=== PATIENT | male | born 1965 | race Caucasian/White ===

== ENCOUNTER 2018-08-04 11:32 | Emergency (ER) | payer SELFPAY ==
[2018-08-04 14:10] LABS: Protime INR 1.81
[2018-08-04 14:13] LABS: Absolute Lymphocytes (CBC) 0.7 K/uL (0.7-4.9); Absolute Monocytes 1.3 K/uL (0.1-1.3); Basophils % 0.2 % (0-1.3); Hematocrit 30.6 % (39.6-49.0); Lymphocytes % 4.6 % (15.3-44.8); MCH 32.6 pg (27.0-35.0); MCV 92.6 fL (80-100); MPV 9.2 fL (7.6-11.3); Monocytes % 8.1 % (3.3-12.3)
[2018-08-04] MEDS ORDERED: PANTOPRAZOLE 40 MG INJ ONE (14:20)
--- NOTE | 2018-08-04 14:23 | RAD REPORT ---
EXAM DESCRIPTION: RAD - Chest Single View - 08/04/2018 1:48 pm CLINICAL HISTORY: Leg pain and swelling, shortness of breath, cirrhosis COMPARISON: None. TECHNIQUE: AP portable chest image was obtained 1344 hours . FINDINGS: Lung volumes are low. Lung markings are prominent. Baseline is unknown. Therefore, early i nterstitial edema or infiltrate could be masked. Heart and vasculature are normal. No measurable pleu ral effusion and no pneumothorax. No acute bony abnormality seen. No acute aortic findings suspected. IMPRESSION: Atelectasis and prominent interstitial markings. Mild interstitial edema or infiltrate c annot be excluded. No focal consolidation or mass.
[2018-08-04 14:31] LABS: ALT/SGPT 20 U/L (12-78); AST/SGOT 36 U/L (15-37); Albumin 2.2 g/dL (3.4-5.0); Alkaline Phosphatase 110 U/L (45-117); BUN Blood Urea Nitrogen 31 mg/dL (7-18); Bicarbonate 21 mmol/L (21-32); Bilirubin Total 2.9 mg/dL (0.2-1.0); Glucose Level 139 mg/dL (74-106); Lipase 167 U/L (73-393); NT PRO-BNP 644 pg/mL (<125); Potassium 3.8 mmol/L (3.5-5.1); Protein, Total 6.5 g/dL (6.4-8.2); Sodium Level 133 mmol/L (136-145); Troponin (Emerg Dept Use Only) < 0.02 ng/mL (0.0-0.045)
[2018-08-04 14:33] LABS: Magnesium 1.4 mg/dL (1.8-2.4)
--- NOTE | 2018-08-04 15:21 | RAD REPORT ---
EXAM DESCRIPTION: US - Extrem Venous W Compress Aguilar - 08/04/2018 3:09 pm CLINICAL HISTORY: Leg pain and swelling COMPARISON: None. TECHNIQUE: Real-time sonographic evaluation of the bilateral lower extremity common femoral, superfi cial femoral, popliteal and posterior tibial veins was performed. FINDINGS: Normal compressibility, flow augmentation, phasic flow and spontaneous flow are identified in the left and right lower extremity common femoral, superficial femoral, popliteal and posterior t ibial veins. No intraluminal filling defects seen. Soft tissue edema present with no abscess or drain able fluid collection. IMPRESSION: No DVT in either lower extremity.
--- NOTE | 2018-08-04 16:09 | EDPHYS ---
Physician Documentation [facility] Name: Gorge Ross Age: 52 yrs Sex: Male : 1965 Arrival Date: 08/04/2018 Time: 11:34 Bed 26 Private MD: ED Physician Yan Garcia HPI: 08/04 13:10 This 52 yrs old Male presents to ER via Wheelchair with complaints of Leg Swelling. cp 13:10 The patient presents with pain, that is acute, swelling, tenderness. The complaints cp affect the right diaz, anterior aspect of right ankle and dorsum of right foot. Context: the patient can partially bear weight, the patient is able to ambulate, with moderate difficulty. Onset: The symptoms/episode began/occurred last week. Associated signs and symptoms: Pertinent positives: calf tenderness, swelling, warmth, erythema. Historical: - Allergies: 11:55 No Known Allergies; aj1 - Home Meds: 11:55 spironolactone 25 mg Oral tab 1 tab once daily [Active]; tramadol 50 mg Oral tab 2 tabs aj1 every 6 hours [Active]; amlodipine 10 mg tab 1 tab once daily [Active]; - PMHx: 11:55 Hypertension; Cirrhosis; aj1 - PSHx: 11:55 None; aj1 - Immunization history:: Flu vaccine is not up to date. - Social history:: Smoking status: Patient uses tobacco products, smokes one pack cigarettes per day. - Ebola Screening: : Patient denies travel to an Ebola-affected area in the 21 days before illness onset. ROS: 13:15 Constitutional: Negative for body aches, chills, fever, poor PO intake. cp 13:15 Eyes: Negative for injury, pain, redness, and discharge. cp 13:15 ENT: Negative for drainage from ear(s), ear pain, sore throat, difficulty swallowing, difficulty handling secretions. 13:15 Neck: Negative for pain with movement, pain at rest, stiffness, tenderness. 13:15 Cardiovascular: Positive for edema, Negative for chest pain, palpitations. 13:15 Respiratory: Negative for cough, hemoptysis, shortness of breath, wheezing. 13:15 Abdomen/GI: Positive for abdominal distension, Negative for abdominal pain, vomiting, diarrhea, constipation, black/tarry stool. 13:15 Back: Negative for pain at rest, pain with movement, radiated pain. 13:15 : Negative for injury or acute deformity. 13:15 MS/extremity: Positive for erythema, pain, swelling, tenderness, of the right lower leg, Negative for injury or acute deformity. 13:15 Neuro: Negative for altered mental status, headache, weakness. 13:15 All other systems are negative. Exam: 13:20 Constitutional: The patient appears in no acute distress, alert, awake, cp non-diaphoretic, non-toxic, well developed. 13:20 Head/Face: Normocephalic, atraumatic. cp 13:20 Eyes: Periorbital structures: appear normal, Pupils: equal, round, and reactive to light and accomodation, Extraocular movements: intact throughout, Conjunctiva: normal, no exudate, no injection, Sclera: no appreciated abnormality, Lids and lashes: appear normal, bilaterally. 13:20 ENT: External ear(s): are unremarkable, Ear canal(s): are normal, clear, TM's: are normal, no evidence of bulging, no erythema, Nose: is normal, Mouth: Lips: dry, Oral mucosa: moist, noted dark colored blood on tongue, Posterior pharynx: Airway: no evidence of obstruction, patent, Uvula: normal, swelling, is not appreciated, erythema, that is mild, Voice: is normal. 13:20 Neck: ROM/movement: is normal, is supple, without pain, no range of motions limitations, no meningismus, no nuchal rigidity. 13:20 Chest/axilla: Inspection: normal, Palpation: is normal, no crepitus, no tenderness. 13:20 Cardiovascular: Rate: tachycardic, Rhythm: regular, Edema: pedal edema, that is marked, ankle edema, that is marked, JVD: is not appreciated. 13:20 Respiratory: the patient does not display signs of respiratory distress, Respirations: normal, no use of accessory muscles, no retractions, no splinting, no tachypnea, labored breathing, is not present, Breath sounds: are clear throughout, no decreased breath sounds, no stridor, no wheezing. 13:20 Abdomen/GI: Inspection: distension, that is severe, Bowel sounds: active, all quadrants, Palpation: abdomen is soft and non-tender, in all quadrants, rebound tenderness, is not appreciated, involuntary guarding, is not appreciated, Rectal exam: Stool: brown, guaiac positive, Liver: is enlarged, Hernia: noted in the paraumbilical area and umbilical area. 13:20 Back: pain, is absent, ROM is normal. 13:20 Skin: Appearance: Color: jaundiced, Temperature: warm, cellulitis, well demarcated, on the right lower leg, appears circumferential. 13:20 Neuro: Orientation: to person, place \T\ time. Mentation: is normal, Cerebellar function: is grossly normal, Motor: is normal, Sensation: is normal. 13:33 ECG was reviewed by the Attending Physician. Vital Signs: 11:55 BP 106 / 65; Pulse 110; Resp 20; Temp 99.7; Pulse Ox 100% on R/A; Weight 81.65 kg (R); aj1 Height 5 ft. 7 in. (170.18 cm) (R); Pain 8/10; 13:00 BP 110 / 52; Pulse 114; Resp 20; Pulse Ox 100% ; aj1 14:00 BP 98 / 52; Pulse 100; Resp 18; Pulse Ox 97% on R/A; aj1 15:00 BP 95 / 66; Pulse 109; Resp 20; Pulse Ox 97% ; aj1 16:00 BP 102 / 58; Pulse 97; Resp 20; Pulse Ox 96% on R/A; aj1 17:00 BP 107 / 71; Pulse 96; Resp 18; Pulse Ox 97% on R/A; aj1 18:00 BP 112 / 62; Pulse 93; Resp 18; Pulse Ox 96% on R/A; aj1 11:55 Body Mass Index 28.19 (81.65 kg, 170.18 cm) [facility] MDM: 12:41 Patient medically screened. cp 15:25 Data reviewed: vital signs, nurses notes, lab test result(s), EKG, radiologic studies, cp plain films, ultrasound. 15:25 Test interpretation: by ED physician or midlevel provider: ECG, plain radiologic cp studies. 15:34 Physician consultation: DR Hayes, radio despatcher \T\[facility], will cp consult on patient and requests transfer to hospitalist services. 08/04 13:12 Order name: Lipase cp 08/04 13:12 Order name: Procalcitonin cp 08/04 13:12 Order name: AMMONIA; Complete Time: 14:32 cp / 14:33 Interpretation: Within normal limits: AIDEN 37. cp / 13:12 Order name: ETOH Level; Complete Time: 14:32 cp 08/04 13:12 Order name: Lactate; Complete Time: 14:32 cp / 15:33 Interpretation: Abnormal: LAC 2.7. cp / 13:12 Order name: Tylenol Level; Complete Time: 14:34 cp 08/04 13:12 Order name: Blood Culture Adult (2) cp 08/04 13:12 Order name: Basic Metabolic Panel; Complete Time: 14:34 cp 08/04 14:36 Interpretation: Normal except: NA 133; GLUC 139; BUN 31; GFR 58; CA 7.9. / 13:12 Order name: CBC with Diff 08/04 14:35 Interpretation: Normal except: WBC 16.1; RBC 3.30; HGB 10.8; HCT 30.6; PLT 65; ROSALIE% cp 87.1; LYM% 4.6; NEUT A 14.0. 08/04 13:12 Order name: LFT's; Complete Time: 14:35 08/04 14:35 Interpretation: Normal except: BILIT 2.9; BILID 2.0; ALB 2.2; GLOB 4.3; A/G 0.5. 08/04 13:12 Order name: Magnesium; Complete Time: 14:35 08/04 14:35 Interpretation: Abnormal: MG 1.4. 08/04 13:12 Order name: NT PRO-BNP; Complete Time: 14:36 08/04 13:12 Order name: PT-INR; Complete Time: 14:13 08/04 14:13 Interpretation: Abnormal: PT 21.5. 08/04 13:12 Order name: Troponin (emerg Dept Use Only); Complete Time: 14:36 08/04 13:12 Order name: US Extremity Venous W Compression Aguilar; Complete Time: 15:28 08/04 15:28 Interpretation: Report reviewed. 08/04 13:12 Order name: XRAY Chest (1 view); Complete Time: 14:32 08/04 13:13 Order name: Lipase; Complete Time: 14:34 EDMS 08/04 13:13 Order name: Procalcitonin; Complete Time: 15:00 EDMS 12/02 15:32 Interpretation: Procalcitonin 2.36; Reviewed. cp 08/04 14:16 Order name: Wound Culture 08/04 14:30 Order name: CBC Smear Scan EDAZ 08/04 14:39 Order name: ABO/RH typing EDAZ 08/04 14:39 Order name: Antibody Screen EDAZ 08/04 16:48 Order name: ABO/RH no charge EDAZ 08/04 13:12 Order name: EKG; Complete Time: 13:14 cp 08/04 13:12 Order name: Cardiac monitoring; Complete Time: 13:33 cp 08/04 13:12 Order name: EKG - Nurse/Tech; Complete Time: 13:33 cp 08/04 13:12 Order name: IV Saline Lock; Complete Time: 14:01 cp 08/04 13:12 Order name: Labs collected and sent; Complete Time: 14:01 cp 08/04 13:12 Order name: O2 Per Protocol; Complete Time: 13:33 cp 08/04 13:12 Order name: O2 Sat Monitoring; Complete Time: 13:33 cp EC:33 Rate is 96 beats/min. Rhythm is regular. SC interval is normal. QRS interval is normal. cp QT interval is normal. Interpreted by me. Reviewed by me. Administered Medications: 15:01 CANCELLED (Physician Discretion): NS 0.9% 500 ml IV at bolus once cp 15:30 Drug: Magnesium Sulfate 2 grams Route: IVPB; Infused Over: 2 hrs; Site: left aj1 antecubital; 15:33 CANCELLED (Physician Discretion): NS 0.9% 1000 ml IV at 1 bolus Per protocol; 1000 mL cp bolus 16:00 Drug: vancoMYCIN 1 grams Route: IVPB; Infused Over: 2 hrs; Site: left antecubital; aj1 16:20 CANCELLED (Physician Discretion): fentaNYL (PF) 25 mcg IVP once cp 16:32 Drug: ProTONIX 40 mg Route: IVP; Site: left antecubital; aj1 16:32 Drug: Vitamin K1 10 mg Route: Sub-Q; Site: right lower abdomen; aj1 16:46 Drug: Zosyn 3.375 grams Route: IVPB; Infused Over: 60 mins; Site: left antecubital; aj1 16:46 Drug: NS 0.9% (30 ml/kg) 30 ml/kg Route: IV; Rate: bolus; Site: left antecubital; aj1 16:47 Drug: fentaNYL (PF) 50 mcg Route: IVP; Site: left antecubital; aj1 18:07 Drug: ProTONIX 8 mg/hr Route: IV; Rate: 25 ml/hr; Site: left antecubital; aj1 Disposition: 08/05 07:36 Co-signature as Attending Physician, Yan Garcia MD I agree with the assessment and kristin plan of care. Disposition: 08/04/18 16:08 Transfer ordered to [facility]. Diagnosis are Other sepsis, Cellulitis of right lower limb, Alcoholic cirrhosis of liver with ascites, Gastrointestinal hemorrhage, unspecified. - Reason for transfer: Higher level of care. - Accepting physician is DR Benedict. - Condition is Stable. - Problem is new. - Symptoms have improved. Signatures: Dispatcher [employer] EDMS Katherine Deleon RN RN aj1 Anderson, Corey, MD MD cha Page, Corey, PA PA cp Corrections: (The following items were deleted from the chart) 08/04 14:36 14:34 Normal except: NA 133; GLUC 139; BUN 31; GFR 58. cp cp 14:39 13:14 TYPE AND SCREEN+BB.LAB.BRZ ordered. EDMS EDMS 15: 14:34 NS 0.9% 500 ml IV at bolus once ordered. cp cp 15:11 08/03 13:15 Constitutional: Negative for body aches, chills, fever, poor PO intake, cp cp 08/04 15:11 08/03 13:15 Eyes: Negative for injury, pain, redness, and discharge, cp cp 08/04 15:11 12 13:15 ENT: Negative for drainage from ear(s), ear pain, sore throat, difficulty cp swallowing, difficulty handling secretions, cp 08/04 15:11 12 13:15 Cardiovascular: Positive for edema, Negative for chest pain, palpitations, cp cp 08/04 15:11 12 13:15 Respiratory: Negative for cough, shortness of breath, wheezing, cp cp 08/04 15:11 12 13:15 Abdomen/GI: Positive for abdominal distension, Negative for abdominal pain, cp vomiting, diarrhea, constipation, black/tarry stool, cp 08/04 15:11 12 13:15 Back: Negative for pain at rest, pain with movement, radiated pain, cp cp 08/04 15:11 08/03 13:15 : Negative for urinary symptoms, flank pain, cp cp 08/04 15:11 12 13:15 Skin: Positive for cellulitis, of the right lower leg, cp cp 08/04 15:11 12 13:15 Neuro: Negative for altered mental status, headache, weakness, cp cp 08/04 15:11 12 13:15 All other systems are negative, cp 08/04 15:33 15:02 NS 0.9% 1000 ml IV at 1 bolus Per protocol; 1000 mL bolus ordered. cp cp 16:20 16:20 fentaNYL (PF) 25 mcg IVP once ordered. cp cp 16:33 16:08 08/04/2018 16:08 Transfer ordered to [facility]. Diagnosis is cp Other sepsis. Reason for transfer: Higher level of care. Accepting physician is DR Benedict. Condition is Stable. Problem is new. Symptoms have improved. cp 19:36 16:33 08/04/2018 16:08 Transfer ordered to [facility]. Diagnosis is aj1 Other sepsis; Cellulitis of right lower limb; Alcoholic cirrhosis of liver with ascites; Gastrointestinal hemorrhage, unspecified. Reason for transfer: Higher level of care. Accepting physician is DR Benedict. Condition is Stable. Problem is new. Symptoms have improved. cp
--- NOTE | 2018-08-04 16:09 | ER ---
Nurse's Notes [facility] Name: Gorge Ross Age: 52 yrs Sex: Male : 1965 Arrival Date: 08/04/2018 Time: 11:34 Bed 26 Private MD: Diagnosis: Other sepsis;Cellulitis of right lower limb;Alcoholic cirrhosis of liver with ascites;Gastrointestinal hemorrhage, unspecified Presentation: 08/04 11:49 Presenting complaint: Patient states: He was diagnosed with cirrhosis so he quit aj1 drinking 3 months ago. Now he's bleeding from his mouth, and he has swelling to his legs and abdomen. Edema noted to bilateral lower legs. Redness noted to right lower leg. Patient states that he is unable to walk due to the pain in his right leg. Transition of care: patient was not received from another setting of care. Onset of symptoms was July 2018. Risk Assessment: Do you want to hurt yourself or someone else? Patient reports no desire to harm self or others. Initial Sepsis Screen: Does the patient meet any 2 criteria? No. Patient's initial sepsis screen is negative. Does the patient have a suspected source of infection? Yes: Skin breakdown/wound. Initial Sepsis Screen: Does the patient meet any 2 criteria? HR > 90 bpm. No. Patient's initial sepsis screen is negative. Care prior to arrival: None. 11:49 Method Of Arrival: Wheelchair aj1 11:49 Acuity: FAITH 3 aj1 Triage Assessment: 11:55 General: Appears in no apparent distress. uncomfortable, ill, Behavior is calm, aj1 cooperative, appropriate for age. Pain: Complains of pain in right leg Pain currently is 8 out of 10 on a pain scale. Neuro: Level of Consciousness is awake, alert, obeys commands. Cardiovascular: Patient's skin is warm and dry. Respiratory: Reports. Respiratory: Reports shortness of breath on exertion Airway is patent Respiratory effort is even, unlabored, Respiratory pattern is regular, symmetrical. Historical: - Allergies: 11:55 No Known Allergies; aj1 - Home Meds: 11:55 spironolactone 25 mg Oral tab 1 tab once daily [Active]; tramadol 50 mg Oral tab 2 tabs aj1 every 6 hours [Active]; amlodipine 10 mg tab 1 tab once daily [Active]; - PMHx: 11:55 Hypertension; Cirrhosis; aj1 - PSHx: 11:55 None; aj1 - Immunization history:: Flu vaccine is not up to date. - Social history:: Smoking status: Patient uses tobacco products, smokes one pack cigarettes per day. - Ebola Screening: : Patient denies travel to an Ebola-affected area in the 21 days before illness onset. Screenin:00 Abuse screen: Denies threats or abuse. Denies injuries from another. Nutritional aj1 screening: No deficits noted. Tuberculosis screening: No symptoms or risk factors identified. 18:30 Fall Risk No fall in past 12 months (0 pts). Secondary diagnosis (15 points) impaired aj1 mobility, IV access (20 points). Ambulatory Aid- None/Bed Rest/Nurse Assist (0 pts). Gait- Impaired (20 pts.). Mental Status- Oriented to own ability (0 pts). Total Limon Fall Scale indicates High Risk Score (45 or more points). As available patient and family educated on Fall Prevention Program and Strategies. Assessment: 13:00 General: Appears in no apparent distress. uncomfortable, Behavior is calm, cooperative, aj1 appropriate for age. Pain: Complains of pain in right leg. Neuro: Level of Consciousness is awake, alert, obeys commands, Oriented to person, place, time, situation. Cardiovascular: Patient's skin is warm and dry. Cardiovascular: Heart tones S1 S2 present Edema is 3+ to left midcalf, left ankle, right midcalf and right ankle is 4+ to left foot and right foot Rhythm is sinus tachycardia. Respiratory: Reports shortness of breath on exertion Airway is patent Respiratory effort is even, unlabored, Respiratory pattern is regular, symmetrical. GI: Abdomen is round distended, noted to have ascites, Abd is rigid X 4 quads. Patient currently denies abdominal pain, diarrhea, nausea, vomiting. : No signs and/or symptoms were reported regarding the genitourinary system. EENT: No signs and/or symptoms were reported regarding the EENT system. Derm: Skin is jaundiced, redness noted to right lower leg. Musculoskeletal: Range of motion: intact in all extremities. 14:00 Reassessment: Patient appears in no apparent distress at this time. No changes from aj1 previously documented assessment. Patient and/or family updated on plan of care and expected duration. Pain level reassessed. Patient is alert, oriented x 3, equal unlabored respirations, skin warm/dry/pink. 14:29 Reassessment: Lactic acid 2.7, JOHN Heredia notified. hb 15:00 Reassessment: Patient and/or family updated on plan of care and expected duration. Pain aj1 level reassessed. General: Appears in no apparent distress. uncomfortable, Behavior is calm, cooperative, appropriate for age. Neuro: Level of Consciousness is awake, alert, obeys commands. Cardiovascular: Patient's skin is warm and dry. Rhythm is sinus rhythm. Respiratory: Airway is patent Respiratory effort is even, unlabored, Respiratory pattern is regular, symmetrical. GI: Abdomen is round distended, noted to have ascites. Derm: Skin is jaundiced. Musculoskeletal: Range of motion: intact in all extremities. 16:00 Reassessment: Patient appears in no apparent distress at this time. No changes from aj1 previously documented assessment. Patient and/or family updated on plan of care and expected duration. Pain level reassessed. Patient is alert, oriented x 3, equal unlabored respirations, skin warm/dry/pink. 16:40 Reassessment: Patient states that he is having a lot of pain to his right lower leg. aj1 Notified JOHN Stewart. Order received. 17:00 Reassessment: Patient states that the pain medication has taken his pain away. Rates aj1 pain at 0/10 at this time. 18:00 Reassessment: Patient and/or family updated on plan of care and expected duration. Pain aj1 level reassessed. General: Appears in no apparent distress. comfortable, Behavior is calm, cooperative, appropriate for age. Pain: Denies pain. Neuro: Level of Consciousness is awake, alert, obeys commands, Oriented to person, place, time, situation. Cardiovascular: Patient's skin is warm and dry. Rhythm is sinus rhythm. Respiratory: Airway is patent Respiratory effort is even, unlabored, Respiratory pattern is regular, symmetrical. GI: Abdomen is round distended, noted to have ascites. : No signs and/or symptoms were reported regarding the genitourinary system. Derm: Skin is jaundiced. Musculoskeletal: Range of motion: intact in all extremities. 18:30 Reassessment: Patient appears in no apparent distress at this time. No changes from aj1 previously documented assessment. Patient and/or family updated on plan of care and expected duration. Pain level reassessed. Patient is alert, oriented x 3, equal unlabored respirations, skin warm/dry/pink. Vital Signs: 11:55 BP 106 / 65; Pulse 110; Resp 20; Temp 99.7; Pulse Ox 100% on R/A; Weight 81.65 kg (R); aj1 Height 5 ft. 7 in. (170.18 cm) (R); Pain 8/10; 13:00 BP 110 / 52; Pulse 114; Resp 20; Pulse Ox 100% ; aj1 14:00 BP 98 / 52; Pulse 100; Resp 18; Pulse Ox 97% on R/A; aj1 15:00 BP 95 / 66; Pulse 109; Resp 20; Pulse Ox 97% ; aj1 16:00 BP 102 / 58; Pulse 97; Resp 20; Pulse Ox 96% on R/A; aj1 17:00 BP 107 / 71; Pulse 96; Resp 18; Pulse Ox 97% on R/A; aj1 18:00 BP 112 / 62; Pulse 93; Resp 18; Pulse Ox 96% on R/A; aj1 11:55 Body Mass Index 28.19 (81.65 kg, 170.18 cm) aj1 ED Course: 11:34 Patient arrived in ED. sb2 11:53 Triage completed. aj1 11:55 Arm band placed on Patient placed in waiting room, Patient notified of wait time. aj1 12:40 Yan Collins PA is PHCP. cp 12:40 Yan Garcia MD is Attending Physician. cp 13:00 Patient has correct armband on for positive identification. Bed in low position. Call aj1 light in reach. Side rails up X 1. bus driver/monitor on. Pulse ox on. NIBP on. 13:00 No provider procedures requiring assistance completed. aj1 13:32 EKG done, by ED staff, reviewed by Yan LOPEZ. jb1 13:35 First set of blood cultures drawn by me. jb1 13:47 X-ray completed. Portable x-ray completed in exam room. Patient tolerated procedure la2 well. 13:49 XRAY Chest (1 view) In Process Unspecified. EDMS 13:50 Second set of blood cultures drawn by me. jb1 13:58 Initial lab(s) drawn, by me, sent to lab. Inserted saline lock: 20 gauge in right jb1 antecubital area, using aseptic technique. Blood collected. 14:00 T\T\S collected, blood band applied to patient. jb1 14:07 Katherine Deleon, RN is Primary Nurse. aj1 14:15 IV discontinued, IV infilrated. IV dc'd catheter intact, no redness noted to site, aj1 pressure drsg applied. Patient otlerated well. 14:17 Missed attempt(s): 22 gauge in right antecubital area. Bleeding controlled, band aid aj1 applied, catheter tip intact. 14:20 Missed attempt(s): 22 gauge in right antecubital area. Bleeding controlled, band aid aj1 applied, catheter tip intact. 14:36 Inserted saline lock: 20 gauge in left antecubital area, using aseptic technique. hb 15:07 Ultrasound completed. Patient tolerated well. sg3 15:07 Notified LITERATURE PROFESSOR/PA yan with u/s prelim. sg3 15:10 US Extremity Venous W Compression Aguilar In Process Unspecified. EDMS 16:30 Missed attempt(s): 20 gauge in left antecubital area. by EVANGELISTA Robert. aj1 16:35 Inserted saline lock: 20 gauge in left antecubital area, using aseptic technique. aj1 ,using aseptic technique. by EVANGELISTA Robert. 18:07 Report given to Nina Hendricks RN at [facility]. aj1 Administered Medications: 15:01 CANCELLED (Physician Discretion): NS 0.9% 500 ml IV at bolus once cp 15:30 Drug: Magnesium Sulfate 2 grams Route: IVPB; Infused Over: 2 hrs; Site: left aj1 antecubital; 15:33 CANCELLED (Physician Discretion): NS 0.9% 1000 ml IV at 1 bolus Per protocol; 1000 mL cp bolus 16:00 Drug: vancoMYCIN 1 grams Route: IVPB; Infused Over: 2 hrs; Site: left antecubital; aj1 16:20 CANCELLED (Physician Discretion): fentaNYL (PF) 25 mcg IVP once cp 16:32 Drug: ProTONIX 40 mg Route: IVP; Site: left antecubital; aj1 16:32 Drug: Vitamin K1 10 mg Route: Sub-Q; Site: right lower abdomen; aj1 16:46 Drug: Zosyn 3.375 grams Route: IVPB; Infused Over: 60 mins; Site: left antecubital; aj1 16:46 Drug: NS 0.9% (30 ml/kg) 30 ml/kg Route: IV; Rate: bolus; Site: left antecubital; aj1 16:47 Drug: fentaNYL (PF) 50 mcg Route: IVP; Site: left antecubital; aj1 18:07 Drug: ProTONIX 8 mg/hr Route: IV; Rate: 25 ml/hr; Site: left antecubital; aj1 Outcome: 16:08 ER care complete, transfer ordered by MD. murphy 18:35 Patient left the ED. aj1 18:35 Transferred by ground EMS to [facility]. aj1 18:35 Condition: stable 18:35 Instructed on the need for transfer, Demonstrated understanding of instructions. Signatures: Dispatcher [employer] EDMS Joaquim Velez1 Katherine Deleon RN RN aj1 Yan Collins PA PA cp Baxter, Heather, RN RN Jailene Rome2 Barbara Au3 Gloria August2 Corrections: (The following items were deleted from the chart) 19:46 19:36 Patient left the ED. aj1 aj1
[2018-08-04] MEDS ORDERED: PIPER/TAZO/NS 3.375gm 3.375 GM/100 ML BAG ONE (16:20)
[2018-08-04] MEDS ORDERED: Magnesium Sulfate 2gm IVPB 2 G/50 ML BAG IV ONE (16:20)
[2018-08-04] MEDS ORDERED: VITAMIN K (ADULT) 10 MG/ML ONE (16:20)
[2018-08-04] MEDS ORDERED: VANCOMYCIN 1 GM/250 ML BAG ONE (16:20)
[2018-08-04] MEDS ORDERED: NA CHLORIDE 0.9% 2,000 ML ONE (16:21)
[2018-08-04 16:28] LABS: Blood Morphology Comment NOT SEEN (NOT SEEN); Platelet Estimate DECR; Toxic Granulation PRESENT; Urine White Blood Cell Casts OK
[2018-08-04] MEDS ORDERED: PANTOPRAZOLE INJ 80 MG in NA CHLORIDE 0.9% 250 ML IV SCH (17:00)
[2018-08-04] MEDS ORDERED: FENTANYL CITR 100 MCG/2 ML ONE (18:29)
--- NOTE | 2018-08-05 07:41 | EKG ---
Test Date: 2018-08-04 Test Time: 13:24:57 Building Principal: CHIRAG MEASUREMENT RESULTS: Intervals: Rate: 96 GA: 136 QRSD: 98 QT: 358 QTc: 452 Dustin: P: 75 GA: 136 QRS: 34 T: 5 INTERPRETIVE STATEMENTS: Normal sinus rhythm Normal ECG No previous ECG available for comparison Electronically Signed On 08-05-18 07:39:20 [employer]PER[employer] by Jefferson Trejo
== END 2018-08-04 19:36 | disposition short-term general hospital (02) ==
LOC: ER 11:32
DX: A41.89 Other specified sepsis (principal); K70.31 Alcoholic cirrhosis of liver with ascites; K92.2 Gastrointestinal hemorrhage, unspecified; I10 Essential (primary) hypertension; F17.210 Nicotine dependence, cigarettes, uncomplicated
CPT/HCPCS: 36415; 71045; 80048; 80076; 80320; 80329; 82140; 83605; 83690; 83735; 83880; 84145; 84484; 85025; 85610; 86850; 86900; 86901; 87040; 87070; 87077; 87186; 87205; 93005; 93970; 96372; 96374; 96375; 99285; C9113; J2543; J3010; J3370; J3430; J3475; J7030

== ENCOUNTER 2018-10-04 14:28 | Emergency (ER) | payer SELFPAY ==
--- OUTSIDE RECORDS SUMMARY | 2018-10-04 14:31 | XMS REPORT | Clinical Summary ---
:1965 Author Organization [facility] Address [address] [place] [address] Care Team Providers Name Role Phone Unavailable Primary Care Provider Unavailable Allergies No Known Allergies Medications Medication Sig Dispensed Refills Start Date End Date Status clindamycin (CLEOCIN) Take 1 capsule 30 capsule 0 08/07/2018 08/17/2018 300 MG capsule (300 mg total) by mouth 3 (three) times daily for 10 days. folic acid (FOLVITE) 1 Take 1 tablet 30 tablet 3 08/07/2018 09/06/2018 MG tablet (1 mg total) by mouth daily for 30 days. furosemide (LASIX) 40 Take 1 tablet 30 tablet 3 08/07/2018 09/06/2018 MG tablet (40 mg total) by mouth daily for 30 days. multivitamin Take 1 tablet 30 tablet 3 08/07/2018 09/06/2018 (THERAGRAN) tablet by mouth daily for 30 days. spironolactone Take 1 tablet 30 tablet 3 08/07/2018 09/06/2018 (ALDACTONE) 100 MG (100 mg total) tablet by mouth daily for 30 days. pantoprazole Take 1 tablet 60 tablet 2 08/07/2018 09/06/2018 (PROTONIX) 40 MG (40 mg total) tablet by mouth 2 (two) times daily for 30 days. Active Problems Problem Noted Date Alcoholic cirrhosis of liver with ascites 08/07/2018 Cellulitis of right lower extremity 08/05/2018 Gums, bleeding 08/05/2018 Thrombocytopenia 08/05/2018 Upper GI bleed 08/04/2018 Encounters Date Type Specialty Care Team Description 08/06/2018 Anesthesia Event Gastroenterology José Luis Teran MD 08/06/2018 Surgery Gastroenterology Schulte, Manreet, UPPER ENDOSCOPY,BIOPSY 08/04/2018 - Hospital Encounter Intensive Care Rafaelaa, Cellulitis of right lower extremity (Primary Dx); 08/07/2018 Eamon Bailey MD Gums, bleeding; Changela, Cirrhosis of liver with ascites, unspecified hepatic cirrhosis type (HCC); Nona Haji MD Thrombocytopenia (HCC); Jazz Upper GI bleed; Lyubov Aquinoa Portal hypertension (HCC); MD Armando Other ascites; Immunity status testing; Screening for malignant neoplasm 08/04/2018 Telephone Gastroenterology Tati Hayes Bleeding/Bruising MD Kina after 10/03/2017 Immunizations Name Dates Previously Given Next Due Hepatitis B Adult IM 08/06/2018 Social History Tobacco Use Types Packs/Day Years Used Date Current Every Day Smoker Cigarettes 1 30 Smokeless Tobacco: Never Used Tobacco Cessation: Counseling Given: No Alcohol Use Drinks/Week oz/Week Comments No Previously drank 6 shots of liquor and 2 beers daily for years. Last drink ~ 07/18/18. Alcohol Habits Answer Date Recorded How often do you have a drink containing alcohol? Never 08/04/2018 How many drinks containing alcohol do you have on a typical Not asked day when you are drinking? How often do you have six or more drinks on one occasion? Not asked Sex Assigned at Date Recorded Not on file Job Start Date Occupation Industry Not on file Not on file Not on file Travel History Travel Start Travel End No recent travel history available. Last Filed Vital Signs Vital Sign Reading Time Taken Blood Pressure 117/61 08/07/2018 7:25 AM CUSTOMER SERVICE ASSOCIATE Pulse 71 08/07/2018 7:25 AM CUSTOMER SERVICE ASSOCIATE Temperature 36.5 C (97.7 F) 08/07/2018 7:25 AM CUSTOMER SERVICE ASSOCIATE Respiratory Rate 17 08/07/2018 7:25 AM CUSTOMER SERVICE ASSOCIATE Oxygen Saturation 97% 08/07/2018 7:25 AM CUSTOMER SERVICE ASSOCIATE Inhaled Oxygen Concentration - - Weight 65.8 kg (145 lb 1 oz) 08/07/2018 5:00 AM CUSTOMER SERVICE ASSOCIATE Height 172.7 cm (5' 7.99") 08/04/2018 8:04 PM CUSTOMER SERVICE ASSOCIATE Body Mass Index 22.06 08/07/2018 5:00 AM CUSTOMER SERVICE ASSOCIATE Plan of Treatment Not on file Procedures Procedure Name Priority Date/Time Associated Diagnosis Comments RHYTHM STRIP - SCAN 08/13/2018 11:20 AM CUSTOMER SERVICE ASSOCIATE CBC W/PLT COUNT & Routine 08/07/2018 4:13 Results for this AUTO DIFFERENTIAL AM C[employer]OMER SERVICE ASSOCIATE procedure are in the results section. VANCOMYCIN LEVEL, Routine 08/07/2018 4:13 Results for this RANDOM AM C[employer]OMER SERVICE ASSOCIATE procedure are in the results section. PROTHROMBIN Routine 08/07/2018 4:13 Results for this TIME/INR AM C[employer]OMER SERVICE ASSOCIATE procedure are in the results section. HEPATIC FUNCTION Routine 08/07/2018 4:13 Results for this PANEL AM CUSTOMER SERVICE ASSOCIATE procedure are in the results section. BASIC METABOLIC Routine 08/07/2018 4:13 Results for this PANEL (7) AM CUSTOMER SERVICE ASSOCIATE procedure are in the results section. CBC W/PLT COUNT & Routine 08/07/2018 4:13 Results for this AUTO DIFFERENTIAL AM CUSTOMER SERVICE ASSOCIATE procedure are in the results section. TRANSFUSION SERVICE 08/06/2018 6:02 REPORT - SCAN PM CUSTOMER SERVICE ASSOCIATE VANCOMYCIN LEVEL, Timed 08/06/2018 4:34 Results for this TROUGH PM C[employer]OMER SERVICE ASSOCIATE procedure are in the results section. REPORT OF PROCEDURE 08/06/2018 1:49 - ENDOSCOPY URL PM CUSTOMER SERVICE ASSOCIATE TISSUE EXAM AP Routine 08/06/2018 1:16 Results for this PM C[employer]OMER SERVICE ASSOCIATE procedure are in the results section. UPPER 08/06/2018 12:00 Gastrointestinal ENDOSCOPY,BANDING PM C[employer]OMER SERVICE ASSOCIATE hemorrhage, unspecified gastrointestinal hemorrhage type Hepatic cirrhosis, unspecified hepatic cirrhosis type, unspecified whether ascites present (HCC) Special Needs Req: 12 - per Syedtasleem @ [phone] UPPER ENDOSCOPY,BIOPSY 08/06/2018 12:00 PM CUSTOMER SERVICE ASSOCIATE Gastrointestinal hemorrhage , unspecified gastrointestinal hemorrhage type Hepatic cirrhosis, unspecified hepatic cirrhosis type, unspecified whether ascites present (HCC) Special Needs Req: 12 - per Syedtasleem @ [phone] CBC W/PLT COUNT & AUTO Routine 08/06/2018 4:35 AM CUSTOMER SERVICE ASSOCIATE Results for this DIFFERENTIAL procedure are in the results section. PROTHROMBIN TIME/INR Routine 08/06/2018 4:35 AM CUSTOMER SERVICE ASSOCIATE HEPATIC FUNCTION PANEL Routine 08/06/2018 4:35 AM CUSTOMER SERVICE ASSOCIATE BASIC METABOLIC PANEL (7) Routine 08/06/2018 4:35 AM CUSTOMER SERVICE ASSOCIATE CBC W/PLT COUNT & AUTO Routine 08/06/2018 4:35 AM CUSTOMER SERVICE ASSOCIATE Results for this DIFFERENTIAL procedure are in the results section. HEMOGLOBIN AND HEMATOCRIT Routine 08/05/2018 10:51 PM CUSTOMER SERVICE ASSOCIATE TRANSFUSION SERVICE REPORT - 08/05/2018 6:00 PM CUSTOMER SERVICE ASSOCIATE SCAN HEPATITIS C PCR, Routine 08/05/2018 5:45 PM CUSTOMER SERVICE ASSOCIATE Results for this QUANTITATIVE procedure are in the results section. PROTEIN, BODY FLUID Routine 08/05/2018 5:18 PM CUSTOMER SERVICE ASSOCIATE LACTATE DEHYDROGENASE (LDH), Routine 08/05/2018 5:18 PM CUSTOMER SERVICE ASSOCIATE Results for this BODY FLUID procedure are in the results section. ALBUMIN, BODY FLUID Routine 08/05/2018 5:18 PM CUSTOMER SERVICE ASSOCIATE BODY FLUID CULTURE + GRAM Routine 08/05/2018 4:30 PM CUSTOMER SERVICE ASSOCIATE Results for this STAIN procedure are in the results section. BODY FLUID CELL COUNT WITH Routine 08/05/2018 4:30 PM CUSTOMER SERVICE ASSOCIATE Results for this DIFFERENTIAL procedure are in the results section. US PARACENTESIS Routine 08/05/2018 4:04 PM CUSTOMER SERVICE ASSOCIATE US ABDOMINAL WITH DOPPLER STAT 08/05/2018 2:30 PM CUSTOMER SERVICE ASSOCIATE AMMONIA Routine 08/05/2018 1:40 PM CUSTOMER SERVICE ASSOCIATE VITAMIN B12 AND FOLATE Routine 08/05/2018 1:40 PM CUSTOMER SERVICE ASSOCIATE VENOUS DOPPLER LEG, RIGHT STAT 08/05/2018 1:15 PM CUSTOMER SERVICE ASSOCIATE URINALYSIS W/ REFLEX URINE Routine 08/05/2018 3:56 AM CUSTOMER SERVICE ASSOCIATE Results for this CULTURE procedure are in the results section. (CELLAVISION MANUAL DIFF) Routine 08/05/2018 3:55 AM CUSTOMER SERVICE ASSOCIATE CBC W/PLT COUNT & AUTO Routine 08/05/2018 3:55 AM CUSTOMER SERVICE ASSOCIATE Results for this DIFFERENTIAL procedure are in the results section. PROTHROMBIN TIME/INR Routine 08/05/2018 3:55 AM CUSTOMER SERVICE ASSOCIATE HEPATIC FUNCTION PANEL Routine 08/05/2018 3:55 AM CUSTOMER SERVICE ASSOCIATE BASIC METABOLIC PANEL (7) Routine 08/05/2018 3:55 AM CUSTOMER SERVICE ASSOCIATE CBC W/PLT COUNT & AUTO Routine 08/05/2018 3:55 AM CUSTOMER SERVICE ASSOCIATE Results for this DIFFERENTIAL procedure are in the results section. VMIHI-2-[id number]\\, SERUM Routine 08/05/2018 3:55 AM CUSTOMER SERVICE ASSOCIATE ACTIN (SMOOTH MUSCLE) Routine 08/05/2018 3:55 AM CUSTOMER SERVICE ASSOCIATE Results for this ANTIBODY, IGG procedure are in the results section. ANTI-MITOCHONDRIAL AB, Routine 08/05/2018 3:55 AM CUSTOMER SERVICE ASSOCIATE REFLEX TO TITER ANTI-NUCLEAR ANTIBODY (HARITHA) Routine 08/05/2018 3:55 AM CUSTOMER SERVICE ASSOCIATE HEPATITIS C ANTIBODY Routine 08/05/2018 3:55 AM CUSTOMER SERVICE ASSOCIATE HEPATITIS B CORE ANTIBODY, Routine 08/05/2018 3:55 AM CUSTOMER SERVICE ASSOCIATE Results for this TOTAL procedure are in the results section. HEPATITIS B SURFACE ANTIGEN Routine 08/05/2018 3:55 AM CUSTOMER SERVICE ASSOCIATE HEPATITIS B SURFACE ANTIBODY Routine 08/05/2018 3:55 AM CUSTOMER SERVICE ASSOCIATE HEPATITIS A ANTIBODY, IGG Routine 08/05/2018 3:55 AM CUSTOMER SERVICE ASSOCIATE FERRITIN Routine 08/05/2018 3:55 AM CUSTOMER SERVICE ASSOCIATE IRON, TIBC, % SAT. (WITHOUT Routine 08/05/2018 3:55 AM CUSTOMER SERVICE ASSOCIATE Results for this FERRITIN) procedure are in the results section. CERULOPLASMIN Routine 08/05/2018 3:55 AM CUSTOMER SERVICE ASSOCIATE BLOOD CULTURE Routine 08/04/2018 11:29 PM CUSTOMER SERVICE ASSOCIATE BLOOD CULTURE Routine 08/04/2018 11:29 PM CUSTOMER SERVICE ASSOCIATE CBC W/PLT COUNT & AUTO Routine 08/04/2018 11:28 PM CUSTOMER SERVICE ASSOCIATE Results for this DIFFERENTIAL procedure are in the results section. TYPE AND SCREEN, AUTOMATED STAT 08/04/2018 11:28 PM CUSTOMER SERVICE ASSOCIATE LACTIC ACID, VENOUS, WHOLE Routine 08/04/2018 11:28 PM CUSTOMER SERVICE ASSOCIATE Results for this BLOOD procedure are in the results section. PT/APTT Routine 08/04/2018 11:28 PM CUSTOMER SERVICE ASSOCIATE COMPREHENSIVE METABOLIC Routine 08/04/2018 11:28 PM CUSTOMER SERVICE ASSOCIATE Results for this PANEL procedure are in the results section. CBC W/PLT COUNT & AUTO Routine 08/04/2018 11:28 PM CUSTOMER SERVICE ASSOCIATE Results for this DIFFERENTIAL procedure are in the results section. XR CHEST 1 VIEW TATYANA 08/04/2018 8:31 PM CUSTOMER SERVICE ASSOCIATE Results for this PORTABLE/BEDSIDE procedure are in the results section. after 10/03/2017 Results RHYTHM STRIP - SCAN (08/13/2018 11:20 AM CUSTOMER SERVICE ASSOCIATE) Narrative Performed At CBC with platelet count + automated diff (08/07/2018 4:13 AM CUSTOMER SERVICE ASSOCIATE)Only the most recent of4 resultswithin the time period is included. WBC 7.4 3.5 - 10.5 K/L [facility] RBC 3.08 (L) 4.63 - 6.08 M/L [facility] Hemoglobin 9.9 (L) 13.7 - 17.5 GM/DL [facility] Hematocrit 29.0 (L) 40.1 - 51.0 % [facility] MCV 94.2 (H) 79.0 - 92.2 fL [facility] MCH 32.1 25.7 - 32.2 pg [facility] MCHC 34.1 32.3 - 36.5 GM/DL [facility] RDW 14.8 (H) 11.6 - 14.4 % [facility] Platelets 52 (L) 150 - 450 K/CU MM [facility] MPV 11.3 9.4 - 12.4 fL [facility] nRBC 0 0 - 0 /100 WBC [facility] % Neutros 58 % [facility] % Lymphs 27 % [facility] % Monos 9 % [facility] % Eos 5 % [facility] % Baso 1 % [facility] # Neutros 4.29 1.78 - 5.38 K/L [facility] # Lymphs 2.00 1.32 - 3.57 K/L [facility] # Monos 0.64 0.30 - 0.82 K/L [facility] # Eos 0.35 0.04 - 0.54 K/L [facility] # Baso 0.05 0.01 - 0.08 K/L [facility] Immature Granulocytes-Relative 1 0 - 1 % [facility] Specimen Blood - Arm, Right Performing Organization Address [facility] Phone Number [address] [address] CENTER Prothrombin time/INR (08/07/2018 4:13 AM CUSTOMER SERVICE ASSOCIATE)Only the most recent of3 resultswithin the time period is included. Protime 21.5 (H) 11.7 - 14.7 seconds [facility] INR 1.9 <=5.9 [facility] Specimen Blood - Arm, Right Narrative Performed At RECOMMENDED COUMADIN/WARFARIN INR THERAPY [facility] RANGES STANDARD DOSE: 2.0 - 3.0 Includes: PROPHYLAXIS for venous thrombosis, systemic embolization; TREATMENT for venous thrombosis and/or pulmonary embolus. HIGH RISK: Target INR is 2.5-3.5 for patients with mechanical heart valves. Performing Organization Address [facility] Phone Number [address] [address] CENTER Vancomycin level, random (08/07/2018 4:13 AM CUSTOMER SERVICE ASSOCIATE) Vancomycin Rm 14.3 ug/mL [facility] Specimen Blood - Arm, Right Narrative Performed At Reference Range: No Normals [facility] Performing Organization Address City/[facility]/Zipcode Phone Number [address] [address] CENTER Hepatic function panel (08/07/2018 4:13 AM CUSTOMER SERVICE ASSOCIATE)Only the most recent of3 resultswithin the time period is included. Protein, Total 5.4 (L) 6.0 - 8.3 gm/dL [facility] Albumin 2.0 (L) 3.5 - 5.0 g/dL [facility] Total Bilirubin 2.2 (H) 0.2 - 1.2 mg/dL [facility] Bilirubin, Direct 1.5 (H) 0.1 - 0.5 mg/dL [facility] Alkaline Phosphatase 89 40 - 150 U/L [facility] AST 42 (H) 5 - 34 U/L [facility] ALT 18 6 - 55 U/L [facility] Specimen Blood - Arm, Right Performing Organization Address City/State/Zipcode Phone Number [facility] [address] [place] [address] [phone] CENTER Basic Metabolic Panel (08/07/2018 4:13 AM CUSTOMER SERVICE ASSOCIATE)Only the most recent of3 resultswithin the time period is included. Sodium 138 136 - 145 meq/L [facility] Potassium 3.5 3.5 - 5.1 meq/L [facility] Chloride 111 (H) 98 - 107 meq/L [facility] CO2 21 (L) 22 - 29 meq/L [facility] BUN 26 (H) 7 - 21 mg/dL [facility] Creatinine 0.89 0.57 - 1.25 mg/dL [facility] Glucose 93 70 - 105 mg/dL [facility] Calcium 7.7 (L) 8.4 - 10.2 mg/dL [facility] EGFR 90Comment: ESTIMATED GFR IS mL/min/1.73 sq m [facility] NOT ACCURATE [facility] CLEARANCE IN PREDICTING GLOMERULAR FILTRATION RATE. ESTIMATED GFR IS NOT APPLICABLE FOR DIALYSIS PATIENTS. Specimen Blood - Arm, Right Performing Organization Address City/State/Zipcode Phone Number [facility] [address] [place] [address] CENTER TRANSFUSION SERVICE REPORT - SCAN (08/06/2018 6:02 PM CUSTOMER SERVICE ASSOCIATE)Only the most recent of2 resultswithin the time period is included. Narrative Performed At Vancomycin level, trough (08/06/2018 4:34 PM CUSTOMER SERVICE ASSOCIATE) Vancomycin Tr 20.5 (H) 10.0 - 20.0 ug/mL [facility] Specimen Blood - Arm, Right Performing Organization Address [facility] Phone Number [facility] [address] [place] [address] CENTER REPORT OF PROCEDURE - ENDOSCOPY URL (08/06/2018 1:49 PM CUSTOMER SERVICE ASSOCIATE) Narrative Performed At Tissue Exam (08/06/2018 1:16 PM CUSTOMER SERVICE ASSOCIATE) Case Report Surgical Pathology Report Case: [id number] [facility] Authorizing Provider:Allyson Schulte MDCollected: 08/06/2018 1316 [facility] Ordering Location: [address] [place]: 08/06/2018 1512 Pathologist: Chana Villar MD Specimen:Biopsy, Gastric, bx for h pylori ADDENDUM This addendum is issued to report the result of immunohistochemical stain for Helicobacter pylori: [facility] - NEGATIVE [facility] CPT CPT CODE: 39103 The interpretation of this case included the use of immunohistochemistry or special stains. HELICOBACTER Immunohistochemistry technical testing was performed at [facility], Pathology Laboratory where it was developed and its performance characteristics were determined. It has not been cleared or approved by the U.S. Food and Drug Administration. The FDA has determined that such clearance or approval is not necessary. The test is used for clinical purposes. It should not be regarded as investigational or for research. This laboratory is certified under the Clinical Laboratory Improvement Amendments of 1988 (CLIA-88) as qualified to perform high complexity clinical laboratory testing. . DIAGNOSIS STOMACH, ENDOSCOPIC BIOPSY: [facility] - CHRONIC AND ACTIVE GASTRITIS [facility] - FOCAL POSSIBLE EROSION - NEGATIVE FOR DEFINITE HELICOBACTER PYLORI BY WARTHIN-STARRY STAIN - NO INTESTINAL METAPLASIA, DYSPLASIA OR MALIGNANCY Signing Pathologist Direct Phone Line: [phone] CPT Code(s) 04717 [facility] [id number] [facility] CLINICAL HISTORY Gastrointestinal hemorrhage, [facility] hepatic cirrhosis, rule out H. [facility] pylori SPECIMEN SOURCE Gastric biopsy [facility] GROSS DESCRIPTION The specimen is received in a [facility] formalin-filled container and [facility] labeled with the patient's information labeled "gastric biopsy' and consists of three fragments of pale etienne soft tissue measuring 0.2 to 0.4 cm, submitted entirely A1.CG/pl MICROSCOPIC DESCRIPTION A. Performed. [facility] SPECIAL STUDIES The interpretation of this case included the use of immunohistochemistry or special stains. [facility] Immunohistochemistry technical testing was performed at [facility], Pathology Laboratory where it was developed and its performance characteristics were determined. It has not be en cleared or approved by the U.S. Food and Drug Administration. The FDA has determined that such clearance or approval is not necessary. The test is used for clinical purposes. It should not be regarde d as investigational or for research. This laboratory is certified under the Clinical Laboratory Improvement Amendments of 1988 (CLIA-88) as qualified to perform high complexity clinical laboratory testing. Specimen Tissue - Biopsy, Gastric Performing Organization Address [facility] Phone Number [place] [id number] [place] [address] [phone] CENTER Hemoglobin and hematocrit (08/05/2018 10:51 PM CUSTOMER SERVICE ASSOCIATE) Hemoglobin 9.6 (L) 13.7 - 17.5 GM/DL [facility] Hematocrit 27.0 (L) 40.1 - 51.0 % [facility] Specimen Blood - Arm, Right Performing Organization Address [facility] Phone Number [facility] [address] [address] [place] Hepatitis C PCR, Quantitative (08/05/2018 5:45 PM CUSTOMER SERVICE ASSOCIATE) HCV PCR, Quantitative 60 (H) <15 IU/mL [facility] Specimen Blood - Arm, Right Narrative Performed At This test uses a Real-Time Polymerase Chain [facility] Reaction (RT-PCR) methodology and was performed using JEFF Ampliprep/JEFF TaqMan HCV test kit version 2.0 ([employer]). Reportable range for this assay is 15 - 100,000,000 IU per mL (1.18 - 8.00 Log IU/mL). Performing Organization Address City/State/[facility] Phone Number [address] [address] [place] Protein, body fluid (08/05/2018 5:18 PM CUSTOMER SERVICE ASSOCIATE) Protein, Fluid 0.8 g/dL [facility] Specimen Body Fluid - Ascites Narrative Performed At Absence of reference range indicates that [facility] normals have not been defined. Assay performance has not been validated for this type of specimen. Performing Organization Address City[facility] Phone Number [address] [id number] [phone] [place] Lactate dehydrogenase (LDH), body fluid (08/05/2018 5:18 PM CUSTOMER SERVICE ASSOCIATE) LDH, Fluid <90 U/L [facility] Specimen Body Fluid - Ascites Narrative Performed At Absence of reference range indicates that [facility] normals have not been defined. Assay performance has not been validated for this type of specimen. Performing Organization Address City/State/Zipcode Phone Number [address] [address] [place] Albumin, body fluid (08/05/2018 5:18 PM CUSTOMER SERVICE ASSOCIATE) Albumin, Fluid 0.4 gm/dL [facility] Specimen Body Fluid - Ascites Narrative Performed At Reference Range:No Normals [facility] Assay performance has not been validated for this type of specimen. Performing Organization Address [facility] Phone Number [address] [address] [place] Body fluid culture + gram stain (08/05/2018 4:30 PM CUSTOMER SERVICE ASSOCIATE) Result No growth [facility] Gram Stain Result <1+ WBCs [facility] Gram Stain Result No organisms seen [facility] Specimen Body Fluid - Ascites Performing Organization Address [facility] Phone Number [address] [address] [place] Body fluid cell count with differential (08/05/2018 4:30 PM CUSTOMER SERVICE ASSOCIATE) Appearance Slightly Hazy (A) Clear [facility] Color Yellow (A) Colorless, Straw [facility] RBCs 230 (H) <=1 /cu mm [facility] Adjusted WBC Count 216 (H) <=5 /cu mm [facility] Lining Cells 4 (H) <=1 /cu mm [facility] % Segs 3 % [facility] % Lymphs 76 % [facility] % Monos 21 % [facility] % Eos 0 % [facility] % Baso 0 % [facility] Container Body Fluid EDTA Tube [facility] Specimen Body Fluid - Ascites Performing Organization Address [facility] Phone Number [address] [address] [phone] [place] US paracentesis (08/05/2018 4:04 PM CUSTOMER SERVICE ASSOCIATE) Narrative Performed At FINAL REPORT [employer] Procedure: Ultrasound Guided Paracentesis: Pre procedure Diagnosis: Ascites Post procedure Diagnosis: Same Sedation: None Local anesthesia: 1% Xylocaine. Description/findings: The risks, benefits, and alternatives of the procedure were explained. Questions were answered, and informed, written consent was then obtained. The right lower quadrant was prepped and draped and local anesthesia given. A 5 F paracentesis catheter was inserted into the peritoneal space and 7600 cc of clear yellow ascites was aspirated. Specimen were collected for the lab. No immediate complications were noted. Estimated blood loss: none. Impression: Uncomplicated ultrasound-guided paracentesis performed by Hoa Lord PA-C. Signed: Toni Parr MD Report Verified Date/Time:08/06/2018 11:05:30 Reading Location: [facility] B1 [id number] Ortho Consult Reading Room Procedure Note Interface, External Ris In - 08/06/2018 11:07 AM CUSTOMER SERVICE ASSOCIATE FINAL REPORT Procedure: Ultrasound Guided Paracentesis: Pre procedure Diagnosis: Ascites Post procedure Diagnosis: Same Sedation: None Local anesthesia: 1% Xylocaine. Description/findings: The risks, benefits, and alternatives of the procedure were explained. Questions were answered, and informed, written consent was then obtained. The right lower quadrant was prepped and draped and local anesthesia given. A 5 F paracentesis catheter was inserted into the peritoneal space and 7600 cc of clear yellow ascites was aspirated. Specimen were collected for the lab. No immediate complications were noted. Estimated blood loss: none. Impression: Uncomplicated ultrasound-guided paracentesis performed by Hoa Lord PA-C. Signed: Toni Prar MD Report Verified Date/Time: 08/06/2018 11:05:30 Reading Location: [facility] B1 [id number] Ortho Consult Reading Room Performing Organization Address City/State/Zipcode Phone Number [facility] US abdominal with doppler (08/05/2018 2:30 PM CUSTOMER SERVICE ASSOCIATE) Narrative Performed At FINAL REPORT [facility] Abdominal Doppler Ultrasound Clinical Diagnosis: Abdominal distention with new diagnosis of cirrhosis Comparison: No comparison Technique: Multiple transaxial and longitudinal images were obtained through the abdomen with real time ultrasonography.In addition, color Doppler and spectral waveform analysis evaluation of the abdominal vasculature was performed.FiveMHz transducer was utilized.102 images were submitted for interpretation. Report: Liver: The liver measures 17.8 cm in the right midaxillary line. There are no focal masses.The echogenicity is increased and heterogeneous. Spleen: The spleen measures 15.5 cm in the left mid axillary line. Gallbladder: The transverse diameter is 3.5 cm.The wall measures eight mm.There are no shadowing stones visualized. Biliary tree: There is no evidence of intra or extra hepatic biliary ductal dilatation.The common bile duct measures six mm. Portal vein: The portal vein measures 14 mm. Pancreas:The pancreatic tail is not well seen secondary to overlying bowel gas. Ascites: Moderate Pleural Effusion: Negative Right kidney: The right kidney measures 11.8 cm in length without evidence of hydronephrosis. Left kidney: Theleft kidney measures 12.4 cm in length without evidence of hydronephrosis. Midline abdominal structures: Maximum transverse dimension of the aorta is 2.8 cm IVC: Patent Hepatic veins: Visualized with phasic venous waveforms Aorta dimensions: Maximum transverse dimension of the aorta is 2.8 cm Hepatic arteries: The proper hepatic, right hepatic and left hepatic arteries are well-visualized but nonspecific increase in the resistive indices and a normal arterial waveform Portal vein:The peak systolic velocity measured 24 cm/sec which is normal. The direction of flow is hepatopedal. The right portal vein is well-visualized with hepatopedal flow.The left portal vein is well-visualized with hepatopedal flow. Splenic vein:The splenic vein at the portal confluence is well-visualized and demonstrates hepatopedal flow. Impression: Ascites. Hepatosplenomegaly. Cirrhosis. The thickening of the gallbladder wall is likely secondary to hypoproteinemia. The gallbladder is not distended and there were no gallstones identified. Nonspecific increased resistive indices throughout the hepatic arterial circulation. Hepatopedal flow documented throughout the splenic vein and portal vein. Signed: Tracee Cuellar MD Report Verified Date/Time:08/05/2018 18:58:24 Reading Location: [facility] [id number] Ultrasound Reading Room Procedure Note Interface, External Ris In - 08/05/2018 7:00 PM CUSTOMER SERVICE ASSOCIATE FINAL REPORT Abdominal Doppler Ultrasound Clinical Diagnosis: Abdominal distention with new diagnosis of cirrhosis Comparison: No comparison Technique: Multiple transaxial and longitudinal images were obtained through the abdomen with real time ultrasonography. In addition, color Doppler and spectral waveform analysis evaluation of the abdominal vasculature was performed. Five MHz transducer was utilized. 102 images were submitted for interpretation. Report: Liver: The liver measures 17.8 cm in the right midaxillary line. There are no focal masses. The echogenicity is increased and heterogeneous. Spleen: The spleen measures 15.5 cm in the left mid axillary line. Gallbladder: The transverse diameter is 3.5 cm. The wall measures eight mm. There are no shadowing stones visualized. Biliary tree: There is no evidence of intra or extra hepatic biliary ductal dilatation. The common bile duct measures six mm. Portal vein: The portal vein measures 14 mm. Pancreas: The pancreatic tail is not well seen secondary to overlying bowel gas. Ascites: Moderate Pleural Effusion: Negative Right kidney: The right kidney measures 11.8 cm in length without evidence of hydronephrosis. Left kidney: The left kidney measures 12.4 cm in length without evidence of hydronephrosis. Midline abdominal structures: Maximum transverse dimension of the aorta is 2.8 cm IVC: Patent Hepatic veins: Visualized with phasic venous waveforms Aorta dimensions: Maximum transverse dimension of the aorta is 2.8 cm Hepatic arteries: The proper hepatic, right hepatic and left hepatic arteries are well-visualized but nonspecific increase in the resistive indices and a normal arterial waveform Portal vein: The peak systolic velocity measured 24 cm/sec which is normal. The direction of flow is hepatopedal. The right portal vein is well-visualized with hepatopedal flow. The left portal vein is well-visualized with hepatopedal flow. Splenic vein: The splenic vein at the portal confluence is well-visualized and demonstrates hepatopedal flow. Impression: Ascites. Hepatosplenomegaly. Cirrhosis. The thickening of the gallbladder wall is likely secondary to hypoproteinemia. The gallbladder is not distended and there were no gallstones identified. Nonspecific increased resistive indices throughout the hepatic arterial circulation. Hepatopedal flow documented throughout the splenic vein and portal vein. Signed: Tracee Cuellar MD Report Verified Date/Time: 08/05/2018 18:58:24 Reading Location: [place] [id number] Ultrasound Reading Room Performing Organization Address [facility] Phone Number [facility] Vitamin B12 and Folate (08/05/2018 1:40 PM CUSTOMER SERVICE ASSOCIATE) Vitamin B12 >2000 (H) 213 - 816 pg/mL [facility] Folate 1.7 (L) >=7.0 ng/mL [facility] Specimen Blood - Arm, Left Performing Organization Address [facility] Phone Number [facility] [address] [place] [address] [phone] CENTER Ammonia (08/05/2018 1:40 PM CUSTOMER SERVICE ASSOCIATE) Ammonia 41 18 - 72 mol/L [facility] Specimen Blood - Arm, Left Performing Organization Address [facility] Phone Number [address] [address] [phone] [place] Venous doppler leg, right (08/05/2018 1:15 PM CUSTOMER SERVICE ASSOCIATE) Ejection Fraction [facility] CPACS Impressions Performed At Right Impression [facility] 1. There is no deep venous obstruction in the common femoral, profunda femoral, femoral, popliteal, posterior tibial or peroneal veins. 2. There is no superficial venous obstruction in the great saphenous vein. Conclusions Summary Venous duplex imaging and compression of the right lower extremity was performed. The veins were adequately visualized. The right venous system was patent and compressible with no evidence of thrombus. The venous Doppler waveforms were phasic with respiration . Signature Velocities are measured in cm/s ; Diameters are measured in cm Narrative Performed At PV LAB - Lower Extremities DVT Study [facility] Demographics Patient Name AUGUSTINE SNOWDate of Study 08/05/2018 [id number] Age 52 Visit Number [id number] GenderMale Accession Number [id number] Date of 1965 [facility] Room Number C718 MD Erwin SonographerKentrell Becker Physician Procedure Type of Study: Veins: Lower Extremities DVT Study, VENOUS DOPPLER LEG, RIGHT. Indications for Study:Swelling. Patient Status:Routine. Study Location:Portable. Technical Quality:Adequate visualization. Risk Factors History of Disease +---------+----+ + !Diagnosis!Date!Comments ! +---------+----+ + !Other!!Cellulitis of Right Leg, ETOH Abuse, Cirrhosis ! +---------+----+ + Procedure Note Interface, External Ris In - 08/06/2018 11:20 PM CUSTOMER SERVICE ASSOCIATE PV [facility] - Lower Extremities DVT Study Demographics Patient Name AUGUSTINE SNOW Date of Study 08/05/2018 Age 52 Visit Number [id number] Gender Male Accession Number [id number] Date of 1965 Referring Peggy Room Number C718 Physician MD Alysia Director Of Corporate Sponsorships Kentrell Brown [facility] Interpreting Malgorzata Becker, Physician Procedure Type of Study: Veins: Lower Extremities DVT Study, VENOUS DOPPLER LEG, RIGHT. Indications for Study:Swelling. Patient Status:Routine. Study Location:Portable. Technical Quality:Adequate visualization. Risk Factors History of Disease +---------+----+ + !Diagnosis!Date!Comments ! +---------+----+ + !Other ! !Cellulitis of Right Leg, ETOH Abuse, Cirrhosis ! +---------+----+ + Impressions Right Impression 1. There is no deep venous obstruction in the common femoral, profunda femoral, femoral, popliteal, posterior tibial or peroneal veins. 2. There is no superficial venous obstruction in the great saphenous vein. Conclusions Summary Venous duplex imaging and compression of the right lower extremity was performed. The veins were adequately visualized. The right venous system was patent and compressible with no evidence of thrombus. The venous Doppler waveforms were phasic with respiration . Signature Velocities are measured in cm/s ; Diameters are measured in cm Performing Organization Address [facility] Phone Number [facility] Urinalysis w/Microscopic + Reflex to Culture (08/05/2018 3:56 AM CUSTOMER SERVICE ASSOCIATE) Color, UA Yellow [facility] Clarity, UA Clear [facility] Specific Morley, UA 1.013 1.001 - 1.035 [facility] pH, UA 5.5 5.0 - 8.0 [facility] Protein, UA Negative Negative [facility] Glucose, UA Negative Negative [facility] Ketones, UA Negative Negative [facility] Bilirubin, UA Negative Negative [facility] Blood, UA Trace (A) Negative [facility] Nitrite, UA Negative Negative [facility] Leukocytes, UA Negative Negative [facility] Urobilinogen, UA 3.0 (H) 0.2 - 1.0 mg/dL [facility] RBC, UA 2 /HPF [facility] WBC, UA 1 /HPF [facility] Hyaline Casts, UA 1 /LPF [facility] Amorphous Crystals Rare [facility] Specimen Source [facility] Specimen Urine Performing Organization Address City/[facility]/Zipcode Phone Number [facility] [address] [place] [address] CENTER Hepatitis A antibody, IgG (08/05/2018 3:55 AM CUSTOMER SERVICE ASSOCIATE) Hep A IgG Reactive (A) Nonreactive [facility] Specimen Blood - Arm, Right Performing Organization Address City/State/Zipcode Phone Number [facility] [address] [place] [address] [place] Anti-Mitochondrial Ab, reflex to titer (08/05/2018 3:55 AM CUSTOMER SERVICE ASSOCIATE) Scan Result [facility] Specimen Blood - Arm, Right Narrative Performed At Performing Organization Address City/State/Zipcode Phone Number [place] [address] [facility] [id number] [employer] Redefined Manual Differential (08/05/2018 3:55 AM CUSTOMER SERVICE ASSOCIATE) % Neutros 73 % [facility] % Lymphs 9 % [facility] % Monos 8 % [facility] % Bands 10 0 - 10 % [facility] # Neutros 12.63 (H) 1.78 - 5.38 K/ul [facility] # Lymphs 1.56 1.32 - 3.57 K/ul [facility] # Monos 1.38 (H) 0.30 - 0.82 K/uL [facility] # Bands 1.73 (H) 0.00 - 0.80 K/uL [facility] Total Counted 100 [facility] Platelet Morphology Normal [facility] Toxic Granulation Present [facility] Anisocytosis 1+ few [facility] Poikilocytes 2+ moderate [facility] Kimberly Cells 2+ moderate [facility] Artifact Present [facility] Platelet Conc Decreased [facility] Specimen Blood - Arm, Right Narrative Performed At Received comment: [facility] User comments: Slide comments: Performing Organization Address City/[facility]/Zipcode Phone Number [facility] [address] [place] [address] CENTER Iron, TIBC, % sat. (without ferritin) (08/05/2018 3:55 AM CUSTOMER SERVICE ASSOCIATE) Iron 22 (L) 40 - 160 ug/dL [facility] TIBC 121 (L) 250 - 450 ug/dL [facility] Iron % Saturation 18 (L) 20 - 55 % [facility] Specimen Blood - Arm, Right Performing Organization Address [facility] Phone Number [address] [address] [place] Hepatitis C antibody (08/05/2018 3:55 AM CUSTOMER SERVICE ASSOCIATE) Hepatitis C Ab Reactive (A) Nonreactive [facility] Specimen Blood - Arm, Right Performing Organization Address [facility] Phone Number [address] [address] [place] Actin (Smooth Muscle) Antibody, IgG (08/05/2018 3:55 AM CUSTOMER SERVICE ASSOCIATE) Anti-Smooth Muscle Ab 31 (H) See Note: U [facility] Comment: [facility]PORATED Reference Range: <20 NEGATIVE > OR=20 POSITIVE Antibodies recognizing actin are the main component of smooth muscle antibodies associated with autoimmune liver disease. Actin antibodies are found in approximately 75% of patients with autoimmune hepatitis (AIH) type 1, approximately 65% of patients with autoimmune cholangitis, approximately 30% of patients with primary biliary cirrhosis, and approximately 2% of healthy people. High values are closely correlated with AIH type 1. Specimen Blood - Arm, Right Narrative Performed At Performing Lab [facility] [place] [address] [place] [address] Rainer Michelle MD, PhD, AIMEE Performing Organization Address [facility] Phone Number [place] [address] INCORPOR[facility] [address] [facility] [id number] (08/05/2018 3:55 AM CUSTOMER SERVICE ASSOCIATE) A-1 Antitrypsin 223.10 (H) 90.00 - 200.00 mg/dL [facility] Specimen Blood - Arm, Right Performing Organization Address [facility] Phone Number [facility] [address] [place] [address] [phone] CENTER Ceruloplasmin (08/05/2018 3:55 AM CUSTOMER SERVICE ASSOCIATE) Ceruloplasmin 26 18 - 36 mg/dL [facility] Comment: Adults:Males: 18-36 mg/dL Females: 18-53 mg/dL Pediatrics:Males (mg/dL)Females (mg/dL) 0-30 Days 8-25 3-28 31 Days-11 Month [id number] 1-3 [id number] 4-6 [id number] 7-9 [id number] 10-12 [id number] 13-15 [id number] 16-18 [id number] The pediatric ranges are derived from the following criteria: Margy SJ, Mae JM, Kathleen J et al Pediatric reference ranges for Dhss-7-Hzaretnmoknnh and ceruloplasmin. Clin. Chem 1997; 43:S1999 Pediatric Reference Ranges, 2nd., [place] Margyet al. editors. [employer], [place], [place] 1997. Specimen Blood - Arm, Right Narrative Performed At Performing Lab [facility] *SPL [facility], [address] [place] [phone] Harper Akins MD, PhD Performing Organization Address [facility] Phone Number [place] [address] [facility]ORPORATED [address] [facility] Hepatitis B core antibody, total (08/05/2018 3:55 AM CUSTOMER SERVICE ASSOCIATE) Hep B Core Total Ab NON-REACTIVE Nonreactive [facility] Specimen Blood - Arm, Right Performing Organization Address [facility] Phone Number [address] [address] [phone] [place] Hepatitis B surface antibody (08/05/2018 3:55 AM CUSTOMER SERVICE ASSOCIATE) Hep B S Ab <8.0 <8.0 mIU/mL [facility] Specimen Blood - Arm, Right Performing Organization Address [facility] Phone Number [address] [address] [place] Hepatitis B surface antigen (08/05/2018 3:55 AM CUSTOMER SERVICE ASSOCIATE) hepatitis B Surface Ag NON-REACTIVE Nonreactive [facility] Specimen Blood - Arm, Right Performing Organization Address [facility] Phone Number [address] [address] [place] Anti-Nuclear Antibody (HARITHA) (08/05/2018 3:55 AM CUSTOMER SERVICE ASSOCIATE) HARITHA Negative Negative [facility] Specimen Blood - Arm, Right Narrative Performed At Test performed by IFA method. [facility] Test performed by IFA method. Performing Organization Address [facility] Phone Number [address] [address] [phone] CENTER Ferritin (08/05/2018 3:55 AM CUSTOMER SERVICE ASSOCIATE) Ferritin 548 (H) 5 - 275 ng/mL [facility] Specimen Blood - Arm, Right Performing Organization Address [facility] Phone Number [address] [address] CENTER Blood culture (08/04/2018 11:29 PM CUSTOMER SERVICE ASSOCIATE)Only the most recent of2 resultswithin the time period is included. Result No growth in 5 days [facility] Specimen Blood - Arm, Right Performing Organization Address City/[facility]/Zipcode Phone Number [address] [address] CENTER Type and screen, automated (08/04/2018 11:28 PM CUSTOMER SERVICE ASSOCIATE) ABO/RH AUTOMATED (BEAKER) O NEGATIVE [facility] Ab Scrn NEGATIVE [facility] Specimen Blood - Arm, Right Performing Organization Address [facility] Phone Number [address] [address] PT/aPTT (08/04/2018 11:28 PM CUSTOMER SERVICE ASSOCIATE) Protime 20.9 (H) 11.7 - 14.7 seconds [facility] INR 1.8 <=5.9 [facility] PTT 39.9 (H) 22.5 - 36.0 seconds [facility] Specimen Blood - Arm, Right Narrative Performed At RECOMMENDED COUMADIN/WARFARIN INR THERAPY [facility] RANGES STANDARD DOSE: 2.0 - 3.0 Includes: PROPHYLAXIS for venous thrombosis, systemic embolization; TREATMENT for venous thrombosis and/or pulmonary embolus. HIGH RISK: Target INR is 2.5-3.5 for patients with mechanical heart valves. Performing Organization Address [facility] Phone Number [address] [address] [phone] CENTER Lactic acid, venous, whole blood (08/04/2018 11:28 PM CUSTOMER SERVICE ASSOCIATE) Lactate, Venous 1.2Comment: Specimen 0.5 - 2.2 mmol/L [facility] slightly hemolyzed [facility] Specimen Blood - Arm, Right Narrative Performed At Specimen slightly icteric [facility] Performing Organization Address [facility] Phone Number [address] [address] [phone] CENTER Comprehensive metabolic panel (08/04/2018 11:28 PM CUSTOMER SERVICE ASSOCIATE) Protein, Total 5.6 (L) 6.0 - 8.3 gm/dL [facility] Albumin 2.1 (L) 3.5 - 5.0 g/dL [facility] Alkaline Phosphatase 87 40 - 150 U/L [facility] Total Bilirubin 3.3 (H) 0.2 - 1.2 mg/dL [facility] Sodium 131 (L) 136 - 145 meq/L [facility] Potassium 3.7 3.5 - 5.1 meq/L [facility] Chloride 105 98 - 107 meq/L [facility] CO2 19 (L) 22 - 29 meq/L [facility] BUN 28 (H) 7 - 21 mg/dL [facility] Creatinine 0.92 0.57 - 1.25 mg/dL [facility] Glucose 111 (H) 70 - 105 mg/dL [facility] Calcium 7.6 (L) 8.4 - 10.2 mg/dL [facility] AST 30 5 - 34 U/L [facility] ALT 15 6 - 55 U/L [facility] EGFR 87Comment: ESTIMATED GFR mL/min/1.73 sq m [facility] IS NOT ACCURATE [facility] CREATININE CLEARANCE IN PREDICTING GLOMERULAR FILTRATION RATE. ESTIMATED GFR IS NOT APPLICABLE FOR DIALYSIS PATIENTS. Specimen Blood - Arm, Right Narrative Performed At Specimen slightly icteric [facility] Performing Organization Address City/State/Zipcode Phone Number [facility] [address] [place] [address] CENTER XR chest 1 view portable / bedside (08/04/2018 8:31 PM CUSTOMER SERVICE ASSOCIATE) Narrative Performed At FINAL REPORT [employer] Chest, 1 view. History: Sepsis Comparison: None available. Impression: Low lung volumes. The cardiomediastinal silhouette and pulmonary vasculature are within normal limits for a portable exam. Bandlike opacity in the right infrahilar region and left base favored to represent atelectasis. Nodular opacity in the left upper lung measuring 2.6 x 1.1 cm unclear etiology, differential considerations include neoplasm versus consolidative opacity in the setting of infection CT chest would be helpful for further evaluation. No pleural effusion. No pneumothorax.The soft tissues and osseous structures are intact. Signed: Tone Pa MD Report Verified Date/Time:08/04/2018 22:21:18 Reading Location: [address] Transitional Reading Room Procedure Note Interface, External Ris In - 08/04/2018 10:23 PM CUSTOMER SERVICE ASSOCIATE FINAL REPORT Chest, 1 view. History: Sepsis Comparison: None available. Impression: Low lung volumes. The cardiomediastinal silhouette and pulmonary vasculature are within normal limits for a portable exam. Bandlike opacity in the right infrahilar region and left base favored to represent atelectasis. Nodular opacity in the left upper lung measuring 2.6 x 1.1 cm unclear etiology, differential considerations include neoplasm versus consolidative opacity in the setting of infection CT chest would be helpful for further evaluation. No pleural effusion. No pneumothorax. The soft tissues and osseous structures are intact. Signed: Tone Pa MD Report Verified Date/Time: 08/04/2018 22:21:18 Reading Location: [address] Transitional Reading Room Performing Organization Address City/State/Zipcode Phone Number GE RIS after 10/03/2017 Advance Directives For more information, please contact:[address] [phone] Code Status Date Activated Date Inactivated Comments Full Code 08/04/2018 8:10 PM This code status was determined by: Patient
--- OUTSIDE RECORDS SUMMARY | 2018-10-04 14:32 | XMS REPORT ---
:1965 [facility] [address] [place] [address] Dr. Mcneill [address] [place] [id number] Care Team Providers Name Role Phone SOLEDAD BYRNESJacqueline Bailey Unavailable Unavailable Problems This patient has no known problems. Allergies, Adverse Reactions, Alerts This patient has no known allergies or adverse reactions. Medications This patient has no known medications. Results Test Description Test Time Test Comments Text Results Atomic Results Result Comments BLOOD CULTURE 2018-08-10 10:00:00 Test Item Value Reference Range Comments CULTURE (BEAKER) (test pcij=6051) No growth in 5 days BLOOD [id number] 10:00:00 Test Item Value Reference Range Comments CULTURE (BEAKER) (test hsrv=0007) No growth in 5 days ANTI-MITOCHONDRIAL AB, REFLEX TO [id number] 10:54:00 Test Item Value Reference Range Comments SCAN RESULT (test unoi=[id number]) BODY FLUID CULTURE + GRAM [id number] 14:35:00 Test Item Value Reference Range Comments CULTURE (BEAKER) (test tbwz=6276) No growth GRAM STAIN RESULT (BEAKER) (test <1+ WBCs yyyu=3787) GRAM STAIN RESULT (BEAKER) (test No organisms seen qfcw=47428) TISSUE [id number] 14:32:00Surgical Pathology Report Case: [id number] Authorizing Provider: Allyson Schulte MD Collected: 08/06/2018 1316 Ordering Location: [address] Received: 08/06/2018 1512 Pathologist: Chana Villar MD Specimen: Biopsy, Gastric, bx for h pylori This addendum is issued to report the result of immunohistochemical stain for Helicobacter pylori: - NEGATIVECPT CPT CODE: 28964Dcb interpretation of this case included the use of immunohistochemistry or special stains.HELICOBACTERImmunohistochemistry technical testing was performed at [facility],Pathology Laboratorywhere it was developed and its performance characteristics were determined. It has not been cleared or approved bythe U.S. Food and Drug Administration. The FDA has determined that such clearance or approval is not necessary. Thetest is used for clinical purposes. It should not be regarded as investigational or for research. This laboratory is certifiedunder the Clinical Laboratory Improvement Amendments of 1988 (CLIA-88) as qualified to perform high complexityclinical laboratorytesting..Addendum electronically signed by Chana Villar MD on 08/08/2018 at 2:32 PMSTOMACH, ENDOSCOPIC BIOPSY: - CHRONIC AND ACTIVE GASTRITIS - FOCAL POSSIBLE EROSION - NEGATIVE FOR DEFINITE HELICOBACTER PYLORI BY WARTHIN-STARRY STAIN - NO INTESTINAL METAPLASIA, DYSPLASIA OR MALIGNANCY Signing Pathologist Direct Phone Line: [phone] signed by Chana Villar MD on 08/07/2018 at 5:44 [id number] hemorrhage, hepatic cirrhosis, rule out H. pyloriGastric biopsyThe specimen is received in a formalin-filled container and labeled with the patient's information labeled "gastric biopsy' and consists of three fragments of pale etienne soft tissue measuring 0.2 to 0.4 cm, submitted entirely A1.CG/pl A. Performed.The interpretation of this case included the use of immunohistochemistry or special stains. WARTHIN-STARRYImmunohistochemistry technical testing was performed at [facility], Pathology Laboratory where it was developedand its performance characteristics were determined. It has not been cleared or approved by the U.S.Food and Drug Administration. The FDA has determined that such clearance or approval is not necessary. The test is used for clinical purposes. It should not be regarded as investigational or for research. This laboratory is certified under the Clinical Laboratory Improvement Amendments of 1988 (CLIA-88) as qualified to perform high complexity clinical laboratory testing.HEPATITIS C PCR, [id number] 14:51:00 Test Item Value Reference Range Comments HCV NUMERIC RESULT (MARIA TERESA) (test gbsc=4764) 60 IU/mL <15 This test uses a Real-Time Polymerase Chain Reaction (RT-PCR) methodology and was performed using JEFF Ampliprep/JEFF TaqMan HCV test kit version 2.0 ( [employer]).Reportable range for this assay is 15 - 100,000, 000 IU per mL (1.18 - 8.00 Log IU/mL).BASIC METABOLIC [id number] 04:53:00 Test Item Value Reference Range Comments SODIUM (BEAKER) (test 138 meq/L 136-145 ewba=601) POTASSIUM (BEAKER) (test 3.5 meq/L 3.5-5.1 mdyg=350) CHLORIDE (BEAKER) (test 111 meq/L 98-107 umbo=577) CO2 (BEAKER) (test 21 meq/L 22-29 rtxx=556) BLOOD UREA NITROGEN 26 mg/dL 7-21 (BEAKER) (test ulab=906) CREATININE (BEAKER) (test 0.89 mg/dL 0.57-1.25 rslj=566) GLUCOSE RANDOM (BEAKER) 93 mg/dL 70-105 (test waqv=081) CALCIUM (BEAKER) (test 7.7 mg/dL 8.4-10.2 llpb=927) EGFR (BEAKER) (test 90 mL/min/1.73 sq m ESTIMATED GFR IS NOT pcix=0030) ACCURATE CREATININE CLEARANCE IN PREDICTING GLOMERULAR FILTRATION RATE. ESTIMATED GFR IS NOT APPLICABLE FOR DIALYSIS PATIENTS. HEPATIC FUNCTION [id number] 04:52:00 Test Item Value Reference Range Comments TOTAL PROTEIN (BEAKER) (test xxqd=749) 5.4 gm/dL 6.0-8.3 ALBUMIN (BEAKER) (test bjgn=2678) 2.0 g/dL 3.5-5.0 BILIRUBIN TOTAL (BEAKER) (test clih=756) 2.2 mg/dL 0.2-1.2 BILIRUBIN DIRECT (BEAKER) (test aznf=405) 1.5 mg/dL 0.1-0.5 ALKALINE PHOSPHATASE (BEAKER) (test orxr=794) 89 U/L 40-150 AST (SGOT) (BEAKER) (test nopb=064) 42 U/L 5-34 ALT (SGPT) (BEAKER) (test ulnq=103) 18 U/L 6-55 VANCOMYCIN LEVEL, [id number] 04:52:00 Test Item Value Reference Range Comments VANCOMYCIN RANDOM (BEAKER) (test lved=617) 14.3 ug/mL Reference Range: No NormalsPROTHROMBIN [id number] 04:47:00 Test Item Value Reference Range Comments PROTIME (BEAKER) (test keuy=942) 21.5 seconds 11.7-14.7 INR (BEAKER) (test oeoe=205) 1.9 <=5.9 RECOMMENDED COUMADIN/WARFARIN INR THERAPY RANGESSTANDARD DOSE: 2.0 - 3.0 Includes: PROPHYLAXIS forvenous thrombosis, systemic embolization; TREATMENT for venous thrombosis and/or pulmonary embolus.HIGH RISK: Target INR is 2.5-3.5 for patients with mechanical heart valves.CBC W/PLT COUNT & AUTO [id number] 04:43:00 Test Item Value Reference Range Comments WHITE BLOOD CELL COUNT (BEAKER) (test rego=609) 7.4 K/ L 3.5-10.5 RED BLOOD CELL COUNT (BEAKER) (test iiju=818) 3.08 M/ L 4.63-6.08 HEMOGLOBIN (BEAKER) (test ittr=292) 9.9 GM/DL 13.7-17.5 HEMATOCRIT (BEAKER) (test txud=443) 29.0 % 40.1-51.0 MEAN CORPUSCULAR VOLUME (BEAKER) (test yxxt=066) 94.2 fL 79.0-92.2 MEAN CORPUSCULAR HEMOGLOBIN (BEAKER) (test 32.1 pg 25.7-32.2 xrsn=094) MEAN CORPUSCULAR HEMOGLOBIN CONC (BEAKER) (test 34.1 GM/DL 32.3-36.5 mxki=743) RED CELL DISTRIBUTION WIDTH (BEAKER) (test 14.8 % 11.6-14.4 jcou=972) PLATELET COUNT (BEAKER) (test anbe=820) 52 K/CU MM 150-450 MEAN PLATELET VOLUME (BEAKER) (test mkiw=474) 11.3 fL 9.4-12.4 NUCLEATED RED BLOOD CELLS (BEAKER) (test 0 /100 WBC 0-0 zaua=111) NEUTROPHILS RELATIVE PERCENT (BEAKER) (test 58 % secu=985) LYMPHOCYTES RELATIVE PERCENT (BEAKER) (test 27 % dvnm=998) MONOCYTES RELATIVE PERCENT (BEAKER) (test 9 % goam=424) EOSINOPHILS RELATIVE PERCENT (BEAKER) (test 5 % halh=450) BASOPHILS RELATIVE PERCENT (BEAKER) (test 1 % lybl=416) NEUTROPHILS ABSOLUTE COUNT (BEAKER) (test 4.29 K/ L 1.78-5.38 ycyv=616) LYMPHOCYTES ABSOLUTE COUNT (BEAKER) (test 2.00 K/ L 1.32-3.57 rzio=491) MONOCYTES ABSOLUTE COUNT (BEAKER) (test eeax=313) 0.64 K/ L 0.30-0.82 EOSINOPHILS ABSOLUTE COUNT (BEAKER) (test 0.35 K/ L 0.04-0.54 bjyu=827) BASOPHILS ABSOLUTE COUNT (BEAKER) (test xyaz=247) 0.05 K/ L 0.01-0.08 IMMATURE GRANULOCYTES-RELATIVE PERCENT (BEAKER) 1 % 0-1 (test ufak=1713) VANCOMYCIN LEVEL, [id number] 17:06:00 Test Item Value Reference Range Comments VANCOMYCIN TROUGH (BEAKER) (test yepl=570) 20.5 ug/mL 10.0-20.0 U/S, [id number] 11:05:00Reason for exam:->ascites r/o SBPShould this be performed at the bedside?->YesFINAL REPORT Procedure: Ultrasound Guided Paracentesis: Pre procedure [...] paracentesis performed by Hoa Lord PA-C. Signed: Lulu Parr Verified Date/Time: 08/06/2018 11:05:30 Reading Location: [facility] [id number] [facility] Consult Reading Room BASIC METABOLIC [id number] 05:44:00 Test Item Value Reference Range Comments SODIUM (BEAKER) (test 137 meq/L 136-145 svcj=980) POTASSIUM (BEAKER) (test 3.1 meq/L 3.5-5.1 ymql=770) CHLORIDE (BEAKER) (test 109 meq/L 98-107 njdk=213) CO2 (BEAKER) (test 21 meq/L 22-29 aklz=161) BLOOD UREA NITROGEN 27 mg/dL 7-21 (BEAKER) (test qfrw=260) CREATININE (BEAKER) (test 0.85 mg/dL 0.57-1.25 mvup=775) GLUCOSE RANDOM (BEAKER) 98 mg/dL 70-105 (test sspl=783) CALCIUM (BEAKER) (test 7.9 mg/dL 8.4-10.2 pvpv=109) EGFR (BEAKER) (test 95 mL/min/1.73 sq m ESTIMATED GFR IS NOT mikg=8641) ACCURATE CREATININE CLEARANCE IN PREDICTING GLOMERULAR FILTRATION RATE. ESTIMATED GFR IS NOT APPLICABLE FOR DIALYSIS PATIENTS. Specimen slightly ictericHEPATIC FUNCTION [id number] 05:37:00 Test Item Value Reference Range Comments TOTAL PROTEIN (BEAKER) (test ehmo=206) 5.4 gm/dL 6.0-8.3 ALBUMIN (BEAKER) (test ywnb=8317) 2.0 g/dL 3.5-5.0 BILIRUBIN TOTAL (BEAKER) (test rlmt=331) 3.1 mg/dL 0.2-1.2 BILIRUBIN DIRECT (BEAKER) (test upwy=041) 2.0 mg/dL 0.1-0.5 ALKALINE PHOSPHATASE (BEAKER) (test dsra=201) 89 U/L 40-150 AST (SGOT) (BEAKER) (test ervm=200) 42 U/L 5-34 ALT (SGPT) (BEAKER) (test xhia=443) 18 U/L 6-55 Specimen slightly ictericPROTHROMBIN [id number] 05:31:00 Test Item Value Reference Range Comments PROTIME (BEAKER) (test cara=561) 21.3 seconds 11.7-14.7 INR (BEAKER) (test tpfk=502) 1.8 <=5.9 RECOMMENDED COUMADIN/WARFARIN INR THERAPY RANGESSTANDARD DOSE: 2.0 - 3.0 Includes: PROPHYLAXIS forvenous thrombosis, systemic embolization; TREATMENT for venous thrombosis and/or pulmonary embolus.HIGH RISK: Target INR is 2.5-3.5 for patients with mechanical heart valves.ANTI-NUCLEAR ANTIBODY (HARITHA)2018-08-06 05:24:00 Test Item Value Reference Range Comments ANTI-NUCLEAR ANTIBODY (HARITHA) (BEAKER) (test Negative Negative huyn=531) Test performed by IFA method.Test performed by IFA method.CBC W/PLT COUNT & AUTO [id number] 05:17:00 Test Item Value Reference Range Comments WHITE BLOOD CELL COUNT (BEAKER) (test isxf=942) 8.3 K/ L 3.5-10.5 RED BLOOD CELL COUNT (BEAKER) (test twbd=381) 3.01 M/ L 4.63-6.08 HEMOGLOBIN (BEAKER) (test lymf=280) 9.7 GM/DL 13.7-17.5 HEMATOCRIT (BEAKER) (test jpwj=216) 28.2 % 40.1-51.0 MEAN CORPUSCULAR VOLUME (BEAKER) (test uybc=205) 93.7 fL 79.0-92.2 MEAN CORPUSCULAR HEMOGLOBIN (BEAKER) (test 32.2 pg 25.7-32.2 nsio=904) MEAN CORPUSCULAR HEMOGLOBIN CONC (BEAKER) (test 34.4 GM/DL 32.3-36.5 rbyg=609) RED CELL DISTRIBUTION WIDTH (BEAKER) (test 14.7 % 11.6-14.4 wojm=109) PLATELET COUNT (BEAKER) (test qdup=389) 53 K/CU MM 150-450 MEAN PLATELET VOLUME (BEAKER) (test jbqw=355) 11.3 fL 9.4-12.4 NUCLEATED RED BLOOD CELLS (BEAKER) (test 0 /100 WBC 0-0 qnyv=312) NEUTROPHILS RELATIVE PERCENT (BEAKER) (test 66 % tuhb=123) LYMPHOCYTES RELATIVE PERCENT (BEAKER) (test 20 % limn=709) MONOCYTES RELATIVE PERCENT (BEAKER) (test 10 % llez=540) EOSINOPHILS RELATIVE PERCENT (BEAKER) (test 3 % jjku=816) BASOPHILS RELATIVE PERCENT (BEAKER) (test 1 % duxm=480) NEUTROPHILS ABSOLUTE COUNT (BEAKER) (test 5.43 K/ L 1.78-5.38 vbkc=457) LYMPHOCYTES ABSOLUTE COUNT (BEAKER) (test 1.65 K/ L 1.32-3.57 lydg=502) MONOCYTES ABSOLUTE COUNT (BEAKER) (test ouwj=292) 0.85 K/ L 0.30-0.82 EOSINOPHILS ABSOLUTE COUNT (BEAKER) (test 0.21 K/ L 0.04-0.54 noab=250) BASOPHILS ABSOLUTE COUNT (BEAKER) (test vuol=667) 0.05 K/ L 0.01-0.08 IMMATURE GRANULOCYTES-RELATIVE PERCENT (BEAKER) 1 % 0-1 (test axad=7381) HEMOGLOBIN AND [id number] 23:02:00 Test Item Value Reference Range Comments HEMOGLOBIN (BEAKER) (test frfe=364) 9.6 GM/DL 13.7-17.5 HEMATOCRIT (BEAKER) (test whhv=589) 27.0 % 40.1-51.0 BODY FLUID CELL COUNT WITH [id number] 21:11:00 Test Item Value Reference Range Comments APPEARANCE FLUID (BEAKER) (test zelo=146) Slightly Hazy Clear COLOR FLUID (BEAKER) (test pdsx=716) Yellow Colorless, Straw RBC FLUID (BEAKER) (test fhil=534) 230 /cu mm <=1 ADJUSTED WBC FLUID (BEAKER) (test sdjt=9281) 216 /cu mm <=5 LINING CELLS (BEAKER) (test guka=5384) 4 /cu mm <=1 NEUTROPHILS FLUID (BEAKER) (test uqgq=7121) 3 % LYMPHS FLUID (BEAKER) (test iitm=781) 76 % MONO/MACROPHAGE FLUID (BEAKER) (test 21 % ucpl=093) EOSINOPHILS FLUID (BEAKER) (test zuhf=084) 0 % BASO FLUID (BEAKER) (test isvf=034) 0 % CONTAINER BODY FLUID (BEAKER) (test EDTA Tube vkfx=0945) PROTEIN, BODY [id number] 19:33:00 Test Item Value Reference Range Comments PROTEIN FLUID (BEAKER) (test pofk=201) 0.8 g/dL Absence of reference range indicates that normals have not been defined.Assay performance has not been validated for this type of specimen.ALBUMIN, BODY [id number] 19:33:00 Test Item Value Reference Range Comments ALBUMIN FLUID (BEAKER) (test pgnw=831) 0.4 gm/dL Reference Range: No Normals Assay performance has not been validated for this type of specimen.LACTATE DEHYDROGENASE (LDH), BODY [id number] 19:31:00 Test Item Value Reference Range Comments LACTATE DEHYDROGENASE FLUID (BEAKER) (test trfk=240) < U/L Absence of reference range indicates that normals have not been defined.Assay performance has not been validated for this type of specimen.U/S, ABDOMINAL, WITH [id number] 18:58:00Reason for exam:->abdominal distension, new dx cirrhosisFINAL REPORT Abdominal Doppler Ultrasound Clinical Diagnosis: Abdominal distention with new diagnosis of cirrhosis Comparison: No comparison Technique: Multiple transaxial and longitudinal images were obtained through the abdomen with real time ultrasonography. In addition, color Doppler and spectral waveform analysis evaluation of the abdominal vasculature was performed. Five MHz transducer was utilized. 102 images were submitted for interpretation. Report:Liver: The liver measures 17.8 cm in the right midaxillary line. There are no focal masses. The echogenicity is increased and heterogeneous.Spleen: The spleen measures 15.5 cm in the left mid axillary line. Gallbladder: The transverse diameter is 3.5 cm. The wall measures eight mm. There are no shadowing stones visualized. Biliary tree : There is no evidence of intra or extra hepatic biliary ductal dilatation. The common bile duct measures six mm.Portal vein: The portal vein measures 14 mm. Pancreas: The pancreatic tail is not well seen secondary to overlying bowel gas. Ascites: ModeratePleuralEffusion: NegativeRight kidney: The right kidney measures 11.8 cm in length without evidence of hydronephrosis.Left kidney: The left kidney measures 12.4 cm in length without evidence of hydronephrosis.Midline abdominal structures: Maximum transverse dimension of the aorta is 2.8 cm IVC: PatentHepatic veins: Visualized with phasic venous waveformsAorta dimensions: Maximum transverse dimension of theaorta is 2.8 cmHepatic arteries: The proper hepatic, right hepatic and left hepatic arteries are well-visualized but nonspecific increase in the resistive indices and a normal arterial waveform Portal vein: The peak systolic velocity measured 24 cm /sec which is normal. The direction of flow is hepatopedal. The right portal vein is well-visualized with hepatopedal flow. The left portal vein is well- visualized with hepatopedal flow. Splenic vein: The splenic vein at the portal confluence is well-visualized and demonstrates hepatopedal flow. Impression :Ascites.Hepatosplenomegaly.Cirrhosis.The thickening of the gallbladder wall is likely secondary to hypoproteinemia. The gallbladder is not distended and there were no gallstones identified.Nonspecific increased resistive indices throughout thehepatic arterial circulation.Hepatopedal flow documented throughout the splenic vein and portal vein. Signed: Rayshawn Cuellar MDReport Verified Date/Time: 08/05/2018 18:58:24 Reading Location: [address] Ultrasound Reading Room Electronically signed by: RAYSHAWN CUELLAR M.D. on 11/2017 06:58 PMVITAMIN B12 AND [id number] 14:46:00 Test Item Value Reference Range Comments VITAMIN B12 (BEAKER) (test xemm=129) > pg/mL 213-816 FOLATE (BEAKER) (test xooy=930) 1.7 ng/mL >=7.0 [id number] 13:58:00 Test Item Value Reference Range Comments AMMONIA (BEAKER) (test qssk=288) 41 mol/L 18-72 CBC W/PLT COUNT & AUTO [id number] 06:59:00 Test Item Value Reference Range Comments WHITE BLOOD CELL COUNT (BEAKER) (test cecf=510) 17.3 K/ L 3.5-10.5 RED BLOOD CELL COUNT (BEAKER) (test cwdj=758) 2.90 M/ L 4.63-6.08 HEMOGLOBIN (BEAKER) (test pdkh=837) 9.4 GM/DL 13.7-17.5 HEMATOCRIT (BEAKER) (test nmtu=165) 26.7 % 40.1-51.0 MEAN CORPUSCULAR VOLUME (BEAKER) (test fmzq=106) 92.1 fL 79.0-92.2 MEAN CORPUSCULAR HEMOGLOBIN (BEAKER) (test 32.4 pg 25.7-32.2 fulk=387) MEAN CORPUSCULAR HEMOGLOBIN CONC (BEAKER) (test 35.2 GM/DL 32.3-36.5 mnoy=865) RED CELL DISTRIBUTION WIDTH (BEAKER) (test 14.7 % 11.6-14.4 rsxx=311) PLATELET COUNT (BEAKER) (test wxqv=670) 48 K/CU MM 150-450 MEAN PLATELET VOLUME (BEAKER) (test qlzy=067) 10.9 fL 9.4-12.4 NUCLEATED RED BLOOD CELLS (BEAKER) (test 0 /100 WBC 0-0 nrws=475) (CELLAVISION MANUAL DIFF)2018-08-05 06:59:00 Test Item Value Reference Range Comments NEUTROPHILS - REL (CELLAVISION)(BEAKER) (test 73 % eeqi=1571) LYMPHOCYTES - REL (CELLAVISION)(BEAKER) (test 9 % wmyf=2459) MONOCYTES - REL (CELLAVISION)(BEAKER) (test 8 % iaic=9699) BANDS - REL (CELLAVISION)(BEAKER) (test 10 % 0-10 ezoy=9304) NEUTROPHILS - ABS (CELLAVISION)(BEAKER) (test 12.63 K/ul 1.78-5.38 ujkk=0997) LYMPHOCYTES - ABS (CELLAVISION)(BEAKER) (test 1.56 K/ul 1.32-3.57 viya=1649) MONOCYTES - ABS (CELLAVISION)(BEAKER) (test 1.38 K/uL 0.30-0.82 tvnm=2973) BANDS - ABS (CELLAVISION)(BEAKER) (test 1.73 K/uL 0.00-0.80 onaj=4410) TOTAL COUNTED (BEAKER) (test lfcj=7314) 100 PLT MORPHOLOGY (BEAKER) (test diym=308) Normal TOXIC GRANULATION (BEAKER) (test rptn=553) Present ANISOCYTOSIS (BEAKER) (test qyie=836) 1+ few POIKILOCYTES (BEAKER) (test ickw=547) 2+ moderate TERESITA CELLS (BEAKER) (test utgp=787) 2+ moderate ARTIFACT (CELLAVISION)(BEAKER) (test jhkn=0139) Present PLATELET CONCENTRATION (CELLAVISION)(BEAKER) Decreased (test hoio=7237) Received comment: User comments: Slide comments:HEPATITIS A ANTIBODY, [id number] 06:10:00 Test Item Value Reference Range Comments HEPATITIS A IGG ANTIBODY (BEAKER) (test sxwt=6247) Reactive Nonreactive HEPATITIS B SURFACE [id number] 06:10:00 Test Item Value Reference Range Comments HEPATITIS B SURFACE ANTIBODY (BEAKER) (test < mIU/mL <8.0 rnfz=020) HEPATITIS B SURFACE [id number] 06:05:00 Test Item Value Reference Range Comments HEPATITIS B SURFACE ANTIGEN (2) (BEAKER) (test Nonreactive Nonreactive eapu=4561) HEPATITIS B CORE ANTIBODY, [id number] 06:05:00 Test Item Value Reference Range Comments HEPATITIS B CORE TOTAL ANTIBODY (BEAKER) (test Nonreactive Nonreactive juzz=014) HEPATITIS C [id number] 05:51:00 Test Item Value Reference Range Comments HEPATITIS C ANTIBODY (BEAKER) (test wtft=961) Reactive Nonreactive [id number] 04:58:00 Test Item Value Reference Range Comments FERRITIN (BEAKER) (test szxe=312) 548 ng/mL 5-275 URINALYSIS W/ REFLEX URINE [id number] 04:56:00 Test Item Value Reference Range Comments COLOR (BEAKER) (test ffsi=316) Yellow CLARITY (BEAKER) (test hhci=134) Clear SPECIFIC GRAVITY UA (BEAKER) (test ferz=433) 1.013 1.001-1.035 PH UA (BEAKER) (test nqsm=419) 5.5 5.0-8.0 PROTEIN UA (BEAKER) (test wubr=262) Negative Negative GLUCOSE UA (BEAKER) (test aapn=751) Negative Negative KETONES UA (BEAKER) (test norb=960) Negative Negative BILIRUBIN UA (BEAKER) (test lzxh=019) Negative Negative BLOOD UA (BEAKER) (test hxyf=409) Trace Negative NITRITE UA (BEAKER) (test jpzy=107) Negative Negative LEUKOCYTE ESTERASE UA (BEAKER) (test nhxf=813) Negative Negative UROBILINOGEN UA (BEAKER) (test sguo=381) 3.0 mg/dL 0.2-1.0 RBC UA (BEAKER) (test fmry=337) 2 /HPF WBC UA (BEAKER) (test xtvp=566) 1 /HPF HYALINE CASTS (BEAKER) (test cljd=486) 1 /LPF AMORPHOUS CRYSTALS (BEAKER) (test maco=2302) Rare SOURCE(BEAKER) (test orie=4401) IRON, TIBC, % SAT. (WITHOUT FERRITIN)2018-08-05 04:49:00 Test Item Value Reference Range Comments IRON (BEAKER) (test ebez=991) 22 ug/dL 40-160 TOTAL IRON BINDING CAPACITY (BEAKER) (test 121 ug/dL 250-450 gwhs=903) IRON % SATURATION (2) (BEAKER) (test uoxg=1834) 18 % 20-55 [id number]-[id number] 04:44:00 Test Item Value Reference Range Comments ALPHA-1 ANTITRYPSIN (BEAKER) (test bjhi=210) 223.10 mg/dL 90.00-200.00 BASIC METABOLIC [id number] 04:38:00 Test Item Value Reference Range Comments SODIUM (BEAKER) (test 131 meq/L 136-145 zctt=669) POTASSIUM (BEAKER) (test 3.6 meq/L 3.5-5.1 eclc=582) CHLORIDE (BEAKER) (test 105 meq/L 98-107 tcce=957) CO2 (BEAKER) (test 18 meq/L 22-29 zsrj=756) BLOOD UREA NITROGEN 28 mg/dL 7-21 (BEAKER) (test pocj=789) CREATININE (BEAKER) (test 0.93 mg/dL 0.57-1.25 ynht=222) GLUCOSE RANDOM (BEAKER) 107 mg/dL 70-105 (test ikic=690) CALCIUM (BEAKER) (test 7.7 mg/dL 8.4-10.2 mhvl=307) EGFR (BEAKER) (test 86 mL/min/1.73 sq m ESTIMATED GFR IS NOT soac=1515) ACCURATE CREATININE CLEARANCE IN PREDICTING GLOMERULAR FILTRATION RATE. ESTIMATED GFR IS NOT APPLICABLE FOR DIALYSIS PATIENTS. Specimen slightly ictericHEPATIC FUNCTION [id number] 04:37:00 Test Item Value Reference Range Comments TOTAL PROTEIN (BEAKER) (test rnme=635) 5.8 gm/dL 6.0-8.3 ALBUMIN (BEAKER) (test balx=2138) 2.2 g/dL 3.5-5.0 BILIRUBIN TOTAL (BEAKER) (test ucki=430) 3.5 mg/dL 0.2-1.2 BILIRUBIN DIRECT (BEAKER) (test swls=370) 2.5 mg/dL 0.1-0.5 ALKALINE PHOSPHATASE (BEAKER) (test jhor=814) 96 U/L 40-150 AST (SGOT) (BEAKER) (test uciu=542) 31 U/L 5-34 ALT (SGPT) (BEAKER) (test vrsd=463) 16 U/L 6-55 Specimen slightly ictericPROTHROMBIN TIME/[id number] 04:30:00 Test Item Value Reference Range Comments PROTIME (BEAKER) (test nxlo=114) 20.3 seconds 11.7-14.7 INR (BEAKER) (test ozxy=036) 1.7 <=5.9 RECOMMENDED COUMADIN/WARFARIN INR THERAPY RANGESSTANDARD DOSE: 2.0 - 3.0 Includes: PROPHYLAXIS forvenous thrombosis, systemic embolization; TREATMENT for venous thrombosis and/or pulmonary embolus.HIGH RISK: Target INR is 2.5-3.5 for patients with mechanical heart valves.COMPREHENSIVE METABOLIC [id number] 23:57:00 Test Item Value Reference Range Comments TOTAL PROTEIN (BEAKER) 5.6 gm/dL 6.0-8.3 (test nqkw=507) ALBUMIN (BEAKER) (test 2.1 g/dL 3.5-5.0 umxq=3675) ALKALINE PHOSPHATASE 87 U/L 40-150 (BEAKER) (test kzsr=977) BILIRUBIN TOTAL (BEAKER) 3.3 mg/dL 0.2-1.2 (test mnln=419) SODIUM (BEAKER) (test 131 meq/L 136-145 ysoa=477) POTASSIUM (BEAKER) (test 3.7 meq/L 3.5-5.1 qcwz=945) CHLORIDE (BEAKER) (test 105 meq/L 98-107 cqiu=268) CO2 (BEAKER) (test 19 meq/L 22-29 pqgt=562) BLOOD UREA NITROGEN 28 mg/dL 7-21 (BEAKER) (test qxiz=119) CREATININE (BEAKER) (test 0.92 mg/dL 0.57-1.25 gfbq=750) GLUCOSE RANDOM (BEAKER) 111 mg/dL 70-105 (test iqup=082) CALCIUM (BEAKER) (test 7.6 mg/dL 8.4-10.2 jysf=753) AST (SGOT) (BEAKER) (test 30 U/L 5-34 xhbi=874) ALT (SGPT) (BEAKER) (test 15 U/L 6-55 cglh=660) EGFR (BEAKER) (test 87 mL/min/1.73 sq m ESTIMATED GFR IS NOT lych=2834) ACCURATE CREATININE CLEARANCE IN PREDICTING GLOMERULAR FILTRATION RATE. ESTIMATED GFR IS NOT APPLICABLE FOR DIALYSIS PATIENTS. Specimen slightly ictericPT/[id number] 23:54:00 Test Item Value Reference Range Comments PROTIME (BEAKER) (test urvi=065) 20.9 seconds 11.7-14.7 INR (BEAKER) (test pamn=887) 1.8 <=5.9 PARTIAL THROMBOPLASTIN TIME (BEAKER) (test 39.9 seconds 22.5-36.0 tzoa=191) RECOMMENDED COUMADIN/WARFARIN INR THERAPY RANGESSTANDARD DOSE: 2.0 - 3.0 Includes: PROPHYLAXIS forvenous thrombosis, systemic embolization; TREATMENT for venous thrombosis and/or pulmonary embolus.HIGH RISK: Target INR is 2.5-3.5 for patients with mechanical heart valves.LACTIC ACID, VENOUS, WHOLE [id number] 23:53:00 Test Item Value Reference Range Comments LACTATE BLOOD VENOUS (2) 1.2 mmol/L 0.5-2.2 Specimen slightly hemolyzed (BEAKER) (test yqzx=3083) Specimen slightly ictericCBC W/PLT COUNT & AUTO [id number] 23:41 :00 Test Item Value Reference Range Comments WHITE BLOOD CELL COUNT (BEAKER) (test nmpy=014) 17.8 K/ L 3.5-10.5 RED BLOOD CELL COUNT (BEAKER) (test vuyo=333) 2.81 M/ L 4.63-6.08 HEMOGLOBIN (BEAKER) (test umts=005) 9.3 GM/DL 13.7-17.5 HEMATOCRIT (BEAKER) (test hopm=437) 25.8 % 40.1-51.0 MEAN CORPUSCULAR VOLUME (BEAKER) (test tgrr=148) 91.8 fL 79.0-92.2 MEAN CORPUSCULAR HEMOGLOBIN (BEAKER) (test 33.1 pg 25.7-32.2 zryq=301) MEAN CORPUSCULAR HEMOGLOBIN CONC (BEAKER) (test 36.0 GM/DL 32.3-36.5 keow=876) RED CELL DISTRIBUTION WIDTH (BEAKER) (test 14.6 % 11.6-14.4 lyij=564) PLATELET COUNT (BEAKER) (test fihw=334) 51 K/CU MM 150-450 MEAN PLATELET VOLUME (BEAKER) (test fwpa=423) 11.2 fL 9.4-12.4 NUCLEATED RED BLOOD CELLS (BEAKER) (test 0 /100 WBC 0-0 twgl=118) NEUTROPHILS RELATIVE PERCENT (BEAKER) (test 79 % zxil=054) LYMPHOCYTES RELATIVE PERCENT (BEAKER) (test 9 % swvt=898) MONOCYTES RELATIVE PERCENT (BEAKER) (test 9 % uvvo=632) EOSINOPHILS RELATIVE PERCENT (BEAKER) (test 0 % ftvv=290) BASOPHILS RELATIVE PERCENT (BEAKER) (test 0 % imef=820) NEUTROPHILS ABSOLUTE COUNT (BEAKER) (test 14.02 K/ L 1.78-5.38 obre=298) LYMPHOCYTES ABSOLUTE COUNT (BEAKER) (test 1.58 K/ L 1.32-3.57 rdjj=519) MONOCYTES ABSOLUTE COUNT (BEAKER) (test llsk=375) 1.67 K/ L 0.30-0.82 EOSINOPHILS ABSOLUTE COUNT (BEAKER) (test 0.02 K/ L 0.04-0.54 poip=347) BASOPHILS ABSOLUTE COUNT (BEAKER) (test kxxo=203) 0.03 K/ L 0.01-0.08 IMMATURE GRANULOCYTES-RELATIVE PERCENT (BEAKER) 3 % 0-1 (test rnba=8314) RAD, CHEST, 1 VIEW, NON [id number] 22:21:00Reason for exam:-> SepsisShould this be performed at the bedside?->YesFINAL REPORT Chest, 1 view. History: Sepsis Comparison: [...] and osseous structures are intact. Signed: Tone Paort Verified Date/Time: 08/04/2018 22: 21:18 Reading Location: [facility] B1 C013T Transitional Reading Room
[2018-10-04 15:23] LABS: Absolute Lymphocytes (CBC) 1.4 K/uL (0.7-4.9); Absolute Monocytes 0.9 K/uL (0.1-1.3); Absolute Neutrophil 11.9 K/uL (1.8-8.0); Basophils % 0.2 % (0-1.3); Eosinophils % 1.4 % (0-4.4); Hematocrit 32.9 % (39.6-49.0); Lymphocytes % 9.5 % (15.3-44.8); MPV 8.5 fL (7.6-11.3); Monocytes % 6.5 % (3.3-12.3); RBC Red Blood Cell Count 3.35 M/uL (4.33-5.43)
[2018-10-04 15:49] LABS: Albumin 2.8 g/dL (3.4-5.0); Bilirubin Direct 0.8 mg/dL (0-0.2); Bilirubin Total 1.5 mg/dL (0.2-1.0); Potassium 4.1 mmol/L (3.5-5.1); Protein, Total 7.3 g/dL (6.4-8.2)
[2018-10-04 16:22] LABS: Blood Morphology Comment NOT SEEN (NOT SEEN); Platelet Estimate DECR; Urine White Blood Cell Casts OK
--- NOTE | 2018-10-04 17:32 | ER ---
Nurse's Notes [facility] Name: Gorge Ross Age: 53 yrs Sex: Male : 1965 Arrival Date: 10/04/2018 Time: 14:31 Bed 27 Private MD: None, None Diagnosis: Unspecified abdominal pain Presentation: 10/04 14:51 Presenting complaint: Nausea and lower abdominal pain x 3 days. Transition of care: hb patient was not received from another setting of care. Onset of symptoms was October 02, 2018. Risk Assessment: Do you want to hurt yourself or someone else? Patient reports no desire to harm self or others. Care prior to arrival: None. 14:51 Method Of Arrival: Ambulatory hb 14:51 Acuity: FAITH 3 hb 15:02 Initial Sepsis Screen: Does the patient meet any 2 criteria? No. Patient's initial mg2 sepsis screen is negative. Does the patient have a suspected source of infection? No. Patient's initial sepsis screen is negative. Historical: - Allergies: 14:50 No Known Allergies; hb - Home Meds: 14:50 amlodipine 10 mg tab 1 tab once daily [Active]; spironolactone 100 mg oral tab hb [Active]; tramadol 50 mg Oral tab 2 tabs every 6 hours [Active]; Lasix 40 mg Oral tab 1 tab once daily [Active]; pantoprazole 40 mg oral TbEC 1 tab once daily [Active]; - PMHx: 14:50 Cirrhosis; Hypertension; hb - PSHx: 14:50 None; hb - Immunization history:: Adult Immunizations up to date. - Social history:: Smoking status: Patient uses tobacco products, smokes one pack cigarettes per day. - Ebola Screening: : No symptoms or risks identified at this time. Screenin:00 Abuse screen: Denies threats or abuse. Denies injuries from another. Nutritional mg2 screening: No deficits noted. Tuberculosis screening: No symptoms or risk factors identified. Fall Risk Secondary diagnosis (15 points) confusion. Assessment: 15:00 General: Appears in no apparent distress. comfortable, Behavior is calm, cooperative. mg2 Pain: Complains of pain in lower abdomen Pain does not radiate. Pain currently is 5 out of 10 on a pain scale. Quality of pain is described as aching, Pain began gradually, 2-3 days ago. Pain: Pain began. Neuro: Cardiovascular: Capillary refill < 3 seconds Patient's skin is warm and dry. Respiratory: Airway is patent Respiratory effort is even, unlabored, Respiratory pattern is regular, symmetrical. GI: Bowel sounds present X 4 quads. EENT: No signs and/or symptoms were reported regarding the EENT system. Derm: Skin is intact, is healthy with good turgor, Skin is pale. Musculoskeletal: Circulation, motion, and sensation intact. Capillary refill < 3 seconds, Swelling present in abdomen. 16:45 Reassessment: Patient appears in no apparent distress at this time. Patient and/or mg2 family updated on plan of care and expected duration. Pain level reassessed. Patient is alert, oriented x 3, equal unlabored respirations, skin warm/dry/pink. Vital Signs: 14:49 BP 134 / 78; Pulse 85; Resp 16; Temp 99.6; Pulse Ox 98% on R/A; Weight 72.57 kg; Height hb 5 ft. 7 in. (170.18 cm); Pain 5/10; 16:45 BP 130 / 85; Pulse 79; Resp 18; Pulse Ox 99% on R/A; Pain 0/10; mg2 17:50 BP 118 / 85; Pulse 80; Resp 18; Pulse Ox 100% on R/A; Pain 0/10; mg2 14:49 Body Mass Index 25.06 (72.57 kg, 170.18 cm) hb ED Course: 14:31 Patient arrived in ED. mr 14:31 None, None is Private Physician. mr 14:50 Arm band placed on. hb 14:51 Triage completed. hb 14:56 Meliton Barragan, EVANGELISTA is Primary Nurse. mg2 15:02 Patient has correct armband on for positive identification. Pulse ox on. NIBP on. Door mg2 closed. Warm blanket given. 15:04 Olayinka Lai NP is PHCP. pm1 15:04 Adi Parmar MD is Attending Physician. pm1 15:26 No provider procedures requiring assistance completed. Inserted saline lock: 20 gauge mg2 in right antecubital area, using aseptic technique. Blood collected. 17:50 IV discontinued, intact, bleeding controlled, No redness/swelling at site. Pressure mg2 dressing applied. Administered Medications: No medications were administered Outcome: 17:31 Discharge ordered by . pm1 17:57 Discharged to home via wheelchair, with family. mg2 17:57 Condition: stable 17:57 Discharge instructions given to patient, family, Instructed on discharge instructions, follow up and referral plans. Demonstrated understanding of instructions, follow-up care. 17:57 Patient left the ED. mg2 Signatures: Tracee Ghosh mr LaiOlayinka, CITY LETTER CARRIER CITY LETTER CARRIER pm1 Arabella Dunn, EVANGELISTA RN Meliton Barragan RN RN mg2
--- NOTE | 2018-10-04 17:32 | EDPHYS ---
Physician Documentation [facility] Name: Gorge Ross Age: 53 yrs Sex: Male : 1965 Arrival Date: 10/04/2018 Time: 14:31 Bed 27 Private MD: None, None ED Physician Adi Parmar HPI: 10/04 15:25 This 53 yrs old Male presents to ER via Ambulatory with complaints of pm1 Abdominal Pain. 15:25 The patient presents with abdominal pain in the left lower quadrant. Onset: The pm1 symptoms/episode began/occurred 3 month(s) ago. The symptoms do not radiate. Associated signs and symptoms: Pertinent negatives: nausea, vomiting, and diarrhea, chest pain, dysuria, fever, shortness of breath. The symptoms are described as achy. Modifying factors: The symptoms are alleviated by nothing, the symptoms are aggravated by nothing. Severity of pain: in the emergency department the pain has resolved is a 0 / 10. The patient has not recently seen a physician. Historical: - Allergies: 14:50 No Known Allergies; hb - Home Meds: 14:50 amlodipine 10 mg tab 1 tab once daily [Active]; spironolactone 100 mg oral tab hb [Active]; tramadol 50 mg Oral tab 2 tabs every 6 hours [Active]; Lasix 40 mg Oral tab 1 tab once daily [Active]; pantoprazole 40 mg oral TbEC 1 tab once daily [Active]; - PMHx: 14:50 Cirrhosis; Hypertension; hb - PSHx: 14:50 None; hb - Immunization history:: Adult Immunizations up to date. - Social history:: Smoking status: Patient uses tobacco products, smokes one pack cigarettes per day. - Ebola Screening: : No symptoms or risks identified at this time. ROS: 15:25 Constitutional: Negative for fever, chills, and weight loss, Eyes: Negative for injury, pm1 pain, redness, and discharge, ENT: Negative for injury, pain, and discharge, Neck: Negative for injury, pain, and swelling, Cardiovascular: Negative for chest pain, palpitations, and edema, Respiratory: Negative for shortness of breath, cough, wheezing, and pleuritic chest pain. 15:25 Back: Negative for injury and pain, : Negative for injury, bleeding, discharge, and swelling, MS/Extremity: Negative for injury and deformity, Skin: Negative for injury, rash, and discoloration, Neuro: Negative for headache, weakness, numbness, tingling, and seizure. 15:25 Abdomen/GI: Positive for abdominal pain, of the left lower quadrant, Negative for nausea, vomiting, and diarrhea. Exam: 15:23 Constitutional: This is a well developed, well nourished patient who is awake, alert, pm1 and in no acute distress. Head/Face: Normocephalic, atraumatic. Eyes: Pupils equal round and reactive to light, extra-ocular motions intact. Lids and lashes normal. Conjunctiva and sclera are non-icteric and not injected. Cornea within normal limits. Periorbital areas with no swelling, redness, or edema. ENT: Nares patent. No nasal discharge, no septal abnormalities noted. Tympanic membranes are normal and external auditory canals are clear. Oropharynx with no redness, swelling, or masses, exudates, or evidence of obstruction, uvula midline. Mucous membranes moist. Neck: Trachea midline, no thyromegaly or masses palpated, and no cervical lymphadenopathy. Supple, full range of motion without nuchal rigidity, or vertebral point tenderness. No Meningismus. Chest/axilla: Normal chest wall appearance and motion. Nontender with no deformity. No lesions are appreciated. Cardiovascular: Regular rate and rhythm with a normal S1 and S2. No gallops, murmurs, or rubs. Normal PMI, no JVD. No pulse deficits. Respiratory: Lungs have equal breath sounds bilaterally, clear to auscultation and percussion. No rales, rhonchi or wheezes noted. No increased work of breathing, no retractions or nasal flaring. 15:23 Skin: Warm, dry with normal turgor. Normal color with no rashes, no lesions, and no evidence of cellulitis. MS/ Extremity: Pulses equal, no cyanosis. Neurovascular intact. Full, normal range of motion. 15:23 Abdomen/GI: Inspection: distension, that is mild, Bowel sounds: normal, Palpation: abdomen is soft and non-tender, mass, is not appreciated, rebound tenderness, is not appreciated. 15:23 Neuro: Orientation: is normal, Mentation: is normal, Motor: moves all fours, Sensation: is normal, no obvious gross deficits. Vital Signs: 14:49 BP 134 / 78; Pulse 85; Resp 16; Temp 99.6; Pulse Ox 98% on R/A; Weight 72.57 kg; Height hb 5 ft. 7 in. (170.18 cm); Pain 5/10; 16:45 BP 130 / 85; Pulse 79; Resp 18; Pulse Ox 99% on R/A; Pain 0/10; mg2 17:50 BP 118 / 85; Pulse 80; Resp 18; Pulse Ox 100% on R/A; Pain 0/10; mg2 14:49 Body Mass Index 25.06 (72.57 kg, 170.18 cm) hb MDM: 15:05 Patient medically screened. pm1 16:43 Data reviewed: vital signs. Data interpreted: Pulse oximetry: on room air is 98 %. pm1 Interpretation: normal. Counseling: I had a detailed discussion with the patient and/or guardian regarding: lab results. 10/04 15:04 Order name: Basic Metabolic Panel; Complete Time: 16:21 mg2 10/04 15:04 Order name: CBC with Diff; Complete Time: 16:29 mg2 10/04 15:04 Order name: Creatinine for Radiology; Complete Time: 16:21 mg2 10/04 15:04 Order name: Hepatic Function; Complete Time: 16:21 mg2 10/04 15:04 Order name: Lipase; Complete Time: 16:21 mg2 10/04 15:33 Order name: CBC Smear Scan; Complete Time: 16:29 EDMS 10/04 15:04 Order name: IV Saline Lock; Complete Time: 15:26 mg2 10/04 15:04 Order name: Labs collected and sent; Complete Time: 15:26 mg2 Administered Medications: No medications were administered Disposition: 10/04/18 17:31 Discharged to Home. Impression: Unspecified abdominal pain. - Condition is Stable. - Discharge Instructions: Abdominal Pain, Adult. - Medication Reconciliation Form, Thank You Letter form. - Follow up: Emergency Department; When: As needed; Reason: Worsening of condition. Follow up: Private Physician; When: 2 - 3 days; Reason: Recheck today's complaints, Continuance of care, Re-evaluation by your physician. - Problem is new. - Symptoms have improved. Addendum: 10/07/2018 07:17 Co-signature as Attending Physician, Adi Parmar MD I agree with the assessment and k dr plan of care. Signatures: Dispatcher [employer] EDMS Adi Parmar MD MD [facility] Olayinka Lai, DRILLING ENGINEER DRILLING ENGINEER pm1 Arabella Dunn, RN RN Meliton Barragan RN RN mg2 Corrections: (The following items were deleted from the chart) 10/04 17:57 17:31 10/04/2018 17:31 Discharged to Home. Impression: Unspecified abdominal pain. mg2 Condition is Stable. Forms are Medication Reconciliation Form, Thank You Letter, Antibiotic Education, Prescription Opioid Use. Follow up: Emergency Department; When: As needed; Reason: Worsening of condition. Follow up: Private Physician; When: 2 - 3 days; Reason: Recheck today's complaints, Continuance of care, Re-evaluation by your physician. Problem is new. Symptoms have improved. pm1
== END 2018-10-04 17:57 | disposition home or self-care (01) ==
LOC: ER 14:28
DX: R10.32 Left lower quadrant pain (principal); K74.60 Unspecified cirrhosis of liver; I10 Essential (primary) hypertension
CPT/HCPCS: 36415; 80048; 80076; 83690; 85025; 99283

== ENCOUNTER 2021-08-23 13:25 | Observation (INO) | payer OTHER, SELFPAY ==
--- OUTSIDE RECORDS SUMMARY | 2021-08-23 13:39 | XMS REPORT | Continuity of Care Document ---
:1965 Author Organization [facility] t Address [address] [place] [address] Care Team Providers Name Role Phone VERENICE HENDERSON Primary Care Physician Unavailable JEFFREY GAYTAN Attending Clinician Unavailable ATAFUNMILAYO, Milo Attending Clinician Unavailable ATAFUNMILAYO, Milo Attending Clinician Unavailable Bianca HOGAN Attending Clinician Unavailable Doctor Unassigned, Name Attending Clinician Unavailable Ayaka NAIDU, M Attending Clinician River WRAY Attending Clinician Mikel PRIDE Attending Clinician Unavailable Jake SAUER Attending Clinician Ange DO Attending Clinician Roxana SAUER, P Attending Clinician Camille DO Attending Clinician Xuan SAUER Attending Clinician Robin Juarez MD, J Attending Clinician Mikel Pride MD Attending Clinician Randall Huizar Attending Clinician Lynn BYRNES Attending Clinician Unavailable Harper KELLY JR Admitting Clinician Unavailable Robin Juarez MD, J Admitting Clinician Lynn BYRNES Admitting Clinician Unavailable Payers Payer Name Policy Type Policy Number Effective Date Expiration Date Ender castaneda MEDICARE PART A [id number] 2020 \\T\\ B 00:00:00 Problems Condition Condition Condition Status Onset Resolution Last Treating Co mments Source Name Details Category Date Date Treatment Clinician Date Hyperkalem Hyperkalem Disease Active 2020-09 U rox ia ia 09-03 ity of 00:00: [place] 00 Medical Branch 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 type type Added automatic ally from request for surgery [id number] Gynecomast Gynecomast Disease Active U rox ia, male ia, male 6- ity of 00:00: [place] 00 Medical Branch Tobacco Tobacco Disease Active Univers abuse abuse - ity of 00:00: [place] 00 Medical Branch H/O drug H/O drug Disease Active Unive rs dependence dependence 02-13 it y of /abuse /abuse 00:00: [place] 00 Medical Branch Alcohol Alcohol Disease Active Univers abuse, in abuse, in 02-13 ity of remission remission 00:00[place] Allergies, Adverse Reactions, Alerts Allergy Allergy Status Severity Reaction(s) Onset Inactive Treating Comm ents Source Name Type Date Date Clinician IODINE Drug Active Med Rash Univers AND Class 7- ity of IODIDE 00:00: [place] CONTAINI 00 Medical NG Branch PRODUCTS Iodine Propensi Active Rash During Univers And ty to 04-02 MRI ity of Iodide adverse 00:00: procedure [place] Containi reaction 00 Medica l ng s Branch Products Family History Family Member Diagnosis Comments Start Date Stop Date Source Natural brother No Significant Unive rsity of Medical Problems [facility] dical [place] Natural father No Significant Univer sity of Medical Problems [facility] Natural mother No Significant Univer sity of Medical Problems [facility] Paternal Cancer University of grandmother [facility] Natural sister No Significant Univer sity of Medical Problems [facility] Social History Social Habit Start Date Stop Date Quantity Comments Source History of tobacco Cigarette Smoker University of use [facility] History SDOH University o [facility] SD[facility] University o f Alcohol Std Drinks [facility] History [facility] o f Alcohol Binge [facility] Exposure to Not sure University of SARS-CoV-2 (event) [facility] Alcohol intake 2021-07-05 2021-07-05 Ex-drinker University of 00:00:00 00:00:00 (finding) [facility] Tobacco Comment 2019-04-02 2019-04-02 1/2 pack a day Unive rsity of 00:00:00 00:00:00 [facility] Cigarettes smoked 2019-02-13 2019-02-13 Univers ity of current (pack per 00:00:00 00:00:00 [facility] ) - Reported Branch Cigarette 2019-02-13 2019-02-13 University of pack-years 00:00:00 00:00:00 [facility] Tobacco use and 2019-02-13 2019-02-13 Never used Universit y of exposure 00:00:00 00:00:00 [facility] Alcohol Comment 2019-02-13 2019-02-13 used to drink a Univ ersity of 00:00:00 00:00:00 fifth q 2-3 days [facility] dicco with 4-5 beers a Branch da Sex [birth year] Universit y of 00:00:00 00:00:00 [facility] Smoking Status Start Date Stop Date Source Current every day smoker 2019-02-13 00:00:00 Uni versity of [facility] Medications Ordered Filled Start Stop Current Ordering Indication Dosage Frequency Signature Comments Components Source Medication Medication Date Date Medication? Clinician (SIG) Name Name MULTIVITAMI 2020-09 Yes Take by Un abigail N ORAL 1-21 mouth ity of 16:31: daily. Medical Branch MULTIVITAMI 2020-09 Yes Take by Un abigail N ORAL 1-21 mouth ity of 16:31: daily. Medical Branch MULTIVITAMI 2020-09 Yes Take by Un abigail N ORAL 1-21 mouth ity of 16:31: daily. Medical [place] MULTIVITAMI 2020-09 Yes Take by Un abigail N ORAL 1-21 mouth ity of 16:31: daily. [facility] MULTIVITAMI 2020-09 Yes Take by Un abigail N ORAL 1-21 mouth ity of 16:31: daily. Medical [place] magnesium 2020-09 Yes [id number] 400mg Take 400 Univers oxide 420 1-21 mg by ity of mg Tab 00:00: mouth [place] 00 daily. Medical Branch magnesium 2020-09 Yes [id number] 400mg Take 400 Univers oxide 420 1-21 mg by ity of mg Tab 00:00: mouth [place] 00 daily. Medical Branch magnesium 2020-09 Yes [id number] 400mg Take 400 Univers oxide 420 1-21 mg by ity of mg Tab 00:00: mouth [place] 00 daily. Medical Branch magnesium 2020-09 Yes [id number] 400mg Take 400 Univers oxide 420 1-21 mg by ity of mg Tab 00:00: mouth [place] 00 daily. Medical Branch magnesium 2020-09 Yes [id number] 400mg Take 400 Univers oxide 420 1-21 mg by ity of mg Tab 00:00: mouth [place] 00 daily. Medical Branch lisinopriL 2020-09- No 10mg Take 10 mg Univers 10 mg 1-20 11-20 by mouth ity of tablet 16:56: 00:00 daily. [place] 39 :00 [facility] Branch KCL 2020-09- No 20meq 20 mEq, Univers (KLOR-CON 1-20 11-20 Oral, ity of M20) tablet 14:45: 15:59 ONCE, 1 [place] 20 mEq 00 :00 dose, On [facility] 07/23/21 at 0845, Routine epoetin 2020-09- No 4000U 4,000 Univers landon-epbx 1-20 11-20 Units, ity of (RETACRIT) 02:00: 02:00 Subcutaneo [place] injection 00 :00 us, ONCE Medica l 4,000 Units AT 1999, 1 Br anch dose, On Sun07/22/21 at 1999, Routine
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 lactulose 2020-09 Yes [id number] 15mL Take 15 mL Univers 10 gram/15 1-20 by mouth 2 ity of mL solution 00:00: (two) [place] 00 times Medical daily. Branch midodrine 2020-09 Yes [id number] 20mg Take 2 U nivers 10 mg 1-20 tablets by ity of tablet 00:00: mouth [place] 00 every 8 Medical (eight) Branch hours. furosemide 2020-09 Yes [id number] 120mg Take 3 Univers 40 mg 1-20 tablets by ity of tablet 00:00: mouth [place] 00 every Medical morning Branch and evening. lactulose 2020-09 Yes [id number] 15mL Take 15 mL Univers 10 gram/15 1-20 by mouth 2 ity of mL solution 00:00: (two) [place] 00 times Medical daily. Branch midodrine 2020-09 Yes [id number] 20mg Take 2 U nivers 10 mg 1-20 tablets by ity of tablet 00:00: mouth [place] 00 every 8 Medical (eight) Branch hours. furosemide 2020-09 Yes [id number] 120mg Take 3 Univers 40 mg 1-20 tablets by ity of tablet 00:00: mouth [place] 00 every Medical morning Branch and evening. lactulose 2020-09 Yes [id number] 15mL Take 15 mL Univers 10 gram/15 1-20 by mouth 2 ity of mL solution 00:00: (two) [place] 00 times Medical daily. Branch midodrine 2020-09 Yes [id number] 20mg Take 2 U nivers 10 mg 1-20 tablets by ity of tablet 00:00: mouth [place] 00 every 8 Medical (eight) Branch hours. furosemide 2020-09 Yes [id number] 120mg Take 3 Univers 40 mg 1-20 tablets by ity of tablet 00:00: mouth [place] 00 every Medical morning Branch and evening. lactulose 2020-09 Yes [id number] 15mL Take 15 mL Univers 10 gram/15 1-20 by mouth 2 ity of mL solution 00:00: (two) [place] 00 times Medical daily. Branch midodrine 2020-09 Yes [id number] 20mg Take 2 U nivers 10 mg 1-20 tablets by ity of tablet 00:00: mouth [place] 00 every 8 Medical (eight) Branch hours. furosemide 2020-09 Yes [id number] 120mg Take 3 Univers 40 mg 1-20 tablets by ity of tablet 00:00: mouth [place] 00 every Medical morning Branch and evening. lactulose 2020-09 Yes [id number] 15mL Take 15 mL Univers 10 gram/15 1-20 by mouth 2 ity of mL solution 00:00: (two) [place] 00 times Medical daily. Branch midodrine 2020-09 Yes [id number] 20mg Take 2 U nivers 10 mg 1-20 tablets by ity of tablet 00:00: mouth [place] 00 every 8 Medical (eight) Branch hours. furosemide 2020-09 Yes 120mg 120 mg, Uni vers (LASIX) 09-21 Oral, ity of tablet 120 23:00: QAM+PM, [place] mg 00 First dose Medical on Fri Branch 07/22/21 at 1700, Until Discontinu ed, Routine furosemide 2020-09 No 60mg 60 mg, Univ ers (LASIX) 09-21 Oral, ity of tablet 60 21:15: 20:55 ONCE, 1 [place] mg 00 :00 dose, On Medical Fri Branch 07/22/21 at 1515, Routine magnesium 2020-09 Yes 400mg 400 mg, Univ ers oxide 09-21 Oral, ity of (MAG-OX 15:00: DAILY, [place] 400) tablet 00 First dose Me dical 400 mg on Fri Branch 07/22/21 at 0900, Until Discontinu ed, Routine KCL 2020-09- No 40meq 40 mEq, Univers (KLOR-CON 09-21 Oral, ity of M20) tablet 12:45: 11:44 ONCE, 1 [place] 40 mEq 00 :00 dose, On Medical Fri Branch 07/22/21 at 0645, Routine KCL 2020-09 No 40meq 40 mEq, IV Unive rs (POTASSIUM 09-20 Piggyback, it y of CHLORIDE) 13:45: 15:00 ONCE, 1 [place] 40 mEq in 00 :00 dose, On Medica l NaCl 0.9% [facility] Branch (NS) 07/21/21 piggyback at 0745, 250 mL magnesium 2020-09- No 4g 4 g, IV Univ ers sulfate in 09-20 Piggyback, it y of water 4 13:30: 12:39 ONCE, 1 [place] gram/50 mL 00 :00 dose, On Medic al (8 %) IV [facility] Branch Piggyback 4 07/21/21 g at 0730, Routine aspirin 81 2020-09- No 81mg Take 81 mg Univers mg chewable 09-20 by mouth ity of tablet 13:09: 00:00 daily. [place] 02 :00 Medical Branch furosemide 2020-09 No 80mg 80 mg, Univ ers (LASIX) 09-20 Slow IV ity of injection 02:00: 17:05 Push, [place] 80 mg 00 :04 Q12H, Medical First dose Branch on Sun07/20/21 at 2000, Until Discontinu ed, Routine melatonin 2020-09 Yes 6mg 6 mg, Univers (MELATIN) 17 Oral, QHS, ity of tablet 6 mg 03:00: First dose [place] 00 on [facility] 07/19/21 Branch at 2100, Until Discontinu ed, Routine furosemide 2020-09 No 80mg 80 mg, Univ ers (LASIX) 09-18 Slow IV ity of injection 17:29: 18:25 Push, [place] 80 mg 00 :00 ONCE, 1 Medical dose, On Branch 07/19/21 at 1130, STAT magnesium 2020-09 No 4g 4 g, IV Univ ers sulfate in 09-18 Piggyback, it y of water 4 13:30: 13:48 ONCE, 1 [place] gram/50 mL 00 :00 dose, On Medic al (8 %) IV [facility] Branch Piggyback 4 07/19/21 g at 0730, Routine furosemide 2020-09- No 40mg 40 mg, Univ ers (LASIX) 09-18 Slow IV ity of injection 03:00: 02:49 Push, [place] 40 mg 00 :00 ONCE, 1 Medical dose, On Branch Sun07/18/21 at 2100, STAT simethicone 2020-09 Yes 80mg 80 mg, Univ ers (GAS RELIEF 1-15 Oral, ity of (SIMETHICON 19:00: PC+HS, [place] E)) 00 First dose Medical chewable on Sun tablet 80 07/18/21 mg at 1300, Until Discontinu ed, Routine acetaminoph 2020-09 Yes 650mg 650 mg, Un abigail en 1-15 Oral, ity of (TYLENOL) 04:30: Q6HPRN, [place] tablet 650 00 Starting Medic al mg on [place] Branch 07/17/21 at 2230, Until Discontinu ed, Routine, Pain (scale 1-3), Pain (scale 4-6) midodrine 2020-09 Yes 20mg 20 mg, Univer s (PROAMATINE 1-14 Oral, Q8H, it y of ) tablet 20 12:00: First dose [place] mg 00 (after Medical last Branch modificati on) on [place] 07/17/21 at 0600, Until Discontinu ed, Routine CVVHD fluid 2020-09- No 3.5L/h 3.5 L/hr Univers dialysate, 09-15 (3,500 ity of K 4.0-Ca 00:45: 19:59 mL/hr), [place] 3.0, Mg 00 :01 CRRT Medical 1.0, HCO3 Circuit, Branch 35, Cl 113, at 3,500 Osm 300 mL/hr, CONTINUOUS , Starting on Sun07/15/21 at 1845, Until Awa 07/21/21 at 1359, Routine albumin 2020-09- No 1g/kg 72.5 g (1 Uni vers (PLASBUMIN) 09-14 11-12 g/kg ?72.5 i ty of 25 % 23:15: 22:52 kg), IV [place] injection 00 :00 Infusion, Medic al 72.5 g ONCE, 1 Branch dose, On Sun07/15/21 at 1715, 300 mL
Trang cation: HEPATORENA L SYNDROME (TREATMENT )
Comme nts: 1. Albumin + octreotide and midodrine< br>Comm ents: 2. Albumin + norepineph rine for patients in the ICU midodrine 2020-09- No 17.5mg 17.5 mg, U nivers (PROAMATINE 09-14 Oral, Q8H, i ty of ) tablet 20:00: 03:43 First dose [place] 17.5 mg 00 :09 (after Medical last Branch modificati on) on Sun07/15/21 at 1400, Until Discontinu ed, Routine magnesium 2020-09 No 4g 4 g, IV Univ ers sulfate in 09-14 Piggyback, it y of water 4 14:30: 16:30 ONCE, 1 [place] gram/50 mL 00 :00 dose, On Medic al (8 %) IV Sun Branch Piggyback 4 07/15/21 g at 0830, Routine NORepinephr 2020-09 No .05ug/k 0.05-1.5 Univers ine 4 mg in 09-14 g/min mcg/kg/min ity of D5W 250 mL 13:57: 02:59 ?75 kg [place] infusion 27 :42 (14.25-4 Medic al RTU 21.875 Branch mL/hr, rounded to 14.06-421. 88 mL/hr), IV Infusion, TITRATE, MAP Goal > or = 60 mmHg, Starting on Sun07/15/21 at 0757
In itiate titration at 0.05 mcg/kg/min . &nb sp;Increas e by 0.01 mcg/kg/min every 30 seconds to 5 minutes as needed to reach and maintain goal blood pressure.& nbsp;&nbsp ;Maximum dose = 1.5 mcg/kg/min . &nb sp;If goal not maintained at maximum allowed dose, contact prescriber .
CVVHD fluid 2020-09 No 3.5L/h 3.5 L/hr Univers dialysate, 09-13 (3,500 ity of K 4.0-Ca 23:15: 23:36 mL/hr), [place] 3.0, Mg 00 :16 CRRT Medical 1.0, HCO3 Circuit, Branch 35, Cl 113, at 3,500 Osm 300 mL/hr, CONTINUOUS , Starting on Awa 07/14/21 at 1715, Until Sun07/15/21 at 1736, Routine NaCl 0.9% 2020-09 No 500mL at 999 Univ ers (NS) bolus 09-1311 mL/hr, 500 it y of infusion 17:00: 17:08 mL, IV [place] 500 mL 00 :00 Piggyback, Medical ONCE, 1 Branch dose, On Awa 07/14/21 at 1100, STAT NORepinephr 2020-09- No .05ug/k 0.05-1.5 Univers ine 4 mg in 09-1312 g/min mcg/kg/min ity of D5W 250 mL 15:37: 13:57 ?75 kg [place] infusion 17 :43 (14.0625-4 Medic al RTU 21.875 Branch mL/hr, rounded to 14.06-421. 88 mL/hr), IV Infusion, TITRATE, MAP Goal > or = 65 mmHg, Starting on Awa 07/14/21 at 0937
In itiate titration at 0.05 mcg/kg/min . &nb sp;Increas e by 0.01 mcg/kg/min every 30 seconds to 5 minutes as needed to reach and maintain goal blood pressure.& nbsp;&nbsp ;Maximum dose = 1.5 mcg/kg/min . &nb sp;If goal not maintained at maximum allowed dose, contact prescriber .
albumin 2020-09- No 1g/kg 71 g (1 Unive rs (PLASBUMIN) 09-12 11-10 g/kg ?71 ity of 25 % 17:00: 16:28 kg), IV [place] injection 00 :00 Infusion, Medic al 71 g ONCE, 1 Branch dose, On Sun07/13/21 at 1100, 300 mL
Trang cation: HEPATORENA L SYNDROME (TREATMENT )
Comme nts: 1. Albumin + octreotide and midodrine< br>Comment s: 2. Albumin + norepineph rine for patients in the ICU CVVHD fluid 2020-09- No 3.5L/h 3.5 L/hr Univers dialysate, 09-11 (3,500 ity of K 4.0-Ca 23:15: 23:36 mL/hr), [place] 3.0, Mg 00 :16 CRRT Medical 1.0, HCO3 Circuit, Branch 35, Cl 113, at 3,500 Osm 300 mL/hr, CONTINUOUS , Starting on Sun07/12/21 at 1715, Until Sun07/15/21 at 1736, Routine magnesium 2020-09- No 2g 2 g, IV Univ ers sulfate in 09-11 Piggyback, it y of water 2 22:45: 01:30 ONCE, 1 [place] gram/50 mL 00 :00 dose, On Medic al (4 %) e Branch infusion 2 07/12/21 at g 1645, Routine Potassium 2020-09- No 40meq 40 mEq, Uni vers Bicarb-Citr 09-11 Oral, ity of ic Acid 22:45: 23:29 ONCE, 1 [place] (EFFER-K) 00 :00 dose, On Medica l effervescen Branch t tablet 40 07/12/21 at mEq 1645, Routine midodrine 2020-09- No 15mg 15 mg, Unive rs (PROAMATINE 09-11 Oral, Q8H, i ty of ) tablet 15 20:00: 17:50 First dose [place] mg 00 :54 (after Medical last Branch modificati on) on Sun07/12/21 at 1400, Until Discontinu ed, Routine acetaminoph 2020-09- No 325mg 325 mg, U nivers en 09-11 Oral, ity of (TYLENOL) 08:23: 04:28 Q4HPRN, [place] tablet 325 34 :02 Starting Medic al mg on Sun07/12/21 at 0223, Until 07/17/21 at 2228, Routine, Pain (scale 4-6), Temp > 38.5 C CVVHD fluid 2020-09- No 2.5L/h 2.5 L/hr Univers dialysate, 09-11 (2,500 ity of K 4.0-Ca 03:00: 23:36 mL/hr), [place] 3.0, Mg 00 :16 CRRT Medical 1.0, HCO3 Circuit, Branch 35, Cl 113, at 2,500 Osm 300 mL/hr, CONTINUOUS , Starting on Sun07/11/21 at 2100, Until Sun07/15/21 at 1736, Routine vancomycin 2020-09- No 15mg/kg 1,000 mg Univers (VANCOCIN) 09-10 (rounded ity of 1,000 mg in 23:48: 02:20 from 1,125 [place] NaCl 0.9% 00 :00 mg = 15 Medical (NS) 250 mL mg/kg ?75 Bra a[place] VIAL-MATE kg), IV IV Piggyback, piggyback ONCE, 1 dose, On Sun07/11/21 at 1800, Administer over 60 Minutes, 250 mL
Reas on for Anti-Infec tive: Documented Infection< br>Docu mented Infection Site: Blood
D uration of Therapy: 7 days lidocaine 2020-09- No PRN, Univers 1% (PF) 09-10 Starting ity of (XYLOCAINE) 17:26: 17:26 on [facility] [place] injection 00 :00 07/11/21 at [facility] 1126, Branch Until Sun07/11/21 at 1126, Routine FENTanyl PF 2020-09- No Slow IV Un abigail (SUBLIMAZE 09-10 Push, PRN, it y of (PF)) 17:26: 17:26 Starting [place] injection 00 :00 on [facility] Medical 07/11/21 at Branch 1126, Until Sun07/11/21 at 1126, Routine Potassium 2020-09- No 40meq 40 mEq, Uni vers Bicarb-Citr 09-10 Oral, ity of ic Acid 16:15: 20:54 ONCE, 1 [place] (EFFER-K) 00 :00 dose, On Medica l effervescen [facility] t tablet 40 07/11/21 at mEq 1015, Routine NORepinephr 2020-09- No .05ug/k 0.05-1.5 Univers ine 16 mg 09-10 11-11 g/min mcg/kg/min it y of in NS 250 16:07: 15:37 ?75 kg [place] mL infusion 05 :29 (3.5156-10 Me dical RTU 5.4688 [place] mL/hr, rounded to 3.52-105.4 7 mL/hr), IV Infusion, TITRATE, MAP Goal > or = 65 mmHg, Starting on Sun07/11/21 at 1007
In itiate titration at 0.05 mcg/kg/min . &nb sp;Increas e by 0.01 mcg/kg/min every 30 seconds to 5 minutes as needed to reach and maintain goal blood pressure.& nbsp;&nbsp ;Maximum dose = 1.5 mcg/kg/min . &nb sp;If goal not maintained at maximum allowed dose, contact prescriber .
midodrine 2020-09 No 10mg 10 mg, Unive rs (PROAMATINE 09-10 Oral, Q8H, i ty of ) tablet 10 15:15: 14:15 First dose [place] mg 00 :28 (after Medical last Branch modificati on) on Sun07/11/21 at 0915, Until Discontinu ed, Routine CVVHD fluid 2020-09- No 1.5L/h 1.5 L/hr Univers dialysate, 09-09 (1,500 ity of K 4.0-Ca 21:15: 23:36 mL/hr), [place] 3.0, Mg 00 :16 CRRT Medical 1.0, HCO3 Circuit, Branch 35, Cl 113, at 1,500 Osm 300 mL/hr, CONTINUOUS , Starting on Sun07/10/21 at 1515, Until Sun07/15/21 at 1736, Routine midodrine 2020-09 No 5mg 5 mg, Univer s (PROAMATINE 09-09 Oral, Q8H, i ty of ) tablet 5 20:00: 13:04 First dose [place] mg 00 :05 (after Medical last Branch modificati on) on [place] 07/10/21 at 1400, Until Discontinu ed, Routine octreotide 2020-09 No 100ug 100 mcg, U nivers (SANDOSTATI 09-09 Subcutaneo i ty of N) 16:15: 12:26 us, Q12H, [place] injection 00 :09 First dose Medi damari 100 mcg on [facility] 07/10/21 at 1015, Until Discontinu ed, Routine
Indicatio n: Hepatorena l Syndrome potassium 2020-09- No 20meq 20 mEq, IV Univers chloride 20 09-09 Piggyback, i ty of mEq/100 mL 14:15: 15:25 ONCE, 1 [place] as (KCL) 20 00 :00 dose, On Medical mEq/100 mL [facility] RTU IVPB 20 07/10/21 at mEq 0815, 100 mL midodrine 2020-09- No 10mg 10 mg, Unive rs (PROAMATINE 09-08 Oral, ity of ) tablet 10 23:07: 16:02 Q8HPRN, [place] mg 19 :40 Starting Medical on [facility] 07/09/21 at 1807, Until [place] 07/10/21 at 1002, Routine, SBP<100 CVVHD fluid 2020-09- No 1.5L/h 1.5 L/hr Univers dialysate, 09-08 (1,500 ity of K 2.0-Ca 22:00: 23:36 mL/hr), [place] 3.0, Mg 00 :16 CRRT Medical 1.0, HCO3 Circuit, Branch 35, Cl 111, at 1,500 Osm 296 mL/hr, CONTINUOUS , Starting on [facility] 07/09/21 at 1700, Until Sun07/15/21 at 1736, Routine heparin 2020-09 Yes 1400U 1,400 Univers 1,000 09-08 Units, ity of unit/mL 16:34: Slow IV [place] injection 17 Push, PRN Medic al 1,400 Units - SEE [place] INSTRUCTIO NS, Starting on [facility] 07/09/21 at 1134, Until Discontinu ed, Routine, line maintenanc e meropenem 2020-09- No 500mg 500 mg, IV Univers (MERREM) 09-08 Piggyback, ity of 500 mg in 06:45: 14:15 Administer [place] NaCl 0.9% 00 :28 over 60 Medical (NS) 100 mL Minutes, Bran ch MINI-BAG Q24H ABX, First dose on [facility] 07/09/21 at 0145, Until Discontinu ed, TATYANA
Re stricted use approved by: [facility] 8TH FLOOR
R syed for Anti-Infec tive: Empiric Therapy for Suspected Infection< br>Empiric Therapy Site: Blood
D uration of therapy: 72 hours vancomycin 2020-09- No 15mg/kg 1,000 mg Univers (VANCOCIN) 09-08 (rounded ity of 1,000 mg in 05:34: 07:49 from 1,110 [place] NaCl 0.9% 00 :00 mg = 15 Medical (NS) 250 mL mg/kg ?74 [facility] VIAL-MATE kg), IV IV Piggyback, piggyback ONCE, 1 dose, On Sun07/09/21 at 0045, Administer over 60 Minutes, 250 mL
Reas on for Anti-Infec tive: Documented Infection< br>Docu mented Infection Site: Blood
D uration of Therapy: 7 days acetaminoph 2020-09 No 325mg 325 mg, U nivers en 09-08 Oral, ity of (TYLENOL) 05:33: 08:23 Q4HPRN, [place] tablet 325 50 :50 Starting Medic al mg on Sun07/09/21 at 0033, Until Sun07/12/21 at 0223, Routine, Temp > 38.5 C lactulose 2020-09 Yes 15mL 15 mL, Univer s (CEPHULAC) 09-08 Oral, BID, ity of solution 15 01:00: First dose [place] mL 00 (after Medical last Branch modificati on) on Sun07/08/21 at 2000, Until Discontinu ed, Routine midodrine 2020-09- No 5mg 5 mg, Univer s (PROAMATINE 09-07 Oral, ity of ) tablet 5 17:00: 23:07 Q8HPRN, [place] mg 00 :39 Starting Medical on Sun07/08/21 at 1200, Until Sun07/09/21 at 1807, Routine, SBP<100 midodrine 2020-09- No 2.5mg 2.5 mg, Uni vers (PROAMATINE 09-07 Oral, TID, i ty of ) tablet 14:15: 16:46 First dose [place] 2.5 mg 00 :54 (after Medical last Branch modificati on) on Sun07/08/21 at 0915, Until Discontinu ed, Routine KCL 2020-09- No 40meq 40 mEq, IV Unive rs (POTASSIUM 09-07 Piggyback, it y of CHLORIDE) 05:00: 05:08 ONCE, 1 [place] 40 mEq in 00 :00 dose, On Medica l NaCl 0.9% Fri (NS) 07/08/21 at piggyback 0000, 250 mL furosemide 2020-09 No 80mg 80 mg, Univ ers (LASIX) 09-06 Slow IV ity of injection 14:45: 14:54 Push, [place] 80 mg 00 :00 ONCE, 1 Medical dose, On Branch [place] 07/07/21 at 0945, Routine CVVHD fluid 2020-09- No 2L/h 2 L/hr Uni vers dialysate, 09-06 (2,000 ity of K 4.0-Ca 14:30: 17:53 mL/hr), [place] 3.0, Mg 00 :41 CRRT Medical 1.0, HCO3 Circuit, Branch 35, Cl 113, at 2,000 Osm 300 mL/hr, CONTINUOUS , Starting on Sun07/07/21 at 0930, Until 07/09/21 at 1253, Routine magnesium 2020-09 No 4g 4 g, IV Univ ers sulfate in 09-06 Piggyback, it y of water 4 12:30: 15:55 ONCE, 1 [place] gram/50 mL 00 :00 dose, On Medic al (8 %) IV [place] Branch Piggyback 4 07/07/21 at g 0730, Routine CVVHD fluid 2020-09- No 2L/h 2 L/hr Uni vers dialysate, 09-05 (2,000 ity of K 2.0-Ca 18:15: 13:20 mL/hr), Jace 3.0, Mg 00 :12 CRRT Medical 1.0, HCO3 Circuit, Branch 35, Cl 111, at 2,000 Osm 296 mL/hr, CONTINUOUS , Starting on Sun07/06/21 at 1315, Until Awa 07/07/21 at 0820, Routine sodium 2020-09 No 650mg 650 mg, Univer s bicarbonate 09-05 Oral, TID, i ty of (ANTACID 01:00: 13:32 [place] (SODIUM 00 :07 on Tue Medical BICARBONATE 07/05/21 at Br anch )) tablet 2000, 650 mg Until Discontinu ed, Routine sodium 2020-09 No 15g 15 g, Univers polystyrene 09-04 Rectal, ity of sulfonate 21:30: 23:18 ONCE, [place] (KAYEXALATE 00 :00 dose, On [facility] damari ) 15 Sun Branch gram/60 mL 07/05/21 at suspension 1630, 15 g Routine heparin 2020-09 No 2800U 2,800 Univers 1,000 09-04 Units, ity of unit/mL 18:00: 16:57 Slow IV [place] injection 00 :00 Push, Medical 2,800 Units ONCE, 1 Branc h dose, On Sun07/05/21 at 1300, Routine NaCl 0.9% 2020-09 No 500mL at 999 Univ ers (NS) bolus 09-04 mL/hr, 500 it y of infusion 17:45: 16:47 mL, IV [place] 500 mL 00 :00 Piggyback, Medical ONCE, 1 Branch dose, On Sun07/05/21 at 1245, STAT sennosides- 2020-09- No 1{tbl} 1 tablet, Univers docusate 09-04 Oral, ity of sodium 14:15: 15:51 DAILY, [place] (SENOKOT-S) 00 :40 First dose Me dical 8.6-50 mg on Sun per tablet 07/05/21 at 1 tablet 0915, Until Discontinu ed, Routine lactulose 2020-09 No 30mL 30 mL, Unive rs (CEPHULAC) 09-04 Oral, BID, it y of solution 30 13:00: 12:46 First dose [place] mL 00 :56 on [facility] Medical 07/05/21 at Branch 0800, Until Discontinu ed, Routine phenylephri 2020-09 No .5ug/kg 0.5-2 U nivers ne 10 mg in 09-0403 /min mcg/kg/min i ty of NaCl 0.9% 12:35: 12:34 ?68.5 kg [place] as (NS) 250 mL 45 :45 (51.375-20 Me dical infusion 5.5 mL/hr, Branc h RTU rounded to 51.38-205. 5 mL/hr), IV Infusion, TITRATE, MAP Goal > or = 65 mmHg, Starting on e 07/05/21 at 0735, For 24 hours
I nitiate infusion at 0.5 mcg/kg/min . &nb sp;Increas e by 0.1 mcg/kg/min every 30 seconds to 5 minutes as needed to reach and maintain goal blood pressure.& nbsp;&nbsp ;Maximum dose = 2 mcg/kg/min .&nbsp ; If goal not maintained at maximum allowed dose, contact prescriber . &nb sp;Adminis ter only one peripheral intravenou s vasopresso r at a time.
lidocaine 2020-09- No 5mL 5 mL, Univer s 1% (PF) 09-04 Subcutaneo ity o f (XYLOCAINE) 10:30: 19:45 us, ONCE, [place] injection 5 00 :00 1 dose, On Me dical mL [facility] Branch 07/05/21 at 0530, Routine insulin 2020-09 No 5U 5 Units, Unive rs regular 09-04 IV Push, ity of human 08:54: 08:58 ONCE, 1 [place] (HUMULIN R) 00 :00 dose, On Medi damari injection 5 [facility] Branch Units 07/05/21 at 0400, Routine dextrose 50 2020-09 No 50mL 50 mL, Uni vers % in water 09-04 Intravenou it y of (D50W) 08:53: 09:01 s, ONCE, 1 [place] injection 00 :00 dose, On Medica l 50 mL [facility] Branch 07/05/21 at 0400, STAT calcium 2020-09 No 1g 1 g, IV Univer s gluconate 1 09-04 Infusion, it y of g in NaCl 08:53: 09:06 ONCE, 1 [place] 50 mL 00 :00 dose, On Medical (ISO-OSM) [facility] Branch RTU IV 07/05/21 at infusion 1 0400, g Routine sodium 2020-09- No 15g 15 g, Univers polystyrene 09-04 Oral, ity of sulfonate 07:09: 08:12 ONCE, [place] (KAYEXALATE 00 :00 dose, On Medi damari ) 15 Tue Branch gram/60 mL 07/05/21 at suspension 0215, 15 g Routine alteplase 2020-09 No 1.6mg 1.6 mg, Uni vers (ACTIVASE) 09-04 INTRA-CATH it y of flush 07:00: 06:18 ETER, [place] syringe 1.6 00 :00 ONCE, 1 Medic al mg dose, On Branch Sun07/05/21 at 0200, Routine alteplase 2020-09 No 1.5mg 1.5 mg, Uni vers (ACTIVASE) 09-04 INTRA-CATH it y of flush 07:00: 06:18 ETER, [place] syringe 1.5 00 :00 ONCE, 1 Medic al mg dose, On Branch Sun07/05/21 at 0200, Routine furosemide 2020-09 No 80mg 80 mg, Univ ers (LASIX) 09-04 Slow IV ity of injection 07:00: 06:16 Push, [place] 80 mg 00 :00 ONCE, 1 Medical dose, On Branch Sun07/05/21 at 0200, Routine sodium 2020-09 30mL 30 mL, Univers citrate-cit 09-04 Oral, ity of melina acid 07:00: 06:16 ONCE, 1 [place] (BICITRA) 00 :00 dose, On Medica l 500-334 Tue Branch mg/5 mL 07/05/21 at solution 30 0200, mL Routine dextrose 50 2020-09 1{vial} 50 mL (1 Univers % in water 09-04 Vial), ity of (D50W) 06:45: 05:41 Slow IV [place] injection 00 :00 Push, Medical 50 mL ONCE, 1 Branch dose, On Sun07/05/21 at 0145, Routine CVVHD fluid 2020-09 No 4L/h 4 L/hr Uni vers dialysate, 09-04 (4,000 ity of K 2.0-Ca 06:30: 13:20 mL/hr), [place] 3.0, Mg 00 :12 CRRT Medical 1.0, HCO3 Circuit, Branch 35, Cl 111, at 4,000 Osm 296 mL/hr, CONTINUOUS , Starting on Sun07/05/21 at 0130, Until Awa 07/07/21 at 0820, Routine insulin 2020-09 No 5U 5 Units, Unive rs regular 09-04 IV Push, ity of human 06:15: 05:41 ONCE, 1 [place] (HUMULIN R) 00 :00 dose, On Medi damari injection 5 e Branch Units 07/05/21 at 0115, Routine CVVHD fluid 2020-09 No 4L/h 4 L/hr Uni vers dialysate, 09-04 (4,000 ity of K 2.0-Ca 04:15: 13:20 mL/hr), Jace 3.0, Mg 00 :12 CRRT Medical 1.0, HCO3 Circuit, Branch 35, Cl 111, at 4,000 Osm 296 mL/hr, CONTINUOUS , Starting on Sun07/04/21 at 2315, Until Awa 07/07/21 at 0820, Routine NORepinephr 2020-09 No .05ug/k 0.05-1.5 Univers ine 16 mg 09-0405 g/min mcg/kg/min it y of in NS 250 03:49: 16:46 ?74.4 kg [place] as mL infusion 15 :48 (3.4875-10 Me dical RTU 4.625 Branch mL/hr, rounded to 3.49-104.6 3 mL/hr), IV Infusion, TITRATE, MAP Goal > or = 65 mmHg, Starting on Sun07/04/21 at 2249
In itiate titration at 0.05 mcg/kg/min . &nb sp;Increas e &nb sp;every 30 seconds to 5 minutes as needed to reach and maintain goal blood pressure.& nbsp;&nbsp ;Maximum dose = 1.5 mcg/kg/min . &nb sp;If goal not maintained at maximum allowed dose, contact prescriber .
dextrose 50 2020-09 No 1{syrin 50 mL (1 Univers % in water 1-02 11-02 ge} Syringe), ity of (D50W) 03:15: 03:10 Slow IV [place] injection 00 :00 Push, Medical 50 mL ONCE, 1 Branch dose, On 07/04/21 at 2215, Routine calcium 2020-09 No 1g 1 g, IV Univer s gluconate 1 09-04 Infusion, it y of g in NaCl 03:00: 03:42 ONCE, 1 [place] 50 mL 00 :00 dose, On Medical (ISO-OSM) [facility] RTU IV 07/04/21 at infusion 1 2200, g Routine insulin 2020-09 No 10U 10 Units, Univ ers regular 09-04 Subcutaneo ity o f human 03:00: 03:05 , ONCE, [place] (HUMULIN R) 00 :00 1 dose, On Me dical injection [facility] 10 Units 07/04/21 at 2200, Routine calcium 2020-09 No 1g 1 g, IV Univer s gluconate 09-04 Infusion, it y of g in NaCl 00:45: 23:50 ONCE, 1 [place] 50 mL 00 :00 dose, On Medical (ISO-OSM) [facility] RTU IV 07/04/21 at infusion 1 1945, g Routine cefTRIAXone 2020-09 No 2000mg 2,000 mg, Univers (ROCEPHIN) 09-04 IV ity of 2,000 mg in 00:15: 23:56 [facility] [place] NaCl 0.9% 00 :00 ONCE, 1 Medical (NS) 100 mL dose, On Bran ch MINI-BAG [facility] 07/04/21 at 1915, Administer over 30 Minutes, 100 mL
Reas on for Anti-Infec tive: Empiric Therapy for Suspected Infection< br>Empiric Therapy Site: Abdominal< br>Duratio n of therapy: 72 hours MULTIVITAMI 2020-09 Yes Take by Un abigail N ORAL 09-04 mouth ity of 00:02: daily. [address] lisinopriL 2020-09 Yes 10mg Take 10 mg U nivers 10 mg 09-04 by mouth ity of tablet 00:02: daily. [address] insulin 2020-09 No 4U 4 Units, Unive rs regular 09-04 Slow IV ity of human 00:00: 23:33 Push, [place] (HUMULIN R) 00 :00 ONCE, 1 Medic al injection 4 dose, On Bran ch Units [facility] 07/04/21 at 1900, STAT dextrose 50 2020-09 No 50mL 50 mL, Uni vers % in water 09-04 Intravenou it y of (D50W) 00:00: 23:36 s, ONCE, 1 [place] injection 00 :00 dose, On Medica l 50 mL [facility] Branch 07/04/21 at 1900, STAT calcium 2020-09 No 1g 1 g, IV Univer s gluconate 1 09-04 Infusion, it y of g in NaCl 00:00: 23:31 ONCE, 1 [place] 50 mL 00 :00 dose, On Medical (ISO-OSM) [facility] RTU IV 07/04/21 at infusion 1 1900, g Routine NORepinephr 2020-09 No .05ug/k 0.05-1.5 Univers ine 4 mg in 09-03 g/min mcg/kg/min ity of 0.9% NaCl 23:59: 03:49 ?74.4 kg [place] as 250 mL 16 :43 (13.95-418 Medical infusion .5 mL/hr), [facility] h RTU IV Infusion, TITRATE, MAP Goal > or = 65 mmHg, Starting on Sun07/04/21 at 1859
In itiate titration at 0.05 mcg/kg/min . &nb sp;Increas e &nb sp;every 30 seconds to 5 minutes as needed to reach and maintain goal blood pressure.& nbsp;&nbsp ;Maximum dose = 1.5 mcg/kg/min . &nb sp;If goal not maintained at maximum allowed dose, contact prescriber .
NaCl 0.9% 2020-09 No 1000mL at 999 Uni vers (NS) bolus 09-03 mL/hr, ity of infusion 22:45: 22:54 1,000 mL, [place] as 1,000 mL 00 :00 IV Medical Infusion, Branch ONCE, 1 dose, On Sun07/04/21 at 1745, STAT traMADol 50 2020- No [id number] 50mg Take 1 Univers mg tablet 04-04 tablet by ity of 00:00: 00:00 mouth [place] 00 :00 every 8 Medical (eight) Branch hours as needed for Pain (scale 7-10). foLIC acid Yes [id number] 1mg Take 1 Univers 1 mg tablet 6-27 tablet by ity of 00:00: mouth [place] 00 daily. Medical Branch foLIC acid Yes [id number] 1mg Take 1 Univers 1 mg tablet 6-27 tablet by ity of 00:00: mouth [place] 00 daily. Medical Branch foLIC acid Yes [id number] 1mg Take 1 Univers 1 mg tablet 6-27 tablet by ity of 00:00: mouth [place] 00 daily. Medical Branch furosemide Yes [id number] 40mg Take 1 Univers 40 mg 6-27 tablet by ity of tablet 00:00: mouth [place] 00 every Medical morning Branch and evening. foLIC acid Yes [id number] 1mg Take 1 Univers 1 mg tablet 6-27 tablet by ity of 00:00: mouth [place] 00 daily. Medical Branch spironolact Yes [id number] 100mg Take 1 Univers one 100 mg 6-27 tablet by ity of tablet 00:00: mouth [place] 00 daily. Medical Branch foLIC acid Yes [id number] 1mg Take 1 Univers 1 mg tablet 6-27 tablet by ity of 00:00: mouth [place] 00 daily. Medical Branch foLIC acid Yes [id number] 1mg Take 1 Univers 1 mg tablet 6-27 tablet by ity of 00:00: mouth [place] 00 daily. Medical Branch furosemide 2020- No [id number] 40mg Take 1 Univers 40 mg 6-27 11-20 tablet by ity of tablet 00:00: 00:00 mouth [place] 00 :00 every Medical morning Branch and evening. spironolact 2020- No [id number] 100mg Take 1 Univers one 100 mg 6-27 11-20 tablet by ity of tablet 00:00: 00:00 mouth [place] 00 :00 daily. Medical Branch pantoprazol 2020- No [id number] 40mg Take 1 Univers e 40 mg EC 6-27 - tablet by ity of tablet 00:00: 00:00 mouth 2 [place] 00 :00 (two) Medical times Branch daily. Immunizations Ordered Filled Immunization Date Status Comments [facility] e Immunization Name Name TDAP 2019-09-11 Completed University of 00:00:00 [place] [facility] HEP B, Adult Dosage 2019-09-11 Completed Unive rsity of 00:00:00 [place] [facility] TDAP 2019-09-11 Completed University of 00:00:00 [place] [facility] HEP B, Adult Dosage 2019-09-11 Completed Unive rsity of 00:00:00 [facility] [place] [facility] Branch TDAP 2019-09-11 Completed University of 00:00:00 [place] [facility] HEP B, Adult Dosage 2019-09-11 Completed Unive rsity of 00:00:00 [facility] [place] [facility] Branch TDAP 2019-09-11 Completed University of 00:00:00 [place] [facility] HEP B, Adult Dosage 2019-09-11 Completed Unive rsity of 00:00:00 [facility] TDAP 2019-09-11 Completed University of 00:00:00 [place] [facility] TDAP 2019-09-11 Completed University of 00:00:00 [facility] HEP B, Adult Dosage 2019-09-11 Completed Unive rsity of 00:00:00 [place] [facility] HEP B, Adult Dosage 2019-09-11 Completed Unive rsity of 00:00:00 [place] [facility] Pneumococcal 2019-06-10 Completed University o f Polysaccharide, 00:00:00 [facility] ical PPSV23 (PNEUMOVAX) Branch HEP B, Adult Dosage 2019-06-10 Completed Unive rsity of 00:00:00 [place] [facility] Pneumococcal 2019-06-10 Completed University o f Polysaccharide, 00:00:00 [place] Med ical PPSV23 (PNEUMOVAX) Branch HEP B, Adult Dosage 2019-06-10 Completed Unive rsity of 00:00:00 [place] [facility] Pneumococcal 2019-06-10 Completed University o f Polysaccharide, 00:00:00 [place] Med ical PPSV23 (PNEUMOVAX) Branch HEP B, Adult Dosage 2019-06-10 Completed Unive rsity of 00:00:00 [place] [facility] Pneumococcal 2019-06-10 Completed University o f Polysaccharide, 00:00:00 [place] Med ical PPSV23 (PNEUMOVAX) Branch HEP B, Adult Dosage 2019-06-10 Completed Unive rsity of 00:00:00 [place] [facility] Pneumococcal 2019-06-10 Completed University o f Polysaccharide, 00:00:00 [place] Med ical PPSV23 (PNEUMOVAX) Branch Pneumococcal 2019-06-10 Completed University o f Polysaccharide, 00:00:00 [place] Med ical PPSV23 (PNEUMOVAX) Branch HEP B, Adult Dosage 2019-06-10 Completed Unive rsity of 00:00:00 [facility] [place] [facility] Branch HEP B, Adult Dosage 2019-06-10 Completed Unive rsity of 00:00:00 [place] [facility] HEP B, Adult Dosage 2019-05-08 Completed Unive rsity of 00:00:00 [place] [facility] HEP B, Adult Dosage 2019-05-08 Completed Unive rsity of 00:00:00 [facility] [place] [facility] Branch HEP B, Adult Dosage 2019-05-08 Completed Unive rsity of 00:00:00 [facility] [place] [facility] Branch HEP B, Adult Dosage 2019-05-08 Completed Unive rsity of 00:00:00 [facility] [place] [facility] Branch HEP B, Adult Dosage 2019-05-08 Completed Unive rsity of 00:00:00 [facility] [place] [facility] Branch HEP B, Adult Dosage 2019-05-08 Completed Unive rsity of 00:00:00 [place] [facility] HEP B, Adult Dosage 2018-08-06 Completed Unive rsity of 00:00:00 [place] [facility] HEP B, Adult Dosage 2018-08-06 Completed Unive rsity of 00:00:00 [facility] [place] [facility] Branch HEP B, Adult Dosage 2018-08-06 Completed Unive rsity of 00:00:00 [place] [facility] HEP B, Adult Dosage 2018-08-06 Completed Unive rsity of 00:00:00 [facility] [place] [facility] Branch HEP B, Adult Dosage 2018-08-06 Completed Unive rsity of 00:00:00 [place] [facility] HEP B, Adult Dosage 2018-08-06 Completed Unive rsity of 00:00:00 [place] [facility] Vital Signs Vital Name Observation Time Observation Value Comments Source Systolic blood 2021-07-24 14:21:00 102 mm[Hg] Univer sity of pressure [facility] Diastolic blood 2021-07-24 14:21:00 54 mm[Hg] Unive rsity of pressure [facility] Heart rate 2021-07-24 14:21:00 55 /min [facility] Body temperature 2021-07-24 14:18:00 36.89 Lucina Univ ersity of [place] [facility] Respiratory rate 2021-07-24 14:18:00 18 /min [facility] ersity [facility] Oxygen saturation in 2021-07-24 14:18:00 98 /min University of Arterial blood by [facility] Pulse oximetry Branch Body weight 2021-07-21 14:00:00 75 kg Universi ty [facility] BMI 2021-07-21 14:00:00 25.89 kg/m2 Universi [facility] Body height 2021-07-06 13:00:00 170.2 cm Universi ty [facility] Systolic blood 2021-07-13 17:00:00 100 mm[Hg] Univer sity of pressure [facility] Diastolic blood 2021-07-13 17:00:00 59 mm[Hg] Unive rsity of [facility] Heart rate 2021-07-13 17:00:00 56 /min [facility] Respiratory rate 2021-07-13 17:00:00 11 /min [facility] [place] [facility] Oxygen saturation in 2021-07-13 17:00:00 96 /min University of Arterial blood by [facility] Pulse oximetry Branch Body temperature 2021-07-13 14:00:00 37 Lucina [facility] ersity of [place] [facility] Body weight 2021-07-13 14:00:00 71 kg [facility] BMI 2021-07-13 14:00:00 24.51 kg/m2 [facility] Body height 2021-07-06 13:00:00 170.2 cm [facility] Procedures Procedure Date / Time Performing Source Performed Clinician DNR 2021-08-10 Doctor Unassigned, [facility] 06:01:00 [facility] Branch IR REMOVAL TUNNELED CENTRAL 2021-07-24 Melinda Mason [facility] VENOUS CATHETER WITHOUT 02:25:00 Medical [place] PORT/PUMP CBC WITH DIFF 2021-07-23 [facility] [place] 10:50:00 [facility] PROTHROMBIN TIME / INR 2021-07-23 Melinda Mason [facility] 10:49:00 Medical Branch MAGNESIUM 2021-07-23 [facility] [place] 00:37:00 [facility] BASIC METABOLIC PANEL (NA, K, 2021-07-23 Melinda Mason [facility] CL, CO2, GLUCOSE, BUN, 00:37:00 Medical B ran CREATININE, CA) PHOSPHORUS 2021-07-[facility] 09:[facility] Branch MAGNESIUM 2021-07-22 [facility] 09:57:00 Medical Branch HEPATIC FUNCTION PANEL 2021-07-22 [facility] ([id number]) (ALB,T.PRO,BILI 09:57:00 Medical Branch T,BU/BC,ALT,AST,ALK PHOS) BASIC METABOLIC PANEL (NA, K, 2021-07-22 Pancho [facility] CL, CO2, GLUCOSE, BUN, 09:57:00 Medical ran CREATININE, CA) PROTHROMBIN TIME / INR 2021-07-22 [facility] 09:57:00 Medical Branch HAV ANTIBODY (IGG AND IGM) 2021-07-22 Gualberto Deleon [facility] 09:57:00 Medical Branch GAMMA GLUTAMYLTRANSFERASE 2021-07-21 Gualberto Deleon [facility] 22:22:00 Medical Branch IRON 2021-07-21 Pancho [facility] xa 22:22:00 Medical Branch THYROID STIMULATING HORMONE 2021-07-21 [facility] 22:22:00 Medical Branch BASIC METABOLIC PANEL (NA, K, 2021-07-21 Gualberto Deleon [facility] CL, CO2, GLUCOSE, BUN, 22:22:00 Medical [facility] CREATININE, CA) HEPATITIS B SURFACE ANTIGEN 2021-07-21 Pancho [facility] [address] 22:22:00 Medical Branch HEPATITIS B CORE ANTIBODY IGM 2021-07-21 Gualberto Deleon [facility] 22:22:00 Medical Branch MAGNESIUM 2021-07-21 Gary Bhatt [facility] xa 10:14:00 Medical Branch CERULOPLASMIN 2021-07-21 Pancho [facility] [place]as 10:14:00 Medical Branch ALPHA 1 ANTITRYPSIN 2021-07-21 Pancho [facility] 10:14:00 Medical Branch IMMUNOGLOBULIN G 2021-07-21 Pancho [facility] exas 10:14:00 Medical Branch BASIC METABOLIC PANEL (NA, K, 2021-07-21 Gary Bhatt [facility] [place] CL, CO2, GLUCOSE, BUN, 10:14:00 Medical B ranch CREATININE, CA) CBC WITH DIFF 2021-07-21 Gary Bhatt [facility] [place] 10:14:00 Medical Branch HEPATITIS B SURFACE ANTIBODY 2021-07-21 Gualberto Deleon [facility] 10:14:00 Medical Branch MAGNESIUM 2021-07-20 [facility] 10:11:00 Medical Branch BASIC METABOLIC PANEL (NA, K, 2021-07-20 Sj Landers [facility] [place] CL, CO2, GLUCOSE, BUN, 10:11:00 Medical B ranch CREATININE, CA) MAGNESIUM 2021-07-19 [facility] ex 11:03:00 Medical Branch BASIC METABOLIC PANEL (NA, K, 2021-07-19 Az[facility] [place] CL, CO2, GLUCOSE, BUN, 11:03:00 Medical B ranch CREATININE, CA) CBC WITH DIFF 2021-07-19 [facility] ex 11:03:00 Medical Branch ANTI-NUCLEAR ANTIBODY SCREEN 2021-07-19 Gualberto Deleon [facility] 11:03:00 Medical Branch MAGNESIUM 2021-07-18 Sj Landers [facility] xa 09:56:00 Medical Branch BASIC METABOLIC PANEL (NA, K, 2021-07-18 Sj Landers [facility] [place] CL, CO2, GLUCOSE, BUN, 09:56:00 Medical B ranch CREATININE, CA) MAGNESIUM 2021-07-17 Sj Landers [facility] xa 10:21:00 Medical Branch BASIC METABOLIC PANEL (NA, K, 2021-07-17 Sj Landers [facility] [place] CL, CO2, GLUCOSE, BUN, 10:21:00 Medical B ranch CREATININE, CA) MAGNESIUM 2021-07-16 [facility] xa 11:25:00 Medical Branch BASIC METABOLIC PANEL (NA, K, 2021-07-16 Gosia Reid [facility] [place] CL, CO2, GLUCOSE, BUN, 11:25:00 Medical B ranch CREATININE, CA) CBC WITH DIFF 2021-07-16 Jeanette [facility] [place] 11:25:00 Medical Branch MAGNESIUM 2021-07-15 [facility] [place] 11:36:00 Medical Branch FERRITIN SERUM 2021-07-15 [facility] [place] 11:36:00 Medical Branch BASIC METABOLIC PANEL (NA, K, 2021-07-15 JazminGosia kelley [facility] [place] CL, CO2, GLUCOSE, BUN, 11:36:00 Medical B ranch CREATININE, CA) IRON PANEL 2021-07-15 [facility] [place]as 11:36:00 Medical Branch CBC WITH DIFF 2021-07-15 [facility] [place] 11:36:00 [facility] MAGNESIUM 2021-07-14 Evon Rya, [facility] [place] 10:46:00 [facility] CORTISOL AM 2021-07-14 Belgica [facility] [place] 10:46:00 [facility] HEPATIC FUNCTION PANEL 2021-07-14 Evon Ray, [facility] ([id number]) (ALB,T.PRO,BILI 10:46:00 [facility] T,BU/BC,ALT,AST,ALK PHOS) BASIC METABOLIC PANEL (NA, K, 2021-07-14 Barnard Flor, [facility] [place] CL, CO2, GLUCOSE, BUN, 10:46:00 [facility] Medicine ran CREATININE, CA) CBC WITH DIFF 2021-07-14 Evon Ray, [facility] [place]as 10:46:00 [facility] PHOSPHORUS 2021-07-13 Barnard Flor, [facility] [place]as 10:40:00 [facility] BASIC METABOLIC PANEL (NA, K, 2021-07-13 Barnard Flor, [facility] [place] CL, CO2, GLUCOSE, BUN, 10:40:00 [facility] Medicine ranch CREATININE, CA) CBC WITH DIFF 2021-07-13 Barnard Flor, [facility] xas 10:40:00 [facility] MAGNESIUM 2021-07-13 Banrard Flor, [facility] [place]as 10:40:00 [facility] HEPATIC FUNCTION PANEL 2021-07-13 Evon Ray, [facility] ([id number]) (ALB,T.PRO,BILI 10:40:00 [facility] T,BU/BC,ALT,AST,ALK PHOS) PHOSPHORUS 2021-07-13 Evon Ray, [facility] [place]as 10:40:00 [facility] MAGNESIUM 2021-07-13 Evon Ray, [facility] [place]as 10:40:00 [facility] HEPATIC FUNCTION PANEL 2021-07-13 [id number] (ALB,T.PRO,BILI 10:40:00 [facility] T,BU/BC,ALT,AST,ALK PHOS) BASIC METABOLIC PANEL (NA, K, 2021-07-13 Evon Ray, [facility] [place] CL, CO2, GLUCOSE, BUN, 10:40:00 [facility] Medical B ranch CREATININE, CA) CBC WITH DIFF 2021-07-13 [facility] 10:40:00 [facility] BASIC METABOLIC PANEL (NA, K, 2021-07-12 Filemon Cazares [facility] [place] CL, CO2, GLUCOSE, BUN, 11:48:00 Medical B ranch CREATININE, CA) CBC WITH DIFF 2021-07-12 [facility] xa 11:48:00 Medical [place] MAGNESIUM 2021-07-12 [facility] [place] 11:48:00 Medical [place] MAGNESIUM 2021-07-12 Cazares [facility] [place] 11:48:00 Medical [place] BASIC METABOLIC PANEL (NA, K, 2021-07-12 Filemon Cazares [facility] [place] CL, CO2, GLUCOSE, BUN, 11:48:00 Medical B ranch CREATININE, CA) CBC WITH DIFF 2021-07-12 [facility] xa 11:48:00 Medical Branch IR CENTRALLY INSERTED DEVICE 2021-07-11 Cyndee Guan [facility] [place] TUNNELED 5 OR OLDER NO 18:04:10 [facility] PORT/PUMP IR CENTRALLY INSERTED DEVICE 2021-07-11 Freida, Cyndee [facility] [place] TUNNELED 5 OR OLDER NO 18:04:10 [facility] PORT/PUMP VANCOMYCIN RANDOM LEVEL 2021-07-11 Sj Landers [facility] 15:10:00 Medical Branch VANCOMYCIN RANDOM LEVEL 2021-07-11 Sj Landers [facility] 15:10:00 Medical Branch ABORH CONFIRMATION (LAB ONLY) 2021-07-11 [facility] 14:39[facility] Medical Branch ABORH CONFIRMATION (LAB ONLY) 2021-07-11 Sj Landers Un [facility] 14:39:00 Medical Branch HB ABO GROUPING 2021-07-11 S[place] Landers [facility] [place] 13:41:00 Medical Branch HB ABO GROUPING 2021-07-11 Sj Landers [facility] [place] 13:41:00 [facility] BASIC METABOLIC PANEL (NA, K, 2021-07-11 Barnard Flor, [facility] [place] CL, CO2, GLUCOSE, BUN, 10:47:00 [facility] CREATININE, CA) CBC WITH DIFF 2021-07-11 Barnard Flor, [facility] [place] 10:47:00 [facility] MAGNESIUM 2021-07-11 Barnard Flor, [facility] [place] 10:47:00 [facility] PHOSPHORUS 2021-07-11 Barnard Flor, [facility] [place] 10:47:00 [facility] PHOSPHORUS 2021-07-11 Barnard Flor, [facility] [place] 10:47:00 [facility] MAGNESIUM 2021-07-11 Barnard Flor, [facility] [place] 10:47:00 [facility] BASIC METABOLIC PANEL (NA, K, 2021-07-11 Barnard Flor, [facility] [place] CL, CO2, GLUCOSE, BUN, 10:47:00 [facility] Medical [facility] CREATININE, CA) CBC WITH DIFF 2021-07-11 Barnard Flor, [facility] [place] 10:47:00 [facility] BASIC METABOLIC PANEL (NA, K, 2021-07-10 Barnrad Flor, [facility] [place] CL, CO2, GLUCOSE, BUN, 06:41:00 [facility] Medical B [facility] CREATININE, CA) HEPATIC FUNCTION PANEL 2021-07-10 Evon Ray, [facility] ([id number]) (ALB,T.PRO,BILI 06:41:00 [facility] T,BU/BC,ALT,AST,ALK PHOS) CBC WITH DIFF 2021-07-10 Evon Ray, [facility] 06:41:00 [facility] MAGNESIUM 2021-07-10 Barnard Lara, [facility] 06:41:00 [facility] MAGNESIUM 2021-07-10 Barnard Lara, [facility] 06:41:00 [facility] HEPATIC FUNCTION PANEL 2021-07-10 [facility] ([id number]) (ALB,T.PRO,BILI 06:41:00 [facility] T,BU/BC,ALT,AST,ALK PHOS) BASIC METABOLIC PANEL (NA, K, 2021-07-10 Evon Ray, [facility] CL, CO2, GLUCOSE, BUN, 06:41:00 [facility] Medicine ranch CREATININE, CA) CBC WITH DIFF 2021-07-10 Evon Ray, [facility] 06:41:00 [facility] URINE CULTURE 2021-07-09 [facility] 10:54:00 [facility] URINE CULTURE 2021-07-09 [facility] 10:54:00 [facility] BASIC METABOLIC PANEL (NA, K, 2021-07-09 [facility] CL, CO2, GLUCOSE, BUN, 09:45:00 [facility] CREATININE, CA) MAGNESIUM 2021-07-09 [facility] 09:45:00 [place] MAGNESIUM 2021-07-09 [facility] 09:45:00 [facility] BASIC METABOLIC PANEL (NA, K, 2021-07-09 [facility] CL, CO2, GLUCOSE, BUN, 09:45:00 Medical [facility] CREATININE, CA) XR CHEST 1 VW 2021-07-09 [facility] 09:00:00 Medical Branch XR CHEST 1 VW 2021-07-09 [facility] xa 09:00:00 [place] BLOOD CULTURE SCREEN 2021-07-09 [facility] 06:39:00 Medical Branch BLOOD CULTURE SCREEN 2021-07-09 [facility] 06:39:00 Medical Branch CBC WITH DIFF 2021-07-09 Aristeo [facility] 06:28:00 Medical Branch VANCOMYCIN RANDOM LEVEL 2021-07-09 [facility] 06:28:00 Medical Branch VANCOMYCIN RANDOM LEVEL 2021-07-09 Alberts, [facility] 06:28:00 Medical Branch CBC WITH DIFF 2021-07-09 Alberts, [facility] 06:28:00 Medical Branch PROTHROMBIN TIME / INR 2021-07-08 [facility], [facility] 17:13:00 Medical Branch PROTHROMBIN TIME / INR 2021-07-08 [facility] 17:13:00 Medical Branch CBC WITH DIFF 2021-07-08 [facility] xa 09:50:00 Medical Branch BASIC METABOLIC PANEL (NA, K, 2021-07-08 Tashi Guidry [facility] CL, CO2, GLUCOSE, BUN, 09:50:00 Medical [facility] [place] CREATININE, CA) MAGNESIUM 2021-07-08 [facility] x[facility] 09:50:00 Medical Branch MAGNESIUM 2021-07-08 [facility] 09:[facility]00 Medical Branch BASIC METABOLIC PANEL (NA, K, 2021-07-08 Tashi Guidry [facility] CL, CO2, GLUCOSE, BUN, 09:50:00 Medical [facility] [place] CREATININE, CA) CBC WITH DIFF 2021-07-08 [facility] x[facility] 09:50:00 [place] BASIC METABOLIC PANEL (NA, K, 2021-07-07 Tashi Guidry [facility] CL, CO2, GLUCOSE, BUN, 10:28:00 Medical [facility] CREATININE, CA) CBC WITH DIFF 2021-07-07 [facility] [place] 10:28:00 Medical Branch MAGNESIUM 2021-07-07 [facility] 10:28:00 Medical Branch DIFF CONSULT INTERPRETATION 2021-07-07 Freida, [facility] 10:28:00 Medical Branch PHOSPHORUS 2021-07-07 [facility] 10:28:00 Medical Branch PHOSPHORUS 2021-07-07 [facility] 10:28:00 Medical Branch MAGNESIUM 2021-07-07 [facility] 10:28:00 Medical Branch BASIC METABOLIC PANEL (NA, K, 2021-07-07 Tashi Guidry [facility] CL, CO2, GLUCOSE, BUN, 10:28:00 Medical [facility] CREATININE, CA) DIFF CONSULT INTERPRETATION 2021-07-07 Freida [facility] 10:28:00 Medical Branch CBC WITH DIFF 2021-07-07 [facility] 10:28:00 [facility] AMMONIA, PLASMA 2021-07-06 Babu, [facility] 20:19:00 Medical Branch AMMONIA, PLASMA 2021-07-06 Babu, [facility] 20:19:00 Medical Branch INTACT PTH CALCIUM GROUP 2021-07-06 [facility] 17:24:00 Medical Branch INTACT PTH CALCIUM GROUP 2021-07-06 [facility], [facility] 17:24:[address] HEAD WO CONTRAST 2021-07-06 [facility] 09:23:[address] HEAD WO CONTRAST 2021-07-06 [facility] 09:23:01 Medical Branch XR KUB 2021-07-06 [facility]ao [facility] 08:15:00 Medical Branch XR KUB 2021-07-06 [facility] 08:15:00 Medical Branch AC PANEL 20 + LACTIC ACID 2021-07-06 Chao [facility] 06:12:00 Medical Branch AC PANEL 20 + LACTIC ACID 2021-07-06 Chao [facility] 06:12:00 Medical Branch BASIC METABOLIC PANEL (NA, K, 2021-07-06 Tashi Guidry [facility] CL, CO2, GLUCOSE, BUN, 06:08:00 Medical [facility] CREATININE, CA) BASIC METABOLIC PANEL (NA, K, 2021-07-06 Tashi Guidry [facility] CL, CO2, GLUCOSE, BUN, 06:08:00 Medical [facility] CREATININE, CA) AC PANEL 20 + LACTIC ACID 2021-07-06 Tashi Guidry [facility] 06:02:00 Medical Branch AC PANEL 20 + LACTIC ACID 2021-07-06 Tashi Guidry [facility] 06:02:00 Medical Branch BASIC METABOLIC PANEL (NA, K, 2021-07-06 Barnard Flor, [facility] [place] CL, CO2, GLUCOSE, BUN, 00:46:00 Krist [facility] CREATININE, CA) BASIC METABOLIC PANEL (NA, K, 2021-07-06 Barnard Flor, [facility] [place] CL, CO2, GLUCOSE, BUN, 00:46:00 Krist [facility] CREATININE, CA) ELECTROENCEPHALOGRAM 2021-07-06 Wilfred Palomino [facility] 00:00:00 [facility] ELECTROENCEPHALOGRAM 2021-07-06 Lobo Harkins [facility] 00:00:00 [facility] BASIC METABOLIC PANEL (NA, K, 2021-07-05 [facility], CO2, GLUCOSE, BUN, 21:25:00 Medical B [facility] CREATININE, CA) BASIC METABOLIC PANEL (NA, K, 2021-07-05 [facility]upallka [facility], CO2, GLUCOSE, BUN, 21:25:00 Medical [facility] CREATININE, CA) XR CHEST 1 VW 2021-07-05 [facility] 20:20:00 Medical Branch XR CHEST 1 VW 2021-07-05 [facility] 20:20:00 Medical Branch POCT GLUCOSE (AUTOMATED) 2021-07-05 [facility] 16:41:00 Medical Branch POCT GLUCOSE (AUTOMATED) 2021-07-05 [facility] 16:41:00 Medical Branch XR CHEST 1 VW 2021-07-05 [facility] 16:30:00 Medical Branch XR CHEST 1 VW 2021-07-05 [facility] 16:30:00 Medical Branch BASIC METABOLIC PANEL (NA, K, 2021-07-05 Iman Colvin U [facility] CL, CO2, GLUCOSE, BUN, 13:03:00 Medical B ran CREATININE, CA) ALPHA FETOPROTEIN 2021-07-05 [facility] 13:03:00 Medical Branch BASIC METABOLIC PANEL (NA, K, 2021-07-05 Vinicius Iman U [facility] CL, CO2, GLUCOSE, BUN, 13:03:00 Medical B ran CREATININE, CA) ALPHA FETOPROTEIN 2021-07-05 [facility] 13:03:00 Medical Branch XR CHEST 1 VW 2021-07-05 [facility] [place] 11:54:00 Medical Branch XR CHEST 1 VW 2021-07-05 [facility] [place] 11:54:00 Medical Branch US ABDOMEN COMPLETE 2021-07-05 [facility] 09:00:00 Medical Branch US ABDOMEN COMPLETE 2021-07-05 [facility] 09:00:00 Medical Branch HEPATIC FUNCTION PANEL 2021-07-05 [facility] ([id number]) (ALB,T.PRO,BILI 07:23:00 Medical Branch T,BU/BC,ALT,AST,ALK PHOS) CBC WITH DIFF 2021-07-05 [facility] [place] 07:23:00 Medical Branch BASIC METABOLIC PANEL (NA, K, 2021-07-05 [facility] CL, CO2, GLUCOSE, BUN, 07:23:00 Medical [facility] CREATININE, CA) MAGNESIUM 2021-07-05 [facility] [place] 07:23:00 Medical Branch PHOSPHORUS 2021-07-05 [facility] [place] 07:23:00 Medical Branch VITAMIN D, 25-OH 2021-07-05 [facility] [place] 07:23:00 Medical Branch HEPATITIS C VIRUS (HCV) BY 2021-07-05 [facility] QUANTITATIVE NAAT 07:23:00 Medical Branch PHOSPHORUS 2021-07-05 [facility] [place] 07:23:00 Medical Branch MAGNESIUM 2021-07-05 [facility] [place] 07:23:00 [facility] HEPATIC FUNCTION PANEL 2021-07-05 [facility] ([id number]) (ALB,T.PRO,BILI 07:23:00 Medical Branch T,BU/BC,ALT,AST,ALK PHOS) BASIC METABOLIC PANEL (NA, K, 2021-07-05 [facility] CL, CO2, GLUCOSE, BUN, 07:23:00 Medical ranch CREATININE, CA) CBC WITH DIFF 2021-07-05 [facility] [place] 07:23:00 [facility] HEPATITIS C VIRUS (HCV) BY 2021-07-05 [facility] QUANTITATIVE NAAT 07:23:00 [facility] VITAMIN D, 25-OH 2021-07-05 [facility] [place] 07:23:00 [facility] HB ECG ROUTINE & RHYTHM STRIP 2021-07-05 [facility] 06:56:36 [facility] HB ECG ROUTINE & RHYTHM STRIP 2021-07-05 [facility] 06:56:36 [facility] UREA NITROGEN, URINE RANDOM 2021-07-05 [facility] 06:03:00 [facility] SODIUM, URINE RANDOM 2021-07-05 [facility] 06:03:00 [facility] CREATININE, URINE RANDOM 2021-07-05 [facility] 06:03:00 [facility] OSMOLALITY URINE 2021-07-05 [facility] [place] 06:03:00 [facility] URINE CULTURE 2021-07-05 [facility] [place] 06:03:00 [facility] URINALYSIS 2021-07-05 [facility] [place] 06:03:00 [facility] URINE DRUG (IMMUNOASSAY) - 2021-07-05 Lobo Harkins [facility] COMPREHENSIVE DRUG SCREEN 06:03:00 Lin [facility] OSMOLALITY URINE 2021-07-05 [facility] [place] 06:03:00 [facility] URINE DRUG (IMMUNOASSAY) - 2021-07-05 Lobo Harkins [facility] COMPREHENSIVE DRUG SCREEN 06:03:00 Lin Medica Branch URINALYSIS 2021-07-05 [facility] xa 06:03:00 Medical Branch URINE CULTURE 2021-07-05 [facility] 06:03:00 Medical Branch CREATININE, URINE RANDOM 2021-07-05 [facility] 06:03:00 Medical Branch UREA NITROGEN, URINE RANDOM 2021[facility]07-05 [facility] 06:03[facility] Medical Branch SODIUM, URINE RANDOM 2021[facility]07-05 [facility] 06:03:00 Medical Branch POCT GLUCOSE (AUTOMATED) [facility] 05[facility] POCT GLUCOSE (AUTOMATED) 2021[facility]07-05 [facility] 05:36[facility]00 Medical Branch XR CHEST 1 VW 2021-07-05 [facility] 03:20:00 Medical Branch XR CHEST 1 VW 2021-07-05 [facility] 03:20:00 Medical Branch POCT GLUCOSE (AUTOMATED) 2021-07-05 [facility] 03:05:00 Medical Branch POCT GLUCOSE (AUTOMATED) 2021-07-05 [facility] 03:05:00 [facility] BASIC METABOLIC PANEL (NA, K, 2021-07-05 Rere Robert [facility] CL, CO2, GLUCOSE, BUN, 02:12:00 Medical B ranch CREATININE, CA) BASIC METABOLIC PANEL (NA, K, 2021-07-05 [facility], CO2, GLUCOSE, BUN, 02:12:00 Medical B ranch CREATININE, CA) [place] INSERT NON-TUNNEL CV CATH 2021-07-04 Venancio [facility] 23:29:32 Medical Branch [place] INSERT NON-TUNNEL CV CATH 2021-07-04 Venancio [facility] 23:29:32 Medical Branch CRITICAL CARE 2021-07-04 Jake [facility] 23:28:54 Medical Branch CRITICAL CARE 2021-07-04 Jake [facility] [place] 23:28:54 Medical Branch XR CHEST 1 VW 2021-07-04 Jake [facility] [place] 23:13:54 Medical Branch XR CHEST 1 VW 2021-07-04 Jake [facility] [place] 23:13:54 Medical Branch EKG-12 LEAD 2021-07-04 Jake [facility] [place] 23:13:03 Medical Branch EKG-12 LEAD 2021-07-04 Jake [facility] [place] 23:13:03 Medical Branch AC PANEL 21 + LACTIC ACID 2021-07-04 Jake [facility] 22:59:00 Medical Branch AC PANEL 21 + LACTIC ACID 2021-07-04 Jake [facility] 22:59:00 Medical Branch COVID-19 (ID NOW RAPID 2021-07-04 Jake [facility] TESTING) 21:43:00 Medical Branch CBC WITH DIFF 2021-07-04 Jake [facility] x[facility] 21:43:00 Medical Branch ACTIVATED PARTIAL THRMPLAS 2021-07-04 Jake Venancio [facility] 21:43:00 Medical Branch PROTHROMBIN TIME / INR 2021-07-04 [facility] 21:43:00 [facility] COMP. METABOLIC PANEL ([id number]) 2021-07-04 Venancio Joseph [facility] 21:43:00 Medical Branch LIPASE 2021-07-04 Jake [facility] [place] 21:43:00 Medical Branch AMMONIA, PLASMA 2021-07-04 Jake [facility] [place] 21:43:00 Medical Branch BLOOD CULTURE SCREEN 2021-07-04 Jake [facility] 21:43:00 Medical Branch LAB ONLY COVID INTERPRETATION 2021-07-04 Venancio Joseph [facility] 21:43:00 Medical Branch BLOOD CULTURE SCREEN 2021-07-04 Jake [facility] 21:43:00 Medical Branch LIPASE 2021-07-04 Jake [facility] [place] 21:43:00 Medical Branch AMMONIA, PLASMA 2021-07-04 Jake [facility] [place] 21:43:00 Medical Branch COMP. METABOLIC PANEL (19706) 2021-07-04 [facility] 21:43:00 Medical Branch CBC WITH DIFF 2021-07-04 Venancio Joseph [facility] [place] 21:43:00 Medical Branch PROTHROMBIN TIME / INR 2021-07-04 Venancio Joseph [facility] 21:43:00 Medical Branch ACTIVATED PARTIAL THRMPLAS 2021-07-04 Venancio Joseph [facility] 21:43:00 Medical Branch COVID-19 (ID NOW RAPID 2021-07-04 Venancio Joseph [facility] TESTING) 21:43:00 Medical Branch LAB ONLY COVID INTERPRETATION 2021-07-04 [facility] 21:43:00 Medical Branch LACTIC ACID WHOLE BLOOD 2021-07-04 Venancio Joseph [facility] 21:42:00 Medical Branch LACTIC ACID WHOLE BLOOD 2021-07-04 Venancio Joseph [facility] 21:42:00 [place] CONSENT/REFUSAL FOR DIAGNOSIS 2021-07-04 Doctor Unassigned, [facility] AND TREATMENT 20:50:21 [place] Medical Branch CONSENT/REFUSAL FOR DIAGNOSIS 2021-07-04 Doctor Unassigned, [facility] AND [facility]ATMENT 20:50:21 [place] Medical Branch DISCLOSURE AND CONSENT, 2021-07-04 Doctor Unassadrian, [facility] MEDICAL AND SURGICAL 05:01:00 [place] Medical [facility] PROCEDURES DISCLOSURE AND CONSENT, 2021-07-04 Doctor Unassigned, [facility] MEDICAL AND SURGICAL 05:01:00 [place] Medical [facility] PROCEDURES Encounters Start End Encounter Admission Attending Care Care Encounter Source Date/Time Date/Time Type Type Clinicians Facility Department ID 2021-12-08 2021-12-08 Outpatient R LUKAS [facility] [id number] Univers 13:00:00 13:00:00 JEFFREY [id number] [facility] 2021-11-30 2021-11-30 Outpatient R [facility] [id number] Univers 13:00:00 13:00:00 [id number] [facility] 2021-08-25 2021-08-25 Outpatient R FATMATA LOPEZ [facility] [id number] Univers 10:30:00 10:30:00 JESSICA, FATMATA 2 23 ity [facility] 2021-08-25 2021-08-25 Outpatient R EZEKIEL LOPEZAKJohann [facility] [id number] Univers 10:30:00 10:30:00 [facility] 2021-08-11 2021-08-11 [facility] [id number] Univers 11:00:00 11:00:00 DORON [id number] [facility] 2021-08-11 2021-08-11 Outpatient Mendy HOGAN [facility] [id number] Univers 00:00[facility]00 [facility]-08-10 2021-08-10 Orders Doctor MARIANO [id number] Univers 00:00:00 00:00:00 Only Unassigned, FARA [id number] ity of [place] [facility] 4.2.7.2.686 Desmond as [id number] [facility] 009 Branch 2021-07-26 2021-07-26 Transition KIMBERLEY Marley [id number] Univers 00:00:00 00:00:00 of Care Lisa JOHNSON [id number] i ty of [place] [id number] [facility] 403 Branch 2021-07-25 2021-07-25 Telephone Verenice Henderson [facility] [id number] Univers 00:00:00 00:00:00 SPECIALTY [id number] [place] of [place] [id number] [facility] 314 Branch 2021-07-04 2021-07-24 Inpatient X SHANNEN, [facility] SHEA [id number] Univers 16:04:00 12:25:00 FRANCISCO ity [facility] 2021-07-04 2021-07-24 Hospital Venancio Joseph 1.2.840.1 [id number] Univers 16:04:00 12:25:00 Encounter Gualberto Cassidy [id number] ity of Bijan Schmidt [facility] 4.2.7.2.686 [place] ObrienRupalnegrito [id number] Medical Vitor Govea 094 Branch Thanh Kelly Lindsay K 2021-07-24 2021-07-24 Telephone Bhupendra [facility] [id number] Univers 00:00:00 00:00:00 Phil Pereira PRIMARY [id number] it y of CARE 4.2.7.2.686 Magdalene SAWANT [id number] Fl dical 388 Branch 2021-07-04 2021-07-04 Travel 1.2.840.1 [id number] Univers 00:00:00 00:00:00 [id number] [id number] ity of 3.104.2.7 [place].698 [place] [id number] 084.8 Medica l .8 Branch Results Test Description Test Time Test Comments Results Result Comments Source CBC WITH DIFF 2021-07-23 11:52:40 Test Item Value Reference Range Interpretation Comme nts WBC (test code = 6690-2) See_Comment [A utomated message] The system which ge nerated this result transmit mesfin reference range: 4.20 - 1 0.70 10*3/?L. The reference r sarah was not used to interpr et this result as normal/abnor mal. RBC (test code = 789-8) See_Comment L [Au tomated message] The system which ge nerated this result transmit mesfin reference range: 4.26 - 5 .52 10*6/?L. The reference r sarah was not used to interpr et this result as normal/abnor mal. HGB (test code = 718-7) 8.4 g/dL 12.2-16.4 L HCT (test code = 4544-3) 25.7 % 38.4-49.3 L MCV (test code = 787-2) 101.6 fL 81.7-95.6 H MCH (test code = 785-6) 33.2 pg 26.1-32.7 H MCHC (test code = 786-4) 32.7 g/dL 31.2-35.0 RDW-SD (test code = 63562-5) 58.1 fL 38.5-51.6 H RDW-CV (test code = 788-0) 15.9 % 12.1-15.4 H PLT (test code = 777-3) See_Comment L [Au tomated message] The system which [employer] nerated this result transmit mesfin reference range: 150 - 32 8 10*3/?L. The reference range was not used to interpret th is result as normal/abnormal . MPV (test code = 77765-6) 10.2 fL 9.8-13.0 IPF % (test code = 1.8 % 1.2-10.7 Platelet count measured by [id number]) fluorescence me thod. NRBC/100 WBC (test code = See_Comment [ Automated message] The [id number]) system which [employer] nerated this result transmit mesfin reference range: 0.0 - 10 .0 /100 WBCs. The reference r sarah was not used to interpr et this result as normal/abnor mal. NRBC x10^3 (test code = <0.01 See_Comment [Au tomated message] The [id number]) system which [employer] nerated this result transmit mesfin reference range: 10*3/?L. The reference range was not u sed to interpret this result as normal/abnormal . GRAN MAT (NEUT) % (test code 45.3 % = 770-8) IMM GRAN % (test code = 0.50 % [id number]) LYMPH % (test code = 736-9) 38.6 % MONO % (test code = 5905-5) 13.2 % EOS % (test code = 713-8) 1.9 % BASO % (test code = 706-2) 0.5 % GRAN MAT x10^3(ANC) (test 2.69 10*3/uL 1.99-6.95 code = 1139236666) IMM GRAN x10^3 (test code = 0.03 10*3/uL 0.00-0.06 8542822772) LYMPH x10^3 (test code = 2.29 10*3/uL 1.09-3.23 731-0) MONO x10^3 (test code = 0.78 10*3/uL 0.36-1.02 742-7) EOS x10^3 (test code = 0.11 10*3/uL 0.06-0.53 711-2) BASO x10^3 (test code = 0.03 10*3/uL 0.01-0.09 704-7) REACT LYMPHS (test code = Rare [id number]) Lab Interpretation (test Abnormal code = 57763-3) [facility] [id number] 11:12:05 Test Item Value Reference Range Interpretation Comments PROTIME PATIENT (test See_Comment H [Auto mated message] code = 5964-2) The system [employer] generated this result transmitted ref erence range: 10.1 - 1 2.6 Seconds. The reference range was not used to int erpret this result as normal/abnormal . INR (test code = 6301-6) Nor mal INR <1.1; Warfarin Therap eutic range 2.0 to 3. 0 or 2.5 to 3.5, dep ending upon the indica tions. Lab Interpretation (test Abnormal code = 04983-4) [facility] (NA, K, CL, CO2, GLUCOSE, BUN, CREATININE, CA)2021-07-23 01:01:04 Test Item Value Reference Range Interpretation Comments NA (test code = 133 mmol/L 135-145 L [id number]) K (test code = 3.6 mmol/L 3.5-5.0 6693459965) CL (test code = 103 mmol/L 98-108 2191046497) CO2 TOTAL (test code = 23 mmol/L 23-31 4156547176) AGAP (test code = 2-16 6003352517) BUN (test code = 41 mg/dL 7-23 H 2044599961) GLUCOSE (test code = 131 mg/dL 70-110 H 2224347849) CREATININE (test code = 2.07 mg/dL 0.60-1.25 H 6180273005) CALCIUM (test code = 8.1 mg/dL 8.6-10.6 L 8213999021) eGFR (test code = mL/min/1.73m2 4392128931) ANDRES (test code = ANDRES) Association of Glomerular Filtration Rate (GFR) and Staging of Kidney Disease* + --+ --+ ------+| GFR (mL/min/1.73 m2) ?| With Kidney Damage ?| ?Without Kidney Damage+ --------+ --------+ +| ?>90 ?| ?Stage one ?| ? Normal ?+ ---+ ---+ -------+| ?60-89 ?| ?Stage two ?| ? Decreased GFR ? + --+ --+ ------+| ?30-59 ?| ?Stage three ?| ? Stage three ? + --+ --+ ------+| ?15-29 ?| ?Stage four ? | ? Stage four ?+ ---+ ---+ -------+| ?<15 (or dialysis) ? ?| ?Stage five ? | ? Stage five ?+ ---+ ---+ -------+ *Each stage assumes the associated GFR level has been in effect for at least three months. ?Stages 1 to 5, with or without kidney disease, indicate chronic kidney disease. Notes: Determination of stages one and two (with eGFR >59mL/min/1.73 m2) requires estimation of kidney damage for at least three months as defined by structural or functional abnormalities of the kidney, manifested by either:Pathological abnormalities or Markers of kidney damage (including abnormalities in the composition of the blood or urine or abnormalities in imaging tests). Lab Interpretation Abnormal (test code = 42725-3) [facility] 01:01:04 Test Item Value Reference Range Interpretation Comments MAGNESIUM (test code = 4950425353) 1.7 mg/dL 1.7-2.4 Lab Interpretation (test code = Normal 33651-4) [facility]2021-[facility]-19 19:50:03 Test Item Value Reference Range Interpretation Comments CERULO (test code = 7684572588) 27 mg/dL 25-63 Lab Interpretation (test code = Normal 64250-5) [facility] [place]MUN[place]GLOBULIN [id number] 19:50:03 Test Item Value Reference Range Interpretation Comments IgG (test code = 2834948032) 1130 mg/dL 636-1600 Lab Interpretation (test code = Normal 44906-3) [facility] 1 [id number] 19:50:03 Test Item Value Reference Range Interpretation Comments Anti-Trypsin (test code = 139 mg/dL 83-199 3367517196) Lab Interpretation (test code = Normal 18697-1) [facility]I-NUCLEAR ANTIBODY [id number] 19:44:26 Test Item Value Reference Range Interpretation Comments HARITHA (test code = Negative Negative 6422851587) ANDRES (test code = ANDRES) Negative - No Anti-Nuclear Antibodies detected by IFA.Positive - HARITHA IFA screen performed with a 1:80 dilution in adults and a 1:40 dilution in pediatrics. Any HARITHA "Positive" will have titer performed and reported separately. Lab Interpretation (test Normal code = 35346-5) [facility]TIBODY (IGG AND IGM)2021-07-22 11:48:31 Test Item Value Reference Range Interpretation Comments HAV Total (test code = 5047107956) Negative HAVT Semi-Quantitative (test code = 8779689237) [facility]OS[facility]2021-11-19 10:46:46 Test Item Value Reference Range Interpretation Comments PHOSPHORUS (test code = 8383825961) 3.5 mg/dL 2.5-5.0 Lab Interpretation (test code = Normal 42105-2) [facility]21-[facility]-19 10:46:46 Test Item Value Reference Range Interpretation Comments MAGNESIUM (test code = 3027183681) 1.9 mg/dL 1.7-2.4 Lab Interpretation (test code = Normal 32340-1) [facility]OL[facility] PAN[facility] (NA, K, CL, CO2, GLUCOSE, BUN, CREATININE, CA)2021-07-22 10:46:45 Test Item Value Reference Range Interpretation Comments NA (test code = 135 mmol/L 135-145 2054842467) K (test code = 3.4 mmol/L 3.5-5.0 L 4128737184) CL (test code = 106 mmol/L 98-108 7315350196) CO2 TOTAL (test code = 21 mmol/L 23-31 L 1094911797) AGAP (test code = 2-16 7561841215) BUN (test code = 42 mg/dL 7-23 H 3155280565) GLUCOSE (test code = 89 mg/dL 70-110 8057591168) CREATININE (test code = 2.11 mg/dL 0.60-1.25 H 1027301269) CALCIUM (test code = 8.1 mg/dL 8.6-10.6 L 4991872142) eGFR (test code = mL/min/1.73m2 8902838955) ANDRES (test code = ANDRES) Association of Glomerular Filtration Rate (GFR) and Staging of Kidney Disease* + --+ --+ ------+| GFR (mL/min/1.73 m2) ?| With Kidney Damage ?| ?Without Kidney Damage+ --------+ --------+ +| ?>90 ?| ?Stage one ?| ? Normal ?+ ---+ ---+ -------+| ?60-89 ?| ?Stage two ?| ? Decreased GFR ? + --+ --+ ------+| ?30-59 ?| ?Stage three ?| ? Stage three ? + --+ --+ ------+| ?15-29 ?| ?Stage four ? | ? Stage four ?+ ---+ ---+ -------+| ?<15 (or dialysis) ? ?| ?Stage five ? | ? Stage five ?+ ---+ ---+ -------+ *Each stage assumes the associated GFR level has been in effect for at least three months. ?Stages 1 to 5, with or without kidney disease, indicate chronic kidney disease. Notes: Determination of stages one and two (with eGFR >59mL/min/1.73 m2) requires estimation of kidney damage for at least three months as defined by structural or functional abnormalities of the kidney, manifested by either:Pathological abnormalities or Markers of kidney damage (including abnormalities in the composition of the blood or urine or abnormalities in imaging tests). Lab Interpretation Abnormal (test code = 47048-1) [facility] [place] [facility] (40334) (ALB,T.PRO,BILI T,BU/BC,ALT,AST,ALK PHOS)2021-07-22 10:46:45 Test Item Value Reference Range Interpretation Comments TOTAL BILI (test code = 8494137839) 4.0 mg/dL 0.1-1.1 H BILI UNCON (test code = 3618044715) 1.0 mg/dL 0.1-1.1 BILI CONJ (test code = 9715140520) 0.9 mg/dL 0.0-0.3 H T PROTEIN (test code = 0836575302) 5.1 g/dL 6.3-8.2 L ALBUMIN (test code = 7587620565) 2.3 g/dL 3.5-5.0 L ALK PHOS (test code = 1660197078) 125 U/L 34-122 H ALTv (test code = 1742-6) 27 U/L 5-50 AST(SGOT) (test code = 7430147674) 91 U/L 13-40 H Lab Interpretation (test code = Abnormal 69299-5) [facility] AtlantaPROTHROMBIN TIME / [id number] 10:36:02 Test Item Value Reference Range Interpretation Comments PROTIME PATIENT (test See_Comment H [Auto mated message] code = 5964-2) The system [employer] generated this result transmitted ref erence range: 10.1 - 1 2.6 Seconds. The reference range was not used to int erpret this result as normal/abnormal . INR (test code = 6301-6) Nor mal INR <1.1; Warfarin Therap eutic range 2.0 to 3. 0 or 2.5 to 3.5, dep ending upon the indica tions. Lab Interpretation (test Abnormal code = 09419-2) [facility] [id number] 00:24:00 Test Item Value Reference Range Interpretation Comments HBsAB (test code = Negative 1681629003) HBsAb mIU/mL Semi-Quantitative (test code = 9748575909) ANDRES (test code = Interpretation: ANDRES) ?Hepatitis B Surface Antibody ? Negative - Patient is considered to be not immune to infection with HBV. ? ? Positive - Anti-HBs detected at greater than or equal to 12 mIU/mL. ?Patient is considered to be immune to infection with HBV. ? [facility] B CORE ANTIBODY [id number] 00:17:02 Test Item Value Reference Range Interpretation Comments HBCM Negative Semi-Quantitative (test code = 30407-6) ANDRES (test code = Biotin has been reported ANDRES) to cause a negative bias, interpret results relative to patient's use of biotin. [facility] Atlanta[facility] STIMULATING [id number] 00:11:37 Test Item Value Reference Range Interpretation Comments TSH (test code = See_Comment [Automated message] 5806629033) The system [employer] generated this result transmitted ref erence range: 0.45 - 4 .70 mIU/L. The refe rence range was not u sed to interpret this result as normal/abnor mal. Lab Interpretation (test Normal code = 13275-7) [facility] SURFACE [id number] 00:11:37 Test Item Value Reference Range Interpretation Comments HBsAg Semi-Quantitative (test code = Negative Negative 5195-3) [facility] AtlantaGAMMA [id number] 23:32:10 Test Item Value Reference Range Interpretation Comments GGT (test code = 5377177832) 174 U/L 13-58 H Lab Interpretation (test code = Abnormal 85583-4) [facility] AtlantaIRON2021-[facility]-18 23:32:09 Test Item Value Reference Range Interpretation Comments IRON (test code = 9017627724) 49 ug/dL 50-160 L Lab Interpretation (test code = Abnormal 25709-4) [facility] (NA, K, CL, CO2, GLUCOSE, BUN, CREATININE, CA)2021-07-21 22:49:03 Test Item Value Reference Range Interpretation Comments NA (test code = 132 mmol/L 135-145 L 7419190471) K (test code = 3.5 mmol/L 3.5-5.0 8752136960) CL (test code = 105 mmol/L 98-108 8943926218) CO2 TOTAL (test code = 19 mmol/L 23-31 L 0777002728) AGAP (test code = 2-16 8196868584) BUN (test code = 40 mg/dL 7-23 H 1688087665) GLUCOSE (test code = 119 mg/dL 70-110 H 2212416439) CREATININE (test code = 2.24 mg/dL 0.60-1.25 H 3496866213) CALCIUM (test code = 8.0 mg/dL 8.6-10.6 L 4970821863) eGFR (test code = mL/min/1.73m2 6409227954) ANDRES (test code = ANDRES) Association of Glomerular Filtration Rate (GFR) and Staging of Kidney Disease* + --+ --+ ------+| GFR (mL/min/1.73 m2) ?| With Kidney Damage ?| ?Without Kidney Damage+ --------+ --------+ +| ?>90 ?| ?Stage one ?| ? Normal ?+ ---+ ---+ -------+| ?60-89 ?| ?Stage two ?| ? Decreased GFR ? + --+ --+ ------+| ?30-59 ?| ?Stage three ?| ? Stage three ? + --+ --+ ------+| ?15-29 ?| ?Stage four ? | ? Stage four ?+ ---+ ---+ -------+| ?<15 (or dialysis) ? ?| ?Stage five ? | ? Stage five ?+ ---+ ---+ -------+ *Each stage assumes the associated GFR level has been in effect for at least three months. ?Stages 1 to 5, with or without kidney disease, indicate chronic kidney disease. Notes: Determination of stages one and two (with eGFR >59mL/min/1.73 m2) requires estimation of kidney damage for at least three months as defined by structural or functional abnormalities of the kidney, manifested by either:Pathological abnormalities or Markers of kidney damage (including abnormalities in the composition of the blood or urine or abnormalities in imaging tests). Lab Interpretation Abnormal (test code = 08416-9) [facility] WITH [id number] 11:52:27 Test Item Value Reference Range Interpretation Comments WBC (test code = See_Comment [Automated 0927-2) message] The sy stem which generated this result transmitted reference range : 4.20 - 10.70 10*3/?L. The reference range was not used to interpret this result as normal/abnormal . RBC (test code = See_Comment L [Automated 504-9) message] The sy stem which generated this result transmitted reference range : 4.26 - 5.52 10*6/?L. The reference range was not used to interpret this result as normal/abnormal . HGB (test code = 7.9 g/dL 12.2-16.4 L 718-7) HCT (test code = 24.7 % 38.4-49.3 L 4544-3) MCV (test code = 103.8 fL 81.7-95.6 H 787-2) MCH (test code = 33.2 pg 26.1-32.7 H 785-6) MCHC (test code = 32.0 g/dL 31.2-35.0 786-4) RDW-SD (test code = 61.2 fL 38.5-51.6 H 22554-3) RDW-CV (test code = 16.4 % 12.1-15.4 H 788-0) PLT (test code = See_Comment L [Automated 777-3) message] The sy stem which generated this result transmitted reference range : 150 - 328 10*3/ ?L. The reference r sarah was not used to interpret this result as normal/abnormal . MPV (test code = 10.4 fL 9.8-13.0 37128-4) IPF % (test code = 2.8 % 1.2-10.7 Platelet count 6061360471) measured by fluorescence method. NRBC/100 WBC (test See_Comment [Automat ed code = 4137745360) message] The system which generated this result transmitted reference range : 0.0 - 10.0 /100 WBCs. The refer ence range was not u sed to interpret th is result as normal/abnormal . NRBC x10^3 (test code <0.01 See_Comment [Auto mated = 7484780037) message] The s ystem which generated this result transmitted reference range : 10*3/?L. The reference range was not used to interpret this result as normal/abnormal . GRAN MAT (NEUT) % 59.9 % (test code = 770-8) IMM GRAN % (test code 0.50 % = 0654882536) LYMPH % (test code = 24.7 % 736-9) MONO % (test code = 11.6 % 5905-5) EOS % (test code = 2.8 % 713-8) BASO % (test code = 0.5 % 706-2) GRAN MAT x10^3(ANC) 3.66 10*3/uL 1.99-6.95 (test code = 1081977461) IMM GRAN x10^3 (test 0.03 10*3/uL 0.00-0.06 code = 8203330494) LYMPH x10^3 (test code 1.51 10*3/uL 1.09-3.23 = 731-0) MONO x10^3 (test code 0.71 10*3/uL 0.36-1.02 = 742-7) EOS x10^3 (test code = 0.17 10*3/uL 0.06-0.53 711-2) BASO x10^3 (test code 0.03 10*3/uL 0.01-0.09 = 704-7) Lab Interpretation Abnormal (test code = 55029-0) [facility]21[facility]-18 11:32:05 Test Item Value Reference Range Interpretation Comments MAGNESIUM (test code = 6539490882) 1.6 mg/dL 1.7-2.4 L Lab Interpretation (test code = Abnormal 17711-1) [facility] (NA, K, CL, CO2, GLUCOSE, BUN, CREATININE, CA)2021-07-21 11:32:04 Test Item Value Reference Range Interpretation Comments NA (test code = 134 mmol/L 135-145 L 2594022623) K (test code = 3.2 mmol/L 3.5-5.0 L 9255083578) CL (test code = 105 mmol/L 98-108 5363479012) CO2 TOTAL (test code = 21 mmol/L 23-31 L 6737338697) AGAP (test code = 2-16 3389116079) BUN (test code = 39 mg/dL 7-23 H 6856681739) GLUCOSE (test code = 81 mg/dL 70-110 6362294310) CREATININE (test code = 2.25 mg/dL 0.60-1.25 H 6310803106) CALCIUM (test code = 7.9 mg/dL 8.6-10.6 L 4771482909) eGFR (test code = mL/min/1.73m2 5518954567) ANDRES (test code = ANDRES) Association of Glomerular Filtration Rate (GFR) and Staging of Kidney Disease* + --+ --+ ------+| GFR (mL/min/1.73 m2) ?| With Kidney Damage ?| ?Without Kidney Damage+ --------+ --------+ +| ?>90 ?| ?Stage one ?| ? Normal ?+ ---+ ---+ -------+| ?60-89 ?| ?Stage two ?| ? Decreased GFR ? + --+ --+ ------+| ?30-59 ?| ?Stage three ?| ? Stage three ? + --+ --+ ------+| ?15-29 ?| ?Stage four ? | ? Stage four ?+ ---+ ---+ -------+| ?<15 (or dialysis) ? ?| ?Stage five ? | ? Stage five ?+ ---+ ---+ -------+ *Each stage assumes the associated GFR level has been in effect for at least three months. ?Stages 1 to 5, with or without kidney disease, indicate chronic kidney disease. Notes: Determination of stages one and two (with eGFR >59mL/min/1.73 m2) requires estimation of kidney damage for at least three months as defined by structural or functional abnormalities of the kidney, manifested by either:Pathological abnormalities or Markers of kidney damage (including abnormalities in the composition of the blood or urine or abnormalities in imaging tests). Lab Interpretation Abnormal (test code = 02817-9) [facility]21-[facility]-17 11:21:52 Test Item Value Reference Range Interpretation Comments MAGNESIUM (test code = 8182572269) 1.9 mg/dL 1.7-2.4 Lab Interpretation (test code = Normal 47693-2) [facility] (NA, K, CL, CO2, GLUCOSE, BUN, CREATININE, CA)2021-07-20 11:21:52 Test Item Value Reference Range Interpretation Comments NA (test code = 133 mmol/L 135-145 L 7889725843) K (test code = 3.5 mmol/L 3.5-5.0 5295378363) CL (test code = 104 mmol/L 98-108 1304085700) CO2 TOTAL (test code = 21 mmol/L 23-31 L 8859863504) AGAP (test code = 2-16 6734564824) BUN (test code = 35 mg/dL 7-23 H 7791835256) GLUCOSE (test code = 83 mg/dL 70-110 6921806108) CREATININE (test code = 2.18 mg/dL 0.60-1.25 H 1236140352) CALCIUM (test code = 7.9 mg/dL 8.6-10.6 L 3035822556) eGFR (test code = mL/min/1.73m2 9394328355) ANDRES (test code = ANDRES) Association of Glomerular Filtration Rate (GFR) and Staging of Kidney Disease* + --+ --+ ------+| GFR (mL/min/1.73 m2) ?| With Kidney Damage ?| ?Without Kidney Damage+ --------+ --------+ +| ?>90 ?| ?Stage one ?| ? Normal ?+ ---+ ---+ -------+| ?60-89 ?| ?Stage two ?| ? Decreased GFR ? + --+ --+ ------+| ?30-59 ?| ?Stage three ?| ? Stage three ? + --+ --+ ------+| ?15-29 ?| ?Stage four ? | ? Stage four ?+ ---+ ---+ -------+| ?<15 (or dialysis) ? ?| ?Stage five ? | ? Stage five ?+ ---+ ---+ -------+ *Each stage assumes the associated GFR level has been in effect for at least three months. ?Stages 1 to 5, with or without kidney disease, indicate chronic kidney disease. Notes: Determination of stages one and two (with eGFR >59mL/min/1.73 m2) requires estimation of kidney damage for at least three months as defined by structural or functional abnormalities of the kidney, manifested by either:Pathological abnormalities or Markers of kidney damage (including abnormalities in the composition of the blood or urine or abnormalities in imaging tests). Lab Interpretation Abnormal (test code = 57972-7) [facility] WITH [id number] 12:12:57 Test Item Value Reference Range Interpretation Comments WBC (test code = See_Comment [Automated 8331-2) message] The sy stem which generated this result transmitted reference range : 4.20 - 10.70 10*3/?L. The reference range was not used to interpret this result as normal/abnormal . RBC (test code = See_Comment L [Automated 459-8) message] The sy stem which generated this result transmitted reference range : 4.26 - 5.52 10*6/?L. The reference range was not used to interpret this result as normal/abnormal . HGB (test code = 7.7 g/dL 12.2-16.4 L 718-7) HCT (test code = 23.0 % 38.4-49.3 L 4544-3) MCV (test code = 101.8 fL 81.7-95.6 H 787-2) MCH (test code = 34.1 pg 26.1-32.7 H 785-6) MCHC (test code = 33.5 g/dL 31.2-35.0 786-4) RDW-SD (test code = 59.5 fL 38.5-51.6 H 87673-7) RDW-CV (test code = 16.3 % 12.1-15.4 H 788-0) PLT (test code = See_Comment L [Automated 777-3) message] The sy stem which generated this result transmitted reference range : 150 - 328 10*3/ ?L. The reference r sarah was not used to interpret this result as normal/abnormal . MPV (test code = 10.4 fL 9.8-13.0 61851-1) IPF % (test code = 2.0 % 1.2-10.7 Platelet count 6180419712) measured by fluorescence method. NRBC/100 WBC (test See_Comment [Automat ed code = 0841163593) message] The system which generated this result transmitted reference range : 0.0 - 10.0 /100 WBCs. The refer ence range was not u sed to interpret th is result as normal/abnormal . NRBC x10^3 (test code <0.01 See_Comment [Auto mated = 2053617481) message] The s ystem which generated this result transmitted reference range : 10*3/?L. The reference range was not used to interpret this result as normal/abnormal . GRAN MAT (NEUT) % 75.7 % (test code = 770-8) IMM GRAN % (test code 0.60 % = 7979118735) LYMPH % (test code = 14.0 % 736-9) MONO % (test code = 8.7 % 5905-5) EOS % (test code = 0.8 % 713-8) BASO % (test code = 0.2 % 706-2) GRAN MAT x10^3(ANC) 7.21 10*3/uL 1.99-6.95 H (test code = 8375472213) IMM GRAN x10^3 (test 0.06 10*3/uL 0.00-0.06 code = 7827957406) LYMPH x10^3 (test code 1.33 10*3/uL 1.09-3.23 = 731-0) MONO x10^3 (test code 0.83 10*3/uL 0.36-1.02 = 742-7) EOS x10^3 (test code = 0.08 10*3/uL 0.06-0.53 711-2) BASO x10^3 (test code <0.03 0.01-0.09 = 704-7) BANDS (test code = Increased A 2028986787) Lab Interpretation Abnormal (test code = 85147-4) [facility] METABOLIC PANEL (NA, K, CL, CO2, GLUCOSE, BUN, CREATININE, CA)2021-07-19 12:03:54 Test Item Value Reference Range Interpretation Comments NA (test code = 134 mmol/L 135-145 L 2456994442) K (test code = 3.7 mmol/L 3.5-5.0 8150970266) CL (test code = 105 mmol/L 98-108 6056278423) CO2 TOTAL (test code = 22 mmol/L 23-31 L 6885720692) AGAP (test code = 2-16 3916720736) BUN (test code = 29 mg/dL 7-23 H 3089892857) GLUCOSE (test code = 94 mg/dL 70-110 8839403131) CREATININE (test code = 2.04 mg/dL 0.60-1.25 H 2205654247) CALCIUM (test code = 8.0 mg/dL 8.6-10.6 L 3227792863) eGFR (test code = mL/min/1.73m2 3087472173) ANDRES (test code = ANDRES) Association of Glomerular Filtration Rate (GFR) and Staging of Kidney Disease* + --+ --+ ------+| GFR (mL/min/1.73 m2) ?| With Kidney Damage ?| ?Without Kidney Damage+ --------+ --------+ +| ?>90 ?| ?Stage one ?| ? Normal ?+ ---+ ---+ -------+| ?60-89 ?| ?Stage two ?| ? Decreased GFR ? + --+ --+ ------+| ?30-59 ?| ?Stage three ?| ? Stage three ? + --+ --+ ------+| ?15-29 ?| ?Stage four ? | ? Stage four ?+ ---+ ---+ -------+| ?<15 (or dialysis) ? ?| ?Stage five ? | ? Stage five ?+ ---+ ---+ -------+ *Each stage assumes the associated GFR level has been in effect for at least three months. ?Stages 1 to 5, with or without kidney disease, indicate chronic kidney disease. Notes: Determination of stages one and two (with eGFR >59mL/min/1.73 m2) requires estimation of kidney damage for at least three months as defined by structural or functional abnormalities of the kidney, manifested by either:Pathological abnormalities or Markers of kidney damage (including abnormalities in the composition of the blood or urine or abnormalities in imaging tests). Lab Interpretation Abnormal (test code = 81219-3) [facility]2021-11-16 12:03:54 Test Item Value Reference Range Interpretation Comments MAGNESIUM (test code = 8113760862) 1.4 mg/dL 1.7-2.4 L Lab Interpretation (test code = Abnormal 26432-8) [facility]2021-11-15 10:49:27 Test Item Value Reference Range Interpretation Comments MAGNESIUM (test code = 6859459335) 1.7 mg/dL 1.7-2.4 Lab Interpretation (test code = Normal 69588-3) [facility] (NA, K, CL, CO2, GLUCOSE, BUN, CREATININE, CA)2021-07-18 10:49:27 Test Item Value Reference Range Interpretation Comments NA (test code = 136 mmol/L 135-145 9300748525) K (test code = 3.8 mmol/L 3.5-5.0 5329652378) CL (test code = 105 mmol/L 98-108 8913110913) CO2 TOTAL (test code = 24 mmol/L 23-31 4622658376) AGAP (test code = 2-16 7303450007) BUN (test code = 24 mg/dL 7-23 H 9147810919) GLUCOSE (test code = 87 mg/dL 70-110 1601726894) CREATININE (test code = 2.01 mg/dL 0.60-1.25 H 2195573905) CALCIUM (test code = 7.7 mg/dL 8.6-10.6 L 8516211048) eGFR (test code = mL/min/1.73m2 0538394520) ANDRES (test code = ANDRES) Association of Glomerular Filtration Rate (GFR) and Staging of Kidney Disease* + --+ --+ ------+| GFR (mL/min/1.73 m2) ?| With Kidney Damage ?| ?Without Kidney Damage+ --------+ --------+ +| ?>90 ?| ?Stage one ?| ? Normal ?+ ---+ ---+ -------+| ?60-89 ?| ?Stage two ?| ? Decreased GFR ? + --+ --+ ------+| ?30-59 ?| ?Stage three ?| ? Stage three ? + --+ --+ ------+| ?15-29 ?| ?Stage four ? | ? Stage four ?+ ---+ ---+ -------+| ?<15 (or dialysis) ? ?| ?Stage five ? | ? Stage five ?+ ---+ ---+ -------+ *Each stage assumes the associated GFR level has been in effect for at least three months. ?Stages 1 to 5, with or without kidney disease, indicate chronic kidney disease. Notes: Determination of stages one and two (with eGFR >59mL/min/1.73 m2) requires estimation of kidney damage for at least three months as defined by structural or functional abnormalities of the kidney, manifested by either:Pathological abnormalities or Markers of kidney damage (including abnormalities in the composition of the blood or urine or abnormalities in imaging tests). Lab Interpretation Abnormal (test code = 59872-4) [facility] Test Item Value Reference Range Interpretation Comments MAGNESIUM (test code = 5326403942) 1.9 mg/dL 1.7-2.4 Lab Interpretation (test code = Normal 39347-5) [facility] METABOLIC PANEL (NA, K, CL, CO2, GLUCOSE, BUN, CREATININE, CA)2021-07-17 11:07:53 Test Item Value Reference Range Interpretation Comments NA (test code = 137 mmol/L 135-145 5621021137) K (test code = 4.1 mmol/L 3.5-5.0 2257464330) CL (test code = 105 mmol/L 98-108 2032274739) CO2 TOTAL (test code = 26 mmol/L 23-31 7375737447) AGAP (test code = 2-16 1446048762) BUN (test code = 21 mg/dL 7-23 2840286420) GLUCOSE (test code = 91 mg/dL 70-110 8765234226) CREATININE (test code = 2.03 mg/dL 0.60-1.25 H 1124210162) CALCIUM (test code = 8.0 mg/dL 8.6-10.6 L 4070249949) eGFR (test code = mL/min/1.73m2 9545307821) ANDRES (test code = ANDRES) Association of Glomerular Filtration Rate (GFR) and Staging of Kidney Disease* + --+ --+ ------+| GFR (mL/min/1.73 m2) ?| With Kidney Damage ?| ?Without Kidney Damage+ --------+ --------+ +| ?>90 ?| ?Stage one ?| ? Normal ?+ ---+ ---+ -------+| ?60-89 ?| ?Stage two ?| ? Decreased GFR ? + --+ --+ ------+| ?30-59 ?| ?Stage three ?| ? Stage three ? + --+ --+ ------+| ?15-29 ?| ?Stage four ? | ? Stage four ?+ ---+ ---+ -------+| ?<15 (or dialysis) ? ?| ?Stage five ? | ? Stage five ?+ ---+ ---+ -------+ *Each stage assumes the associated GFR level has been in effect for at least three months. ?Stages 1 to 5, with or without kidney disease, indicate chronic kidney disease. Notes: Determination of stages one and two (with eGFR >59mL/min/1.73 m2) requires estimation of kidney damage for at least three months as defined by structural or functional abnormalities of the kidney, manifested by either:Pathological abnormalities or Markers of kidney damage (including abnormalities in the composition of the blood or urine or abnormalities in imaging tests). Lab Interpretation Abnormal (test code = 08836-8) [facility] WITH [id number] 12:13:35 Test Item Value Reference Range Interpretation Comments WBC (test code = See_Comment [Automated 6690-2) message] The sy stem which generated this result transmitted reference range : 4.20 - 10.70 10*3/?L. The reference range was not used to interpret this result as normal/abnormal . RBC (test code = See_Comment L [Automated 789-8) message] The sy stem which generated this result transmitted reference range : 4.26 - 5.52 10*6/?L. The reference range was not used to interpret this result as normal/abnormal . HGB (test code = 7.2 g/dL 12.2-16.4 L 718-7) HCT (test code = 23.1 % 38.4-49.3 L 4544-3) MCV (test code = 105.0 fL 81.7-95.6 H 787-2) MCH (test code = 32.7 pg 26.1-32.7 785-6) MCHC (test code = 31.2 g/dL 31.2-35.0 786-4) RDW-SD (test code = 59.4 fL 38.5-51.6 H 09152-9) RDW-CV (test code = 15.9 % 12.1-15.4 H 788-0) PLT (test code = See_Comment LL [Automated 777-3) message] The sy stem which generated this result transmitted reference range : 150 - 328 10*3/ ?L. The reference r sarah was not used to interpret this result as normal/abnormal . MPV (test code = 9.9 fL 9.8-13.0 40527-6) IPF % (test code = 5.6 % 1.2-10.7 Platelet count [id number]) measured by fluorescence method. NRBC/100 WBC (test See_Comment [Automat ed code = 4466738695) message] The system which generated this result transmitted reference range : 0.0 - 10.0 /100 WBCs. The refer ence range was not u sed to interpret th is result as normal/abnormal . NRBC x10^3 (test code <0.01 See_Comment [Auto mated = 7178361717) message] The s ystem which generated this result transmitted reference range : 10*3/?L. The reference range was not used to interpret this result as normal/abnormal . GRAN MAT (NEUT) % 56.1 % (test code = 770-8) IMM GRAN % (test code 0.90 % = 1632242569) LYMPH % (test code = 22.0 % 736-9) MONO % (test code = 17.9 % 5905-5) EOS % (test code = 2.9 % 713-8) BASO % (test code = 0.2 % 706-2) GRAN MAT x10^3(ANC) 3.14 10*3/uL 1.99-6.95 (test code = 5999934435) IMM GRAN x10^3 (test 0.05 10*3/uL 0.00-0.06 code = 2507847154) LYMPH x10^3 (test code 1.23 10*3/uL 1.09-3.23 = 731-0) MONO x10^3 (test code 1.00 10*3/uL 0.36-1.02 = 742-7) EOS x10^3 (test code = 0.16 10*3/uL 0.06-0.53 711-2) BASO x10^3 (test code <0.03 0.01-0.09 = 704-7) Lab Interpretation Abnormal (test code = 59022-7) [facility] 11:58:44 Test Item Value Reference Range Interpretation Comments MAGNESIUM (test code = 9215398014) 2.1 mg/dL 1.7-2.4 Lab Interpretation (test code = Normal 53381-6) [facility] (NA, K, CL, CO2, GLUCOSE, BUN, CREATININE, CA)2021-07-16 11:58:43 Test Item Value Reference Range Interpretation Comments NA (test code = 135 mmol/L 135-145 0529793091) K (test code = 4.1 mmol/L 3.5-5.0 5417674371) CL (test code = 105 mmol/L 98-108 0464267302) CO2 TOTAL (test code = 26 mmol/L 23-31 0320386402) AGAP (test code = 2-16 9857238504) BUN (test code = 13 mg/dL 7-23 8905761155) GLUCOSE (test code = 109 mg/dL 70-110 0366277068) CREATININE (test code = 1.34 mg/dL 0.60-1.25 H 7595368949) CALCIUM (test code = 8.2 mg/dL 8.6-10.6 L 0776538087) eGFR (test code = mL/min/1.73m2 6072658046) ANDRES (test code = ANDRES) Association of Glomerular Filtration Rate (GFR) and Staging of Kidney Disease* + --+ --+ ------+| GFR (mL/min/1.73 m2) ?| With Kidney Damage ?| ?Without Kidney Damage+ --------+ --------+ +| ?>90 ?| ?Stage one ?| ? Normal ?+ ---+ ---+ -------+| ?60-89 ?| ?Stage two ?| ? Decreased GFR ? + --+ --+ ------+| ?30-59 ?| ?Stage three ?| ? Stage three ? + --+ --+ ------+| ?15-29 ?| ?Stage four ? | ? Stage four ?+ ---+ ---+ -------+| ?<15 (or dialysis) ? ?| ?Stage five ? | ? Stage five ?+ ---+ ---+ -------+ *Each stage assumes the associated GFR level has been in effect for at least three months. ?Stages 1 to 5, with or without kidney disease, indicate chronic kidney disease. Notes: Determination of stages one and two (with eGFR >59mL/min/1.73 m2) requires estimation of kidney damage for at least three months as defined by structural or functional abnormalities of the kidney, manifested by either:Pathological abnormalities or Markers of kidney damage (including abnormalities in the composition of the blood or urine or abnormalities in imaging tests). Lab Interpretation Abnormal (test code = 44919-4) [facility] [id number] 16:03:59 Test Item Value Reference Range Interpretation Comments FERRITIN (test code = 319.0 ng/mL 18.0-464.0 1741527565) ANDRES (test code = ANDRES) Biotin has been reported to cause a negative bias, interpret results relative to patient's use of biotin. Lab Interpretation (test Normal code = 42273-1) [facility] [id number] 15:34:34 Test Item Value Reference Range Interpretation Comments IRON (test code = 3174734035) 83 ug/dL 50-160 TIBC (test code = 2169465032) 148 ug/dL 250-410 L % FE SAT (test code = 7629104574) 56 % 20-50 H Lab Interpretation (test code = Abnormal 53161-6) [facility] WITH [id number] 12:40:34 Test Item Value Reference Range Interpretation Comments WBC (test code = See_Comment [Automated 6690-2) message] The sy stem which generated this result transmitted reference range : 4.20 - 10.70 10*3/?L. The reference range was not used to interpret this result as normal/abnormal . RBC (test code = See_Comment L [Automated 789-8) message] The sy stem which generated this result transmitted reference range : 4.26 - 5.52 10*6/?L. The reference range was not used to interpret this result as normal/abnormal . HGB (test code = 7.3 g/dL 12.2-16.4 L 718-7) HCT (test code = 22.8 % 38.4-49.3 L 4544-3) MCV (test code = 103.6 fL 81.7-95.6 H 787-2) MCH (test code = 33.2 pg 26.1-32.7 H 785-6) MCHC (test code = 32.0 g/dL 31.2-35.0 786-4) RDW-SD (test code = 56.0 fL 38.5-51.6 H 31936-0) RDW-CV (test code = 15.5 % 12.1-15.4 H 788-0) PLT (test code = See_Comment LL [Automated 777-3) message] The sy stem which generated this result transmitted reference range : 150 - 328 10*3/ ?L. The reference r asrah was not used to interpret this result as normal/abnormal . MPV (test code = 10.7 fL 9.8-13.0 16979-4) NRBC/100 WBC (test See_Comment [Automat ed code = 8984441348) message] The system which generated this result transmitted reference range : 0.0 - 10.0 /100 WBCs. The refer ence range was not u sed to interpret th is result as normal/abnormal . NRBC x10^3 (test code <0.01 See_Comment [Auto mated = 8092440887) message] The s ystem which generated this result transmitted reference range : 10*3/?L. The reference range was not used to interpret this result as normal/abnormal . GRAN MAT (NEUT) % 62.0 % (test code = 770-8) IMM GRAN % (test code 1.20 % = 8844191820) LYMPH % (test code = 21.5 % 736-9) MONO % (test code = 11.8 % 5905-5) EOS % (test code = 3.1 % 713-8) BASO % (test code = 0.4 % 706-2) GRAN MAT x10^3(ANC) 3.21 10*3/uL 1.99-6.95 (test code = 5668973173) IMM GRAN x10^3 (test 0.06 10*3/uL 0.00-0.06 code = 6718995022) LYMPH x10^3 (test code 1.11 10*3/uL 1.09-3.23 = 731-0) MONO x10^3 (test code 0.61 10*3/uL 0.36-1.02 = 742-7) EOS x10^3 (test code = 0.16 10*3/uL 0.06-0.53 711-2) BASO x10^3 (test code <0.03 0.01-0.09 = 704-7) Lab Interpretation Abnormal (test code = 09582-1) [facility] METABOLIC PANEL (NA, K, CL, CO2, GLUCOSE, BUN, CREATININE, CA)2021-07-15 12:02:00 Test Item Value Reference Range Interpretation Comments NA (test code = 135 mmol/L 135-145 0128053114) K (test code = 3.6 mmol/L 3.5-5.0 7518732529) CL (test code = 106 mmol/L 98-108 4347949354) CO2 TOTAL (test code = 25 mmol/L 23-31 2073019341) AGAP (test code = 2-16 7395811649) BUN (test code = 16 mg/dL 7-23 2046223685) GLUCOSE (test code = 109 mg/dL 70-110 2025466430) CREATININE (test code = 1.19 mg/dL 0.60-1.25 4876182416) CALCIUM (test code = 7.7 mg/dL 8.6-10.6 L 0589924977) eGFR (test code = mL/min/1.73m2 7730449244) ANDRES (test code = ANDRES) Association of Glomerular Filtration Rate (GFR) and Staging of Kidney Disease* + --+ --+ ------+| GFR (mL/min/1.73 m2) ?| With Kidney Damage ?| ?Without Kidney Damage+ --------+ --------+ +| ?>90 ?| ?Stage one ?| ? Normal ?+ ---+ ---+ -------+| ?60-89 ?| ?Stage two ?| ? Decreased GFR ? + --+ --+ ------+| ?30-59 ?| ?Stage three ?| ? Stage three ? + --+ --+ ------+| ?15-29 ?| ?Stage four ? | ? Stage four ?+ ---+ ---+ -------+| ?<15 (or dialysis) ? ?| ?Stage five ? | ? Stage five ?+ ---+ ---+ -------+ *Each stage assumes the associated GFR level has been in effect for at least three months. ?Stages 1 to 5, with or without kidney disease, indicate chronic kidney disease. Notes: Determination of stages one and two (with eGFR >59mL/min/1.73 m2) requires estimation of kidney damage for at least three months as defined by structural or functional abnormalities of the kidney, manifested by either:Pathological abnormalities or Markers of kidney damage (including abnormalities in the composition of the blood or urine or abnormalities in imaging tests). Lab Interpretation Abnormal (test code = 73581-9) [facility] 12:02:00 Test Item Value Reference Range Interpretation Comments MAGNESIUM (test code = 7122207816) 1.6 mg/dL 1.7-2.4 L Lab Interpretation (test code = Abnormal 95976-1) [facility]ORT[facility] [id number] 16:38:37 Test Item Value Reference Range Interpretation Comments KRISTI AM (test code = 10.4 ug/dL 4.5-23.0 3603844219) ANDRES (test code = ANDRES) Biotin has been reported to cause a positive bias, interpret results relative to patient's use of biotin. Lab Interpretation (test Normal code = 81626-4) [facility] WITH [id number] 11:57:36 Test Item Value Reference Range Interpretation Comments WBC (test code = See_Comment [Automated 6690-2) message] The sy stem which generated this result transmitted reference range : 4.20 - 10.70 10*3/?L. The reference range was not used to interpret this result as normal/abnormal . RBC (test code = See_Comment L [Automated 789-8) message] The sy stem which generated this result transmitted reference range : 4.26 - 5.52 10*6/?L. The reference range was not used to interpret this result as normal/abnormal . HGB (test code = 7.2 g/dL 12.2-16.4 L 718-7) HCT (test code = 21.8 % 38.4-49.3 L 4544-3) MCV (test code = 101.9 fL 81.7-95.6 H 787-2) MCH (test code = 33.6 pg 26.1-32.7 H 785-6) MCHC (test code = 33.0 g/dL 31.2-35.0 786-4) RDW-SD (test code = 53.5 fL 38.5-51.6 H 76970-0) RDW-CV (test code = 15.0 % 12.1-15.4 788-0) PLT (test code = See_Comment LL [Automated 777-3) message] The sy stem which generated this result transmitted reference range : 150 - 328 10*3/ ?L. The reference r sarah was not used to interpret this result as normal/abnormal . MPV (test code = 10.9 fL 9.8-13.0 93653-9) IPF % (test code = 4.1 % 1.2-10.7 Platelet count 6606701565) measured by fluorescence method. NRBC/100 WBC (test See_Comment [Automat ed code = 7024322527) message] The system which generated this result transmitted reference range : 0.0 - 10.0 /100 WBCs. The refer ence range was not u sed to interpret th is result as normal/abnormal . NRBC x10^3 (test code <0.01 See_Comment [Auto mated = 0678665136) message] The s ystem which generated this result transmitted reference range : 10*3/?L. The reference range was not used to interpret this result as normal/abnormal . GRAN MAT (NEUT) % 56.1 % (test code = 770-8) IMM GRAN % (test code 2.30 % = 2961898498) LYMPH % (test code = 21.1 % 736-9) MONO % (test code = 16.4 % 5905-5) EOS % (test code = 3.8 % 713-8) BASO % (test code = 0.3 % 706-2) GRAN MAT x10^3(ANC) 3.73 10*3/uL 1.99-6.95 (test code = 5094202845) IMM GRAN x10^3 (test 0.15 10*3/uL 0.00-0.06 H code = 6370559015) LYMPH x10^3 (test code 1.40 10*3/uL 1.09-3.23 = 731-0) MONO x10^3 (test code 1.09 10*3/uL 0.36-1.02 H = 742-7) EOS x10^3 (test code = 0.25 10*3/uL 0.06-0.53 711-2) BASO x10^3 (test code <0.03 0.01-0.09 = 704-7) BASO STIPPLING (test Present A code = 703-9) Lab Interpretation Abnormal (test code = 02709-8) [facility]11 11:41:29 Test Item Value Reference Range Interpretation Comments MAGNESIUM (test code = 6916858406) 1.7 mg/dL 1.7-2.4 Lab Interpretation (test code = Normal 97477-4) [facility] [place]65867[facility] (ALB,T.PRO,BILI T,BU/BC,ALT,AST,ALK PHOS)2021-07-14 11:41:29 Test Item Value Reference Range Interpretation Comments TOTAL BILI (test code = 3189984874) 3.7 mg/dL 0.1-1.1 H BILI UNCON (test code = 0098747156) 1.5 mg/dL 0.1-1.1 H BILI CONJ (test code = 5535894283) 1.0 mg/dL 0.0-0.3 H T PROTEIN (test code = 6181808261) 4.8 g/dL 6.3-8.2 L ALBUMIN (test code = 0491973660) 2.1 g/dL 3.5-5.0 L ALK PHOS (test code = 7223645204) 118 U/L 34-122 ALTv (test code = 1742-6) 53 U/L 5-50 H AST(SGOT) (test code = 6991310949) 103 U/L 13-40 H Lab Interpretation (test code = Abnormal 30464-7) [facility] (NA, K, CL, CO2, GLUCOSE, BUN, CREATININE, CA)2021-07-14 11:41:28 Test Item Value Reference Range Interpretation Comments NA (test code = 135 mmol/L 135-145 5248612897) K (test code = 3.5 mmol/L 3.5-5.0 2545565698) CL (test code = 106 mmol/L 98-108 0652878235) CO2 TOTAL (test code = 24 mmol/L 23-31 7054824304) AGAP (test code = 2-16 4580783961) BUN (test code = 20 mg/dL 7-23 7605754140) GLUCOSE (test code = 101 mg/dL 70-110 0907344648) CREATININE (test code = 1.35 mg/dL 0.60-1.25 H 4632435616) CALCIUM (test code = 7.5 mg/dL 8.6-10.6 L 6675554159) eGFR (test code = mL/min/1.73m2 0115297862) ANDRES (test code = ANDRES) Association of Glomerular Filtration Rate (GFR) and Staging of Kidney Disease* + --+ --+ ------+| GFR (mL/min/1.73 m2) ?| With Kidney Damage ?| ?Without Kidney Damage+ --------+ --------+ +| ?>90 ?| ?Stage one ?| ? Normal ?+ ---+ ---+ -------+| ?60-89 ?| ?Stage two ?| ? Decreased GFR ? + --+ --+ ------+| ?30-59 ?| ?Stage three ?| ? Stage three ? + --+ --+ ------+| ?15-29 ?| ?Stage four ? | ? Stage four ?+ ---+ ---+ -------+| ?<15 (or dialysis) ? ?| ?Stage five ? | ? Stage five ?+ ---+ ---+ -------+ *Each stage assumes the associated GFR level has been in effect for at least three months. ?Stages 1 to 5, with or without kidney disease, indicate chronic kidney disease. Notes: Determination of stages one and two (with eGFR >59mL/min/1.73 m2) requires estimation of kidney damage for at least three months as defined by structural or functional abnormalities of the kidney, manifested by either:Pathological abnormalities or Markers of kidney damage (including abnormalities in the composition of the blood or urine or abnormalities in imaging tests). Lab Interpretation Abnormal (test code = 70140-6) [facility] [id number] 08:01:04 Test Item Value Reference Range Interpretation Comments Blood Culture-Aerobic No organisms No growth Previo us (test code = 28032-9) isolated prelim inary verified result was Culture In Progress on 07/09/2021 at 06 01 CDTPrevious preliminary verified result was No growth a t 24 hours on 07/10/2021 at 02 01 CSTPrevious preliminary verified result was No growth a t 48 hours on 07/11/2021 at 02 01 CSTPrevious preliminary verified result was No growth a t 72 hours on 07/12/2021 at 02 01 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 organisms No growth Previous Culture-Anaerobic isolated preliminar y (test code = 46961-9) verifi ed result was Culture In Progress on 07/09/2021 at 06 01 CDTPrevious preliminary verified result was No growth a t 24 hours on 07/10/2021 at 02 01 CSTPrevious preliminary verified result was No growth a t 48 hours on 07/11/2021 at 02 01 CSTPrevious preliminary verified result was No growth a t 72 hours on 07/12/2021 at 02 01 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 Normal (test code = 64865-0) [facility] [id number] 08:01:04 Test Item Value Reference Range Interpretation Comments Blood Culture-Aerobic No organisms No growth Previo us (test code = 05967-3) isolated prelim inary verified result was Culture In Progress on 07/09/2021 at 06 01 CDTPrevious preliminary verified result was No growth a t 24 hours on 07/10/2021 at 02 01 CSTPrevious preliminary verified result was No growth a t 48 hours on 07/11/2021 at 02 01 CSTPrevious preliminary verified result was No growth a t 72 hours on 07/12/2021 at 02 01 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 organisms No growth Previous Culture-Anaerobic isolated preliminar y (test code = 32325-8) verifi ed result was Culture In Progress on 07/09/2021 at 06 01 CDTPrevious preliminary verified result was No growth a t 24 hours on 07/10/2021 at 02 01 CSTPrevious preliminary verified result was No growth a t 48 hours on 07/11/2021 at 02 01 CSTPrevious preliminary verified result was No growth a t 72 hours on 07/12/2021 at 02 01 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 The reference range was not used to interpret this result as normal/abnormal . RBC (test code = See_Comment L [Automated 789-8) message] The sy stem which generated this result transmitted reference range : 4.26 - 5.52 10*6/?L. The reference range was not used to interpret this result as normal/abnormal . HGB (test code = 7.8 g/dL 12.2-16.4 L 718-7) HCT (test code = 23.5 % 38.4-49.3 L 4544-3) MCV (test code = 101.3 fL 81.7-95.6 H 787-2) MCH (test code = 33.6 pg 26.1-32.7 H 785-6) MCHC (test code = 33.2 g/dL 31.2-35.0 786-4) RDW-SD (test code = 52.8 fL 38.5-51.6 H 44196-0) RDW-CV (test code = 15.0 % 12.1-15.4 788-0) PLT (test code = See_Comment LL [Automated 777-3) message] The sy stem which generated this result transmitted reference range : 150 - 328 10*3/ ?L. The reference r sarah was not used to interpret this result as normal/abnormal . MPV (test code = 10.8 fL 9.8-13.0 46578-2) IPF % (test code = 5.1 % 1.2-10.7 Platelet count [id number]) measured by fluorescence method. NRBC/100 WBC (test See_Comment [Automat ed code = 9471729512) message] The system which generated this result transmitted reference range : 0.0 - 10.0 /100 WBCs. The refer ence range was not u sed to interpret th is result as normal/abnormal . NRBC x10^3 (test code <0.01 See_Comment [Auto mated = 4570594805) message] The s ystem which generated this result transmitted reference range : 10*3/?L. The reference range was not used to interpret this result as normal/abnormal . GRAN MAT (NEUT) % 63.8 % (test code = 770-8) IMM GRAN % (test code 1.80 % = 0189491224) LYMPH % (test code = 16.2 % 736-9) MONO % (test code = 13.9 % 5905-5) EOS % (test code = 4.1 % 713-8) BASO % (test code = 0.2 % 706-2) GRAN MAT x10^3(ANC) 5.46 10*3/uL 1.99-6.95 (test code = 6747201092) IMM GRAN x10^3 (test 0.15 10*3/uL 0.00-0.06 H code = 5644984853) LYMPH x10^3 (test code 1.39 10*3/uL 1.09-3.23 = 731-0) MONO x10^3 (test code 1.19 10*3/uL 0.36-1.02 H = 742-7) EOS x10^3 (test code = 0.35 10*3/uL 0.06-0.53 711-2) BASO x10^3 (test code <0.03 0.01-0.09 = 704-7) REACT LYMPHS (test Rare code = 3354427441) Lab Interpretation Abnormal (test code = 45409-0) [facility] WITH [id number] 12:02:39 Test Item Value Reference Range Interpretation Comments WBC (test code = See_Comment [Automated 6690-2) message] The sy stem which generated this result transmitted reference range : 4.20 - 10.70 10*3/?L. The reference range was not used to interpret this result as normal/abnormal . RBC (test code = See_Comment L [Automated 789-8) message] The sy stem which generated this result transmitted reference range : 4.26 - 5.52 10*6/?L. The reference range was not used to interpret this result as normal/abnormal . HGB (test code = 7.8 g/dL 12.2-16.4 L 718-7) HCT (test code = 23.5 % 38.4-49.3 L 4544-3) MCV (test code = 101.3 fL 81.7-95.6 H 787-2) MCH (test code = 33.6 pg 26.1-32.7 H 785-6) MCHC (test code = 33.2 g/dL 31.2-35.0 786-4) RDW-SD (test code = 52.8 fL 38.5-51.6 H 52277-7) RDW-CV (test code = 15.0 % 12.1-15.4 788-0) PLT (test code = See_Comment LL [Automated 777-3) message] The sy stem which generated this result transmitted reference range : 150 - 328 10*3/ ?L. The reference r sarah was not used to interpret this result as normal/abnormal . MPV (test code = 10.8 fL 9.8-13.0 74510-1) IPF % (test code = 5.1 % 1.2-10.7 Platelet count 3630118473) measured by fluorescence method. NRBC/100 WBC (test See_Comment [Automat ed code = 5893564661) message] The system which generated this result transmitted reference range : 0.0 - 10.0 /100 WBCs. The refer ence range was not u sed to interpret th is result as normal/abnormal . NRBC x10^3 (test code <0.01 See_Comment [Auto mated = 4402116066) message] The s ystem which generated this result transmitted reference range : 10*3/?L. The reference range was not used to interpret this result as normal/abnormal . GRAN MAT (NEUT) % 63.8 % (test code = 770-8) IMM GRAN % (test code 1.80 % = 8297388062) LYMPH % (test code = 16.2 % 736-9) MONO % (test code = 13.9 % 5905-5) EOS % (test code = 4.1 % 713-8) BASO % (test code = 0.2 % 706-2) GRAN MAT x10^3(ANC) 5.46 10*3/uL 1.99-6.95 (test code = 4563229106) IMM GRAN x10^3 (test 0.15 10*3/uL 0.00-0.06 H code = 4346624421) LYMPH x10^3 (test code 1.39 10*3/uL 1.09-3.23 = 731-0) MONO x10^3 (test code 1.19 10*3/uL 0.36-1.02 H = 742-7) EOS x10^3 (test code = 0.35 10*3/uL 0.06-0.53 711-2) BASO x10^3 (test code <0.03 0.01-0.09 = 704-7) REACT LYMPHS (test Rare code = 1975770354) Lab Interpretation Abnormal (test code = 83127-5) [facility] 11:48:20 Test Item Value Reference Range Interpretation Comments PHOSPHORUS (test code = 5622984160) 2.1 mg/dL 2.5-5.0 L Lab Interpretation (test code = Abnormal 27008-7) [facility] (NA, K, CL, CO2, GLUCOSE, BUN, CREATININE, CA)2021-07-13 11:48:20 Test Item Value Reference Range Interpretation Comments NA (test code = 133 mmol/L 135-145 L 6347100097) K (test code = 3.4 mmol/L 3.5-5.0 L 2367456627) CL (test code = 105 mmol/L 98-108 4780876187) CO2 TOTAL (test code = 25 mmol/L 23-31 6758426828) AGAP (test code = 2-16 4094810568) BUN (test code = 32 mg/dL 7-23 H 0616254374) GLUCOSE (test code = 107 mg/dL 70-110 2974799422) CREATININE (test code = 1.65 mg/dL 0.60-1.25 H 6211505476) CALCIUM (test code = 7.0 mg/dL 8.6-10.6 L 7014624736) eGFR (test code = mL/min/1.73m2 2755690692) ANDRES (test code = ANDRES) Association of Glomerular Filtration Rate (GFR) and Staging of Kidney Disease* + --+ --+ ------+| GFR (mL/min/1.73 m2) ?| With Kidney Damage ?| ?Without Kidney Damage+ --------+ --------+ +| ?>90 ?| ?Stage one ?| ? Normal ?+ ---+ ---+ -------+| ?60-89 ?| ?Stage two ?| ? Decreased GFR ? + --+ --+ ------+| ?30-59 ?| ?Stage three ?| ? Stage three ? + --+ --+ ------+| ?15-29 ?| ?Stage four ? | ? Stage four ?+ ---+ ---+ -------+| ?<15 (or dialysis) ? ?| ?Stage five ? | ? Stage five ?+ ---+ ---+ -------+ *Each stage assumes the associated GFR level has been in effect for at least three months. ?Stages 1 to 5, with or without kidney disease, indicate chronic kidney disease. Notes: Determination of stages one and two (with eGFR >59mL/min/1.73 m2) requires estimation of kidney damage for at least three months as defined by structural or functional abnormalities of the kidney, manifested by either:Pathological abnormalities or Markers of kidney damage (including abnormalities in the composition of the blood or urine or abnormalities in imaging tests). Lab Interpretation Abnormal (test code = 13925-7) [facility] 11:48:20 Test Item Value Reference Range Interpretation Comments MAGNESIUM (test code = 0424913522) 2.1 mg/dL 1.7-2.4 Lab Interpretation (test code = Normal 61694-8) [facility] [place] [facility] (12161) (ALB,T.PRO,BILI T,BU/BC,ALT,AST,ALK PHOS)2021-07-13 11:48:20 Test Item Value Reference Range Interpretation Comments TOTAL BILI (test code = 5789661421) 4.0 mg/dL 0.1-1.1 H BILI UNCON (test code = 2760484567) 1.2 mg/dL 0.1-1.1 H BILI CONJ (test code = 5014804573) 1.2 mg/dL 0.0-0.3 H T PROTEIN (test code = 0494565678) 4.4 g/dL 6.3-8.2 L ALBUMIN (test code = 2953696811) 1.7 g/dL 3.5-5.0 L ALK PHOS (test code = 8186624738) 126 U/L 34-122 H ALTv (test code = 1742-6) 87 U/L 5-50 H AST(SGOT) (test code = 8401924355) 166 U/L 13-40 H Lab Interpretation (test code = Abnormal 28479-9) [facility]10 11:48:20 Test Item Value Reference Range Interpretation Comments PHOSPHORUS (test code = 4005551845) 2.1 mg/dL 2.5-5.0 L Lab Interpretation (test code = Abnormal 68275-2) [facility]10 11:48:20 Test Item Value Reference Range Interpretation Comments MAGNESIUM (test code = 7395418269) 2.1 mg/dL 1.7-2.4 Lab Interpretation (test code = Normal 50152-7) [facility]22604[facility] (ALB,T.PRO,BILI T,BU/BC,ALT,AST,ALK PHOS)2021-07-13 11:48:20 Test Item Value Reference Range Interpretation Comments TOTAL BILI (test code = 5551276522) 4.0 mg/dL 0.1-1.1 H BILI UNCON (test code = 4785880267) 1.2 mg/dL 0.1-1.1 H BILI CONJ (test code = 9071261339) 1.2 mg/dL 0.0-0.3 H T PROTEIN (test code = 2118092668) 4.4 g/dL 6.3-8.2 L ALBUMIN (test code = 7249026512) 1.7 g/dL 3.5-5.0 L ALK PHOS (test code = 3855960565) 126 U/L 34-122 H ALTv (test code = 1742-6) 87 U/L 5-50 H AST(SGOT) (test code = 2132942569) 166 U/L 13-40 H Lab Interpretation (test code = Abnormal 68287-3) [facility] (NA, K, CL, CO2, GLUCOSE, BUN, CREATININE, CA)2021-07-13 11:48:20 Test Item Value Reference Range Interpretation Comments NA (test code = 133 mmol/L 135-145 L 0214320326) K (test code = 3.4 mmol/L 3.5-5.0 L 5717219265) CL (test code = 105 mmol/L 98-108 6834273564) CO2 TOTAL (test code = 25 mmol/L 23-31 6057346789) AGAP (test code = 2-16 3495904151) BUN (test code = 32 mg/dL 7-23 H 2698939875) GLUCOSE (test code = 107 mg/dL 70-110 0656579323) CREATININE (test code = 1.65 mg/dL 0.60-1.25 H 9390000242) CALCIUM (test code = 7.0 mg/dL 8.6-10.6 L 0715398272) eGFR (test code = mL/min/1.73m2 2773924665) ANDRES (test code = ANDRES) Association of Glomerular Filtration Rate (GFR) and Staging of Kidney Disease* + --+ --+ ------+| GFR (mL/min/1.73 m2) ?| With Kidney Damage ?| ?Without Kidney Damage+ --------+ --------+ +| ?>90 ?| ?Stage one ?| ? Normal ?+ ---+ ---+ -------+| ?60-89 ?| ?Stage two ?| ? Decreased GFR ? + --+ --+ ------+| ?30-59 ?| ?Stage three ?| ? Stage three ? + --+ --+ ------+| ?15-29 ?| ?Stage four ? | ? Stage four ?+ ---+ ---+ -------+| ?<15 (or dialysis) ? ?| ?Stage five ? | ? Stage five ?+ ---+ ---+ -------+ *Each stage assumes the associated GFR level has been in effect for at least three months. ?Stages 1 to 5, with or without kidney disease, indicate chronic kidney disease. Notes: Determination of stages one and two (with eGFR >59mL/min/1.73 m2) requires estimation of kidney damage for at least three months as defined by structural or functional abnormalities of the kidney, manifested by either:Pathological abnormalities or Markers of kidney damage (including abnormalities in the composition of the blood or urine or abnormalities in imaging tests). Lab Interpretation Abnormal (test code = 34488-8) [facility] WITH [id number] 12:47:39 Test Item Value Reference Range Interpretation Comments WBC (test code = See_Comment H [Automated 6690-2) message] The sy stem which generated this result transmitted reference range : 4.20 - 10.70 10*3/?L. The reference range was not used to interpret this result as normal/abnormal . RBC (test code = See_Comment L [Automated 789-8) message] The sy stem which generated this result transmitted reference range : 4.26 - 5.52 10*6/?L. The reference range was not used to interpret this result as normal/abnormal . HGB (test code = 8.0 g/dL 12.2-16.4 L 718-7) HCT (test code = 24.0 % 38.4-49.3 L 4544-3) MCV (test code = 100.8 fL 81.7-95.6 H 787-2) MCH (test code = 33.6 pg 26.1-32.7 H 785-6) MCHC (test code = 33.3 g/dL 31.2-35.0 786-4) RDW-SD (test code = 51.5 fL 38.5-51.6 33580-3) RDW-CV (test code = 14.7 % 12.1-15.4 788-0) PLT (test code = See_Comment LL [Automated 777-3) message] The sy stem which generated this result transmitted reference range : 150 - 328 10*3/ ?L. The reference r sarah was not used to interpret this result as normal/abnormal . MPV (test code = 11.0 fL 9.8-13.0 42444-6) IPF % (test code = 6.3 % 1.2-10.7 Platelet count 3677241431) measured by fluorescence method. NRBC/100 WBC (test See_Comment [Automat ed code = 1006675413) message] The system which generated this result transmitted reference range : 0.0 - 10.0 /100 WBCs. The refer ence range was not u sed to interpret th is result as normal/abnormal . NRBC x10^3 (test code <0.01 See_Comment [Auto mated = 2683087162) message] The s ystem which generated this result transmitted reference range : 10*3/?L. The reference range was not used to interpret this result as normal/abnormal . GRAN MAT (NEUT) % 70.0 % (test code = 770-8) IMM GRAN % (test code 1.50 % = 9119365413) LYMPH % (test code = 12.3 % 736-9) MONO % (test code = 12.5 % 5905-5) EOS % (test code = 3.4 % 713-8) BASO % (test code = 0.3 % 706-2) GRAN MAT x10^3(ANC) 8.04 10*3/uL 1.99-6.95 H (test code = 8410448703) IMM GRAN x10^3 (test 0.17 10*3/uL 0.00-0.06 H code = 6388484101) LYMPH x10^3 (test code 1.41 10*3/uL 1.09-3.23 = 731-0) MONO x10^3 (test code 1.43 10*3/uL 0.36-1.02 H = 742-7) EOS x10^3 (test code = 0.39 10*3/uL 0.06-0.53 711-2) BASO x10^3 (test code 0.03 10*3/uL 0.01-0.09 = 704-7) Lab Interpretation Abnormal (test code = 38982-9) [facility] METABOLIC PANEL (NA, K, CL, CO2, GLUCOSE, BUN, CREATININE, CA)2021-07-12 12:37:03 Test Item Value Reference Range Interpretation Comments NA (test code = 133 mmol/L 135-145 L 0168462878) K (test code = 3.4 mmol/L 3.5-5.0 L 5263191187) CL (test code = 106 mmol/L 98-108 6223410703) CO2 TOTAL (test code = 24 mmol/L 23-31 8576737208) AGAP (test code = 2-16 4434286121) BUN (test code = 37 mg/dL 7-23 H 4863477551) GLUCOSE (test code = 113 mg/dL 70-110 H 1819323702) CREATININE (test code = 1.80 mg/dL 0.60-1.25 H 8685374170) CALCIUM (test code = 7.1 mg/dL 8.6-10.6 L 5227281285) eGFR (test code = mL/min/1.73m2 3474139149) ANDRES (test code = ANDRES) Association of Glomerular Filtration Rate (GFR) and Staging of Kidney Disease* + --+ --+ ------+| GFR (mL/min/1.73 m2) ?| With Kidney Damage ?| ?Without Kidney Damage+ --------+ --------+ +| ?>90 ?| ?Stage one ?| ? Normal ?+ ---+ ---+ -------+| ?60-89 ?| ?Stage two ?| ? Decreased GFR ? + --+ --+ ------+| ?30-59 ?| ?Stage three ?| ? Stage three ? + --+ --+ ------+| ?15-29 ?| ?Stage four ? | ? Stage four ?+ ---+ ---+ -------+| ?<15 (or dialysis) ? ?| ?Stage five ? | ? Stage five ?+ ---+ ---+ -------+ *Each stage assumes the associated GFR level has been in effect for at least three months. ?Stages 1 to 5, with or without kidney disease, indicate chronic kidney disease. Notes: Determination of stages one and two (with eGFR >59mL/min/1.73 m2) requires estimation of kidney damage for at least three months as defined by structural or functional abnormalities of the kidney, manifested by either:Pathological abnormalities or Markers of kidney damage (including abnormalities in the composition of the blood or urine or abnormalities in imaging tests). Lab Interpretation Abnormal (test code = 32201-0) [facility] 12:37:03 Test Item Value Reference Range Interpretation Comments MAGNESIUM (test code = 4597189737) 1.8 mg/dL 1.7-2.4 Lab Interpretation (test code = Normal 42823-0) [facility] Random [id number] 16:45:15 Test Item Value Reference Range Interpretation Comments VANCO RANDOM (test code = 5213792582) <5.0 ug/mL [facility] [id number] 16:45:15 Test Item Value Reference Range Interpretation Comments VANCO RANDOM (test code = 9596258240) <5.0 ug/mL [facility] ([facility] Only)2021-07-11 16:05:46 Test Item Value Reference Range Interpretation Comments ABO & RH (test code O Negative Performe d at [facility] = 20) Laboratory [facility] [place] [address] s [address]Vdrg Free: [phone] A No. [id number] [facility] Confirmation (Lab Only)2021-07-11 16:05:46 Test Item Value Reference Range Interpretation Comments ABO & RH (test code O Negative Performe d at [facility] = 20) Laboratory [facility] [address] [address]Tydb Free: [phone] A No. [id number] [facility] and Screen - ONCE [id number] 14:25:37 Test Item Value Reference Range Interpretation Comments ABO & RH (test code O NEGATIVE Performe d at [facility] = 20) Laboratory [facility] [address] s [address]Dyhn Free: [phone] A No. [id number] IAT (test code = Negative Performed a t [facility]) Laboratory [facility] [address] s [address]Encg Free: [phone] A No. [id number] [facility] - ONCE [id number] 14:25:37 Test Item Value Reference Range Interpretation Comments ABO & RH (test code O NEGATIVE Performe d at [facility] = 20) Laboratory [facility] [address] [place] [address] s [address]Dyrk Free: [phone] A No. [id number] IAT (test code = Negative Performed a t [facility]) Laboratory [facility] [address] [place] [address] s [address]Ijga Free: [phone] A No. [id number] [facility] WITH [id number] 11:51:30 Test Item Value Reference Range Interpretation Comments WBC (test code = See_Comment H [Automated 6690-2) message] The sy stem which generated this result transmitted reference range : 4.20 - 10.70 10*3/?L. The reference range was not used to interpret this result as normal/abnormal . RBC (test code = See_Comment L [Automated 789-8) message] The sy stem which generated this result transmitted reference range : 4.26 - 5.52 10*6/?L. The reference range was not used to interpret this result as normal/abnormal . HGB (test code = 8.3 g/dL 12.2-16.4 L 718-7) HCT (test code = 25.0 % 38.4-49.3 L 4544-3) MCV (test code = 100.0 fL 81.7-95.6 H 787-2) MCH (test code = 33.2 pg 26.1-32.7 H 785-6) MCHC (test code = 33.2 g/dL 31.2-35.0 786-4) RDW-SD (test code = 50.2 fL 38.5-51.6 51584-1) RDW-CV (test code = 14.1 % 12.1-15.4 788-0) PLT (test code = See_Comment LL [Automated 777-3) message] The sy stem which generated this result transmitted reference range : 150 - 328 10*3/ ?L. The reference r sarah was not used to interpret this result as normal/abnormal . MPV (test code = 10.9 fL 9.8-13.0 63361-2) IPF % (test code = 6.7 % 1.2-10.7 Platelet count 2911399813) measured by fluorescence method. NRBC/100 WBC (test See_Comment [Automat ed code = 3033964335) message] The system which generated this result transmitted reference range : 0.0 - 10.0 /100 WBCs. The refer ence range was not u sed to interpret th is result as normal/abnormal . NRBC x10^3 (test code See_Comment [Auto mated = 4247805088) message] The s ystem which generated this result transmitted reference range : 10*3/?L. The reference range was not used to interpret this result as normal/abnormal . GRAN MAT (NEUT) % 76.2 % (test code = 770-8) IMM GRAN % (test code 4.20 % = 6142871563) LYMPH % (test code = 8.2 % 736-9) MONO % (test code = 9.8 % 5905-5) EOS % (test code = 1.5 % 713-8) BASO % (test code = 0.1 % 706-2) GRAN MAT x10^3(ANC) 12.20 10*3/uL 1.99-6.95 H (test code = 0310941365) IMM GRAN x10^3 (test 0.67 10*3/uL 0.00-0.06 H code = 2407853219) LYMPH x10^3 (test 1.31 10*3/uL 1.09-3.23 code = 731-0) MONO x10^3 (test code 1.57 10*3/uL 0.36-1.02 H = 742-7) EOS x10^3 (test code 0.24 10*3/uL 0.06-0.53 = 711-2) BASO x10^3 (test code <0.03 0.01-0.09 = 704-7) Lab Interpretation Abnormal (test code = 58613-8) [facility] METABOLIC PANEL (NA, K, CL, CO2, GLUCOSE, BUN, CREATININE, CA)2021-07-11 11:45:15 Test Item Value Reference Range Interpretation Comments NA (test code = 131 mmol/L 135-145 L 1521067341) K (test code = 3.4 mmol/L 3.5-5.0 L 2931757263) CL (test code = 103 mmol/L 98-108 2792454581) CO2 TOTAL (test code = 24 mmol/L 23-31 2709885590) AGAP (test code = 2-16 5167693623) BUN (test code = 43 mg/dL 7-23 H 5985797544) GLUCOSE (test code = 126 mg/dL 70-110 H 2004985515) CREATININE (test code = 2.25 mg/dL 0.60-1.25 H 7566505203) CALCIUM (test code = 7.4 mg/dL 8.6-10.6 L 9176174989) eGFR (test code = mL/min/1.73m2 9931716103) ANDRES (test code = ANDRES) Association of Glomerular Filtration Rate (GFR) and Staging of Kidney Disease* + --+ --+ ------+| GFR (mL/min/1.73 m2) ?| With Kidney Damage ?| ?Without Kidney Damage+ --------+ --------+ +| ?>90 ?| ?Stage one ?| ? Normal ?+ ---+ ---+ -------+| ?60-89 ?| ?Stage two ?| ? Decreased GFR ? + --+ --+ ------+| ?30-59 ?| ?Stage three ?| ? Stage three ? + --+ --+ ------+| ?15-29 ?| ?Stage four ? | ? Stage four ?+ ---+ ---+ -------+| ?<15 (or dialysis) ? ?| ?Stage five ? | ? Stage five ?+ ---+ ---+ -------+ *Each stage assumes the associated GFR level has been in effect for at least three months. ?Stages 1 to 5, with or without kidney disease, indicate chronic kidney disease. Notes: Determination of stages one and two (with eGFR >59mL/min/1.73 m2) requires estimation of kidney damage for at least three months as defined by structural or functional abnormalities of the kidney, manifested by either:Pathological abnormalities or Markers of kidney damage (including abnormalities in the composition of the blood or urine or abnormalities in imaging tests). Lab Interpretation Abnormal (test code = 50746-9) [facility] 11:45:15 Test Item Value Reference Range Interpretation Comments MAGNESIUM (test code = 3873660024) 1.8 mg/dL 1.7-2.4 Lab Interpretation (test code = Normal 14368-2) [facility]21[facility]-08 11:45:15 Test Item Value Reference Range Interpretation Comments PHOSPHORUS (test code = 8133640762) 2.6 mg/dL 2.5-5.0 Lab Interpretation (test code = Normal 50357-9) [facility]OL[facility] (NA, K, CL, CO2, GLUCOSE, BUN, CREATININE, CA)2021-07-10 08:48:11 Test Item Value Reference Range Interpretation Comments NA (test code = 132 mmol/L 135-145 L 5677855067) K (test code = 3.4 mmol/L 3.5-5.0 L 7469487095) CL (test code = 102 mmol/L 98-108 6970602634) CO2 TOTAL (test code = 25 mmol/L 23-31 7721211470) AGAP (test code = 2-16 0197252555) BUN (test code = 30 mg/dL 7-23 H 1598075814) GLUCOSE (test code = 117 mg/dL 70-110 H 2848012791) CREATININE (test code = 2.06 mg/dL 0.60-1.25 H 9424020780) CALCIUM (test code = 7.9 mg/dL 8.6-10.6 L 6215132592) eGFR (test code = mL/min/1.73m2 0235971434) ANDRES (test code = ANDRES) Association of Glomerular Filtration Rate (GFR) and Staging of Kidney Disease* + --+ --+ ------+| GFR (mL/min/1.73 m2) ?| With Kidney Damage ?| ?Without Kidney Damage+ --------+ --------+ +| ?>90 ?| ?Stage one ?| ? Normal ?+ ---+ ---+ -------+| ?60-89 ?| ?Stage two ?| ? Decreased GFR ? + --+ --+ ------+| ?30-59 ?| ?Stage three ?| ? Stage three ? + --+ --+ ------+| ?15-29 ?| ?Stage four ? | ? Stage four ?+ ---+ ---+ -------+| ?<15 (or dialysis) ? ?| ?Stage five ? | ? Stage five ?+ ---+ ---+ -------+ *Each stage assumes the associated GFR level has been in effect for at least three months. ?Stages 1 to 5, with or without kidney disease, indicate chronic kidney disease. Notes: Determination of stages one and two (with eGFR >59mL/min/1.73 m2) requires estimation of kidney damage for at least three months as defined by structural or functional abnormalities of the kidney, manifested by either:Pathological abnormalities or Markers of kidney damage (including abnormalities in the composition of the blood or urine or abnormalities in imaging tests). Lab Interpretation Abnormal (test code = 90168-9) [facility]40427) (ALB,T.PRO,BILI T,BU/BC,ALT,AST,ALK PHOS)2021-07-10 08:48:11 Test Item Value Reference Range Interpretation Comments TOTAL BILI (test code = 2814562878) 4.3 mg/dL 0.1-1.1 H BILI UNCON (test code = 6721745783) 1.1 mg/dL 0.1-1.1 BILI CONJ (test code = 5817682874) 1.7 mg/dL 0.0-0.3 H T PROTEIN (test code = 6698463242) 5.3 g/dL 6.3-8.2 L ALBUMIN (test code = 4063171071) 2.4 g/dL 3.5-5.0 L ALK PHOS (test code = 6982024382) 133 U/L 34-122 H ALTv (test code = 1742-6) 118 U/L 5-50 H AST(SGOT) (test code = 7116543961) 474 U/L 13-40 H Lab Interpretation (test code = Abnormal 84564-2) [facility] 08:48:11 Test Item Value Reference Range Interpretation Comments MAGNESIUM (test code = 1746334283) 1.9 mg/dL 1.7-2.4 Lab Interpretation (test code = Normal 63569-7) [facility] WITH [id number] 08:40:54 Test Item Value Reference Range Interpretation Comments WBC (test code = See_Comment H [Automated 2790-2) message] The sy stem which generated this result transmitted reference range : 4.20 - 10.70 10*3/?L. The reference range was not used to interpret this result as normal/abnormal . RBC (test code = See_Comment L [Automated 019-8) message] The sy stem which generated this result transmitted reference range : 4.26 - 5.52 10*6/?L. The reference range was not used to interpret this result as normal/abnormal . HGB (test code = 8.6 g/dL 12.2-16.4 L 718-7) HCT (test code = 25.5 % 38.4-49.3 L 4544-3) MCV (test code = 101.6 fL 81.7-95.6 H 787-2) MCH (test code = 34.3 pg 26.1-32.7 H 785-6) MCHC (test code = 33.7 g/dL 31.2-35.0 786-4) RDW-SD (test code = 49.6 fL 38.5-51.6 02227-3) RDW-CV (test code = 13.7 % 12.1-15.4 788-0) PLT (test code = See_Comment LL [Automated 777-3) message] The sy stem which generated this result transmitted reference range : 150 - 328 10*3/ ?L. The reference r sarah was not used to interpret this result as normal/abnormal . MPV (test code = 11.5 fL 9.8-13.0 28994-1) IPF % (test code = 6.1 % 1.2-10.7 Platelet count 7908355639) measured by fluorescence method. NRBC/100 WBC (test See_Comment [Automat ed code = 4949180775) message] The system which generated this result transmitted reference range : 0.0 - 10.0 /100 WBCs. The refer ence range was not u sed to interpret th is result as normal/abnormal . NRBC x10^3 (test code <0.01 See_Comment [Auto mated = 2337963352) message] The s ystem which generated this result transmitted reference range : 10*3/?L. The reference range was not used to interpret this result as normal/abnormal . GRAN MAT (NEUT) % 80.8 % (test code = 770-8) IMM GRAN % (test code 0.70 % = 8860628686) LYMPH % (test code = 8.8 % 736-9) MONO % (test code = 7.1 % 5905-5) EOS % (test code = 2.4 % 713-8) BASO % (test code = 0.2 % 706-2) GRAN MAT x10^3(ANC) 13.20 10*3/uL 1.99-6.95 H (test code = 9227441828) IMM GRAN x10^3 (test 0.11 10*3/uL 0.00-0.06 H code = 5858711245) LYMPH x10^3 (test 1.43 10*3/uL 1.09-3.23 code = 731-0) MONO x10^3 (test code 1.16 10*3/uL 0.36-1.02 H = 742-7) EOS x10^3 (test code 0.39 10*3/uL 0.06-0.53 = 711-2) BASO x10^3 (test code 0.03 10*3/uL 0.01-0.09 = 704-7) Lab Interpretation Abnormal (test code = 25516-3) [facility] CULTURE [id number] 23:01:45 Test Item Value Reference Range Interpretation Comments Blood Culture-Aerobic No organisms No growth Previo us (test code = 55390-2) isolated prelim inary verified result was Culture In Progress on 07/04/2021 at 21 01 CDTPrevious preliminary verified result was No growth a t 24 hours on 07/05/2021 at 18 01 CDTPrevious preliminary verified result was No growth a t 48 hours on 07/06/2021 at 18 01 CDTPrevious preliminary verified result was No growth a t 72 hours on 07/07/2021 at 18 01 CDT Blood No organisms No growth Previous Culture-Anaerobic isolated preliminar y (test code = 91147-7) verifi ed result was Culture In Progress on 07/04/2021 at 21 01 CDTPrevious preliminary verified result was No growth a t 24 hours on 07/05/2021 at 18 01 CDTPrevious preliminary verified result was No growth a t 48 hours on 07/06/2021 at 18 01 CDTPrevious preliminary verified result was No growth a t 72 hours on 07/07/2021 at 18 01 CDT Lab Interpretation Normal (test code = 10654-7) [facility] CULTURE [id number] 23:01:45 Test Item Value Reference Range Interpretation Comments Blood Culture-Aerobic No organisms No growth Previo us (test code = 34902-8) isolated prelim inary verified result was Culture In Progress on 07/04/2021 at 21 01 CDTPrevious preliminary verified result was No growth a t 24 hours on 07/05/2021 at 18 01 CDTPrevious preliminary verified result was No growth a t 48 hours on 07/06/2021 at 18 01 CDTPrevious preliminary verified result was No growth a t 72 hours on 07/07/2021 at 18 01 CDT Blood No organisms No growth Previous Culture-Anaerobic isolated preliminar y (test code = 81322-8) verifi ed result was Culture In Progress on 07/04/2021 at 21 01 CDTPrevious preliminary verified result was No growth a t 24 hours on 07/05/2021 at 18 01 CDTPrevious preliminary verified result was No growth a t 48 hours on 07/06/2021 at 18 01 CDTPrevious preliminary verified result was No growth a t 72 hours on 07/07/2021 at 18 01 CDT Lab Interpretation Normal (test code = 24847-9) [facility] [id number] 23:01:45 Test Item Value Reference Range Interpretation Comments Blood Culture-Aerobic No organisms No growth Previo us (test code = 83160-8) isolated prelim inary verified result was Culture In Progress on 07/04/2021 at 21 01 CDTPrevious preliminary verified result was No growth a t 24 hours on 07/05/2021 at 18 01 CDTPrevious preliminary verified result was No growth a t 48 hours on 07/06/2021 at 18 01 CDTPrevious preliminary verified result was No growth a t 72 hours on 07/07/2021 at 18 01 CDT Blood No organisms No growth Previous Culture-Anaerobic isolated preliminar y (test code = 75237-2) verifi ed result was Culture In Progress on 07/04/2021 at 21 01 CDTPrevious preliminary verified result was No growth a t 24 hours on 07/05/2021 at 18 01 CDTPrevious preliminary verified result was No growth a t 48 hours on 07/06/2021 at 18 01 CDTPrevious preliminary verified result was No growth a t 72 hours on 07/07/2021 at 18 01 CDT Lab Interpretation Normal (test code = 13733-1) [facility] (HCV) BY QUANTITATIVE NAAT 2021-07-09 18:37:10 Test Item Value Reference Range Interpretation Comments HCV Quantitative NAAT Not Detected log - log IU/mL (test code IU/mL = 37089-1) HCV Quantitative NAAT Not Detected - IU/mL (test code = IU/mL 17731-7) HCV Quantitative Detected Not Detected A Interpretation (test code = 0828058380) ANDRES (test code = ANDRES) The Aptima HCV Quant Dx assay is an FDA-approved real-time automotive internet sales manager-mediated amplification (TMA) test used for both detection and quantitation of hepatitis C virus (HCV) RNA in human serum and plasma from HCV-infected individuals. ?It is intended for use as an aid in the diagnosis of active HCV infection and the management of HCV-infected patients undergoing HCV antiviral drug therapy. ?It is not approved for use as a screening test for the presence of HCV RNA in blood or blood products. The quantitative range of this assay is 1.00 - 8.00 log IU/mL or 10 - 100,000,000 IU/mL. An interpretation of "Not Detected" does not rule out the presence of inhibitors in the patient specimen or HCV RNA concentration below the level of detection of the test. ?Care should be taken when interpreting any single viral load determination. Detected, not Quantifiable: HCV RNA detected, but at a level below 10 IU/mL (1.0 log IU/mL). ?HCV RNA concentration is below the lower limit of quantitation of the assay. Indeterminate: Error indicated in the generation of the result. ?Please submit a new specimen for repeat testing if clinically indicated. Lab Interpretation Abnormal (test code = 92130-6) [facility]HCV[facility] BY QUANTITATIVE NAAT 2021-07-09 18:37:10 Test Item Value Reference Range Interpretation Comments HCV Quantitative NAAT Not Detected log - log IU/mL (test code IU/mL = 35526-4) HCV Quantitative NAAT Not Detected - IU/mL (test code = IU/mL 94040-4) HCV Quantitative Detected Not Detected A Interpretation (test code = 9538609026) ANDRES (test code = ANDRES) The Aptima HCV Quant Dx assay is an FDA-approved real-time automotive internet sales manager-mediated amplification (TMA) test used for both detection and quantitation of hepatitis C virus (HCV) RNA in human serum and plasma from HCV-infected individuals. ?It is intended for use as an aid in the diagnosis of active HCV infection and the management of HCV-infected patients undergoing HCV antiviral drug therapy. ?It is not approved for use as a screening test for the presence of HCV RNA in blood or blood products. The quantitative range of this assay is 1.00 - 8.00 log IU/mL or 10 - 100,000,000 IU/mL. An interpretation of "Not Detected" does not rule out the presence of inhibitors in the patient specimen or HCV RNA concentration below the level of detection of the test. ?Care should be taken when interpreting any single viral load determination. Detected, not Quantifiable: HCV RNA detected, but at a level below 10 IU/mL (1.0 log IU/mL). ?HCV RNA concentration is below the lower limit of quantitation of the assay. Indeterminate: Error indicated in the generation of the result. ?Please submit a new specimen for repeat testing if clinically indicated. Lab Interpretation Abnormal (test code = 60227-5) [facility] Random [id number] 10:36:11 Test Item Value Reference Range Interpretation Comments VANCO RANDOM (test code = 2460635443) <5.0 ug/mL [facility] (NA, K, CL, CO2, GLUCOSE, BUN, CREATININE, CA)2021-07-09 10:12:53 Test Item Value Reference Range Interpretation Comments NA (test code = 131 mmol/L 135-145 L 2160538407) K (test code = 4.0 mmol/L 3.5-5.0 5660246861) CL (test code = 102 mmol/L 98-108 1572800180) CO2 TOTAL (test code = 25 mmol/L 23-31 3142499324) AGAP (test code = 2-16 6383056812) BUN (test code = 26 mg/dL 7-23 H 3879662427) GLUCOSE (test code = 136 mg/dL 70-110 H 4100094685) CREATININE (test code = 1.34 mg/dL 0.60-1.25 H 0153144928) CALCIUM (test code = 8.1 mg/dL 8.6-10.6 L 1847101154) eGFR (test code = mL/min/1.73m2 6332142336) ANDRES (test code = ANDRES) Association of Glomerular Filtration Rate (GFR) and Staging of Kidney Disease* + --+ --+ ------+| GFR (mL/min/1.73 m2) ?| With Kidney Damage ?| ?Without Kidney Damage+ --------+ --------+ +| ?>90 ?| ?Stage one ?| ? Normal ?+ ---+ ---+ -------+| ?60-89 ?| ?Stage two ?| ? Decreased GFR ? + --+ --+ ------+| ?30-59 ?| ?Stage three ?| ? Stage three ? + --+ --+ ------+| ?15-29 ?| ?Stage four ? | ? Stage four ?+ ---+ ---+ -------+| ?<15 (or dialysis) ? ?| ?Stage five ? | ? Stage five ?+ ---+ ---+ -------+ *Each stage assumes the associated GFR level has been in effect for at least three months. ?Stages 1 to 5, with or without kidney disease, indicate chronic kidney disease. Notes: Determination of stages one and two (with eGFR >59mL/min/1.73 m2) requires estimation of kidney damage for at least three months as defined by structural or functional abnormalities of the kidney, manifested by either:Pathological abnormalities or Markers of kidney damage (including abnormalities in the composition of the blood or urine or abnormalities in imaging tests). Lab Interpretation Abnormal (test code = 08716-4) [facility]2021-[facility]-06 10:12:53 Test Item Value Reference Range Interpretation Comments MAGNESIUM (test code = 2539582622) 1.8 mg/dL 1.7-2.4 Lab Interpretation (test code = Normal 35997-8) [facility] WITH [id number] 07:16:54 Test Item Value Reference Range Interpretation Comments WBC (test code = See_Comment H [Automated 6690-2) message] The sy stem which generated this result transmitted reference range : 4.20 - 10.70 10*3/?L. The reference range was not used to interpret this result as normal/abnormal . RBC (test code = See_Comment L [Automated 789-8) message] The sy stem which generated this result transmitted reference range : 4.26 - 5.52 10*6/?L. The reference range was not used to interpret this result as normal/abnormal . HGB (test code = 9.7 g/dL 12.2-16.4 L 718-7) HCT (test code = 28.6 % 38.4-49.3 L 4544-3) MCV (test code = 99.3 fL 81.7-95.6 H 787-2) MCH (test code = 33.7 pg 26.1-32.7 H 785-6) MCHC (test code = 33.9 g/dL 31.2-35.0 786-4) RDW-SD (test code = 47.8 fL 38.5-51.6 52546-4) RDW-CV (test code = 13.1 % 12.1-15.4 788-0) PLT (test code = See_Comment LL [Automated 777-3) message] The sy stem which generated this result transmitted reference range : 150 - 328 10*3/ ?L. The reference r sarah was not used to interpret this result as normal/abnormal . MPV (test code = 11.5 fL 9.8-13.0 95480-2) IPF % (test code = 7.2 % 1.2-10.7 Platelet count 9962689488) measured by fluorescence method. NRBC/100 WBC (test See_Comment [Automat ed code = 8502400603) message] The system which generated this result transmitted reference range : 0.0 - 10.0 /100 WBCs. The refer ence range was not u sed to interpret th is result as normal/abnormal . NRBC x10^3 (test code See_Comment [Auto mated = 7716035510) message] The s ystem which generated this result transmitted reference range : 10*3/?L. The reference range was not used to interpret this result as normal/abnormal . GRAN MAT (NEUT) % 84.2 % (test code = 770-8) IMM GRAN % (test code 0.80 % = 6370123836) LYMPH % (test code = 4.4 % 736-9) MONO % (test code = 9.2 % 5905-5) EOS % (test code = 1.2 % 713-8) BASO % (test code = 0.2 % 706-2) GRAN MAT x10^3(ANC) 15.17 10*3/uL 1.99-6.95 H (test code = 6191645960) IMM GRAN x10^3 (test 0.14 10*3/uL 0.00-0.06 H code = 9711431671) LYMPH x10^3 (test 0.79 10*3/uL 1.09-3.23 L code = 731-0) MONO x10^3 (test code 1.66 10*3/uL 0.36-1.02 H = 742-7) EOS x10^3 (test code 0.21 10*3/uL 0.06-0.53 = 711-2) BASO x10^3 (test code 0.03 10*3/uL 0.01-0.09 = 704-7) TOXIC CHANGES (test Present A code = 803-7) Lab Interpretation Abnormal (test code = 46780-0) [facility] [place] / [id number] 17:33:27 Test Item Value Reference Range Interpretation Comments PROTIME PATIENT (test See_Comment H [Auto mated message] code = 5964-2) The system [employer] generated this result transmitted ref erence range: 10.1 - 1 2.6 Seconds. The reference range was not used to int erpret this result as normal/abnormal . INR (test code = 6301-6) Nor mal INR <1.1; Warfarin Therap eutic range 2.0 to 3. 0 or 2.5 to 3.5, dep ending upon the indica tions. Lab Interpretation (test Abnormal code = 94910-5) [facility] [place]PROTHR[facility] / [id number] 17:33:27 Test Item Value Reference Range Interpretation Comments PROTIME PATIENT (test See_Comment H [Auto mated message] code = 5964-2) The system [employer] generated this result transmitted ref erence range: 10.1 - 1 2.6 Seconds. The reference range was not used to int erpret this result as normal/abnormal . INR (test code = 6301-6) Nor mal INR <1.1; Warfarin Therap eutic range 2.0 to 3. 0 or 2.5 to 3.5, dep ending upon the indica tions. Lab Interpretation (test Abnormal code = 42870-9) [facility] (NA, K, CL, CO2, GLUCOSE, BUN, CREATININE, CA)2021-07-08 11:59:47 Test Item Value Reference Range Interpretation Comments NA (test code = 136 mmol/L 135-145 8492286743) K (test code = 4.1 mmol/L 3.5-5.0 9184783658) CL (test code = 107 mmol/L 98-108 9139821731) CO2 TOTAL (test code = 23 mmol/L 23-31 5325710669) AGAP (test code = 2-16 7838831253) BUN (test code = 21 mg/dL 7-23 4718283901) GLUCOSE (test code = 101 mg/dL 70-110 6301562873) CREATININE (test code = 1.32 mg/dL 0.60-1.25 H 1861756718) CALCIUM (test code = 7.9 mg/dL 8.6-10.6 L 0349245749) eGFR (test code = mL/min/1.73m2 1354279218) ANDRES (test code = ANDRES) Association of Glomerular Filtration Rate (GFR) and Staging of Kidney Disease* + --+ --+ ------+| GFR (mL/min/1.73 m2) ?| With Kidney Damage ?| ?Without Kidney Damage+ --------+ --------+ +| ?>90 ?| ?Stage one ?| ? Normal ?+ ---+ ---+ -------+| ?60-89 ?| ?Stage two ?| ? Decreased GFR ? + --+ --+ ------+| ?30-59 ?| ?Stage three ?| ? Stage three ? + --+ --+ ------+| ?15-29 ?| ?Stage four ? | ? Stage four ?+ ---+ ---+ -------+| ?<15 (or dialysis) ? ?| ?Stage five ? | ? Stage five ?+ ---+ ---+ -------+ *Each stage assumes the associated GFR level has been in effect for at least three months. ?Stages 1 to 5, with or without kidney disease, indicate chronic kidney disease. Notes: Determination of stages one and two (with eGFR >59mL/min/1.73 m2) requires estimation of kidney damage for at least three months as defined by structural or functional abnormalities of the kidney, manifested by either:Pathological abnormalities or Markers of kidney damage (including abnormalities in the composition of the blood or urine or abnormalities in imaging tests). Lab Interpretation Abnormal (test code = 10668-0) [facility]2021-[facility]-05 11:58:25 Test Item Value Reference Range Interpretation Comments MAGNESIUM (test code = 9687178419) 2.2 mg/dL 1.7-2.4 Lab Interpretation (test code = Normal 12595-4) [facility] WITH [id number] 10:39:00 Test Item Value Reference Range Interpretation Comments WBC (test code = See_Comment [Automated 6690-2) message] The sy stem which generated this result transmitted reference range : 4.20 - 10.70 10*3/?L. The reference range was not used to interpret this result as normal/abnormal . RBC (test code = See_Comment L [Automated 789-8) message] The sy stem which generated this result transmitted reference range : 4.26 - 5.52 10*6/?L. The reference range was not used to interpret this result as normal/abnormal . HGB (test code = 9.9 g/dL 12.2-16.4 L 718-7) HCT (test code = 30.1 % 38.4-49.3 L 4544-3) MCV (test code = 101.0 fL 81.7-95.6 H 787-2) MCH (test code = 33.2 pg 26.1-32.7 H 785-6) MCHC (test code = 32.9 g/dL 31.2-35.0 786-4) RDW-SD (test code = 49.1 fL 38.5-51.6 49232-1) RDW-CV (test code = 13.2 % 12.1-15.4 788-0) PLT (test code = See_Comment LL [Automated 777-3) message] The sy stem which generated this result transmitted reference range : 150 - 328 10*3/ ?L. The reference r sarah was not used to interpret this result as normal/abnormal . MPV (test code = 11.0 fL 9.8-13.0 31301-4) IPF % (test code = 6.0 % 1.2-10.7 Platelet count 4130412217) measured by fluorescence method. NRBC/100 WBC (test See_Comment [Automat ed code = 9224464304) message] The system which generated this result transmitted reference range : 0.0 - 10.0 /100 WBCs. The refer ence range was not u sed to interpret th is result as normal/abnormal . NRBC x10^3 (test code <0.01 See_Comment [Auto mated = 7194142032) message] The s ystem which generated this result transmitted reference range : 10*3/?L. The reference range was not used to interpret this result as normal/abnormal . GRAN MAT (NEUT) % 71.0 % (test code = 770-8) IMM GRAN % (test code 0.70 % = 0267117684) LYMPH % (test code = 13.8 % 736-9) MONO % (test code = 10.7 % 5905-5) EOS % (test code = 3.6 % 713-8) BASO % (test code = 0.2 % 706-2) GRAN MAT x10^3(ANC) 7.16 10*3/uL 1.99-6.95 H (test code = 3040786163) IMM GRAN x10^3 (test 0.07 10*3/uL 0.00-0.06 H code = 5503782071) LYMPH x10^3 (test code 1.39 10*3/uL 1.09-3.23 = 731-0) MONO x10^3 (test code 1.08 10*3/uL 0.36-1.02 H = 742-7) EOS x10^3 (test code = 0.36 10*3/uL 0.06-0.53 711-2) BASO x10^3 (test code <0.03 0.01-0.09 = 704-7) Lab Interpretation Abnormal (test code = 00011-3) [facility] CONSULT [id number] 19:15:01 LEUKOCYTOSIS WITH ABSOLUTE NEUTROPHILIA AND MONOCYTOSIS. MACROCYTIC NORMOCHROMIC ANEMIA. THROMBOCYTOPENIA.[facility] CONSULT [id number] 19:15:01LEUKOCYTOSIS WITH ABSOLUTE NEUTROPHILIA AND MONOCYTOSIS. MACROCYTIC NORMOCHROMIC ANEMIA. THROMBOCYTOPENIA.[facility]PH[facility]2021-[facility]-04 14:10:04 Test Item Value Reference Range Interpretation Comments PHOSPHORUS (test code = 9939945674) 2.6 mg/dL 2.5-5.0 Lab Interpretation (test code = Normal 33248-9) [facility] [place] WITH [id number] 11:40:44 Test Item Value Reference Range Interpretation Comments WBC (test code = See_Comment H [Automated 6690-2) message] The sy stem which generated this result transmitted reference range : 4.20 - 10.70 10*3/?L. The reference range was not used to interpret this result as normal/abnormal . RBC (test code = See_Comment L [Automated 789-8) message] The sy stem which generated this result transmitted reference range : 4.26 - 5.52 10*6/?L. The reference range was not used to interpret this result as normal/abnormal . HGB (test code = 10.3 g/dL 12.2-16.4 L 718-7) HCT (test code = 30.2 % 38.4-49.3 L 4544-3) MCV (test code = 97.7 fL 81.7-95.6 H 787-2) MCH (test code = 33.3 pg 26.1-32.7 H 785-6) MCHC (test code = 34.1 g/dL 31.2-35.0 786-4) RDW-SD (test code = 46.6 fL 38.5-51.6 05228-3) RDW-CV (test code = 13.2 % 12.1-15.4 788-0) PLT (test code = See_Comment LL [Automated 777-3) message] The sy stem which generated this result transmitted reference range : 150 - 328 10*3/ ?L. The reference r sarah was not used to interpret this result as normal/abnormal . MPV (test code = 11.6 fL 9.8-13.0 17483-3) IPF % (test code = 5.8 % 1.2-10.7 Platelet count 8553647534) measured by fluorescence method. NRBC/100 WBC (test See_Comment [Automat ed code = 6775407098) message] The system which generated this result transmitted reference range : 0.0 - 10.0 /100 WBCs. The refer ence range was not u sed to interpret th is result as normal/abnormal . NRBC x10^3 (test code <0.01 See_Comment [Auto mated = 3857010996) message] The s ystem which generated this result transmitted reference range : 10*3/?L. The reference range was not used to interpret this result as normal/abnormal . GRAN MAT (NEUT) % 71.7 % (test code = 770-8) IMM GRAN % (test code 0.50 % = 8296696975) LYMPH % (test code = 13.2 % 736-9) MONO % (test code = 11.6 % 5905-5) EOS % (test code = 2.7 % 713-8) BASO % (test code = 0.3 % 706-2) GRAN MAT x10^3(ANC) 8.51 10*3/uL 1.99-6.95 H (test code = 2708783572) IMM GRAN x10^3 (test 0.06 10*3/uL 0.00-0.06 code = 7920227805) LYMPH x10^3 (test code 1.56 10*3/uL 1.09-3.23 = 731-0) MONO x10^3 (test code 1.38 10*3/uL 0.36-1.02 H = 742-7) EOS x10^3 (test code = 0.32 10*3/uL 0.06-0.53 711-2) BASO x10^3 (test code 0.03 10*3/uL 0.01-0.09 = 704-7) Lab Interpretation Abnormal (test code = 49073-4) [facility] (NA, K, CL, CO2, GLUCOSE, BUN, CREATININE, CA)2021-07-07 11:12:45 Test Item Value Reference Range Interpretation Comments NA (test code = 135 mmol/L 135-145 2889550105) K (test code = 3.3 mmol/L 3.5-5.0 L 3882344587) CL (test code = 105 mmol/L 98-108 1364818827) CO2 TOTAL (test code = 23 mmol/L 23-31 0107892953) AGAP (test code = 2-16 2741589324) BUN (test code = 25 mg/dL 7-23 H 7994872149) GLUCOSE (test code = 108 mg/dL 70-110 2399368103) CREATININE (test code = 1.72 mg/dL 0.60-1.25 H 9097490692) CALCIUM (test code = 7.7 mg/dL 8.6-10.6 L 6803804280) eGFR (test code = mL/min/1.73m2 1029528662) ANDRES (test code = ANDRES) Association of Glomerular Filtration Rate (GFR) and Staging of Kidney Disease* + --+ --+ ------+| GFR (mL/min/1.73 m2) ?| With Kidney Damage ?| ?Without Kidney Damage+ --------+ --------+ +| ?>90 ?| ?Stage one ?| ? Normal ?+ ---+ ---+ -------+| ?60-89 ?| ?Stage two ?| ? Decreased GFR ? + --+ --+ ------+| ?30-59 ?| ?Stage three ?| ? Stage three ? + --+ --+ ------+| ?15-29 ?| ?Stage four ? | ? Stage four ?+ ---+ ---+ -------+| ?<15 (or dialysis) ? ?| ?Stage five ? | ? Stage five ?+ ---+ ---+ -------+ *Each stage assumes the associated GFR level has been in effect for at least three months. ?Stages 1 to 5, with or without kidney disease, indicate chronic kidney disease. Notes: Determination of stages one and two (with eGFR >59mL/min/1.73 m2) requires estimation of kidney damage for at least three months as defined by structural or functional abnormalities of the kidney, manifested by either:Pathological abnormalities or Markers of kidney damage (including abnormalities in the composition of the blood or urine or abnormalities in imaging tests). Lab Interpretation Abnormal (test code = 49311-7) [facility] Test Item Value Reference Range Interpretation Comments MAGNESIUM (test code = 8213396012) 1.6 mg/dL 1.7-2.4 L Lab Interpretation (test code = Abnormal 14815-4) [facility] PTH CALCIUM [id number] 21:36:49 Test Item Value Reference Range Interpretation Comments PTH-INTACT (test code = 147.6 pg/mL 12.0-88.0 H 1446194764) PTH-CA Interpretation [facility] clinical (test code = 4106524590) maci a needed for interpretation. CALCIUM (test code = 8.0 mg/dL 8.6-10.6 L 8385791076) Lab Interpretation (test Abnormal code = 24908-1) [facility] PTH CALCIUM [id number] 21:36:49 Test Item Value Reference Range Interpretation Comments PTH-INTACT (test code = 147.6 pg/mL 12.0-88.0 H 5603620383) PTH-CA Interpretation [facility] clinical (test code = 6398258234) maci a needed for interpretation. CALCIUM (test code = 8.0 mg/dL 8.6-10.6 L 0688863100) Lab Interpretation (test Abnormal code = 98791-2) [facility], [id number] 20:41:52 Test Item Value Reference Range Interpretation Comments AMMONIA (test code = 6458609304) 10 umol/L 9-33 Lab Interpretation (test code = Normal 11598-6) [facility]2021-11-03 20:41:52 Test Item Value Reference Range Interpretation Comments AMMONIA (test code = 5831146934) 10 umol/L 9-33 Lab Interpretation (test code = Normal 93629-7) [facility] METABOLIC PANEL (NA, K, CL, CO2, GLUCOSE, BUN, CREATININE, CA)2021-07-06 07:22:42 Test Item Value Reference Range Interpretation Comments NA (test code = 141 mmol/L 135-145 4565389494) K (test code = 4.3 mmol/L 3.5-5.0 9856856421) CL (test code = 111 mmol/L 98-108 H 9161682006) CO2 TOTAL (test code = 15 mmol/L 23-31 L 4292590113) AGAP (test code = 2-16 9626252087) BUN (test code = 75 mg/dL 7-23 H 4731840246) GLUCOSE (test code = 165 mg/dL 70-110 H 0657122774) CREATININE (test code = 3.48 mg/dL 0.60-1.25 H 1240156202) CALCIUM (test code = 8.0 mg/dL 8.6-10.6 L 9986793115) eGFR (test code = mL/min/1.73m2 3182572115) ANDRES (test code = ANDRES) Association of Glomerular Filtration Rate (GFR) and Staging of Kidney Disease* + --+ --+ ------+| GFR (mL/min/1.73 m2) ?| With Kidney Damage ?| ?Without Kidney Damage+ --------+ --------+ +| ?>90 ?| ?Stage one ?| ? Normal ?+ ---+ ---+ -------+| ?60-89 ?| ?Stage two ?| ? Decreased GFR ? + --+ --+ ------+| ?30-59 ?| ?Stage three ?| ? Stage three ? + --+ --+ ------+| ?15-29 ?| ?Stage four ? | ? Stage four ?+ ---+ ---+ -------+| ?<15 (or dialysis) ? ?| ?Stage five ? | ? Stage five ?+ ---+ ---+ -------+ *Each stage assumes the associated GFR level has been in effect for at least three months. ?Stages 1 to 5, with or without kidney disease, indicate chronic kidney disease. Notes: Determination of stages one and two (with eGFR >59mL/min/1.73 m2) requires estimation of kidney damage for at least three months as defined by structural or functional abnormalities of the kidney, manifested by either:Pathological abnormalities or Markers of kidney damage (including abnormalities in the composition of the blood or urine or abnormalities in imaging tests). Lab Interpretation Abnormal (test code = 91073-9) [facility] + LACTIC [id number] 06:15:31 Test Item Value Reference Range Interpretation Comments PH (test code = 2) 7.35-7.45 PCO2 (test code = See_Comment L [Automat ed 1014102860) message] The sy stem which generated this result transmitted reference range : 35 - 45 mmHg. The reference range was not used to interpret this result as normal/abnormal . PO2 (test code = See_Comment H [Automated 3558755925) message] The sy stem which generated this result transmitted reference range : 80 - 100 mmHg. The reference range was not used to interpret this result as normal/abnormal . HCO3 (test code = See_Comment L [Automate d 0099543669) message] The sy stem which generated this result transmitted reference range : 22 - 26 mEq/L. The reference range was not used to interpret this result as normal/abnormal . BE (test code = See_Comment L [Automated 7565031085) message] The sy stem which generated this result transmitted reference range : -3.0 - 3.0 mEq/ L. The reference r sarah was not used to interpret this result as normal/abnormal . THB (test code = 13.0 g/dL 13.5-18.0 L 9168876981) %O2HB (test code = 98.0 % 94.0-99.0 5223197458) %COHB ART (test code = 0.3 % 0.0-1.5 8100762391) %METHB ART (test code = 0.3 % 0.4-1.5 L 1386440415) VOL%O2 ART (test code = 18.1 % 15.0-23.0 7513219980) NA (test code = 137 mmol/L 135-145 1679038880) K+ (test code = 4.3 mmol/L 3.5-5.0 2294970161) AC CA IONZ (test code = 4.20 mg/dL 4.50-5.30 L 5963416094) GLUCOSE (test code = 176 mg/dL 70-110 H 7420610056) LACTIC ACID (test code 8.02 mmol/L 0.50-2.20 H = 8801788745) Lab Interpretation Abnormal (test code = 17036-7) [facility] LACTIC [id number] 06:15:31 Test Item Value Reference Range Interpretation Comments PH (test code = 2) 7.35-7.45 PCO2 (test code = See_Comment L [Automat ed 0332026267) message] The sy stem which generated this result transmitted reference range : 35 - 45 mmHg. The reference range was not used to interpret this result as normal/abnormal . PO2 (test code = See_Comment H [Automated 2796344785) message] The sy stem which generated this result transmitted reference range : 80 - 100 mmHg. The reference range was not used to interpret this result as normal/abnormal . HCO3 (test code = See_Comment L [Automate d 6083009199) message] The sy stem which generated this result transmitted reference range : 22 - 26 mEq/L. The reference range was not used to interpret this result as normal/abnormal . BE (test code = See_Comment L [Automated 2898448843) message] The sy stem which generated this result transmitted reference range : -3.0 - 3.0 mEq/ L. The reference r sarah was not used to interpret this result as normal/abnormal . THB (test code = 13.0 g/dL 13.5-18.0 L 2981426928) %O2HB (test code = 98.0 % 94.0-99.0 2339284668) %COHB ART (test code = 0.3 % 0.0-1.5 5740768520) %METHB ART (test code = 0.3 % 0.4-1.5 L 4105768403) VOL%O2 ART (test code = 18.1 % 15.0-23.0 9617007388) NA (test code = 137 mmol/L 135-145 3837448658) K+ (test code = 4.3 mmol/L 3.5-5.0 9085464910) AC CA IONZ (test code = 4.20 mg/dL 4.50-5.30 L 9063158009) GLUCOSE (test code = 176 mg/dL 70-110 H 6987369369) LACTIC ACID (test code 8.02 mmol/L 0.50-2.20 H = 8774772303) Lab Interpretation Abnormal (test code = 11903-0) [facility] L[facility] [id number] 06:12:04 Test Item Value Reference Range Interpretation Comments PH (test code = 2) 7.35-7.45 H PCO2 (test code = <14 See_Comment L [Automat ed 5578882324) message] The system which generated this result transmit mesfin reference range : 35 - 45 mmHg. T he reference range was not used to interpret this result as normal/abnormal . PO2 (test code = Error trans robbie 8374865186) HCO3 (test code = See_Comment L [Automate d 3877030244) message] The system which generated this result transmit mesfin reference range : 22 - 26 mEq/L. The reference range was not used to interpret this result as normal/abnormal . BE (test code = See_Comment L [Automated 9010543394) message] The system which generated this result transmit mesfin reference range : -3.0 - 3.0 mEq/ L. The reference range was not u sed to interpret th is result as normal/abnormal . THB (test code = 12.1 g/dL 13.5-18.0 L 0694370091) %O2HB (test code = 98.9 % 94.0-99.0 7101921799) %COHB ART (test code 0.3 % 0.0-1.5 = 8005367354) %METHB ART (test code 0.0 % 0.4-1.5 L = 3101372462) VOL%O2 ART (test code 0.8 % 15.0-23.0 L = 6611900038) NA (test code = 135 mmol/L 135-145 3999804174) K+ (test code = 4.0 mmol/L 3.5-5.0 1606104906) AC CA IONZ (test code 4.00 mg/dL 4.50-5.30 L = 8653879693) GLUCOSE (test code = 173 mg/dL 70-110 H 6354724111) LACTIC ACID (test 7.65 mmol/L 0.50-2.20 H QUES code = 9479634453) ANDRES (test code = ANDRES) Error transfer Lab Interpretation Abnormal (test code = 21497-1) [facility] METABOLIC PANEL (NA, K, CL, CO2, GLUCOSE, BUN, CREATININE, CA)2021-07-06 01:27:56 Test Item Value Reference Range Interpretation Comments NA (test code = 144 mmol/L 135-145 0201165130) K (test code = 4.6 mmol/L 3.5-5.0 4636773825) CL (test code = 121 mmol/L 98-108 H 9490399024) CO2 TOTAL (test code = 11 mmol/L 23-31 L 4545398342) AGAP (test code = 2-16 0080031209) BUN (test code = 117 mg/dL 7-23 H 9349037366) GLUCOSE (test code = 118 mg/dL 70-110 H 0865215362) CREATININE (test code = 4.96 mg/dL 0.60-1.25 H 1341991435) CALCIUM (test code = 7.1 mg/dL 8.6-10.6 L 0631633079) eGFR (test code = mL/min/1.73m2 1897815977) ANDRES (test code = ANDRES) Association of Glomerular Filtration Rate (GFR) and Staging of Kidney Disease* + --+ --+ ------+| GFR (mL/min/1.73 m2) ?| With Kidney Damage ?| ?Without Kidney Damage+ --------+ --------+ +| ?>90 ?| ?Stage one ?| ? Normal ?+ ---+ ---+ -------+| ?60-89 ?| ?Stage two ?| ? Decreased GFR ? + --+ --+ ------+| ?30-59 ?| ?Stage three ?| ? Stage three ? + --+ --+ ------+| ?15-29 ?| ?Stage four ? | ? Stage four ?+ ---+ ---+ -------+| ?<15 (or dialysis) ? ?| ?Stage five ? | ? Stage five ?+ ---+ ---+ -------+ *Each stage assumes the associated GFR level has been in effect for at least three months. ?Stages 1 to 5, with or without kidney disease, indicate chronic kidney disease. Notes: Determination of stages one and two (with eGFR >59mL/min/1.73 m2) requires estimation of kidney damage for at least three months as defined by structural or functional abnormalities of the kidney, manifested by either:Pathological abnormalities or Markers of kidney damage (including abnormalities in the composition of the blood or urine or abnormalities in imaging tests). Lab Interpretation Abnormal (test code = 02753-5) [facility] METABOLIC PANEL (NA, K, CL, CO2, GLUCOSE, BUN, CREATININE, CA)2021-07-05 23:27:28 Test Item Value Reference Range Interpretation Comments NA (test code = 142 mmol/L 135-145 2620799981) K (test code = 6.2 mmol/L 3.5-5.0 HH 7505441739) CL (test code = 120 mmol/L 98-108 H 7590248598) CO2 TOTAL (test code 9 mmol/L 23-31 L = 8974321188) AGAP (test code = 2-16 2392313008) BUN (test code = 164 mg/dL 7-23 H Previous 7728945681) preliminary verified result was >120 mg/dL on 07/05/2021 at 1822 CDT GLUCOSE (test code = 123 mg/dL 70-110 H 2956966825) CREATININE (test 7.40 mg/dL 0.60-1.25 H code = 1972845561) CALCIUM (test code = 7.5 mg/dL 8.6-10.6 L 8503849979) eGFR (test code = mL/min/1.73m2 1283671720) ANDRES (test code = Association of ANDRES) Glomerular Filtration Rate (GFR) and Staging of Kidney Disease* + -----+ --------+ +| GFR (mL/min/1.73 m2) ?| With Kidney Damage ?| ?Without Kidney Damage+ +------- +---- --+| ?>90 ?| ?Stage one ?| ? Normal ?+ ------+ ---------+--------- +| ?60-89 ?| ?Stage two ?| ? Decreased GFR ? + -----+ --------+ +| ?30-59 ?| ?Stage three ?| ? Stage three ? + -----+ --------+ +| ?15-29 ?| ?Stage four ? | ? Stage four ?+ ------+ ---------+--------- +| ?<15 (or dialysis) ? ?| ?Stage five ? | ? Stage five ?+ ------+ ---------+--------- + *Each stage assumes the associated GFR level has been in effect for at least three months. ?Stages 1 to 5, with or without kidney disease, indicate chronic kidney disease. Notes: Determination of stages one and two (with eGFR >59mL/min/1.73 m2) requires estimation of kidney damage for at least three months as defined by structural or functional abnormalities of the kidney, manifested by either:Pathological abnormalities or Markers of kidney damage (including abnormalities in the composition of the blood or urine or abnormalities in imaging tests). Lab Interpretation Abnormal (test code = 20048-4) [facility] GLUCOSE (AUTOMATED)2021-07-05 16:43:27 Test Item Value Reference Range Interpretation Comments POCT GLU (test code = 2077201901) 99 mg/dL 70-110 Lab Interpretation (test code = Normal 69195-9) [facility] GLUCOSE (AUTOMATED)2021-07-05 16:43:27 Test Item Value Reference Range Interpretation Comments POCT GLU (test code = 5531364082) 99 mg/dL 70-110 Lab Interpretation (test code = Normal 67395-5) [facility] [id number] 16:41:20 Test Item Value Reference Range Interpretation Comments AFP (test code = 65.3 ng/mL See_Comment H [Automated 9943799058) message] The system which generated this result transmitted reference range : <=7.5. The reference range was not used to interpret this result as normal/abnormal . ANDRES (test code = ANDRES) Biotin has been reported to cause a negative bias, interpret results relative to patient's use of biotin. Lab Interpretation Abnormal (test code = 33791-7) [facility] [id number] 16:41:20 Test Item Value Reference Range Interpretation Comments AFP (test code = 65.3 ng/mL See_Comment H [Automated 6835450678) message] The system which generated this result transmitted reference range : <=7.5. The reference range was not used to interpret this result as normal/abnormal . ANDRES (test code = ANDRES) Biotin has been reported to cause a negative bias, interpret results relative to patient's use of biotin. Lab Interpretation Abnormal (test code = 76210-9) [facility] (NA, K, CL, CO2, GLUCOSE, BUN, CREATININE, CA)2021-07-05 14:03:34 Test Item Value Reference Range Interpretation Comments NA (test code = 141 mmol/L 135-145 8803257788) K (test code = 6.0 mmol/L 3.5-5.0 H 5879047280) CL (test code = 118 mmol/L 98-108 H 7190925071) CO2 TOTAL (test code = 9 mmol/L 23-31 L 9969630136) AGAP (test code = 2-16 3535900921) BUN (test code = 165 mg/dL 7-23 H 6836247424) GLUCOSE (test code = 94 mg/dL 70-110 6217245421) CREATININE (test code = 8.78 mg/dL 0.60-1.25 H 8666734497) CALCIUM (test code = 8.2 mg/dL 8.6-10.6 L 2650074975) eGFR (test code = mL/min/1.73m2 2215131916) ANDRES (test code = ANDRES) Association of Glomerular Filtration Rate (GFR) and Staging of Kidney Disease* + --+ --+ ------+| GFR (mL/min/1.73 m2) ?| With Kidney Damage ?| ?Without Kidney Damage+ --------+ --------+ +| ?>90 ?| ?Stage one ?| ? Normal ?+ ---+ ---+ -------+| ?60-89 ?| ?Stage two ?| ? Decreased GFR ? + --+ --+ ------+| ?30-59 ?| ?Stage three ?| ? Stage three ? + --+ --+ ------+| ?15-29 ?| ?Stage four ? | ? Stage four ?+ ---+ ---+ -------+| ?<15 (or dialysis) ? ?| ?Stage five ? | ? Stage five ?+ ---+ ---+ -------+ *Each stage assumes the associated GFR level has been in effect for at least three months. ?Stages 1 to 5, with or without kidney disease, indicate chronic kidney disease. Notes: Determination of stages one and two (with eGFR >59mL/min/1.73 m2) requires estimation of kidney damage for at least three months as defined by structural or functional abnormalities of the kidney, manifested by either:Pathological abnormalities or Markers of kidney damage (including abnormalities in the composition of the blood or urine or abnormalities in imaging tests). Lab Interpretation Abnormal (test code = 95399-8) [facility], [id number] 08:57:07 Test Item Value Reference Range Interpretation Comments VIT D 25OH (test code = 102 ng/mL 25-80 H 89018-9) ANDRES (test code = ANDRES) Deficiency: <20 ng/mLInsufficiency: 20-24 ng/mLOptimal: 25-80 ng/mL Lab Interpretation (test Abnormal code = 59525-6) [facility], [id number] 08:57:07 Test Item Value Reference Range Interpretation Comments VIT D 25OH (test code = 102 ng/mL 25-80 H 94509-5) ANDRES (test code = ANDRES) Deficiency: <20 ng/mLInsufficiency: 20-24 ng/mLOptimal: 25-80 ng/mL Lab Interpretation (test Abnormal code = 53275-9) [facility] (NA, K, CL, CO2, GLUCOSE, BUN, CREATININE, CA)2021-07-05 08:42:35 Test Item Value Reference Range Interpretation Comments NA (test code = 137 mmol/L 135-145 0917912333) K (test code = 6.2 mmol/L 3.5-5.0 HH 4588368661) CL (test code = 114 mmol/L 98-108 H 0900991870) CO2 TOTAL (test code = 7 mmol/L 23-31 L 1204549680) AGAP (test code = 2-16 6302946551) BUN (test code = 179 mg/dL 7-23 H 0578002752) GLUCOSE (test code = 156 mg/dL 70-110 H 4631061640) CREATININE (test code = 10.10 mg/dL 0.60-1.25 H 9416570143) CALCIUM (test code = 8.1 mg/dL 8.6-10.6 L 1931757182) eGFR (test code = mL/min/1.73m2 4420089134) ANDRES (test code = ANDRES) Association of Glomerular Filtration Rate (GFR) and Staging of Kidney Disease* + --+ --+ ------+| GFR (mL/min/1.73 m2) ?| With Kidney Damage ?| ?Without Kidney Damage+ --------+ --------+ +| ?>90 ?| ?Stage one ?| ? Normal ?+ ---+ ---+ -------+| ?60-89 ?| ?Stage two ?| ? Decreased GFR ? + --+ --+ ------+| ?30-59 ?| ?Stage three ?| ? Stage three ? + --+ --+ ------+| ?15-29 ?| ?Stage four ? | ? Stage four ?+ ---+ ---+ -------+| ?<15 (or dialysis) ? ?| ?Stage five ? | ? Stage five ?+ ---+ ---+ -------+ *Each stage assumes the associated GFR level has been in effect for at least three months. ?Stages 1 to 5, with or without kidney disease, indicate chronic kidney disease. Notes: Determination of stages one and two (with eGFR >59mL/min/1.73 m2) requires estimation of kidney damage for at least three months as defined by structural or functional abnormalities of the kidney, manifested by either:Pathological abnormalities or Markers of kidney damage (including abnormalities in the composition of the blood or urine or abnormalities in imaging tests). Lab Interpretation Abnormal (test code = 24250-9) [facility] WITH [id number] 08:25:24 Test Item Value Reference Range Interpretation Comments WBC (test code = See_Comment H [Automated 6690-2) message] The sy stem which generated this result transmitted reference range : 4.20 - 10.70 10*3/?L. The reference range was not used to interpret this result as normal/abnormal . RBC (test code = See_Comment L [Automated 789-8) message] The sy stem which generated this result transmitted reference range : 4.26 - 5.52 10*6/?L. The reference range was not used to interpret this result as normal/abnormal . HGB (test code = 11.4 g/dL 12.2-16.4 L 718-7) HCT (test code = 34.7 % 38.4-49.3 L 4544-3) MCV (test code = 100.6 fL 81.7-95.6 H 787-2) MCH (test code = 33.0 pg 26.1-32.7 H 785-6) MCHC (test code = 32.9 g/dL 31.2-35.0 786-4) RDW-SD (test code = 46.9 fL 38.5-51.6 63979-5) RDW-CV (test code = 12.7 % 12.1-15.4 788-0) PLT (test code = See_Comment L [Automated 777-3) message] The sy stem which generated this result transmitted reference range : 150 - 328 10*3/ ?L. The reference r sarah was not used to interpret this result as normal/abnormal . MPV (test code = 11.4 fL 9.8-13.0 00359-6) IPF % (test code = 2.5 % 1.2-10.7 Platelet count 5378699042) measured by fluorescence method. NRBC/100 WBC (test See_Comment [Automat ed code = 8878993743) message] The system which generated this result transmitted reference range : 0.0 - 10.0 /100 WBCs. The refer ence range was not u sed to interpret th is result as normal/abnormal . NRBC x10^3 (test code <0.01 See_Comment [Auto mated = 8492923120) message] The s ystem which generated this result transmitted reference range : 10*3/?L. The reference range was not used to interpret this result as normal/abnormal . GRAN MAT (NEUT) % 80.9 % (test code = 770-8) IMM GRAN % (test code 0.50 % = 3045321991) LYMPH % (test code = 7.7 % 736-9) MONO % (test code = 9.2 % 5905-5) EOS % (test code = 1.3 % 713-8) BASO % (test code = 0.4 % 706-2) GRAN MAT x10^3(ANC) 9.01 10*3/uL 1.99-6.95 H (test code = 0129706214) IMM GRAN x10^3 (test 0.06 10*3/uL 0.00-0.06 code = 6882788656) LYMPH x10^3 (test code 0.86 10*3/uL 1.09-3.23 L = 731-0) MONO x10^3 (test code 1.02 10*3/uL 0.36-1.02 = 742-7) EOS x10^3 (test code = 0.14 10*3/uL 0.06-0.53 711-2) BASO x10^3 (test code 0.04 10*3/uL 0.01-0.09 = 704-7) TERESITA CELLS (test code 2+ See_Comment A [Auto mated = 7561-9) message] The sy stem which generated this result transmitted reference range : (none). The reference range was not used to interpret this result as normal/abnormal . Lab Interpretation Abnormal (test code = 94578-8) [facility] (ALB,T.PRO,BILI T,BU/BC,ALT,AST,ALK PHOS)2021-07-05 08:16:20 Test Item Value Reference Range Interpretation Comments TOTAL BILI (test code = 6026089951) 1.4 mg/dL 0.1-1.1 H BILI UNCON (test code = 8121495344) 0.3 mg/dL 0.1-1.1 BILI CONJ (test code = 2347842970) 0.0 mg/dL 0.0-0.3 T PROTEIN (test code = 8839361206) 6.6 g/dL 6.3-8.2 ALBUMIN (test code = 5572437058) 3.2 g/dL 3.5-5.0 L ALK PHOS (test code = 0629129182) 100 U/L 34-122 ALTv (test code = 1742-6) 40 U/L 5-50 AST(SGOT) (test code = 0010693244) 151 U/L 13-40 H Lab Interpretation (test code = Abnormal 27400-6) [facility]21[facility] 08:16:20 Test Item Value Reference Range Interpretation Comments MAGNESIUM (test code = 5449110785) 1.9 mg/dL 1.7-2.4 Lab Interpretation (test code = Normal 57828-1) [facility]21[facility]-02 08:16:20 Test Item Value Reference Range Interpretation Comments PHOSPHORUS (test code = 10.5 mg/dL 2.5-5.0 H 9379391853) Lab Interpretation (test code = Abnormal 47262-5) [facility]2021-07-05 05:40:07 Test Item Value Reference Range Interpretation Comments POCT GLU (test code = 3433983399) 130 mg/dL 70-110 H Lab Interpretation (test code = Abnormal 09966-3) [facility] METABOLIC PANEL (NA, K, CL, CO2, GLUCOSE, BUN, CREATININE, CA)2021-07-05 03:18:38 Test Item Value Reference Range Interpretation Comments NA (test code = 139 mmol/L 135-145 6073783264) K (test code = 7.3 mmol/L 3.5-5.0 HH 9509913757) CL (test code = 114 mmol/L 98-108 H 2769652647) CO2 TOTAL (test code <5 23-31 L = 9883970392) AGAP (test code = Unable to 1058678311) calculate because, either,SODIUM SERUM, CHLORIDE SERUM, CO2 TOTA L or all are less than the sensitivity of the analyzer. BUN (test code = 185 mg/dL 7-23 H 9632241906) GLUCOSE (test code = 133 mg/dL 70-110 H 2037137735) CREATININE (test 11.09 mg/dL 0.60-1.25 H code = 3702835102) CALCIUM (test code = 8.4 mg/dL 8.6-10.6 L 6926884024) eGFR (test code = mL/min/1.73m2 1725909894) ANDRES (test code = Association of ANDRES) Glomerular Filtration Rate (GFR) and Staging of Kidney Disease* + -----+ --------+ +| GFR (mL/min/1.73 m2) ?| With Kidney Damage ?| ?Without Kidney Damage+ +------- +---- --+| ?>90 ?| ?Stage one ?| ? Normal ?+ ------+ ---------+--------- +| ?60-89 ?| ?Stage two ?| ? Decreased GFR ? + -----+ --------+ +| ?30-59 ?| ?Stage three ?| ? Stage three ? + -----+ --------+ +| ?15-29 ?| ?Stage four ? | ? Stage four ?+ ------+ ---------+--------- +| ?<15 (or dialysis) ? ?| ?Stage five ? | ? Stage five ?+ ------+ ---------+--------- + *Each stage assumes the associated GFR level has been in effect for at least three months. ?Stages 1 to 5, with or without kidney disease, indicate chronic kidney disease. Notes: Determination of stages one and two (with eGFR >59mL/min/1.73 m2) requires estimation of kidney damage for at least three months as defined by structural or functional abnormalities of the kidney, manifested by either:Pathological abnormalities or Markers of kidney damage (including abnormalities in the composition of the blood or urine or abnormalities in imaging tests). Lab Interpretation Abnormal (test code = 51903-9) [facility]2021-07-05 03:06:29 Test Item Value Reference Range Interpretation Comments POCT GLU (test code = 1726132520) 126 mg/dL 70-110 H Lab Interpretation (test code = Abnormal 59991-5) [facility] METABOLIC PANEL (77316)2021-07-04 22:49:53 Test Item Value Reference Range Interpretation Comments NA (test code = 137 mmol/L 135-145 3375052198) K (test code = 8.3 mmol/L 3.5-5.0 HH 7692174490) CL (test code = 107 mmol/L 98-108 3635823605) CO2 TOTAL (test code 7 mmol/L 23-31 L = 5106366876) AGAP (test code = 2-16 H 0239709159) BUN (test code = Slight 1516015597) hemolysis GLUCOSE (test code = 125 mg/dL 70-110 H 6982285982) CREATININE (test code 12.12 mg/dL 0.60-1.25 H = 6400683021) TOTAL BILI (test code 1.6 mg/dL 0.1-1.1 H = 8124494736) CALCIUM (test code = 8.8 mg/dL 8.6-10.6 9444065802) T PROTEIN (test code 8.5 g/dL 6.3-8.2 H = 8941159429) ALBUMIN (test code = 4.2 g/dL 3.5-5.0 4248746283) ALK PHOS (test code = 133 U/L 34-122 H 7256524695) ALTv (test code = 46 U/L 5-50 1742-6) AST(SGOT) (test code 184 U/L 13-40 H = 4086979779) eGFR (test code = mL/min/1.73m2 9252450943) ANDRES (test code = ANDRES) Association of Glomerular Filtration Rate (GFR) and Staging of Kidney Disease* + -----+ --------+ +| GFR (mL/min/1.73 m2) ?| With Kidney Damage ?| ?Without Kidney Damage+ +------- +---- --+| ?>90 ?| ?Stage one ?| ? Normal ?+ ------+ ---------+--------- +| ?60-89 ?| ?Stage two ?| ? Decreased GFR ? + -----+ --------+ +| ?30-59 ?| ?Stage three ?| ? Stage three ? + -----+ --------+ +| ?15-29 ?| ?Stage four ? | ? Stage four ?+ ------+ ---------+--------- +| ?<15 (or dialysis) ? ?| ?Stage five ? | ? Stage five ?+ ------+ ---------+--------- + *Each stage assumes the associated GFR level has been in effect for at least three months. ?Stages 1 to 5, with or without kidney disease, indicate chronic kidney disease. Notes: Determination of stages one and two (with eGFR >59mL/min/1.73 m2) requires estimation of kidney damage for at least three months as defined by structural or functional abnormalities of the kidney, manifested by either:Pathological abnormalities or Markers of kidney damage (including abnormalities in the composition of the blood or urine or abnormalities in imaging tests). Lab Interpretation Abnormal (test code = 30444-6) [facility] METABOLIC PANEL (91848)2021-07-04 22:49:53 Test Item Value Reference Range Interpretation Comments NA (test code = 137 mmol/L 135-145 5564564183) K (test code = 8.3 mmol/L 3.5-5.0 HH 7835213369) CL (test code = 107 mmol/L 98-108 5948395675) CO2 TOTAL (test code 7 mmol/L 23-31 L = 0608931815) AGAP (test code = 2-16 H 7780354428) BUN (test code = Slight 1610945843) hemolysis GLUCOSE (test code = 125 mg/dL 70-110 H 4840681933) CREATININE (test code 12.12 mg/dL 0.60-1.25 H = 7892787620) TOTAL BILI (test code 1.6 mg/dL 0.1-1.1 H = 6275667879) CALCIUM (test code = 8.8 mg/dL 8.6-10.6 3562480440) T PROTEIN (test code 8.5 g/dL 6.3-8.2 H = 2128478193) ALBUMIN (test code = 4.2 g/dL 3.5-5.0 1434883548) ALK PHOS (test code = 133 U/L 34-122 H 1487286530) ALTv (test code = 46 U/L 5-50 1742-6) AST(SGOT) (test code 184 U/L 13-40 H = 0322946547) eGFR (test code = mL/min/1.73m2 4585326471) ANDRES (test code = ANDRES) Association of Glomerular Filtration Rate (GFR) and Staging of Kidney Disease* + -----+ --------+ +| GFR (mL/min/1.73 m2) ?| With Kidney Damage ?| ?Without Kidney Damage+ +------- +---- --+| ?>90 ?| ?Stage one ?| ? Normal ?+ ------+ ---------+--------- +| ?60-89 ?| ?Stage two ?| ? Decreased GFR ? + -----+ --------+ +| ?30-59 ?| ?Stage three ?| ? Stage three ? + -----+ --------+ +| ?15-29 ?| ?Stage four ? | ? Stage four ?+ ------+ ---------+--------- +| ?<15 (or dialysis) ? ?| ?Stage five ? | ? Stage five ?+ ------+ ---------+--------- + *Each stage assumes the associated GFR level has been in effect for at least three months. ?Stages 1 to 5, with or without kidney disease, indicate chronic kidney disease. Notes: Determination of stages one and two (with eGFR >59mL/min/1.73 m2) requires estimation of kidney damage for at least three months as defined by structural or functional abnormalities of the kidney, manifested by either:Pathological abnormalities or Markers of kidney damage (including abnormalities in the composition of the blood or urine or abnormalities in imaging tests). Lab Interpretation Abnormal (test code = 11539-5) [facility] 22:45:11 Test Item Value Reference Range Interpretation Comments LIPASE (test code = 0291139908) 991 U/L 0-220 H Lab Interpretation (test code = Abnormal 35934-3) [facility] 22:45:11 Test Item Value Reference Range Interpretation Comments LIPASE (test code = 3027491408) 991 U/L 0-220 H Lab Interpretation (test code = Abnormal 58063-1) [facility], [id number] 22:39:52 Test Item Value Reference Range Interpretation Comments AMMONIA (test code = 2433841044) 259 umol/L 9-33 H Lab Interpretation (test code = Abnormal 33821-3) [facility] [id number] 22:28:07 Test Item Value Reference Range Interpretation Comments APTT Patient (test See_Comment [Automat ed code = 3173-2) message] The system which generated this result transmitted reference range : 23 - 38 Seconds . The reference range was not used to interpr et this result as normal/abnormal . ANDRES (test code = ANDRES) The [facility] patient population mean normal value for aPTT is 30 seconds. Lab Interpretation Normal (test code = 87970-6) [facility] [id number] 22:28:07 Test Item Value Reference Range Interpretation Comments APTT Patient (test See_Comment [Automat ed code = 3173-2) message] The system which generated this result transmitted reference range : 23 - 38 Seconds . The reference range was not used to interpr et this result as normal/abnormal . ANDRES (test code = ANDRES) The [facility] patient population mean normal value for aPTT is 30 seconds. Lab Interpretation Normal (test code = 36248-2) [facility] / [id number] 22:25:25 Test Item Value Reference Range Interpretation Comments PROTIME PATIENT (test See_Comment H [Auto mated message] code = 5964-2) The system wh ich generated this result transmitted ref erence range: 12.0 - 1 4.7 Seconds. The reference range was not used to int erpret this result as normal/abnormal . INR (test code = 6301-6) Nor mal INR <1.1; Warfarin Therap eutic range 2.0 to 3. 0 or 2.5 to 3.5, dep ending upon the indica tions. Lab Interpretation (test Abnormal code = 64751-4) [facility] WITH [id number] 22:15:04 Test Item Value Reference Range Interpretation Comments WBC (test code = See_Comment H [Automated 6690-2) message] The sy stem which generated this result transmitted reference range : 4.20 - 10.70 10*3/?L. The reference range was not used to interpret this result as normal/abnormal . RBC (test code = See_Comment L [Automated 789-8) message] The sy stem which generated this result transmitted reference range : 4.26 - 5.52 10*6/?L. The reference range was not used to interpret this result as normal/abnormal . HGB (test code = 13.7 g/dL 12.2-16.4 718-7) HCT (test code = 41.5 % 38.4-49.3 4544-3) MCV (test code = 101.0 fL 81.7-95.6 H 787-2) MCH (test code = 33.3 pg 26.1-32.7 H 785-6) MCHC (test code = 33.0 g/dL 31.2-35.0 786-4) RDW-SD (test code = 46.9 fL 38.5-51.6 58096-1) RDW-CV (test code = 12.6 % 12.1-15.4 788-0) PLT (test code = See_Comment L [Automated 777-3) message] The sy stem which generated this result transmitted reference range : 150 - 328 10*3/ ?L. The reference r sarah was not used to interpret this result as normal/abnormal . MPV (test code = 11.6 fL 9.8-13.0 72200-8) NRBC/100 WBC (test See_Comment [Automat ed code = 7017142290) message] The system which generated this result transmitted reference range : 0.0 - 10.0 /100 WBCs. The refer ence range was not u sed to interpret th is result as normal/abnormal . NRBC x10^3 (test code <0.01 See_Comment [Auto mated = [id number]) message] The s ystem which generated this result transmitted reference range : 10*3/?L. The reference range was not used to interpret this result as normal/abnormal . GRAN MAT (NEUT) % 80.0 % (test code = 770-8) IMM GRAN % (test code 0.80 % = 0477949182) LYMPH % (test code = 9.3 % 736-9) MONO % (test code = 8.2 % 5905-5) EOS % (test code = 1.2 % 713-8) BASO % (test code = 0.5 % 706-2) GRAN MAT x10^3(ANC) 9.52 10*3/uL 1.99-6.95 H (test code = 8323703929) IMM GRAN x10^3 (test 0.10 10*3/uL 0.00-0.06 H code = 6977594492) LYMPH x10^3 (test code 1.10 10*3/uL 1.09-3.23 = 731-0) MONO x10^3 (test code 0.97 10*3/uL 0.36-1.02 = 742-7) EOS x10^3 (test code = 0.14 10*3/uL 0.06-0.53 711-2) BASO x10^3 (test code 0.06 10*3/uL 0.01-0.09 = 704-7) Lab Interpretation Abnormal (test code = 93151-9) [id number] 10:00:00 Test Item Value Reference Range Interpretation Comments CULTURE (BEAKER) (test No growth in 5 days code = 1095) BLOOD [id number] 10:00:00 Test Item Value Reference Range Interpretation Comments CULTURE (BEAKER) (test No growth in 5 days code = 1095) ANTI-MITOCHONDRIAL AB, REFLEX TO [id number] 10:54:00 Test Item Value Reference Range Interpretation Comments SCAN RESULT (test code = 5237623) BODY FLUID CULTURE + GRAM [id number] 14:35:00 Test Item Value Reference Range Interpretation Comments CULTURE (BEAKER) (test code No growth = 1095) GRAM STAIN RESULT (BEAKER) <1+ WBCs (test code = 1123) GRAM STAIN RESULT (BEAKER) No organisms seen (test code = 66750) TISSUE [id number] 14:32:00Surgical Pathology Report Case: [id number] Authorizing Provider: Allyson Schulte MD Collected: 08/06/2018 1316 Ordering Location: [address] Received: 08/06/2018 1512 Pathologist: Chana Villar MD Specimen: Bi opsy, Gastric, bx for h pylori This addendum is issued to report the result of immunohistochemical stain for Helicobacter pylori: - NEGATIVECPT CPT CODE: 92166Png interpretation of this case included the use of immunohistochemistry or special stains.H ELICOBACTERImmunohistochemistry technical testing was performed at [facility],Pathology Laboratorywhere it was developed and its performance [...] OR MALIGNANCY Signing Pathologist Direct Phone Line: [phone] signed by Chana Villar MD on 08/07/2018 at 5:44 [id number] hemorrhage, hepatic cirrhosis, rule out H. pyloriGastric biopsyThe specimen is received in a formalin-filled container and labeled with the patient's information labeled "gastric biopsy' and consists of three fragments of pale etienne soft tissue measuring 0.2 to 0.4 cm, submitted entirely A1.CG/pl A. Performed.The interpretation of this case includ ed the use of immunohistochemistry or special stains. WARTHIN- STARRYImmunohistochemistry technical testing was performed at [facility], Pathology Laboratory where it was developedand its [...] high complexity clinical laboratory testing.HEPATITIS C PCR, [id number] 14:51:00 Test Item Value Reference Range Interpretation Comments HCV NUMERIC RESULT (BEAKER) (test 60 IU/mL <15 H code = 2700) This test uses a Real-Time Polymerase Chain Reaction (RT-PCR) methodology and was performed using JEFF Ampliprep/JEFF TaqMan HCV test kit version 2.0 ([employer]).Reportable range for this assay is 15 - 100,000,000 IU per mL (1.18 - 8.00 Log IU/mL).BASIC METABOLIC [id number] 04:53:00 Test Item Value Reference Range Interpretation Comments SODIUM (BEAKER) 138 meq/L 136-145 (test code = 381) POTASSIUM (BEAKER) 3.5 meq/L 3.5-5.1 (test code = 379) CHLORIDE (BEAKER) 111 meq/L 98-107 H (test code = 382) CO2 (BEAKER) (test 21 meq/L 22-29 L code = 355) BLOOD UREA NITROGEN 26 mg/dL 7-21 H (BEAKER) (test code = 354) CREATININE (BEAKER) 0.89 mg/dL 0.57-1.25 (test code = 358) GLUCOSE RANDOM 93 mg/dL 70-105 (BEAKER) (test code = 652) CALCIUM (BEAKER) 7.7 mg/dL 8.4-10.2 L (test code = 697) EGFR (BEAKER) (test 90 mL/min/1.73 ESTIMA MESFIN GFR IS code = 1092) sq m NOT ACCURATE CREATININE CLEARANCE IN PREDICTING GLOMERULAR FILTRATION RATE . ESTIMATED GFR I S NOT APPLICABLE FOR DIALYSIS COBY BERG. HEPATIC FUNCTION [id number] 04:52:00 Test Item Value Reference Range Interpretation Comments TOTAL PROTEIN (BEAKER) (test code = 5.4 gm/dL 6.0-8.3 L 770) ALBUMIN (BEAKER) (test code = 1145) 2.0 g/dL 3.5-5.0 L BILIRUBIN TOTAL (BEAKER) (test code 2.2 mg/dL 0.2-1.2 H = 377) BILIRUBIN DIRECT (BEAKER) (test 1.5 mg/dL 0.1-0.5 H code = 706) ALKALINE PHOSPHATASE (BEAKER) (test 89 U/L 40-150 code = 346) AST (SGOT) (BEAKER) (test code = 42 U/L 5-34 H 353) ALT (SGPT) (BEAKER) (test code = 18 U/L 6-55 347) VANCOMYCIN LEVEL, [id number] 04:52:00 Test Item Value Reference Range Interpretation Comments VANCOMYCIN RANDOM (BEAKER) (test 14.3 ug/mL code = 523) Reference Range: No NormalsPROTHROMBIN [id number] 04:47:00 Test Item Value Reference Range Interpretation Comments PROTIME (BEAKER) (test code = 21.5 seconds 11.7-14.7 H 759) INR (BEAKER) (test code = 370) 1.9 <=5.9 RECOMMENDED COUMADIN/WARFARIN INR THERAPY RANGESSTANDARD DOSE: 2.0 - 3.0 Includes: PROPHYLAXIS forvenous thrombosis, systemic embolization; TREATMENT for venous thrombosis and/or pulmonary embolus.HIGH RISK: Target INR is 2.5-3.5 for patients with mechanical heart valves.CBC W/PLT COUNT & AUTO DIFFERENTIAL 2018-08-07 04:43:00 Test Item Value Reference Range Interpretation Comments WHITE BLOOD CELL COUNT (BEAKER) 7.4 K/ L 3.5-10.5 (test code = 775) RED BLOOD CELL COUNT (BEAKER) 3.08 M/ L 4.63-6.08 L (test code = 761) HEMOGLOBIN (BEAKER) (test code = 9.9 GM/DL 13.7-17.5 L 410) HEMATOCRIT (BEAKER) (test code = 29.0 % 40.1-51.0 L 411) MEAN CORPUSCULAR VOLUME (BEAKER) 94.2 fL 79.0-92.2 H (test code = 753) MEAN CORPUSCULAR HEMOGLOBIN 32.1 pg 25.7-32.2 (BEAKER) (test code = 751) MEAN CORPUSCULAR HEMOGLOBIN CONC 34.1 GM/DL 32.3-36.5 (BEAKER) (test code = 752) RED CELL DISTRIBUTION WIDTH 14.8 % 11.6-14.4 H (BEAKER) (test code = 412) PLATELET COUNT (BEAKER) (test code 52 K/CU MM 150-450 L = 756) MEAN PLATELET VOLUME (BEAKER) 11.3 fL 9.4-12.4 (test code = 754) NUCLEATED RED BLOOD CELLS (BEAKER) 0 /100 WBC 0-0 (test code = 413) NEUTROPHILS RELATIVE PERCENT 58 % (BEAKER) (test code = 429) LYMPHOCYTES RELATIVE PERCENT 27 % (BEAKER) (test code = 430) MONOCYTES RELATIVE PERCENT 9 % (BEAKER) (test code = 431) EOSINOPHILS RELATIVE PERCENT 5 % (BEAKER) (test code = 432) BASOPHILS RELATIVE PERCENT 1 % (BEAKER) (test code = 437) NEUTROPHILS ABSOLUTE COUNT 4.29 K/ L 1.78-5.38 (BEAKER) (test code = 670) LYMPHOCYTES ABSOLUTE COUNT 2.00 K/ L 1.32-3.57 (BEAKER) (test code = 414) MONOCYTES ABSOLUTE COUNT (BEAKER) 0.64 K/ L 0.30-0.82 (test code = 415) EOSINOPHILS ABSOLUTE COUNT 0.35 K/ L 0.04-0.54 (BEAKER) (test code = 416) BASOPHILS ABSOLUTE COUNT (BEAKER) 0.05 K/ L 0.01-0.08 (test code = 417) IMMATURE GRANULOCYTES-RELATIVE 1 % 0-1 PERCENT (BEAKER) (test code = 2801) VANCOMYCIN LEVEL, [id number] 17:06:00 Test Item Value Reference Range Interpretation Comments VANCOMYCIN TROUGH (BEAKER) (test 20.5 ug/mL 10.0-20.0 H code = 522) U/S, [id number] 11:05:00Reason for exam:->ascites r/o SBPShould this be [...] was inserted into the peritoneal space and 7 600 cc of clear yellow ascites was aspirated. Specimen were collected for the lab. No immediate complications were noted. Estimated blood loss: none. Impression: Uncomplicated ultrasound-guided paracentesis performed by Hoa Lord PA-C. Signed: Toni Parr MDReport Verified Date/Time: 08/06/2018 11:05:30 Reading Location: [facility] [id number] Ortho Consult Reading Room BASIC METABOLIC [id number] 05:44:00 Test Item Value Reference Range Interpretation Comments SODIUM (BEAKER) 137 meq/L 136-145 (test code = 381) POTASSIUM (BEAKER) 3.1 meq/L 3.5-5.1 L (test code = 379) CHLORIDE (BEAKER) 109 meq/L 98-107 H (test code = 382) CO2 (BEAKER) (test 21 meq/L 22-29 L code = 355) BLOOD UREA NITROGEN 27 mg/dL 7-21 H (BEAKER) (test code = 354) CREATININE (BEAKER) 0.85 mg/dL 0.57-1.25 (test code = 358) GLUCOSE RANDOM 98 mg/dL 70-105 (BEAKER) (test code = 652) CALCIUM (BEAKER) 7.9 mg/dL 8.4-10.2 L (test code = 697) EGFR (BEAKER) (test 95 mL/min/1.73 ESTIMA MESFIN GFR IS code = 1092) sq m NOT ACCURATE CREATININE CLEARANCE IN PREDICTING GLOMERULAR FILTRATION RATE . ESTIMATED GFR I S NOT APPLICABLE FOR DIALYSIS PATIEN TS. Specimen slightly ictericHEPATIC FUNCTION [id number] 05:37:00 Test Item Value Reference Range Interpretation Comments TOTAL PROTEIN (BEAKER) (test code = 5.4 gm/dL 6.0-8.3 L 770) ALBUMIN (BEAKER) (test code = 1145) 2.0 g/dL 3.5-5.0 L BILIRUBIN TOTAL (BEAKER) (test code 3.1 mg/dL 0.2-1.2 H = 377) BILIRUBIN DIRECT (BEAKER) (test 2.0 mg/dL 0.1-0.5 H code = 706) ALKALINE PHOSPHATASE (BEAKER) (test 89 U/L 40-150 code = 346) AST (SGOT) (BEAKER) (test code = 42 U/L 5-34 H 353) ALT (SGPT) (BEAKER) (test code = 18 U/L 6-55 347) Specimen slightly ictericPROTHROMBIN [id number] 05:31:00 Test Item Value Reference Range Interpretation Comments PROTIME (BEAKER) (test code = 21.3 seconds 11.7-14.7 H 759) INR (BEAKER) (test code = 370) 1.8 <=5.9 RECOMMENDED COUMADIN/WARFARIN INR THERAPY RANGESSTANDARD DOSE: 2.0 - 3.0 Includes: PROPHYLAXIS forvenous thrombosis, systemic embolization; TREATMENT for venous thrombosis and/or pulmonary embolus.HIGH RISK: Target INR is 2.5-3.5 for patients with mechanical heart valves.ANTI-NUCLEAR ANTIBODY (HARITHA)2018-08-06 05:24:00 Test Item Value Reference Range Interpretation Comments ANTI-NUCLEAR ANTIBODY (HARITHA) (BEAKER) Negative Negative (test code = 418) Test performed by IFA method.Test performed by IFA method.CBC W/PLT COUNT & AUTO [id number] 05:17:00 Test Item Value Reference Range Interpretation Comments WHITE BLOOD CELL COUNT (BEAKER) 8.3 K/ L 3.5-10.5 (test code = 775) RED BLOOD CELL COUNT (BEAKER) 3.01 M/ L 4.63-6.08 L (test code = 761) HEMOGLOBIN (BEAKER) (test code = 9.7 GM/DL 13.7-17.5 L 410) HEMATOCRIT (BEAKER) (test code = 28.2 % 40.1-51.0 L 411) MEAN CORPUSCULAR VOLUME (BEAKER) 93.7 fL 79.0-92.2 H (test code = 753) MEAN CORPUSCULAR HEMOGLOBIN 32.2 pg 25.7-32.2 (BEAKER) (test code = 751) MEAN CORPUSCULAR HEMOGLOBIN CONC 34.4 GM/DL 32.3-36.5 (BEAKER) (test code = 752) RED CELL DISTRIBUTION WIDTH 14.7 % 11.6-14.4 H (BEAKER) (test code = 412) PLATELET COUNT (BEAKER) (test code 53 K/CU MM 150-450 L = 756) MEAN PLATELET VOLUME (BEAKER) 11.3 fL 9.4-12.4 (test code = 754) NUCLEATED RED BLOOD CELLS (BEAKER) 0 /100 WBC 0-0 (test code = 413) NEUTROPHILS RELATIVE PERCENT 66 % (BEAKER) (test code = 429) LYMPHOCYTES RELATIVE PERCENT 20 % (BEAKER) (test code = 430) MONOCYTES RELATIVE PERCENT 10 % (BEAKER) (test code = 431) EOSINOPHILS RELATIVE PERCENT 3 % (BEAKER) (test code = 432) BASOPHILS RELATIVE PERCENT 1 % (BEAKER) (test code = 437) NEUTROPHILS ABSOLUTE COUNT 5.43 K/ L 1.78-5.38 H (BEAKER) (test code = 670) LYMPHOCYTES ABSOLUTE COUNT 1.65 K/ L 1.32-3.57 (BEAKER) (test code = 414) MONOCYTES ABSOLUTE COUNT (BEAKER) 0.85 K/ L 0.30-0.82 H (test code = 415) EOSINOPHILS ABSOLUTE COUNT 0.21 K/ L 0.04-0.54 (BEAKER) (test code = 416) BASOPHILS ABSOLUTE COUNT (BEAKER) 0.05 K/ L 0.01-0.08 (test code = 417) IMMATURE GRANULOCYTES-RELATIVE 1 % 0-1 PERCENT (BEAKER) (test code = 2801) HEMOGLOBIN AND [id number] 23:02:00 Test Item Value Reference Range Interpretation Comments HEMOGLOBIN (BEAKER) (test code = 9.6 GM/DL 13.7-17.5 L 410) HEMATOCRIT (BEAKER) (test code = 27.0 % 40.1-51.0 L 411) BODY FLUID CELL COUNT WITH [id number] 21:11:00 Test Item Value Reference Range Interpretation Comments APPEARANCE FLUID (BEAKER) Slightly Hazy Clear A (test code = 510) COLOR FLUID (BEAKER) (test Yellow Colorless, Straw A code = 511) RBC FLUID (BEAKER) (test code 230 /cu mm <=1 H = 513) ADJUSTED WBC FLUID (BEAKER) 216 /cu mm <=5 H (test code = 1691) LINING CELLS (BEAKER) (test 4 /cu mm <=1 H code = 1590) NEUTROPHILS FLUID (BEAKER) 3 % (test code = 1656) LYMPHS FLUID (BEAKER) (test 76 % code = 488) MONO/MACROPHAGE FLUID (BEAKER) 21 % (test code = 489) EOSINOPHILS FLUID (BEAKER) 0 % (test code = 491) BASO FLUID (BEAKER) (test code 0 % = 492) CONTAINER BODY FLUID (BEAKER) EDTA Tube (test code = 2873) PROTEIN, BODY [id number] 19:33:00 Test Item Value Reference Range Interpretation Comments PROTEIN FLUID (BEAKER) (test code = 0.8 g/dL 579) Absence of reference range indicates that normals have not been defined.Assay performance has not been validated for this type of specimen.ALBUMIN, BODY FLUID 2018-08-05 19:33:00 Test Item Value Reference Range Interpretation Comments ALBUMIN FLUID (BEAKER) (test code = 0.4 gm/dL 501) Reference Range: No Normals Assay performance has not been validated for this type of specimen.LACTATE DEHYDROGENASE (LDH), BODY [id number] 19:31:00 Test Item Value Reference Range Interpretation Comments LACTATE DEHYDROGENASE FLUID (BEAKER) < U/L (test code = 634) Absence of reference range indicates that normals have not been defined.Assay performance has not been validated for this type of specimen.U/S, ABDOMINAL, WITH [id number] 18:58:00Reason for exam:->abdominal distension, new dx cirrhosisFINAL [...] are no focal masses. The echogenicity is in creased and heterogeneous.Spleen: The spleen measures 15.5 cm [...] hepatopedal flow. The left portal vein is well-v isualized with hepatopedal flow. Splenic vein: The splenic vein at the portal confluence is well-visualized and demonstrates hepatopedal flow. Impression:Ascites.Hepatosplenomegaly.Cirrhosis.The thickening of the gallbladder wall is likely secondary to hypoproteinemia. The gallbladder is not distended and there were no gallstones identified.Nonspecific increased resistive indices throughout thehepatic arterial circulation.Hepatopedal flow documented throughout the splenic vein and portal vein. Signed: [facility]e Cuellar [facility] Verified Date/Time: 08/05/2018 18:58:24 Reading Location: [facility] [id number] Ultrasound Reading Room VITAMIN B12 AND [id number] 14:46:00 Test Item Value Reference Range Interpretation Comments VITAMIN B12 (BEAKER) (test code = > pg/mL 213-816 H 774) FOLATE (BEAKER) (test code = 362) 1.7 ng/mL >=7.0 L [id number] 13:58:00 Test Item Value Reference Range Interpretation Comments AMMONIA (BEAKER) (test code = 348) 41 mol/L 18-72 CBC W/PLT COUNT & AUTO [id number] 06:59:00 Test Item Value Reference Range Interpretation Comments WHITE BLOOD CELL COUNT (BEAKER) 17.3 K/ L 3.5-10.5 H (test code = 775) RED BLOOD CELL COUNT (BEAKER) 2.90 M/ L 4.63-6.08 L (test code = 761) HEMOGLOBIN (BEAKER) (test code = 9.4 GM/DL 13.7-17.5 L 410) HEMATOCRIT (BEAKER) (test code = 26.7 % 40.1-51.0 L 411) MEAN CORPUSCULAR VOLUME (BEAKER) 92.1 fL 79.0-92.2 (test code = 753) MEAN CORPUSCULAR HEMOGLOBIN 32.4 pg 25.7-32.2 H (BEAKER) (test code = 751) MEAN CORPUSCULAR HEMOGLOBIN CONC 35.2 GM/DL 32.3-36.5 (BEAKER) (test code = 752) RED CELL DISTRIBUTION WIDTH 14.7 % 11.6-14.4 H (BEAKER) (test code = 412) PLATELET COUNT (BEAKER) (test code 48 K/CU MM 150-450 L = 756) MEAN PLATELET VOLUME (BEAKER) 10.9 fL 9.4-12.4 (test code = 754) NUCLEATED RED BLOOD CELLS (BEAKER) 0 /100 WBC 0-0 (test code = 413) (CELLAVISION MANUAL DIFF)2018-08-05 06:59:00 Test Item Value Reference Range Interpretation Comments NEUTROPHILS - REL 73 % (CELLAVISION)(BEAKER) (test code = 2816) LYMPHOCYTES - REL 9 % (CELLAVISION)(BEAKER) (test code = 2817) MONOCYTES - REL 8 % (CELLAVISION)(BEAKER) (test code = 2818) BANDS - REL (CELLAVISION)(BEAKER) 10 % 0-10 (test code = 2826) NEUTROPHILS - ABS 12.63 K/ul 1.78-5.38 H (CELLAVISION)(BEAKER) (test code = 2830) LYMPHOCYTES - ABS 1.56 K/ul 1.32-3.57 (CELLAVISION)(BEAKER) (test code = 2831) MONOCYTES - ABS 1.38 K/uL 0.30-0.82 H (CELLAVISION)(BEAKER) (test code = 2832) BANDS - ABS (CELLAVISION)(BEAKER) 1.73 K/uL 0.00-0.80 H (test code = 2840) TOTAL COUNTED (BEAKER) (test code 100 = 1351) PLT MORPHOLOGY (BEAKER) (test Normal code = 486) TOXIC GRANULATION (BEAKER) (test Present code = 771) ANISOCYTOSIS (BEAKER) (test code 1+ few = 961) POIKILOCYTES (BEAKER) (test code 2+ moderate = 966) TERESITA CELLS (BEAKER) (test code = 2+ moderate 474) ARTIFACT (CELLAVISION)(BEAKER) Present (test code = 3432) PLATELET CONCENTRATION Decreased (CELLAVISION)(BEAKER) (test code = 3438) Received comment: User comments: Slide comments:HEPATITIS A ANTIBODY, IGG 2018-08-05 06:10:00 Test Item Value Reference Range Interpretation Comments HEPATITIS A IGG ANTIBODY (BEAKER) Reactive Nonreactive A (test code = 2797) HEPATITIS B SURFACE [id number] 06:10:00 Test Item Value Reference Range Interpretation Comments HEPATITIS B SURFACE ANTIBODY < mIU/mL <8.0 (BEAKER) (test code = 647) HEPATITIS B SURFACE [id number] 06:05:00 Test Item Value Reference Range Interpretation Comments HEPATITIS B SURFACE ANTIGEN (2) Nonreactive Nonreactive (BEAKER) (test code = 2585) HEPATITIS B CORE ANTIBODY, [id number] 06:05:00 Test Item Value Reference Range Interpretation Comments HEPATITIS B CORE TOTAL ANTIBODY Nonreactive Nonreactive (BEAKER) (test code = 497) HEPATITIS C [id number] 05:51:00 Test Item Value Reference Range Interpretation Comments HEPATITIS C ANTIBODY (BEAKER) (test Reactive Nonreactive A code = 367) [id number] 04:58:00 Test Item Value Reference Range Interpretation Comments FERRITIN (BEAKER) (test code = 361) 548 ng/mL 5-275 H URINALYSIS W/ REFLEX URINE [id number] 04:56:00 Test Item Value Reference Range Interpretation Comments COLOR (BEAKER) (test code = 470) Yellow CLARITY (BEAKER) (test code = 469) Clear SPECIFIC GRAVITY UA (BEAKER) (test 1.013 1.001-1.035 code = 468) PH UA (BEAKER) (test code = 467) 5.5 5.0-8.0 PROTEIN UA (BEAKER) (test code = Negative Negative 464) GLUCOSE UA (BEAKER) (test code = Negative Negative 365) KETONES UA (BEAKER) (test code = Negative Negative 371) BILIRUBIN UA (BEAKER) (test code = Negative Negative 462) BLOOD UA (BEAKER) (test code = 461) Trace Negative A NITRITE UA (BEAKER) (test code = Negative Negative 465) LEUKOCYTE ESTERASE UA (BEAKER) Negative Negative (test code = 466) UROBILINOGEN UA (BEAKER) (test code 3.0 mg/dL 0.2-1.0 H = 463) RBC UA (BEAKER) (test code = 519) 2 /HPF WBC UA (BEAKER) (test code = 520) 1 /HPF HYALINE CASTS (BEAKER) (test code = 1 /LPF 514) AMORPHOUS CRYSTALS (BEAKER) (test Rare code = 1584) SOURCE(BEAKER) (test code = 2795) IRON, TIBC, % SAT. (WITHOUT FERRITIN)2018-08-05 04:49:00 Test Item Value Reference Range Interpretation Comments IRON (BEAKER) (test code = 547) 22 ug/dL 40-160 L TOTAL IRON BINDING CAPACITY 121 ug/dL 250-450 L (BEAKER) (test code = 769) IRON % SATURATION (2) (BEAKER) 18 % 20-55 L (test code = 2590) [id number] 04:44:00 Test Item Value Reference Range Interpretation Comments ALPHA-1 ANTITRYPSIN (BEAKER) 223.10 mg/dL 90.00-200.00 H (test code = 502) BASIC METABOLIC [id number] 04:38:00 Test Item Value Reference Range Interpretation Comments SODIUM (BEAKER) 131 meq/L 136-145 L (test code = 381) POTASSIUM (BEAKER) 3.6 meq/L 3.5-5.1 (test code = 379) CHLORIDE (BEAKER) 105 meq/L 98-107 (test code = 382) CO2 (BEAKER) (test 18 meq/L 22-29 L code = 355) BLOOD UREA NITROGEN 28 mg/dL 7-21 H (BEAKER) (test code = 354) CREATININE (BEAKER) 0.93 mg/dL 0.57-1.25 (test code = 358) GLUCOSE RANDOM 107 mg/dL 70-105 H (BEAKER) (test code = 652) CALCIUM (BEAKER) 7.7 mg/dL 8.4-10.2 L (test code = 697) EGFR (BEAKER) (test 86 mL/min/1.73 ESTIMA MESFIN GFR IS code = 1092) sq m NOT ACCURATE CREATININE CLEARANCE IN PREDICTING GLOMERULAR FILTRATION RATE . ESTIMATED GFR I S NOT APPLICABLE FOR DIALYSIS PATIEN TS. Specimen slightly ictericHEPATIC FUNCTION [id number] 04:37:00 Test Item Value Reference Range Interpretation Comments TOTAL PROTEIN (BEAKER) (test code = 5.8 gm/dL 6.0-8.3 L 770) ALBUMIN (BEAKER) (test code = 1145) 2.2 g/dL 3.5-5.0 L BILIRUBIN TOTAL (BEAKER) (test code 3.5 mg/dL 0.2-1.2 H = 377) BILIRUBIN DIRECT (BEAKER) (test 2.5 mg/dL 0.1-0.5 H code = 706) ALKALINE PHOSPHATASE (BEAKER) (test 96 U/L 40-150 code = 346) AST (SGOT) (BEAKER) (test code = 31 U/L 5-34 353) ALT (SGPT) (BEAKER) (test code = 16 U/L 6-55 347) Specimen slightly ictericPROTHROMBIN TIME/[id number] 04:30:00 Test Item Value Reference Range Interpretation Comments PROTIME (BEAKER) (test code = 20.3 seconds 11.7-14.7 H 759) INR (BEAKER) (test code = 370) 1.7 <=5.9 RECOMMENDED COUMADIN/WARFARIN INR THERAPY RANGESSTANDARD DOSE: 2.0 - 3.0 Includes: PROPHYLAXIS forvenous thrombosis, systemic embolization; TREATMENT for venous thrombosis and/or pulmonary embolus.HIGH RISK: Target INR is 2.5-3.5 for patients with mechanical heart valves.COMPREHENSIVE METABOLIC [id number] 23:57:00 Test Item Value Reference Range Interpretation Comments TOTAL PROTEIN 5.6 gm/dL 6.0-8.3 L (BEAKER) (test code = 770) ALBUMIN (BEAKER) 2.1 g/dL 3.5-5.0 L (test code = 1145) ALKALINE PHOSPHATASE 87 U/L 40-150 (BEAKER) (test code = 346) BILIRUBIN TOTAL 3.3 mg/dL 0.2-1.2 H (BEAKER) (test code = 377) SODIUM (BEAKER) (test 131 meq/L 136-145 L code = 381) POTASSIUM (BEAKER) 3.7 meq/L 3.5-5.1 (test code = 379) CHLORIDE (BEAKER) 105 meq/L 98-107 (test code = 382) CO2 (BEAKER) (test 19 meq/L 22-29 L code = 355) BLOOD UREA NITROGEN 28 mg/dL 7-21 H (BEAKER) (test code = 354) CREATININE (BEAKER) 0.92 mg/dL 0.57-1.25 (test code = 358) GLUCOSE RANDOM 111 mg/dL 70-105 H (BEAKER) (test code = 652) CALCIUM (BEAKER) 7.6 mg/dL 8.4-10.2 L (test code = 697) AST (SGOT) (BEAKER) 30 U/L 5-34 (test code = 353) ALT (SGPT) (BEAKER) 15 U/L 6-55 (test code = 347) EGFR (BEAKER) (test 87 mL/min/1.73 ESTIMA MESFIN GFR IS code = 1092) sq m NOT ACCURATE CREATININE CLEARANCE IN PREDICTING GLOMERULAR FILTRATION RATE . ESTIMATED GFR I S NOT APPLICABLE FOR DIALYSIS PATIEN TS. Specimen slightly ictericPT/[id number] 23:54:00 Test Item Value Reference Range Interpretation Comments PROTIME (BEAKER) (test code = 20.9 seconds 11.7-14.7 H 759) INR (BEAKER) (test code = 370) 1.8 <=5.9 PARTIAL THROMBOPLASTIN TIME 39.9 seconds 22.5-36.0 H (BEAKER) (test code = 760) RECOMMENDED COUMADIN/WARFARIN INR THERAPY RANGESSTANDARD DOSE: 2.0 - 3.0 Includes: PROPHYLAXIS forvenous thrombosis, systemic embolization; TREATMENT for venous thrombosis and/or pulmonary embolus.HIGH RISK: Target INR is 2.5-3.5 for patients with mechanical heart valves.LACTIC ACID, VENOUS, WHOLE [id number] 23:53:00 Test Item Value Reference Range Interpretation Comments LACTATE BLOOD VENOUS 1.2 mmol/L 0.5-2.2 Specime n slightly (2) (BEAKER) (test hemolyzed code = 8632) Specimen slightly ictericCBC W/PLT COUNT & AUTO [id number] 23:41:00 Test Item Value Reference Range Interpretation Comments WHITE BLOOD CELL COUNT (BEAKER) 17.8 K/ L 3.5-10.5 H (test code = 775) RED BLOOD CELL COUNT (BEAKER) 2.81 M/ L 4.63-6.08 L (test code = 761) HEMOGLOBIN (BEAKER) (test code = 9.3 GM/DL 13.7-17.5 L 410) HEMATOCRIT (BEAKER) (test code = 25.8 % 40.1-51.0 L 411) MEAN CORPUSCULAR VOLUME (BEAKER) 91.8 fL 79.0-92.2 (test code = 753) MEAN CORPUSCULAR HEMOGLOBIN 33.1 pg 25.7-32.2 H (BEAKER) (test code = 751) MEAN CORPUSCULAR HEMOGLOBIN CONC 36.0 GM/DL 32.3-36.5 (BEAKER) (test code = 752) RED CELL DISTRIBUTION WIDTH 14.6 % 11.6-14.4 H (BEAKER) (test code = 412) PLATELET COUNT (BEAKER) (test code 51 K/CU MM 150-450 L = 756) MEAN PLATELET VOLUME (BEAKER) 11.2 fL 9.4-12.4 (test code = 754) NUCLEATED RED BLOOD CELLS (BEAKER) 0 /100 WBC 0-0 (test code = 413) NEUTROPHILS RELATIVE PERCENT 79 % (BEAKER) (test code = 429) LYMPHOCYTES RELATIVE PERCENT 9 % (BEAKER) (test code = 430) MONOCYTES RELATIVE PERCENT 9 % (BEAKER) (test code = 431) EOSINOPHILS RELATIVE PERCENT 0 % (BEAKER) (test code = 432) BASOPHILS RELATIVE PERCENT 0 % (BEAKER) (test code = 437) NEUTROPHILS ABSOLUTE COUNT 14.02 K/ L 1.78-5.38 H (BEAKER) (test code = 670) LYMPHOCYTES ABSOLUTE COUNT 1.58 K/ L 1.32-3.57 (BEAKER) (test code = 414) MONOCYTES ABSOLUTE COUNT (BEAKER) 1.67 K/ L 0.30-0.82 H (test code = 415) EOSINOPHILS ABSOLUTE COUNT 0.02 K/ L 0.04-0.54 L (BEAKER) (test code = 416) BASOPHILS ABSOLUTE COUNT (BEAKER) 0.03 K/ L 0.01-0.08 (test code = 417) IMMATURE GRANULOCYTES-RELATIVE 3 % 0-1 H PERCENT (BEAKER) (test code = 2801) RAD, CHEST, 1 VIEW, NON [id number] 22:21:00Reason for exam:->SepsisShould this be performed at the bedside?->YesFINAL REPORT [...] tissues and osseous structures are intact. Signed: Sharon Pa MDReport Verified Date/Time: 08/04/2018 22:21:18 Reading Location: [facility] C013T [facility] Reading Room
[2021-08-23] MEDS ORDERED: NA CHLORIDE 0.9% 2,000 ML ONE (13:43)
[2021-08-23 13:48] LABS: Hematocrit 26.7 % (39.6-49.0); Lymphocytes % 5.2 % (15.3-44.8); MPV 8.5 fL (7.6-11.3); RBC Red Blood Cell Count 2.76 M/uL (4.33-5.43)
[2021-08-23] MEDS ORDERED: FENTANYL CITR 100 MCG/2 ML ONE (13:51)
[2021-08-23] MEDS ORDERED: PANTOPRAZOLE 40 MG INJ ONE (13:51)
[2021-08-23] MEDS ORDERED: ONDANSETRON 4 MG/2 ML VIAL ONE (13:51)
[2021-08-23] MEDS ORDERED: PIPERACIL/TAZO 3.375 GM VIAL IV ONE (13:59)
[2021-08-23] MEDS ORDERED: LIDOCAINE VISCOUS 2% SOLN 15 ML UDC ONE (13:59)
[2021-08-23] MEDS ORDERED: NA CHLORIDE 0.9% 100 ML ONE (13:59)
[2021-08-23 14:06] LABS: Protime INR 7.37
[2021-08-23 14:17] LABS: Blood Morphology Comment NOT SEEN (NOT SEEN); Platelet Estimate DECR
--- NOTE | 2021-08-23 14:41 | RAD REPORT ---
EXAM DESCRIPTION: RAD - Chest Single View - 08/23/2021 2:24 pm CLINICAL HISTORY: CHEST PAIN COMPARISON: Chest Single View dated 08/04/2018 FINDINGS: Lines: None. Lungs: Airspace disease bilaterally though right greater than left is noted. Pleural: No significant pleural effusions or pneumothorax. Cardiac: The heart size is within normal limits. Bones: No acute fractures. Other: IMPRESSION: Airspace disease, right greater than left, could reflect pneumonia in the appropriate cl inical setting.
--- NOTE | 2021-08-23 14:49 | ER ---
Nurse's Notes [facility] Name: Gorge Ross Age: 55 yrs Sex: Male : 1965 Arrival Date: 08/23/2021 Time: 13:26 Bed 2 Private MD: Diagnosis: Severe sepsis with septic shock-DNR;Alcoholic cirrhosis of liver with ascites;Anemia, unspecified;Hypotension, unspecified;Elevated white blood cell count;Abnormal coagulation profile;Chronic atrial fibrillation;Acute kidney failure, unspecified-ON CHRONIC;Hepatic failure, unspecified without coma;Biliary acute pancreatitis;Encephalopathy, unspecified-hepatic Presentation: 08/23 13:26 Chief complaint: EMS states: they were called to the patients home by his for ap3 abdominal pain. On arrival EMS states that they were unable to detect a radial pulse, and BP was 40/--. EMS initiated a 18g right EJ and started a liter of NS. EMS then initiated Levophed at 24mcg. It is reported the patients BGL read as "low" and they administered 25g of D10 which brought the BGL to 25. reported to EMS that the patient has not been eating or drinking in a few days. Coronavirus screen: At this time, the client does not indicate any symptoms associated with coronavirus-19. Ebola Screen: No symptoms or risks identified at this time. Initial Sepsis Screen:. Risk Assessment: Do you want to hurt yourself or someone else? Patient reports no desire to harm self or others. Onset of symptoms was August 20, 2021. 13:26 Method Of Arrival: EMS: [facility] ap3 13:26 Acuity: FAITH 2 ap3 15:21 Initial Sepsis Screen: Does the patient meet any 2 criteria? RR > 20 per min. Systolic ll1 BP < 90 mmHg. Altered Mental Status. HR > 90 bpm. Yes Does the patient have a suspected source of infection? Yes: Acute abdominal pain. Triage Assessment: 13:32 General: Appears distressed, Behavior is listless. Pain: Complains of pain in abdomen. ap3 Neuro: Level of Consciousness is awake, listless, Oriented to person, place. Derm: Skin is jaundiced, yellow. Historical: - Home Meds: 13:31 Lasix 40 mg Oral tab 1 tab once daily [Active]; midodrine 10 mg oral tab [Active]; ap3 magnesium oxide 400 mg magnesium Oral tab [Active]; folic acid 1 mg Oral tab [Active]; ursodiol 300 mg Oral cap [Active]; - PMHx: 13:31 Cirrhosis; Hypertension; ap3 - Immunization history:: Adult Immunizations up to date. - Social history:: Smoking status: Patient/guardian denies using tobacco. - Family history:: not pertinent. Screenin:40 Abuse screen: Denies threats or abuse. Nutritional screening: No deficits noted. ap3 Tuberculosis screening: No symptoms or risk factors identified. Fall Risk Secondary diagnosis (15 points) impaired mobility, IV access (20 points). Ambulatory Aid- None/Bed Rest/Nurse Assist (0 pts). Gait- Impaired (20 pts.). Mental Status- Overestimates/Forgets Limitations (15 pts.). Total Limon Fall Scale indicates High Risk Score (45 or more points). Fall prevention measures have been instituted. Side Rails Up X 2 Placed Close to Nursing Station Frequent Obs/Assessments Occuring Family Present and informed to notify staff if the need to leave the bedside As available patient and family educated on Fall Prevention Program and Strategies. Assessment: 14:22 General: Appears distressed, uncomfortable, malnourished, cachectic, Behavior is ll1 cooperative, appropriate for age, listless. Pain: Complains of pain in abdomen Pain Quality of pain is described as aching, Is continuous. Neuro: No deficits noted. Cardiovascular: No deficits noted. Respiratory: No deficits noted. GI: Abdomen is round distended, Bowel sounds present X 4 quads. Abdomen is tender to palpation X 4 quads. Abd is rigid. Derm: Skin is jaundiced, yellow. 15:14 Reassessment: No changes from previously documented assessment. Patient and/or family ll1 updated on plan of care and expected duration. Pain level reassessed. 15:39 Reassessment: No changes from previously documented assessment. Patient and/or family ll1 updated on plan of care and expected duration. Pain level reassessed. 16:23 Reassessment: No changes from previously documented assessment. Patient and/or family ll1 updated on plan of care and expected duration. Pain level reassessed. 17:16 Reassessment: No changes from previously documented assessment. Patient and/or family ll1 updated on plan of care and expected duration. Pain level reassessed. 18:02 Reassessment: No changes from previously documented assessment. Patient and/or family ll1 updated on plan of care and expected duration. Pain level reassessed. family informed of room number.. Vital Signs: 13:26 BP 81 / 39; Weight 80 kg; Height 6 ft. (182.88 cm); ap3 13:34 Pulse 85; Pulse Ox 96% on R/A; ap3 13:34 BP 79 / 52; ap3 14:32 BP 61 / 32; Pulse 89; Resp 19; Pulse Ox 97% ; ll3 14:37 Temp 97.0(TE); dh3 15:14 BP 53 / 33; Pulse 90; Resp 16; ll1 15:20 BP 47 / 34; Pulse 80; Resp 16; ll1 15:30 BP 50 / 32; Pulse 81; Resp 14; ll1 15:38 BP 59 / 31; Pulse 79; Resp 13; ll1 16:48 BP 46 / 39; Pulse 80; Resp 13; ll1 17:15 BP 44 / 32; Pulse 76; Resp 15; ll1 18:04 BP 38 / 24; Pulse 77; Resp 14; ll1 13:26 Body Mass Index 23.92 (80.00 kg, 182.88 cm) ap3 ED Course: 13:26 Patient arrived in ED. ap3 13:31 Triage completed. ap3 13:32 Arm band placed on Patient placed in an exam room, on a stretcher. bp 13:32 Inserted saline lock: 18 gauge in left antecubital area, using aseptic technique. Blood bp collected. 13:34 Patient has correct armband on for positive identification. Bed in low position. Call ap3 light in reach. Side rails up X2. Adult w/ patient. panel monitor on. Pulse ox on. NIBP on. Door closed. Noise minimized. 13:38 Yan Garcia MD is Attending Physician. kristin 14:06 Rand Feng RN is Primary Nurse. ll3 14:24 Chest Single View XRAY In Process Unspecified. EDMS 14:33 Khan cath inserted, using sterile technique, 16 Fr., by mn, balloon inflated, to dh4 gravity drainage. 14:41 Serge Hansen MD is Hospitalizing Provider. kristin 18:02 No provider procedures requiring assistance completed. Patient admitted, IV remains in ll1 place. Administered Medications: 13:55 Drug: ProTONIX (pantoprazole) 40 mg Route: IVP; Site: right jugular; iw 14:21 Follow up: Response: No adverse reaction ll1 13:56 Drug: fentaNYL (PF) 25 mcg Route: IVP; Site: right jugular; iw 14:21 Follow up: Response: No adverse reaction ll1 13:56 Drug: Zofran (Ondansetron) 4 mg Route: IVP; Site: right jugular; iw 14:20 Follow up: Response: No adverse reaction ll1 14:15 Drug: Zosyn (piperacillin-tazobactam) 3.375 grams Route: IVPB; Infused Over: 60 mins; ll1 Site: right jugular; 18:03 Follow up: Response: No adverse reaction; IV Status: Completed infusion; IV Intake: ll1 100ml 14:17 Drug: fentaNYL (PF) 25 mcg Route: IVP; Site: right jugular; bp 14:21 Follow up: Response: No adverse reaction ll1 14:17 Drug: Viscous Lidocaine Liquid (4 %) 5 ml Route: Mucous Membrane; bp 14:20 Follow up: Response: No adverse reaction ll1 15:13 Drug: Ativan (LORazepam) 1 mg Route: IVP; Site: right jugular; ll1 16:49 Follow up: Response: No adverse reaction; Anxiety decreased ll1 15:13 Drug: Dilaudid (HYDROmorphone) 0.5 mg Route: IVP; Site: right jugular; ll1 16:49 Follow up: Response: No adverse reaction; Pain is decreased; RASS: Light sedation (-2) ll1 Intake: 18:03 IV: 100ml; Total: 100ml. ll1 Outcome: 14:48 Decision to Hospitalize by Provider. kristin 18:03 Admitted to ICU accompanied by nurse, family with patient, via stretcher, room icu 6, ll1 with chart, Report called to Krysta Huang RN. 18:03 Condition: deteriorated 18:03 Instructed on the need for admit. 18:29 Patient left the ED. ll1 Signatures: Dispatcher [employer] EDMS Yan Garcia MD MD cha Williams, Irene, RN RN Shell Alfonso 3 Kentrell Catalan RN RN Shanell Riojas RN RN [facility] [employer] [facility] Yousuf Muller RN RN ll1 Rand Feng RN RN ll3 Corrections: (The following items were deleted from the chart) 15:21 15:14 Reassessment: No changes from previously documented assessment. Patient and/or ll1 family updated on plan of care and expected duration. Pain level reassessed. Patient is alert, oriented x 3, equal unlabored respirations, skin warm/dry/pink. ll1
--- NOTE | 2021-08-23 14:49 | EDPHYS ---
Physician Documentation [facility] [place] [place] Name: Gorge Ross Age: 55 yrs Sex: Male : 1965 Arrival Date: 08/23/2021 Time: 13:26 Bed 2 Private MD: ED Physician Yan Garcia HPI: 08/23 14:29 This 55 yrs old Male presents to ER via EMS with complaints of END STAGE kristin LIVER DISEASE. 14:29 The patient has shortness of breath at rest. Onset: The symptoms/episode began/occurred kristin 3 day(s) ago. Duration: The symptoms are continuous, and are steadily getting worse. The patient's shortness of breath is aggravated by nothing, is alleviated by nothing. The patient's problem is reported as altered mental status, disoriented to self, place, time, confused, decreased responsiveness. Duration: The episode is continuous. The symptoms are alleviated by nothing. The symptoms are aggravated by standing. Historical: - Home Meds: 13:31 Lasix 40 mg Oral tab 1 tab once daily [Active]; midodrine 10 mg oral tab [Active]; ap3 magnesium oxide 400 mg magnesium Oral tab [Active]; folic acid 1 mg Oral tab [Active]; ursodiol 300 mg Oral cap [Active]; - PMHx: 13:31 Cirrhosis; Hypertension; ap3 - Immunization history:: Adult Immunizations up to date. - Social history:: Smoking status: Patient/guardian denies using tobacco. - Family history:: not pertinent. ROS: 14:29 Unable to obtain ROS due to obtunded state. kristin Exam: 14:29 Constitutional: The patient appears lethargic, in obvious distress, moderately kristin distressed. 14:29 ENT: GROSS JAUNDICE. 14:29 Cardiovascular: Rate: normal, actual rate is 92 bpm, Rhythm: irregularly irregular, JVD: is noted bilaterally, to the angle of the jaw. 14:29 ECG was reviewed by the Attending Physician. 14:29 Abdomen/GI: Inspection: distension, Bowel sounds: diminished, Hernia: not appreciated. 14:29 Skin: Appearance: Color: jaundiced, Temperature: normal temperature, Moisture: normal moisture, petechiae, not noted, swelling, noted on the right leg and left leg. Vital Signs: 13:26 BP 81 / 39; Weight 80 kg; Height 6 ft. (182.88 cm); ap3 13:34 Pulse 85; Pulse Ox 96% on R/A; ap3 13:34 BP 79 / 52; ap3 14:32 BP 61 / 32; Pulse 89; Resp 19; Pulse Ox 97% ; ll3 14:37 Temp 97.0(TE); dh3 15:14 BP 53 / 33; Pulse 90; Resp 16; ll1 15:20 BP 47 / 34; Pulse 80; Resp 16; ll1 15:30 BP 50 / 32; Pulse 81; Resp 14; ll1 15:38 BP 59 / 31; Pulse 79; Resp 13; ll1 16:48 BP 46 / 39; Pulse 80; Resp 13; ll1 17:15 BP 44 / 32; Pulse 76; Resp 15; ll1 18:04 BP 38 / 24; Pulse 77; Resp 14; ll1 13:26 Body Mass Index 23.92 (80.00 kg, 182.88 cm) ap3 MDM: 13:39 Patient medically screened. kristin 14:52 Differential diagnosis: Anemia Dementia, metabolic disorder, drug effects, pneumonia, kristin pulmonary edema, Sepsis. Antibiotic administration: ZOSYN. Differential Diagnosis altered mental status, sepsis, flu. Differential Diagnosis: electrolyte abnormality, hypoglycemia, pneumonia, sepsis, volume depletion. The patient's Wells Deep Vein Thrombosis Score was calculated as follows: Total Score: 0-2 Pts- Low Risk. The patient's pulmonary embolism risk score was calculated as follows: Total Score: 0-2 points. This patient was found to be at low risk for a pulmonary embolism by using the Well's assessment criteria. Data reviewed: vital signs, nurses notes, EMS record, lab test result(s), EKG, radiologic studies, plain films. Data interpreted: digital marketing assistant: rate is 89 beats/min, rhythm is atrial fibrillation, Pulse oximetry: on room air is 97 %. Test interpretation: by ED physician or midlevel provider: ECG, plain radiologic studies. Counseling: I had a detailed discussion with the patient and/or guardian regarding: the historical points, exam findings, and any diagnostic results supporting the discharge/admit diagnosis, lab results, radiology results, the need for further work-up and treatment in the hospital. 08/23 13:33 Order name: Amylase, Serum; Complete Time: 16:04 bp 08/23 13:33 Order name: Basic Metabolic Panel; Complete Time: 16:04 bp 08/23 13:33 Order name: Blood Culture Adult (2) bp 08/23 13:33 Order name: CBC with Diff; Complete Time: 14:40 bp 08/23 13:33 Order name: CPK; Complete Time: 16:04 bp 08/23 13:33 Order name: Ckmb; Complete Time: 16:04 bp 08/23 13:33 Order name: LFT's; Complete Time: 16:04 bp 08/23 13:33 Order name: Lactate; Complete Time: 14:40 bp 08/23 13:33 Order name: Lipase; Complete Time: 16:04 bp 08/23 13:33 Order name: Procalcitonin; Complete Time: 14:40 bp 08/23 13:33 Order name: Protime (+inr); Complete Time: 14:40 bp 08/23 13:33 Order name: Ptt, Activated; Complete Time: 14:40 bp 08/23 13:33 Order name: Troponin (emerg Dept Use Only); Complete Time: 16:04 bp 08/23 13:33 Order name: Chest Single View XRAY; Complete Time: 16:04 bp 08/23 13:33 Order name: Cardiac monitoring; Complete Time: 13:54 bp 08/23 13:53 Order name: AMMONIA; Complete Time: 16:04 kristin 08/23 13:53 Order name: COVID-19/FLU A+B/RSV (Document "Date of Onset" if Symptomatic); Complete kristin Time: 16:04 08/23 14:17 Order name: Manual Differential; Complete Time: 14:40 EDMS 08/23 14:39 Order name: Urinalysis W/Microscopic; Complete Time: 16:04 EDMS 08/23 18:13 Order name: Lactate Sepsis 2 HR Follow-up EDMS 08/23 13:33 Order name: EKG - Nurse/Tech; Complete Time: 13:54 bp 08/23 13:33 Order name: IV Saline Lock - Large Bore; Complete Time: 13:54 bp 08/23 13:33 Order name: Labs collected and sent; Complete Time: 13:55 bp 08/23 13:33 Order name: O2 Per Protocol; Complete Time: 13:55 bp 08/23 13:33 Order name: O2 Sat Monitoring; Complete Time: 13:55 bp 08/23 13:33 Order name: Urine Dipstick-Ancillary (obtain specimen); Complete Time: 16:48 bp 08/23 13:57 Order name: Khan; Complete Time: 14:17 kristin EC:29 Rate is 92 beats/min. Rhythm is irregularly irregular. QRS [place] is Normal. ND interval kristin is normal. QRS interval is prolonged. QT interval is normal. No Q waves. T waves are Normal. Clinical impression: Atrial Fibrillation. Interpreted by me. Reviewed by me. Administered Medications: 13:55 Drug: ProTONIX (pantoprazole) 40 mg Route: IVP; Site: right jugular; iw 14:21 Follow up: Response: No adverse reaction ll1 13:56 Drug: fentaNYL (PF) 25 mcg Route: IVP; Site: right jugular; iw 14:21 Follow up: Response: No adverse reaction ll1 13:56 Drug: Zofran (Ondansetron) 4 mg Route: IVP; Site: right jugular; iw 14:20 Follow up: Response: No adverse reaction ll1 14:15 Drug: Zosyn (piperacillin-tazobactam) 3.375 grams Route: IVPB; Infused Over: 60 mins; ll1 Site: right jugular; 18:03 Follow up: Response: No adverse reaction; IV Status: Completed infusion; IV Intake: ll1 100ml 14:17 Drug: fentaNYL (PF) 25 mcg Route: IVP; Site: right jugular; bp 14:21 Follow up: Response: No adverse reaction ll1 14:17 Drug: Viscous Lidocaine Liquid (4 %) 5 ml Route: Mucous Membrane; bp 14:20 Follow up: Response: No adverse reaction ll1 15:13 Drug: Ativan (LORazepam) 1 mg Route: IVP; Site: right jugular; ll1 16:49 Follow up: Response: No adverse reaction; Anxiety decreased ll1 15:13 Drug: Dilaudid (HYDROmorphone) 0.5 mg Route: IVP; Site: right jugular; ll1 16:49 Follow up: Response: No adverse reaction; Pain is decreased; RASS: Light sedation (-2) ll1 Disposition Summary: 08/23/21 14:48 Hospitalization Ordered Hospitalization Status: Inpatient Admission kristin Provider: Serge Hansen cha Condition: Critical kristin Problem: new kristin Symptoms: have improved kristin Bed/Room Type: Standard kristin Location: Intensive Care Unit(08/23/21 17:45) dw Room Assignment: 6-(08/23/21 17:45) dw Diagnosis - Severe sepsis with septic shock - DNR kristin - Alcoholic cirrhosis of liver with ascites kristin - Anemia, unspecified kristin - Hypotension, unspecified kristin - Elevated white blood cell count kristin - Abnormal coagulation profile kristin - Chronic atrial fibrillation kristin - Acute kidney failure, unspecified - ON CHRONIC kristin - Hepatic failure, unspecified without coma kristin - Biliary acute pancreatitis kristin - Encephalopathy, unspecified - hepatic kristin Forms: - Medication Reconciliation Form kristin - SBAR form kristin Signatures: Dispatcher [employer] EDMS Leora Sanchez RN RN dw Anderson, Corey, MD MD cha Williams, Irene RN EVANGELISTA iw Kentrell Catalan RN RN Shanell Figueroa RN RN [email or web address] Yousuf Muller RN RN ll1 Rand Feng RN RN ll3 Corrections: (The following items were deleted from the chart) 14:43 13:34 UA MICROSCOPIC+U.LAB.BRZ ordered. EDMS EDMS 16:48 13:33 Accucheck ordered. bp ll1 17:45 14:48 Telemetry/MedSurg (Inpatient) kristin dw 17:45 14:48 kristin dw
[2021-08-23 14:54] LABS: Urine Appearance CLOUDY (Clear); Urine Blood TRACE (Negative); Urine Color ORANGE (Yellow); Urine Glucose NEGATIVE (Negative); Urine Protein NEGATIVE (Negative); Urine Specific Gravity 1.015 (1.005-1.030); Urine Urobilinogen 0.2 mg/dL (0.2-1.0); Urine pH 5.5 (5.0-7.0)
[2021-08-23 14:57] LABS: Albumin 0.9 g/dL (3.4-5.0); Alkaline Phosphatase 127 U/L (45-117); BUN Blood Urea Nitrogen 134 mg/dL (7-18); Bilirubin Direct 11.7 mg/dL (0-0.2); Creatine Phosphokinase 462 U/L (39-308); Glucose Level 110 mg/dL (74-106); Lipase 13135 U/L (73-393); Potassium 4.5 mmol/L (3.5-5.1); Sodium Level 136 mmol/L (136-145); Troponin (Emerg Dept Use Only) 0.06 ng/mL (0.0-0.045)
[2021-08-23 14:59] LABS: ALT/SGPT 436 U/L (12-78); AST/SGOT 3704 U/L (15-37); Amylase 570 U/L (25-115); Bicarbonate 11 mmol/L (21-32); Bilirubin Total 14.9 mg/dL (0.2-1.0); CKMB Creatine Kinase MB 14.2 ng/mL (1.0-3.6)
[2021-08-23] MEDS ORDERED: LORazepam 2 MG/ML VIAL ONE (15:04)
[2021-08-23] MEDS ORDERED: HYDROMORPHONE HCL 1 MG/ML INJ ONE (15:05)
[2021-08-23 15:07] LABS: Urine Bilirubin 3+ (Negative)
[2021-08-23 15:10] LABS: Urine Bacteria <20 /HPF (NONE SEEN); Urine RBC <5 /HPF (NONE SEEN)
[2021-08-23 15:15] LABS: SARS-COV-2 RT PCR NEGATIVE (NEGATIVE)
--- NOTE | 2021-08-23 16:29 | P.HP ---
Certification for Inpatient Patient admitted to: Inpatient With expected LOS: <2 Midnights Practitioner: I am a practitioner with admitting privileges, knowledge of patient current condition, hospital course, and medical plan of care. Services: Services provided to patient in accordance with Admission requirements found in Title 42 Section 412.3 of the Code of Federal Regulations Patient History Date of Service: 08/23/21 Reason for admission: Liver failure, septic shock History of Present Illness: 55-year-old male, PMH: Liver cirrhosis, hypertension, cancer. Presents to the ER via EMS due to progressively worsening altered mental status, p.o. intake, and "liver disease". Patient is unresponsive. He was found unresponsive at home, EMS noted his blood glucose levels read as low, and subsequently up to 25. He was noted to be severely hypotensive. He was started on Levophed. Patient's is at the bedside, states that he has been in and out of the hospital over the last month, and his liver disease has been progressively worsening over the last several months, recently diagnosed with cancer. ER physician had long discussion with patient's , who stated at this point, the patient would want to be DNR and made comfort measures only. He has found to have a severe leukocytosis, lactic acidosis, hyperbilirubinemia, significantly elevated lipase, and acute renal failure. Unclear of the exact etiology, patient was requiring pressors, but the requested for this to be stopped, to be in line with comfort measures. At the time of my evaluation his MAPs were in the 50s. states he is too much to care for at home right now and will like to proceed with inpatient comfort measures/possibly hospice. - Past Medical/Surgical History -: Liver cirrhosis -: Hypertension Past Surgical History: Unable to obtain - Family History Family History: Reviewed- Non-Contributory (Unable to be obtained) - Social History Smoking Status: Unknown if ever smoked Alcohol use: Yes Place of Residence: Home Review of Systems 10-point ROS is otherwise unremarkable Physical Examination - Physical Exam General: Unresponsive HEENT: Scleral icterus Respiratory: Diminished, Crackles/rales (At bases bilaterally) Cardiovascular: Regular rate/rhythm, Edema Gastrointestinal: Soft and benign, Ascites Musculoskeletal: No swelling Integumentary: No breakdown, Other (Jaundiced) Neurological: Other (Unresponsive, does not follow commands) - Studies Laboratory Data (last 24 hrs) 08/23/21 13:30: PT 86.5 H, INR 7.37 H*, APTT 65.7 H 08/23/21 13:30: WBC 19.00 H, Hgb 8.7 L, Hct 26.7 L, Plt Count 109 L 08/23/21 13:30: Sodium 136, Potassium 4.5, BUN 134 H, Creatinine 5.24 H*, Glucose 110 H, Total Bilirubin 14.9 H*, AST 3704 H*, ALT 436 H*, Alkaline Phosphatase 127 H, Amylase 570 H*, Lipase 42642 H Assessment and Plan - Advance Directives Does patient have a Living Will: No Does patient have a Durable POA for Healthcare: No Physician Review Additional Text: Problem list Severe sepsis with septic shock, secondary to pneumonia, possible SBP End-stage liver disease Hyperbilirubinemia Hypertension Lactic acidosis Patient appears to be in end-stage renal disease, no possibly with shock liver secondary to septic shock Chest x-ray concerning for pneumonia reports patient not been eating well last few days, did report some abdominal pain. Concern for SBP Reviewed with , states patient would want to be comfort measures only. Admit patient to Med/Surg bed, with comfort measures/pain medicationmorphine and Ativan as needed Patient with hypotension and currently unresponsive Poor prognosis, will likely pass within 24 hours This was all reviewed with the patient's , she stated she would let the rest of his family know. Time Spent Managing Pts Care (In Minutes): 60
[2021-08-23 18:39] VITALS: BP 80/57
[2021-08-23 18:43] VITALS: BMI 16.9
[2021-08-23 19:17] VITALS: O2SAT 97
[2021-08-23 19:18] VITALS: TEMP 97
--- NOTE | 2021-08-24 01:02 | P.DS ---
Admission Date: 08/23/21 Discharge Date: 08/24/21 Reason for Admission: Liver failure, septic shock Consultations: none Brief History of Present Illness: 55-year-old male, PMH: Liver cirrhosis, hypertension, cancer. Presents to the ER via EMS due to progressively worsening altered mental status, p.o. intake, and "liver disease". Patient is unresponsive. He was found unresponsive at home, EMS noted his blood glucose levels read as low, and subsequently up to 25. He was noted to be severely hypotensive. He was started on Levophed. Patient's is at the bedside, states that he has been in and out of the hospital over the last month, and his liver disease has been progressively worsening over the last several months, recently diagnosed with cancer. ER physician had long discussion with patient's , who stated at this point, the patient would want to be DNR and made comfort measures only. He has found to have a severe leukocytosis, lactic acidosis, hyperbilirubinemia, significantly elevated lipase, and acute renal failure. Unclear of the exact etiology, patient was requiring pressors, but the requested for this to be stopped, to be in line with comfort measures. At the time of my evaluation his MAPs were in the 50s. states he is too much to care for at home right now and will like to proceed with inpatient comfort measures/possibly hospice. Hospital Course: Pt was admitted for comfort measures given complex medical history and severe septic shock. A few hours after admission pt with family at bedside. May he rest in peace. <Jakob Alfonso - Last Filed: 08/24/21 00:59> Admission Date: 08/23/21 Discharge Date: 08/23/21 Hospital Course: Patient passed at 1930 on 08/23/21 <Serge Hansen - Last Filed: 08/24/21 05:47> Disposition: Discharge Condition: Vital Signs/Physical Exam: Temp Pulse Resp BP Pulse Ox 97.0 F 82 11 L 80/57 L 08/23/21 14:37 08/23/21 18:25 08/23/21 18:25 08/23/21 18:25 General: Unresponsive HEENT: Scleral icterus Neck: Other (no palpable carotid pulse) Laboratory Data at Discharge: WBC 19.00 K/uL (4.3-10.9) H 08/23/21 13:30 Hgb 8.7 g/dL (13.6-17.9) L 08/23/21 13:30 Hct 26.7 % (39.6-49.0) L 08/23/21 13:30 Plt Count 109 K/uL (152-406) L 08/23/21 13:30 PT 86.5 SECONDS (9.5-12.5) H 08/23/21 13:30 INR 7.37 H* 08/23/21 13:30 APTT 65.7 SECONDS (24.3-36.9) H 08/23/21 13:30 Sodium 136 mmol/L (136-145) 08/23/21 13:30 Potassium 4.5 mmol/L (3.5-5.1) 08/23/21 13:30 BUN 134 mg/dL (7-18) H 08/23/21 13:30 Creatinine 5.24 mg/dL (0.55-1.3) H* 08/23/21 13:30 Glucose 110 mg/dL (74-106) H 08/23/21 13:30 Total Bilirubin 14.9 mg/dL (0.2-1.0) H* 08/23/21 13:30 AST 3704 U/L (15-37) H* 08/23/21 13:30 ALT 436 U/L (12-78) H* 08/23/21 13:30 Alkaline Phosphatase 127 U/L (45-117) H 08/23/21 13:30 Amylase 570 U/L (25-115) H* 08/23/21 13:30 Lipase 57456 U/L (73-393) H 08/23/21 13:30 <Jakob Alfonso - Last Filed: 08/24/21 00:59> Vital Signs/Physical Exam: Temp Pulse Resp BP Pulse Ox 97.0 F 82 11 L 80/57 L 08/23/21 14:37 08/23/21 18:25 08/23/21 18:25 08/23/21 18:25 Laboratory Data at Discharge: WBC 19.00 K/uL (4.3-10.9) H 08/23/21 13:30 Hgb 8.7 g/dL (13.6-17.9) L 08/23/21 13:30 Hct 26.7 % (39.6-49.0) L 08/23/21 13:30 Plt Count 109 K/uL (152-406) L 08/23/21 13:30 PT 86.5 SECONDS (9.5-12.5) H 08/23/21 13:30 INR 7.37 H* 08/23/21 13:30 APTT 65.7 SECONDS (24.3-36.9) H 08/23/21 13:30 Sodium 136 mmol/L (136-145) 08/23/21 13:30 Potassium 4.5 mmol/L (3.5-5.1) 08/23/21 13:30 BUN 134 mg/dL (7-18) H 08/23/21 13:30 Creatinine 5.24 mg/dL (0.55-1.3) H* 08/23/21 13:30 Glucose 110 mg/dL (74-106) H 08/23/21 13:30 Total Bilirubin 14.9 mg/dL (0.2-1.0) H* 08/23/21 13:30 AST 3704 U/L (15-37) H* 08/23/21 13:30 ALT 436 U/L (12-78) H* 08/23/21 13:30 Alkaline Phosphatase 127 U/L (45-117) H 08/23/21 13:30 Amylase 570 U/L (25-115) H* 08/23/21 13:30 Lipase 74476 U/L (73-393) H 08/23/21 13:30 <Serge Hansen - Last Filed: 08/24/21 05:47> Time spent managing pt's care (in minutes): 20 <Jakob Alfonso - Last Filed: 08/24/21 00:59> <Serge Hansen - Last Filed: 08/24/21 05:47> Physician Discharge Instructions: Rest in peace Followup: NONE,NONE [Primary Care Provider] -
== END 2021-08-23 21:40 | disposition expired ==
LOC: ER 13:25 → ERHOLD 16:01 → 3RD-ICU 17:59
PROVIDERS: ADMIT Hospitalist; ATTEND Hospitalist
DX: R65.21 Severe sepsis with septic shock (principal); Z66 Do not resuscitate; K72.10 Chronic hepatic failure without coma; I10 Essential (primary) hypertension; E87.2 Acidosis; E80.6 Other disorders of bilirubin metabolism; C80.1 Malignant (primary) neoplasm, unspecified; K85.10 Biliary acute pancreatitis without necrosis or infection; D64.9 Anemia, unspecified; I48.20 Chronic atrial fibrillation, unspecified; R18.8 Other ascites; Z20.822 Contact with and (suspected) exposure to COVID-19
CPT/HCPCS: 0241U; 36415; 51702; 71045; 80048; 80076; 81001; 82140; 82150; 82550; 82553; 83605; 83690; 84145; 84484; 85025; 85610; 85730; 87040; 87077; 87186; 87205; 93005; 96365; 96366; 96375; 99285; C9113; G0378; J1170; J2405; J2543; J3010; J7030